=== PATIENT | female | born 1935 | race Caucasian/White ===

== ENCOUNTER → 2016-06-28 | Outpatient (CLI) | payer MEDICARE, OTHER ==
[~2016-06-28] MED LIST: BUME1TAB17 PO; CALC600T71 PO; CARB1TAB53 PO; DIGO125T PO; FEXO-11 PO; FLUT16SP2 EA NOSTRIL; GUAI600T PO; LACT1CAP73 PO; LEVO50TA69 PO; MAGN400C PO; METO-492 PO; MULT-795 PO; OMEP20CA4 PO; PHEN100C84 PO; POTA20TA10 PO; RASA1TAB PO; TRAM50TA4 PO; WARF3TAB27 PO; [UNRECOGNIZED DRUG - CODE] PO
[2016-06-28 07:19] LABS: INR 2.61 (0.76-1.04); PROTHROMBIN TIME 28.5 SEC (9.31-12.49)
== END ==
LOC: LABNH.BH 00:10
PROVIDERS: ATTEND Internal Medicine
DX: I48.0 Paroxysmal atrial fibrillation (principal)
CPT/HCPCS: 36415; 85610; P9604

== ENCOUNTER → 2016-07-26 | Outpatient (CLI) | payer MEDICARE, OTHER ==
[2016-07-26 08:01] LABS: INR 3.15 (0.76-1.04); PROTHROMBIN TIME 34.3 SEC (9.31-12.49)
== END ==
LOC: LABNH.BH 00:32
PROVIDERS: ATTEND Internal Medicine
DX: I48.0 Paroxysmal atrial fibrillation (principal)
CPT/HCPCS: 36415; 85610; P9604

== ENCOUNTER → 2016-08-06 | Outpatient (CLI) | payer MEDICARE, OTHER ==
[2016-08-06 06:33] LABS: HCT - HEMATOCRIT 37.2 % (36-46); HGB - HEMOGLOBIN 12.1 GM/DL (12-16); MEAN CORPUSCULAR HGB 32.6 UUG (26-34); MEAN CORPUSCULAR HGB CONC(MCHC 32.5 GM/DL (31-37); MEAN CORPUSCULAR VOLUME 100.3 UM3 (80-100); MEAN PLATELET VOLUME 9.6 UM3 (9.4-12.4); RED BLOOD COUNT 3.71 M/MM3 (4.00-5.20); WBC - WHITE BLOOD COUNT 4.8 T/MM3 (4.5-11.0)
[2016-08-06 06:45] LABS: ALBUMIN 3.4 G/DL (3.5-5.0); ALBUMIN/GLOBULIN RATIO 1.4 RATIO (1.1-2.2); ALKALINE PHOSPHATASE 47 U/L (38-126); ALT (SGPT) 31 U/L (9-52); ANION GAP 8 MEQ/L (5-15); AST (SGOT) 15 U/L (14-36); BUN/CREATININE RATIO 15 RATIO (6-26); CALCIUM 8.6 MG/DL (8.4-10.2); CHLORIDE 97 MEQ/L (98-107); CO2 - CARBON DIOXIDE 30 MEQ/L (22-30); CREATININE 1.3 MG/DL (0.7-1.2); GLOMERULAR FILTRATION RATE 39; GLUCOSE 82 MG/DL (65-110); POTASSIUM 4.6 MEQ/L (3.6-5); SODIUM 135 MEQ/L (134-144); TOTAL PROTEIN 5.8 G/DL (6.3-8.2)
[2016-08-06 07:55] LABS: LYMPHOCYTES # (MANUAL) 1.8 T/MM3 (1-4.8); MONOCYTES # (MANUAL) 0.5 T/MM3 (0-0.8); NEUTROPHILS #(MANUAL)-ABSOLUTE 2.5 T/MM3 (1.8-7.7); TOTAL CELLS COUNTED 100 %
[2016-08-07 00:57] LABS: VLDL CHOLESTEROL 29.6 MG/DL (0-28)
[2016-08-07 10:49] LABS: LDL CHOLESTEROL,CALCULATED 60.4 (66-159); RISK FACTOR 2.8 RATIO (0-4.0)
== END ==
LOC: LABNH.BH 00:55
PROVIDERS: ATTEND Internal Medicine
DX: E03.9 Hypothyroidism, unspecified (principal); D64.9 Anemia, unspecified; I10 Essential (primary) hypertension; I25.10 Atherosclerotic heart disease of native coronary artery without angina pectoris; N18.3 Chronic kidney disease, stage 3 (moderate); N25.9 Disorder resulting from impaired renal tubular function, unspecified
CPT/HCPCS: 36415; 80053; 80061; 84443; 85007; 85027; 85652; P9604

== ENCOUNTER → 2016-08-23 | Outpatient (CLI) | payer MEDICARE, OTHER ==
[~2016-08-23] MED LIST changes: +CELE200C PO; +CITA20TA17 PO; +PHEN100C4 PO; +RASA1TAB2 PO
[2016-08-23 06:41] LABS: INR 3.61 (0.77-1.03); PROTHROMBIN TIME 39.2 SEC (9.48-12.52)
== END ==
LOC: LABNH.BH 00:37
PROVIDERS: ATTEND Internal Medicine
DX: I48.0 Paroxysmal atrial fibrillation (principal)
CPT/HCPCS: 36415; 85610; P9604

== ENCOUNTER 2016-08-24 06:25 | Emergency (ER) | payer MEDICARE, OTHER, MEDICAID ==
[~2016-08-24] VITALS: Ht 154.9 cm; Wt 63.1 kg
[~2016-08-24 06:25] MED LIST changes: -CELE200C PO; -CITA20TA17 PO; -PHEN100C4 PO; -RASA1TAB2 PO
[2016-08-24 06:30] VITALS: Ht 154.9 cm; Wt 63.1 kg
--- OUTSIDE RECORDS SUMMARY | 2016-08-24 06:31 | XMS REPORT | Continuity of Care Document ---
Author Author [facility] Organization [facility] Address Unknown Phone Unavailable Support Name Relationship Address Phone SIDDHARTHA KLEIN MD Caregiver [address] [place], [place] [phone] JENNIFER DRAKE DO Caregiver [employer] [address] [place] [phone] HAYES ESPINOZA Next Of Kin [address] [place] [address] Insurance Providers Payer Name Policy Number Subscriber Name Relationship Medicare [id number] Amauri Espinoza 18 Self [employer]ha/[employer]pk [id number] Hayes Espinoza 01 Spouse Advance Directives Directive Response Recorded Date/Time Ordered Resuscitation Status Full Code, unverified 06/22/14 3:08pm Resuscitation Documents on File No 06/22/14 3:51pm Chief Complaint and Reason for Visit Chief Complaint CRITICAL ILLNESS,SEPSIS,PNEUMONIA Reason for Visit Atrial fibrillation Hyponatremia Anemia Hypothyroid CHF (congestive heart failure) Anticoagulant long-term use CAD (coronary artery disease) Mitral regurgitation Problems Medical Problems Problem Onset Date Status Atrial fibrillation Unknown Active Pneumonia Unknown Active SIRS (systemic inflammatory response syndrome) Unknown Active Hyponatremia Unknown Active Abnormal INR Unknown Active Respiratory distress Unknown Resolved Fluid overload Unknown Resolved Thrush, oral Unknown Active Stage III chronic kidney disease Unknown Active Anemia Unknown Active Hypotension Unknown Resolved Acute kidney injury Unknown Resolved Hypothyroid Unknown Active CHF (congestive heart failure) Unknown Active Anticoagulant long-term use Unknown Active CAD (coronary artery disease) Unknown Active Mitral regurgitation Unknown Active Medications Medication Dose Route Sig Days/Qty Instructions Order Date Discontinued Date Status Methocarbamol 750 Mg PO FOUR TIMES DAILY 10 Days 10/12/10 01/13/11 Discontinued Carbidopa/Levodopa 1 Udtab PO THREE TIMES A DAY 10/12/10 Active Potassium Chloride 20 Meq PO TWICE A DAY 10/12/10 Active Warfarin Sodium 3 Mg PO DAILY 10/12/10 Active Ascorbic Acid 1,000 Mg PO DAILY 10/12/10 Active Levothyroxine Sodium 50 Mcg PO DAILY 10/12/10 Active Spironolactone 25 Mg PO DAILY 10/12/10 Active Phenytoin Sodium Extended 100 Mg PO TWICE A DAY 10/12/10 Active Multivitamins W-Minerals/Lut 1 Tab PO DAILY 10/12/10 Active Calcium Carbonate 600 Mg PO TWICE A DAY 10/12/10 Active Rasagiline Mesylate 1 Mg PO DAILY 10/12/10 Active Amiodarone Hcl 200 Mg PO DAILY 10/12/10 06/22/14 Discontinued Acetaminophen 1,000 Mg PO NEEDED 10/12/10 Active Furosemide 1 Tab PO TWICE A DAY 06/07/14 06/22/14 Discontinued Omeprazole 20 Mg PO BEFORE BREAKFAST Take 1 capsule, by mouth, one time a day before breakfast. 06/07/14 Active Fexofenadine HCl 1 Tab PO TWICE A DAY PRN ALLERY SYMPTOMS hours of this medication, causes decreased absorption 06/07/14 Active Glucosamine/Chondroitin Sulf A 1 Cap PO TWICE A DAY 06/07/14 Active Guaifenesin 1 Tab PO NEEDED 06/07/14 Active Fluticasone Propionate 2 [place] EA NOSTRIL DAILY PRN PRN ORDERS Active Addison-3 Fatty Acids 1,200 Mg PO DAILY 06/07/14 Active Magnesium Oxide 400 Mg PO TWICE A DAY 06/07/14 Active Lactobacillus Combination No.4 1 Cap PO DAILY 06/07/14 Active Warfarin Sodium 6 Mg PO DAILY PRN Saturday06/07/14 06/22/14 Discontinued Amiodarone HCl 200 Mg PO TWICE A DAY PRN SATURDAY, Saturday06/07/14 Discontinued Tramadol HCl 50 Mg PO Q6H/0300,0900,1500,2100 PRN PAIN Take 1 tablet, by mouth, every 6 hours. 06/07/14 Active Bumetanide 1 Mg PO TWICE A DAY 30 Days 06/22/14 Active Verapamil HCl 80 Mg PO THREE TIMES A DAY 30 Days 06/22/14 Active Metoprolol Tartrate 50 Mg PO TWICE DAILY WITH MEALS 30 Days 06/22/14 Active Levalbuterol HCl 1.25 Mg AEROSOL Every 6 Hours PRN WHEEZING 30 Active Social History Social History Problem Response Recorded Date/Time Hx Substance Use No 01/13/2011 11:15am Hx Alcohol Use No 01/13/2011 11:15am Has the pt used tobacco in the last 12 months No 06/22/2014 3:53pm Tobacco Usage none 06/23/2014 12:42pm Query Response Start Date Stop Date Smoking Status Never smoker Hospital Discharge Instructions Instructions: Care Instructions: Reason for Hospitalization: Biliary Colic I was in the hospital because (patient own words): "I HAVE PAIN IN MY STOMACH" Discharge Diet: Nothing by mouth Patient Instructions: Patient to go to [place] by Private vehicle, scheduled for ERCP by Dr. Jennifer Alberto at 1pm today. Condition at time of discharge: Good No Bathing or swimming. Wound/Incision Care: Reapply dressing as needed. Give NICO instructions Notify Physician If: 1. Call your surgeon if you are having problems relating to your surgery at [phone]. 2. Problems such as: Temp above 101.5 degrees You develop redness, excessive swelling of the incision, increasing pain or excessive foul smelling drainage. 3. If the office is closed, call [facility] at [phone] and have your Surgeon paged. Condition at time of discharge: Good Good room.* Condition at time of discharge: Good Plan of Care Discharge Date 07/01/14 11:00am Disposition 02 TO [facility] Prescriptions See Medications Section Functional Status Query Response Date Recorded Physical Hygiene Assist June 22, 2014 1:31pm Physical Hygiene Assist June 22, 2014 1:31pm Allergies, Adverse Reactions, Alerts Allergen Type Severity Reaction Status Last Updated Codeine Adverse Reaction Unknown SWELLING Active 01/13/11 Immunizations Name Given Type Hx Influenza Vaccination Y 01/2014 Historical Hx Pneumococcal Vaccination Y 01/19 Historical Hx Influenza Vaccination Y 01/2014 Historical Vital Signs Acute Vital Signs Vital Response Date/Time Temperature (Fahrenheit) 97.2 deg F (96.8 - 99.1) Temperature (Calculated Celsius) 36.26014 degrees C (36.0 - 37.3) Pulse Rate (adult) 132 bpm (60 - 100) Respiratory Rate 24 breaths/min (10 - 20) Height (Feet) 5 feet Height (Inches) 1.00 inches Height 5 ft 1 in Weight 184 lb Body Mass Index 34.0 kg/m^2 Results Test Source Date Result Interp. Ref. Range Comments Alanine Aminotransferase (ALT/SGPT) June 19, 2014 4:38am 13 U/L N 9-52 Albumin June 19, 2014 4:38am 2.7 G/DL L 3.5-5.0 Albumin/Globulin Ratio June 19, 2014 4:38am 0.9 RATIO L 1.1-2.2 Alkaline Phosphatase June 19, 2014 4:38am 59 U/L N 38-126 Anion Gap July 01, 2014 4:44am 7 MEQ/L N 5-15 Anisocytosis July 01, 2014 4:44am 1+ - Aspartate Amino Transf (AST/SGOT) June 19, 2014 4:38am 26 U/L N 14-36 B-Type Natriuretic Peptide October 15, 2009 1:40am 78 PG/ML N 15-100 BUN/Creatinine Ratio July 01, 2014 4:44am 17 RATIO N 6-26 Band Neutrophils # July 01, 2014 4:44am 0.3 T/MM3 - Band Neutrophils % July 01, 2014 4:44am 3.0 % N 0-6 Basophils # (Auto) June 23, 2014 4:36am 0.1 T/MM3 N 0-0.2 Basophils (%) (Auto) June 23, 2014 4:36am 1.4 % N 0-2 Blood Urea Nitrogen July 01, 2014 4:44am 20.0 MG/DL H 7-17 Calcium Level July 01, 2014 4:44am 8.3 MG/DL L 8.4-10.2 Calculated Osmolality July 01, 2014 4:44am 239 MOSM/KG L 261-280 Carbon Dioxide Level July 01, 2014 4:44am 23 MEQ/L N 22-30 Chemistry Specimen Hemolysis July 01, 2014 4:44am < 15 0-25 0-25: No Hemolysis.26-70: Slight Hemolysis - can falsely elevate K and Urine Protein. 71-285: Moderate Hemolysis - can falsely elevate K, Troponin I, CA 19-9, PTH, CSF GLucose, and Urine Protein, and can falsely decrease Phenytoin. 286-999: Gross Hemolysis - can falsely elevate K, Troponin I, CA 19-9, PTH, CSF Glucose, and Urine Protine, and can falsely decrease Phenytoin. Recommend specimen recollection. Chloride Level July 01, 2014 4:44am 90 MEQ/L L 98-107 Conjugated Bilirubin October 15, 2009 1:40am 0.00 MG/DL N 0.00-0.30 Cortisol AM Sample June 11, 2014 4:59am 40.5 UG/DL 1 - Before 10: 00am: 4.46-22.7 ug/dL;After 5:00pm: 1.7-14.1 ug/dL Creatine Kinase and CKMB Interpret June 10, 2014 7:27am 4.2 ng/mL PH - CKMB Mass performed at [facility] Reference Lab, [address] [place], [place] [address]Medical Director Massiel Castillo DO --- 06/10/14 1357 --- CKMB-A previously reported as: 4.2 CH ng/mL CKMB Mass performed at [facility] Reference Lab, [address] [place] [address] Environmental Aide Massiel Castillo DO Creatinine July 01, 2014 4:44am 1.2 MG/DL N 0.7-1.2 Digoxin Level June 13, 2014 4:27am 2.3 NG/ML H 0.8-2.0 Eosinophils # (Auto) June 23, 2014 4:36am 0.3 T/MM3 N 0-0.5 Eosinophils # (Manual) June 21, 2014 5:01am 0.1 T/MM3 N 0-0.5 Eosinophils % (Manual) June 21, 2014 5:01am 2.0 % N 0-4 Eosinophils (%) (Auto) June 23, 2014 4:36am 4.9 % H 0-4 Free Thyroxine June 10, 2014 7:27am 2.85 NG/DL H 0.78-2.19 COMMENT CALL RESULTS TO DR DRAKE Free Triiodothyronine June 10, 2014 7:28am 1.82 PG/ML L 2.77-5.27 Globulin June 19, 2014 4:38am 3.0 G/DL N 2.4-3.6 Glomerular Filtration Rate Calc July 01, 2014 4:44am 43 - Glucose Level July 01, 2014 4:44am 171 MG/DL H 65-110 Hematocrit July 01, 2014 4:44am 31.4 % L 36-46 Hemoglobin July 01, 2014 4:44am 10.7 GM/DL L 12-16 Icterus Index July 01, 2014 4:44am < 2 0-7 Immature Granulocyte # (Auto) June 23, 2014 4:36am 0.01 T/MM3 N 0.00- 0.03 Immature Granulocyte % (Auto) June 23, 2014 4:36am 0.2 % N 0.0-0.5 Influenza Type A Antigen June 07, 2014 6:07pm Negative - Negative for Flu A protein antigen. Assay sensitivity is90%. Influenza Type B Antigen June 07, 2014 6:07pm Negative - Negative for Flu B protein antigen. Assay sensitivity is90%. Lab Scanned Report July 17, 2011 8:59pm LAB TEST FORM REQUEST [id number] - Lymphocytes # (Auto) June 23, 2014 4:36am 1.4 T/MM3 N 1-4.8 Lymphocytes # (Manual) July 01, 2014 4:44am 0.7 T/MM3 L 1-4.8 Lymphocytes % (Manual) July 01, 2014 4:44am 8.0 % L 23-45 Lymphocytes (%) (Auto) June 23, 2014 4:36am 24.5 % N 23-45 Magnesium Level June 14, 2014 5:25am 1.7 MG/DL N 1.6-2.3 Mean Corpuscular Hemoglobin July 01, 2014 4:44am 31.9 UUG N 26-34 Mean Corpuscular Hemoglobin Concent July 01, 2014 4:44am 34.1 GM/DL N 31-37 Mean Corpuscular Volume July 01, 2014 4:44am 93.7 UM3 N 80-100 Mean Platelet Volume July 01, 2014 4:44am 8.8 UM3 L 9.4-12.4 Monocytes # (Auto) June 23, 2014 4:36am 0.5 T/MM3 N 0-0.8 Monocytes # (Manual) July 01, 2014 4:44am 0.2 T/MM3 N 0-0.8 Monocytes % (Manual) July 01, 2014 4:44am 2.0 % N 0-9.0 Monocytes (%) (Auto) June 23, 2014 4:36am 8.7 % N 0-9.0 Mycoplasma pneumoniae IgG Antibody June 07, 2014 3:54pm 0.69 - Mycoplasma IGG Interpretation:.<0.91 No detectable antibody .0.91-1.09 Equivocal-Suggest testing on a new specimen. .>1.09 Positive-Shows immunologic exposure to M. pneumoniae. Mycoplasma pneumoniae IgM Antibody June 07, 2014 3:54pm 0.05 - Mycoplasma IGM Interpretation:.<0.91 No detectable antibody .0.91-1.09 Equivocal-Suggest testing on a new specimen. .>1.09 Positive-Shows active or recent infection with M. pneumoniae. Mycoplasma Antibodies performed at [facility], [address] [place] [address] Environmental Aide Massiel Castillo DO [id number] Natriuretic Peptide June 10, 2014 12:55pm 12522 PG/ML H 0 -175 Rule in cut points: <50 years old=450; 50-75 years old=900; >75 years old=1800; When utilizing ProBNP rule-in cut points, adjustment for impaired renal function is typically not required. Neutrophils # (Auto) June 23, 2014 4:36am 3.3 T/MM3 N 1.8-7.7 Neutrophils # (Manual) July 01, 2014 4:44am 7.5 T/MM3 N 1.8-7.7 Neutrophils % (Manual) July 01, 2014 4:44am 87.0 % H 33-66 Neutrophils (%) (Auto) June 23, 2014 4:36am 60.3 % N 33-66 Phenytoin (Dilantin) Level January 13, 2011 12:45pm 3.3 UG/ML L 10-20 COMMENT blood in lab Platelet Count July 01, 2014 4:44am 417 T/MM3 H 130-400 Potassium Level July 01, 2014 4:44am 5.4 MEQ/L H 3.6-5 Procalcitonin June 09, 2014 1:25am 0.31 NG/ML - PCT </=0.5 ng/mL - sepsis not likely;PCT >0.5 and </=2 ng/mL - sepsis possible; PCT >2 ng/mL - sepsis likely; PCT >/=10 ng/mL - systemic inflammatory response - sepsis or septic shock highly indicated. Prothromb Time International Ratio July 01, 2014 4:44am 2.86 H 0.81- 1.09 THERAPUTIC RANGE=2.00-3.00 FOR ANTI-THROMBOSIS THERAPUTIC RANGE=2.50- 3.50 FOR IMPLANTED VALVE RDW Standard Deviation July 01, 2014 4:44am 42.7 FL N 36.9-50.2 Red Blood Count July 01, 2014 4:44am 3.35 M/MM3 L 4.00-5.20 Red Cell Morphology Comment July 01, 2014 4:44am Abnormal - Sodium Level July 01, 2014 4:44am 120 MEQ/L L 134-144 TB Test (QFT) June 11, 2014 4:59am Indeterminate - Quantiferon TB Test performed at [facility], [address] [place] [address] Environmental Aide Massiel Castillo, Thyroid Stimulating Hormone (TSH) June 10, 2014 7:27am 2.12 MIU/L N 0.47-4.68 COMMENT CALL RESULTS TO DR DRAKE Total Bilirubin June 19, 2014 4:38am 0.30 MG/DL N 0.20-1.30 Total Creatine Kinase June 10, 2014 7:27am 158 U/L H 30-135 COMMENT CALL RESULTS TO DR DRAKE Total Protein June 19, 2014 4:38am 5.7 G/DL L 6.3-8.2 Troponin I June 25, 2014 4:40am 0.014 ng/ml N 0-0.12 Turbidity July 01, 2014 4:44am < 20 0-20 Unconjugated Bilirubin October 15, 2009 1:40am 0.19 MG/DL N 0.00-1.10 Urine Bacteria June 23, 2014 11:45am 2+ H - COMMENT continue bladder retraining, D/C lai. UA clean catch post lai removal Has specimen been collected/obtained? Y Urine Bilirubin June 23, 2014 11:45am Negative - COMMENT continue bladder retraining, D/C lai. UA clean catch post lai removal Has specimen been collected/obtained? Y Urine Blood June 23, 2014 11:45am Trace-intact H - COMMENT continue bladder retraining, D/C lai. UA clean catch post lai removal Has specimen been collected/obtained? Y Urine Collection Type June 23, 2014 11:45am Cleancatch-midstream - COMMENT continue bladder retraining, D/C lai. UA clean catch post lai removal Has specimen been collected/obtained? Y Urine Color June 23, 2014 11:45am Yellow - COMMENT continue bladder retraining, D/C lai. UA clean catch post lai removal Has specimen been collected/obtained? Y Urine Culture Indicated June 23, 2014 11:45am Cult reflexed &setup - COMMENT continue bladder retraining, D/C lai. UA clean catch post lai removal Has specimen been collected/obtained? Y Urine Glucose (UA) June 23, 2014 11:45am Negative - COMMENT continue bladder retraining, D/C lai. UA clean catch post lai removal Has specimen been collected/obtained? Y Urine Ketones June 23, 2014 11:45am Negative - COMMENT continue bladder retraining, D/C lai. UA clean catch post lai removal Has specimen been collected/obtained? Y Urine Leukocyte Esterase June 23, 2014 11:45am 1+ H - COMMENT continue bladder retraining, D/C lai. UA clean catch post lai removal Has specimen been collected/obtained? Y Urine Microscopic Not Indicated October 15, 2009 1:54am Not indicated - Has specimen been collected/obtained? Y Urine Nitrite June 23, 2014 11:45am Negative - COMMENT continue bladder retraining, D/C lai. UA clean catch post lai removal Has specimen been collected/obtained? Y Urine Protein June 23, 2014 11:45am Negative - COMMENT continue bladder retraining, D/C lai. UA clean catch post lai removal Has specimen been collected/obtained? Y Urine RBC June 23, 2014 11:45am 1-3 /HPF - COMMENT continue bladder retraining, D/C lai. UA clean catch post lai removal Has specimen been collected/obtained? Y Urine Random Sodium June 29, 2014 10:45am 6 MEQ/L L 30-90 Has specimen been collected/obtained? Y Urine Specific [place] June 29, 2014 10:45am 1.020 - ADD-ON TESTING FROM THIS MORNING/[facility] FROM [facility] Urine Squamous Epithelial Cells June 23, 2014 11:45am 5-10 - COMMENT continue bladder retraining, D/C lai. UA clean catch post lai removal Has specimen been collected/obtained? Y Urine Turbidity June 23, 2014 11:45am Sl cloudy - COMMENT continue bladder retraining, D/C lai. UA clean catch post lia removal Has specimen been collected/obtained? Y Urine Urobilinogen June 23, 2014 11:45am 0.2 EU/DL - COMMENT continue bladder retraining, D/C lai. UA clean catch post lai removal Has specimen been collected/obtained? Y Urine WBC June 23, 2014 11:45am 10-20 /HPF H - COMMENT continue bladder retraining, D/C lai. UA clean catch post lai removal Has specimen been collected/obtained? Y Urine pH June 23, 2014 11:45am 8.0 - COMMENT continue bladder retraining, D/C lai. UA clean catch post lai removal Has specimen been collected/obtained? Y Venous Blood Lactate June 07, 2014 3:54pm 1.3 MMOL/L N 0.6-2.2 White Blood Count July 01, 2014 4:44am 8.6 T/MM3 N 4.5-11.0 Blood Culture Peripheral Blood June 07, 2014 3:59pm NO GROWTH AFTER 5 DAYS Gram Stain Sputum-Expectorated Sputum June 07, 2014 6:55pm Urine Culture Urine, Clean Catch-Midstream June 23, 2014 12:11pm Mixed Gail Name: AMAURI ESPINOZA Unit #: [id number] : 1935 Sex: F DISCHARGE SUMMARY Admit Date: 06/07/14 Report #: [id number] General Date Date DATE: 06/22/14 TIME: 09:03 Attending Physician Jennifer Drake DO Admitting Physician Jennifer Drake DO Consulting Physician Gautam Hicks MD Admitting Diagnosis atrial fib, hyponatremia Discharge Diagnosis Chronic Afib 06-22-14: Pt seen and examined by Dian Menjivar PA-C. Afib has stabilized/managed per Dr Hicks. Hyponatremia resolved. 06-18-14: Pt seen and examined by Dian Menjivar PA-C. Pt reverted back to Afib during night. Repeat cardioversion pending. 06-17-14: Pt seen and examined by Dian Menjivar PA-C. Afib resolved, rate mid 80's. transferred to medical unit. Continue monitor hyponatremia. Hgb trending slightly down, to 9.0 today. Continue close monitor per POC/Dr. Drake 06-16-14: Pt seen and examined by Dian Menjivar PA-C. Rib soreness post cardioversion. Will add low dose norco for pain relief. has tolerated hydrocodone cough syrup without reaction. ( codeine listed as allergy) Hyponatremia persisting. See plan of care per Dr. Drake; possible transfer to medical unit if afib continues stable. 06-15-14: Pt seen and examined by Dian Menjivar PA-C. Cardioversion pending per Dr Hicks. Procedures repeated cardioversion per Dr Hicks Laboratory Laboratory Laboratory Tests Test 06/22/14 05:31 Prothromb Time International 2.07 Ratio Current Medications Medications (Trade) Dose Ordered Sig/Kathleen Route PRN Reason Start Time Stop Time Status Last Admin Dose Admin Levothyroxine Sodium (Synthroid) 50 mcg ACB PO 06/08/14 06:30 06/22/14 05:39 Furosemide (Lasix) 20 mg BID. IV 06/07/14 17:00 06/10/14 15:56 DC 06/10/14 11:27 Potassium Chloride (Kdur) 20 meq BIDWM PO 06/07/14 17:30 06/11/14 08:12 DC 06/11/14 08:00 Magnesium Oxide (Magox) 400 mg BIDWM PO 06/07/14 17:30 06/22/14 08:35 Phenytoin Sodium (Dilantin) 100 mg BID PO 06/07/14 21:00 06/08/14 07:53 DC 06/07/14 21:00 Omeprazole (Prilosec) 20 mg ACB PO 06/08/14 06:30 06/22/14 05:39 Carbidopa/Levodopa (Sinemet 25/100) 1 tab TID/E PO 06/07/14 20:00 06/22/14 05:39 Rasagiline (Azilect) 1 mg DAILY PO 06/08/14 09:00 06/22/14 08:35 Metoprolol Tartrate (Lopressor) 5 mg Q6H PRN IV 06/07/14 16:00 06/09/14 13:19 DC 06/09/14 09:12 Miscellaneous Medication PRN PRN MC 06/07/14 16:00 Levofloxacin 750 mg/Dextrose 150 ml @ 100 mls/hr DAILY IV 06/07/14 15:56 06/11/14 10:29 DC 06/11/14 08:36 Azithromycin/ Sodium Chloride (Zithromax/NS) 250 ml @ 166.667 mls/hr DAILY IV 06/07/14 15:57 06/09/14 10:29 DC 06/09/14 10:59 Albuterol/ Ipratropium (Duoneb) 3 ml RTQID AEROSOL 06/07/14 19:00 06/22/14 06:54 Levalbuterol HCl (Xopenex) 1.25 mg Q6H PRN AEROSOL 06/07/14 16:00 06/11/14 07:03 Amiodarone HCl (Pacerone) 200 mg [id number] PO 06/08/14 09:00 06/10/14 13:03 DC 06/10/14 09:00 Amiodarone HCl (Pacerone) 400 mg MoFr PO 06/07/14 09:00 06/10/14 13:02 DC Guaifenesin/ Dextromethorphan 10 ml 10 ml Q4H PRN PO 06/07/14 17:30 06/07/14 18:13 DC Sodium Chloride 1,000 ml @ 250 mls/hr Q4H IV 06/07/14 17:30 06/07/14 18:29 DC 06/07/14 20:30 Sodium Chloride (NS) 1,000 ml @ 100 mls/hr Q10H IV 06/07/14 18:30 06/08/14 14:01 DC 06/08/14 03:48 Benzonatate (Tessalon Perles) 200 mg TID PRN PO COUGH 06/07/14 18:15 06/16/14 09:53 Guaifenesin (Robitussin) 200 mg Q4H PRN PO 06/07/14 18:15 06/16/14 05:36 Metoprolol Tartrate (Lopressor) 5 mg O ONCE IV 06/07/14 18:45 06/07/14 18:59 DC 06/07/14 18:30 Metoprolol Tartrate (Lopressor) 10 mg O ONCE IV 06/07/14 19:45 06/08/14 06:10 DC 06/07/14 20:04 Phenytoin Sodium 100 mg 100 mg BIDWM PO 06/08/14 07:53 06/22/14 08:36 Sodium Chloride/ Sodium Chloride (Sodium Chloride/ NS) 1,090 ml @ 30 mls/hr Q24H IV 06/08/14 09:15 06/11/14 00:16 DC 06/10/14 16:03 Acetaminophen (Tylenol) 1-2 TABS Q4H. Q4H PRN PO DISCOMFORT 06/08/14 20:15 06/08/14 20:15 DC Acetaminophen (Tylenol) 1-2 TABS Q4H. Q4H PRN PO DISCOMFORT 06/08/14 20:15 06/09/14 06:33 DC 06/09/14 00:37 Calcium Carbonate (Calcium) 2,000 mg BID PO 06/09/14 09:00 06/09/14 09:00 DC Calcium Carbonate (Calcium) 1,000 mg BID PO 06/09/14 09:00 06/22/14 08:37 Acetaminophen (Tylenol) 1-2 TABS Q4H. Q5H PRN PO DISCOMFORT 06/09/14 06:33 06/22/14 03:22 Metoprolol Tartrate (Lopressor) 5 mg O ONCE IV 06/09/14 12:00 06/09/14 12:51 DC 06/09/14 12:04 Metoprolol Tartrate (Lopressor) 10 mg Q6H PRN IV 06/09/14 16:00 06/10/14 09:32 DC 06/10/14 02:10 Metoprolol Tartrate (Lopressor) 10 mg O ONCE IV 06/09/14 13:30 06/09/14 13:36 DC 06/09/14 13:29 Furosemide (Lasix) 20 mg O ONCE IV 06/09/14 14:45 06/09/14 14:46 DC 06/09/14 15:19 Potassium Chloride (Kdur) 20 meq O ONCE PO 06/09/14 14:45 06/09/14 14:46 DC 06/09/14 15:19 Metoprolol Tartrate (Lopressor) 10 mg O ONCE IV 06/10/14 04:45 06/10/14 06:24 DC 06/10/14 04:45 Metoprolol Tartrate 25 mg 25 mg BIDWM PO 06/10/14 08:00 06/10/14 09:32 DC Diltiazem HCl/ Sodium Chloride (Cardizem/NS) 125 ml @ 10 mls/hr [id number] IV 06/10/14 07:45 06/11/14 03:32 DC 06/10/14 18:00 Diltiazem HCl (Cardizem) 10 mg NOW STAT IV 06/10/14 07:39 06/10/14 07:40 DC 06/10/14 07:50 Diltiazem HCl 10 mg 10 mg O ONCE IV 06/10/14 11:30 06/10/14 11:31 DC 06/10/14 11:28 Amiodarone HCl/ Sodium Chloride (Amiodarone/NS) 103 ml @ 600 mls/hr NOW STAT IV 06/10/14 13:00 06/10/14 13:10 DC 06/10/14 14:32 Amiodarone HCl (Pacerone) 200 mg DAILY PO 06/11/14 09:00 06/21/14 12:00 DC 06/21/14 08:22 Furosemide (Lasix) 40 mg Q6HR IV 06/10/14 15:00 06/10/14 20:19 DC 06/10/14 16:01 Bumetanide 2 mg 2 mg O ONCE IV 06/10/14 20:15 06/11/14 06:25 DC 06/10/14 20:44 Bumetanide 12.5 mg/Sodium Chloride 50 ml @ 2 mls/hr Q24H IV 06/10/14 21:00 06/11/14 19:23 DC 06/11/14 19:15 Diltiazem HCl/ Sodium Chloride (Cardizem/NS) 125 ml @ 20 mls/hr Q6H15M IV 06/11/14 03:28 06/13/14 15:30 DC 06/11/14 20:03 Digoxin (Lanoxin) 500 mcg O ONCE IV 06/11/14 07:30 06/11/14 07:36 DC 06/11/14 07:46 Digoxin (Lanoxin) 250 mcg DAILY IV 06/11/14 11:30 06/21/14 12:00 DC 06/12/14 10:15 Potassium Chloride (Kdur) 40 meq BIDWM PO 06/11/14 08:12 06/16/14 09:59 DC 06/15/14 19:51 Potassium Chloride (Kdur) 40 meq O ONCE PO 06/11/14 08:15 06/11/14 08:16 DC 06/11/14 08:34 Diltiazem HCl 10 mg 10 mg O ONCE IV 06/11/14 13:30 06/11/14 13:38 DC 06/11/14 13:30 Sodium Chloride/ Sodium Chloride (Sodium Chloride/ NS) 1,090 ml @ 30 mls/hr Q24H IV 06/11/14 13:30 06/12/14 01:31 DC 06/11/14 13:43 Metoprolol Tartrate 50 mg 50 mg BIDWM PO 06/11/14 21:00 06/13/14 15:30 DC 06/13/14 09:39 Bumetanide/Sodium Chloride (Bumex) 50 ml @ 2 mls/hr Q24H IV 06/11/14 19:20 06/12/14 09:01 DC Bumetanide (Bumex) 2 mg Q6HR IV 06/12/14 15:00 06/13/14 15:30 DC 06/13/14 15:12 Sodium Chloride (Iv Flush (Picc-Line)) 10 ml PRN PRN IV FLUSHING 06/12/14 00:15 06/22/14 08:35 Potassium Chloride (Kdur) 40 meq O ONCE PO 06/12/14 12:00 06/12/14 12:10 DC 06/12/14 14:03 Fluconazole (Diflucan) 150 mg O ONCE PO 06/12/14 11:45 06/12/14 12:10 DC 06/12/14 14:02 Nystatin (Nystatin Suspension) 5 ml BID PO 06/12/14 11:45 06/22/14 08:36 Warfarin Sodium (Coumadin Protocol) NOTE 06/12/14 13:15 Warfarin Sodium (Coumadin) 2.5 mg O ONCE PO 06/12/14 15:00 06/12/14 15:01 DC 06/12/14 15:23 Warfarin Sodium (Coumadin) 6 mg NOON PO 06/13/14 12:00 06/13/14 12:15 DC 06/13/14 12:51 Bumetanide (Bumex) 2 mg 8H IV 06/14/14 04:00 06/14/14 04:00 DC Metoprolol Tartrate (Lopressor) 75 mg BIDWM PO 06/13/14 17:30 06/16/14 08:24 DC 06/15/14 20:10 Bumetanide (Bumex) 2 mg 8H IV 06/13/14 23:00 06/14/14 07:06 DC 06/14/14 06:36 Chlorphenir/ Hydrocodone Polistirex (Tussionex) 5 ml Q12HR PRN PO COUGH 06/13/14 23:45 06/17/14 01:39 Bumetanide (Bumex) 2 mg Q8H IV 06/14/14 15:00 06/14/14 16:37 DC 06/14/14 14:53 Warfarin Sodium (Coumadin) 2 mg NOON PO 06/14/14 12:00 06/14/14 12:30 DC 06/14/14 12:15 Diltiazem HCl (Cardizem Cd) 180 mg DAILY PO 06/14/14 16:30 06/16/14 00:39 DC 06/15/14 08:53 Bumetanide (Bumex) 3 mg Q8HR PO 06/14/14 17:00 06/16/14 08:24 DC 06/15/14 16:00 Diltiazem HCl (Cardizem) 10 mg Q6HR PRN IV TACHYCARDIA 06/14/14 17:30 06/16/14 08:24 DC Diltiazem HCl 10 mg 10 mg O ONCE IV 06/14/14 17:45 06/14/14 17:57 DC 06/14/14 17:30 Amiodarone HCl/ Sodium Chloride (Amiodarone/NS) 53 ml @ 308.738 mls/hr NOW STAT IV 06/15/14 16:58 06/15/14 17:08 DC 06/15/14 17:10 Midazolam HCl 5 mg 5 mg O ONCE IV 06/15/14 20:15 06/16/14 06:22 DC 06/15/14 16:45 Sodium Chloride (NS) 500 ml @ 0 mls/hr Q0M IV 06/16/14 00:45 06/21/14 13:43 DC 06/18/14 05:41 Calcium Chloride (Calcium Chloride) 1,000 mg O ONCE IV 06/16/14 00:45 06/16/14 06:22 DC 06/16/14 00:50 Bumetanide (Bumex) 1 mg Q8HR PO 06/16/14 09:00 06/21/14 14:31 DC 06/21/14 08:21 Metoprolol Tartrate (Lopressor) 50 mg BIDWM PO 06/16/14 17:30 06/22/14 08:36 Acetaminophen/ Hydrocodone Bitart (Iron Belt 5) DOSE=1-2 TABLETS BEST ... Q4H PRN PO PAIN 06/16/14 09:30 06/22/14 07:37 Potassium Chloride (Kdur) 20 meq BIDWM PO 06/16/14 17:30 06/22/14 08:36 Sodium Chloride (NS) 250 ml O ONCE IV 06/16/14 18:00 06/16/14 18:34 DC 06/16/14 18:12 Warfarin Sodium (Coumadin) 2.5 mg NOON PO 06/17/14 12:00 06/17/14 12:01 DC 06/17/14 12:07 Amiodarone HCl (Amiodarone) 150 mg O ONCE IV 06/18/14 05:00 06/18/14 06:08 DC 06/18/14 05:16 Warfarin Sodium (Coumadin) 2.5 mg NOON ONCE PO 06/18/14 12:00 06/18/14 12:01 DC 06/18/14 12:45 Sodium Chloride (Iv Flush) 10 ml STK-MED ONCE IVF 06/17/14 22:00 06/18/14 15:45 DC Sodium Chloride (NS) 100 ml STK-MED ONCE IV 06/17/14 22:00 06/18/14 15:45 DC Fentanyl (Fentanyl) 100 mcg STK-MED ONCE IV 06/07/14 18:00 06/18/14 18:39 DC Midazolam HCl (Versed) 2 mg STK-MED ONCE IV 06/07/14 18:00 06/18/14 18:39 DC Warfarin Sodium (Coumadin) 1 mg NOON PO 06/20/14 12:00 06/20/14 12:01 DC 06/20/14 12:31 Warfarin Sodium (Coumadin) 3 mg NOON PO 06/21/14 12:00 06/21/14 12:01 DC 06/21/14 12:26 Alteplase, Recombinant (Cathflo Activase) 4 mg O ONCE IV 06/21/14 10:15 06/21/14 10:18 DC 06/21/14 10:15 Verapamil HCl (Calan) 80 mg TID PO 06/21/14 12:00 06/22/14 08:36 Diltiazem HCl (Cardizem Cd) 120 mg DAILY PO 06/21/14 12:00 06/21/14 14:31 DC 06/21/14 12:26 Bumetanide (Bumex) 1 mg BID PO 06/21/14 15:00 06/22/14 08:36 Warfarin Sodium (Coumadin) 3 mg NOON PO 06/22/14 12:00 Neomycin/ Polymyxin/ Bacitracin (Neosporin) 1 applic O ONCE TOP 06/22/14 09:00 06/22/14 09:01 DC Laboratory Tests Test 06/22/14 05:31 Prothromb Time International 2.07 Ratio History of Present Illness This is an 78 year old patient with a history for A-fib. She has had A-fib since 2007 and has been on warfarin since 2007. She [address] Dr. Lucero, an EP, attempted to cardiovert 2x in 2007 and she converted into SR for short time and was started on Amiodarone. Shortly thereafter she reverted back into A-fib and has been in chronic A-fib ever since. At home she has been on Amiodarone amiodarone 200 mg QD 5 of 7 days, 100 mg QD 2 of 7 days weekly On 06/07/2014 she was admitted for pneumonia, hyponatremia, super therapeutic INR of 7, uncontrolled A -fib, and concerns she may have sepsis. On the IP unit she was gradually improving. 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 She continued to be in A-fib with RVR and later Cardizem 10mg IV x2 was given. and Cardizem gtt was started. She had increasing SOB, orthopnea, edema, and She was transferred to the ICU. RN reports when she came to the unit she was lethargic and in respiratory distress and placed on a NRB mask. Currently at noon her HR fluctuates bt 90's to 130's on Cardizem gtt at 10mg/hr. she is awake and responding appropriately. She denies chest pain of palpitations.She is having some labored breathing sitting at almost a 90 degree angle. O2 sat OK on NC. Dr. Hicks was consulted for her A-fib w RVR. Hospital Course 06-22-14: Hyponatremia resolved/stable. Afib to be managed medically by Dr Hicks. Pt stable to transfer to IRU/NH unit. 06-18-14: Pt seen and examined by Dian Menjivar PA-C. Pt reverted back to Afib during night. Repeat cardioversion pending. 06-17-14: Pt seen and examined by Dian Menjivar PA-C. Afib resolved, rate mid 80's. transferred to medical unit. Continue monitor hyponatremia. Hgb trending slightly down, to 9.0 today. Continue close monitor per POC/Dr. Drake 06-16-14: Pt seen and examined by Dian Menjivar PA-C. Rib soreness post cardioversion. Will add low dose norco for pain relief. has tolerated hydrocodone cough syrup without reaction. ( codeine listed as allergy) Hyponatremia persisting. See plan of care per Dr. Drake; possible transfer to medical unit if afib continues stable. 06-15-14: Pt seen and examined by Dian Menjivar PA-C. Cardioversion pending per Dr Hicks. 06-14-14 Dr. Drake: Pt seen and examined. Notes, labs, radiographs reviewed. HR > 130 A.Fib with RVR. Spoke with Fabiola. I will give Cardizem IV for HR > 130. He hopes to cardiovert tomorrow now that she is out of failure.ST to eval swallowing/ aspiration risk atrial fib rate 100-120's. cardiology managing digoxin level, atrial fib. coumadin per pharmacy protocol, continue INR's. hyponatremia stabilizing, may have ice/H2O with 2500 cc fluid restrictions. Awaiting respiratory panel, Quant. gold/TB test, continue acapella and RT. monitor Hgb, sodium levels. 06/12 Sodium improving-Hypertonic saline stopped. Bumex drip stopped and changed to Bumex 2 mg IV q6 Diflucan and nystatin S/S started for thrush Heart rate improving Extra 40 mEq KCl order for noon due to hypokalemia Will check CBC and Magnesium with next lab draw (noon) Continue supplemental O2 Coumadin restarted per Pharm protocol as INR therapeutic 06/13 Sodium stable - Hypertonic saline stopped on 06/12. Bumex drip stopped on 06/12 - Bumex 2 mg IV q6 - good urine output Continue Diflucan and nystatin S/S for thrush Heart rate improving Digoxin level elevated - held by Cardiology Continue supplemental O2 - encourage IS Coumadin restarted per Pharm protocol, INR subtherapeutic today Recheck CBC, BMP, Mg and portable CXR in am Anticipate Dr Drake's return in am Problems: (1) Atrial fibrillation Status: Chronic Assessment & Plan: Repeat cardioversion unsuccessful. Afib Medication management per cardiology. (2) Hyponatremia Status: Resolved Assessment & Plan: Na at 13 .. Discontinue water/ice restrictions. (3) Abnormal INR Status: Acute Assessment & Plan: INR therapeutic on 3 mg warfarin daily. Recheck INR at followup appt in 1 week. (4) Stage III chronic kidney disease Status: Chronic (5) Anemia Status: Resolved Assessment & Plan: monitor CBC; Hgb @ 9.0 DVT Prophylaxis: SCD'S GI Prophylaxis: Protonix Code Status Full Code, unverified Home Meds Active Scripts Levalbuterol HCl (Xopenex)1.25 Mg/3 Ml Inha1.25 Mg AEROSOL Q6H PRN (WHEEZING) 30 Days Prov:JOY ALVES 06/22/14 Metoprolol Tartrate (Lopressor)50 Mg Puwvfc27 Mg PO BIDWM 30 Days Ref 0 Prov:JOY ALVES 06/22/14 Verapamil HCl (Calan)80 Mg Ncimjc90 Mg PO TID 30 Days Prov:JOY ALVES 06/22/14 Bumetanide 1 Mg Tablet1 Mg PO BID 30 Days Prov:JOY ALVES 06/22/14 Reported Medications Tramadol HCl 50 Mg Lmedot78 Mg PO Q6HR PRN (PAIN) Take 1 tablet, by mouth, every 6 hours. 06/07/14 Lactobacillus Combination No.4 (Probiotic)1 Each Capsule1 Cap PO DAILY 06/07/14 Magnesium Oxide (Magnesium)400 Mg Vmhtqwi591 Mg PO BID 06/07/14 Addison-3 Fatty Acids (Fish Oil)500 Mg Capsule.dr1,200 Mg PO DAILY 06/07/14 Fluticasone Propionate (Flonase)16 Gm [place].susp2 [place] EA NOSTRIL DAILY PRN ( PRN ORDERS) 06/07/14 Guaifenesin (Mucinex)600 Mg Tbbp.12hr1 Tab PO PRN 06/07/14 Glucosamine/Chondroitin Sulf A (Glucosamine Chondroitin Cap)1 Each Capsule1 Cap PO BID 06/07/14 Fexofenadine HCl (Erica Allergy)60 Mg Tablet1 Tab PO BID PRN (ALLERY SYMPTOMS) Do not drink [place], [place], or Grapefruit juice within 4 hours of this medication, causes decreased absorption 06/07/14 Omeprazole (Prilosec)20 Mg Capsule.dr20 Mg PO ACB Take 1 capsule, by mouth, one time a day before breakfast. 06/07/14 Acetaminophen (Tylenol)500 Mg Tablet1,000 Mg PO PRN 10/12/10 Rasagiline Mesylate (Azilect)1 Mg Tablet1 Mg PO DAILY 10/12/10 Calcium Carbonate (Caltrate-600)600 Mg Zucomz871 Mg PO BID 10/12/10 Multivitamins W-Minerals/Lut (Centrum Silver Tablet)1 Tab Tablet1 Tab PO DAILY 10/12/10 Phenytoin Sodium Extended (Dilantin)100 Mg Gyzerxz730 Mg PO BID 10/12/10 Spironolactone 25 Mg Sxgigb88 Mg PO DAILY 10/12/10 Levothyroxine Sodium (Synthroid)50 Mcg Ronssl68 Mcg PO DAILY 10/12/10 Ascorbic Acid (Vitamin C)1,000 Mg Tablet1,000 Mg PO DAILY 10/12/10 Warfarin Sodium 3 Mg Tablet3 Mg PO DAILY 10/12/10 Potassium Chloride (K-Dur)20 Meq Tab.prt.sr20 Meq PO BID 10/12/10 Carbidopa/Levodopa (Sinemet 25/100 Tab)1 Udtab Tablet1 Udtab PO TID 10/12/10 Discontinued Reported Medications Amiodarone HCl 200 Mg Smwgsy375 Mg PO BID PRN (SATURDAY, SATURDAY ) 06/07/14 Warfarin Sodium 6 Mg Tablet6 Mg PO DAILY PRN (SATURDAY ) Take 1 tablet, by mouth, 1 time a day (at NOON). 06/07/14 Furosemide 20 Mg Tablet1 Tab PO BID 06/07/14 Amiodarone Hcl 200 Mg [id number] Mg PO DAILY 10/12/10 Discharge Disposition stable JOY ALVES Jun 22, 2014 09:09 Procedures No known history of procedures. Encounters Encounter Location Date/Time Admitted Inpatient [facility] 06/22/14 1:55pm Discharged Inpatient [facility] 06/07/14 12:11pm Recent Diagnosis Atrial fibrillation Hyponatremia Anemia Hypothyroid CHF (congestive heart failure) Anticoagulant long-term use CAD (coronary artery disease) Mitral regurgitation
--- OUTSIDE RECORDS SUMMARY | 2016-08-24 06:31 | XMS REPORT | Continuity of Care Document ---
Author Author [facility] Organization [facility] Address Unknown Phone Unavailable Support Name Relationship Address Phone JAYCEE MCNEILL MD Caregiver [address] [place] [address] [place] [phone] JENNIFER DRAKE DO Caregiver [facility] [phone] [facility] [address] [place] [phone] HAYES ESPINOZA Next Of Kin [address] [place] [address] Insurance Providers Payer Name Policy Number Subscriber Name Relationship Medicare [id number] Amauri Espinoza 16 Self Geha/Hpk [id number] Hayes Espinoza 01 Spouse Advance Directives Directive Response Recorded Date/Time Advanced Directives Type DNR Documentation DPOA for Healthcare 07/20/14 2: 12pm Problems Medical Problems Problem Onset Date Status Atrial fibrillation Unknown Active Pneumonia Unknown Active SIRS (systemic inflammatory response syndrome) Unknown Active Hyponatremia Unknown Resolved Abnormal INR Unknown Active Respiratory distress Unknown Resolved Fluid overload Unknown Resolved Thrush, oral Unknown Active Stage III chronic kidney disease Unknown Active Anemia Unknown Active Hypotension Unknown Resolved Acute kidney injury Unknown Resolved Hypothyroid Unknown Active CHF (congestive heart failure) Unknown Resolved Anticoagulant long-term use Unknown Active CAD (coronary artery disease) Unknown Active Mitral regurgitation Unknown Active Pleural effusion Unknown Active Hyperkalemia Unknown Active Hypokalemia Unknown Resolved Abnormal INR Unknown Active Hypotension Unknown Active Medications Medication Dose Route Sig Days/Qty Instructions Order Date Discontinued Date Status Methocarbamol 750 Mg PO FOUR TIMES DAILY 10 Days 10/12/10 01/13/11 Discontinued Carbidopa/Levodopa 1 Udtab PO THREE TIMES A DAY 10/12/10 Active Potassium Chloride 20 Meq PO TWICE A DAY 10/12/10 07/06/14 Discontinued Warfarin Sodium 3 Mg PO DAILY 10/12/10 Active Levothyroxine Sodium 50 Mcg PO DAILY 10/12/10 Active Spironolactone 25 Mg PO DAILY 10/12/10 07/06/14 Discontinued Phenytoin Sodium Extended 100 Mg PO TWICE A DAY 10/12/10 Active Multivitamins W-Minerals/Lut 1 Tab PO DAILY 10/12/10 Active Calcium Carbonate 600 Mg PO TWICE A DAY 10/12/10 Active Rasagiline Mesylate 1 Mg PO TWICE A DAY 10/12/10 Active Amiodarone Hcl 200 Mg PO DAILY 10/12/10 06/22/14 Discontinued Furosemide 1 Tab PO TWICE A DAY 06/07/14 06/22/14 Discontinued Omeprazole 20 Mg PO BEFORE BREAKFAST Take 1 capsule, by mouth, one time a day before breakfast. 06/07/14 Active Fexofenadine HCl 1 Tab PO DAILY PRN ALLERY SYMPTOMS hours of this medication, causes decreased absorption 06/07/14 Active Guaifenesin 1 Tab PO NEEDED 06/07/14 Active Fluticasone Propionate 2 [place] EA NOSTRIL DAILY PRN PRN ORDERS Active Magnesium Oxide 400 Mg PO TWICE [...] PO TWICE A DAY 30 Days 06/22/14 07/06/14 Discontinued Verapamil HCl 80 Mg PO THREE TIMES A DAY 30 Days 06/22/14 07/06/14 Discontinued Metoprolol Tartrate 50 Mg PO TWICE DAILY WITH MEALS 06/22/14 07/06/14 Discontinued Potassium Chloride 20 Meq PO TWICE DAILY WITH MEALS 30 Days 07/06/14 Active Metoprolol Tartrate 100 Mg PO TWICE DAILY WITH MEALS 30 Days 07/06/14 Active Digoxin 125 Mcg PO DAILY 30 Days 07/06/14 Active Bumetanide 1 Tab PO TWICE A DAY 07/20/14 Active Diltiazem HCl 1 Tab PO DAILY 07/20/14 Active Social History Social History Problem Response Recorded Date/Time Hx Substance Use No 07/20/2014 2:17pm Hx Alcohol Use No 07/20/2014 2:17pm Has the pt used tobacco in the last 12 months No 07/01/2014 11:20am Tobacco Usage none 07/02/2014 3:45pm Query Response Start Date Stop Date Smoking Status Never smoker Hospital Discharge Instructions Instructions: Care Instructions: Reason for Hospitalization: hyponatremia I was in the hospital because (patient own words): Heart rate keeps going up Discharge Diet: 2000 ml fluids per day/ low water, low ice as fluid intake Discharge Activity: as tolerated Follow Up Appointments: [address] Drake on 07-13-14 at 2:30 pm [phone] 07-12-14 CXR and CMP one day prior to appt at [facility] for hyponatremia, pneumonia.dr millard 1-2 weeks recheck meds and a fib Condition at time of discharge: Good Patient Instructions: CBC, CMP in one week with appointment with Dr. Montemayor (script) Get carbon monoxide detector and have fire department over to house before going back to your house. Check blood sugars before meals and before bedtime. Bring in a log of these at your appointments with Dr. Montemayor and Dr. Dodd. (script for meter/test strips) Don't use insulin pump until told otherwise by Dr. Dodd Notify Physician If: Return to ED immediatley if symptoms that led to hospitalization reoccur. Return to ED immediatley if black/bloody vomit should occur. Condition at time of discharge: Good - You develop dark urine, light stools, or yellowing of the skin or eyes. - You have pain and/or swelling in your feet, calves, or legs. - You have difficulty breathing, abnormal cough, or chest pain. During office hours, call [phone]. After hours, please call [facility] at [phone] and have the portable irrigation operator page Dr. Levin or the covering surgeon. *In the event of an emergency, seek medical care at the nearest emergency room.* Condition at time of discharge: Good Plan of Care Discharge Date 07/06/14 2:10pm Instructions/Education Provided [facility] Congestive Heart Failure Atrial Fibrillation DI for Hyponatremia DI for Warfarin Therapy Prescriptions See Medications Section Functional Status Query Response Date Recorded Physical Hygiene Assist July 20, 2014 2:17pm Disabilities Visual July 20, 2014 2:17pm Devices Used Glasses Walker Wheelchair July 20, 2014 2:17pm Dressing Assist July 20, 2014 2:17pm Ambulation Assist July 20, 2014 2:17pm Diet Self July 20, 2014 2:17pm Mental Status Alert Occasionally Confused Oriented July 20, 2014 2:17pm Disabilities Visual July 20, 2014 2:17pm Devices Used Glasses Walker Wheelchair July 20, 2014 2:17pm Physical Hygiene Assist July 20, 2014 2:17pm Dressing Assist July 20, 2014 2:17pm Ambulation Assist July 20, 2014 2:17pm Diet Self July 20, 2014 2:17pm Allergies, Adverse Reactions, Alerts Allergen Type Severity Reaction Status Last Updated Codeine Adverse Reaction Unknown SWELLING Active 07/20/14 Immunizations Name Given Type Hx Influenza Vaccination Y 01/2014 Historical Hx Pneumococcal Vaccination Y 01/19 Historical Hx Influenza Vaccination Y 01/2014 Historical Vital Signs Acute Vital Signs Vital Response Date/Time Temperature (Fahrenheit) 97.2 deg F (96.8 - 99.1) Temperature (Calculated Celsius) 36.00750 degrees C (36.0 - 37.3) Pulse Rate (adult) 66 bpm (60 - 100) Respiratory Rate 18 breaths/min (10 - 20) O2 Sat by Pulse Oximetry 97 % (90 - 100) Blood Pressure 115/63 mm Hg Height 5 ft 1 in Weight 151 lb Body Mass Index 28.0 kg/m^2 Results Test Source Date Result Interp. Ref. Range Comments Activated Partial Thromboplast Time July 20, 2014 2:48pm 50.7 SEC H 24- 36 Alanine Aminotransferase (ALT/SGPT) July 20, 2014 2:47pm 12 U/L N 9-52 Albumin July 20, 2014 2:47pm 3.6 G/DL N 3.5-5.0 Albumin/Globulin Ratio July 20, 2014 2:47pm 1.3 RATIO N 1.1-2.2 Alkaline Phosphatase July 20, 2014 2:47pm 80 U/L N 38-126 Anion Gap July 20, 2014 2:47pm 11 MEQ/L N 5-15 Anisocytosis July 01, 2014 4:44am 1+ - Aspartate Amino Transf (AST/SGOT) July 20, 2014 2:47pm 20 U/L N 14-36 B-Type Natriuretic Peptide October 15, 2009 1:40am 78 PG/ML N 15-100 BUN/Creatinine Ratio July 20, 2014 2:47pm 17 RATIO N 6-26 Band Neutrophils # July 01, 2014 4:44am 0.3 T/MM3 - Band Neutrophils % July 01, 2014 4:44am 3.0 % N 0-6 Basophils # (Auto) July 20, 2014 2:47pm 0.0 T/MM3 N 0-0.2 Basophils (%) (Auto) July 20, 2014 2:47pm 0.8 % N 0-2 Blood Urea Nitrogen July 20, 2014 2:47pm 24.0 MG/DL H 7-17 Calcium Level July 20, 2014 2:47pm 8.7 MG/DL N 8.4-10.2 Calculated Osmolality July 20, 2014 2:47pm 274 MOSM/KG N 261-280 Carbon Dioxide Level July 20, 2014 2:47pm 30 MEQ/L N 22-30 Chemistry Specimen Hemolysis July 20, 2014 2:47pm 16 N 0-25 0-25: No Hemolysis.26-70: Slight Hemolysis - [...] Phenytoin. Recommend specimen recollection. Chloride Level July 20, 2014 2:47pm 98 MEQ/L N 98-107 Conjugated Bilirubin October 15, 2009 1:40am 0.00 MG/DL N 0.00-0.30 Cortisol AM Sample June 11, 2014 4:59am 40.5 UG/DL 1 - Before 10: 00am: 4.46-22.7 ug/dL;After 5:00pm: 1.7-14.1 ug/dL Creatine Kinase and CKMB Interpret June 10, 2014 7:27am 4.2 ng/mL PH - CKMB Mass performed at [facility], [address] [place], [place] [address]Medical Director Massiel Castillo DO --- 06/10/14 1357 --- CKMB-A previously reported as: 4.2 CH ng/mL CKMB Mass performed at [facility], [address] [place] [address] Circulation Man Massiel Castillo DO Creatinine July 20, 2014 2:47pm 1.4 MG/DL H 0.7-1.2 Digoxin Level July 20, 2014 2:47pm 2.1 NG/ML H 0.8-2.0 Eosinophils # (Auto) July 20, 2014 2:47pm 0.3 T/MM3 N 0-0.5 Eosinophils # (Manual) June 21, 2014 5:01am 0.1 T/MM3 N 0-0.5 Eosinophils % (Manual) June 21, 2014 5:01am 2.0 % N 0-4 Eosinophils (%) (Auto) July 20, 2014 2:47pm 5.2 % H 0-4 Free Thyroxine June 10, 2014 7:27am 2.85 NG/DL H 0.78-2.19 COMMENT CALL RESULTS TO DR DRAKE Free Triiodothyronine June 10, 2014 7:28am 1.82 PG/ML L 2.77-5.27 Globulin July 20, 2014 2:47pm 2.8 G/DL N 2.4-3.6 Glomerular Filtration Rate Calc July 20, 2014 2:47pm 36 - Glucose Level July 20, 2014 2:47pm 140 MG/DL H 65-110 Hematocrit July 20, 2014 2:47pm 40.7 % N 36-46 Hemoglobin July 20, 2014 2:47pm 13.0 GM/DL N 12-16 Icterus Index July 20, 2014 2:47pm < 2 0-7 Immature Granulocyte # (Auto) July 20, 2014 2:47pm 0.01 T/MM3 N 0.00- 0.03 Immature Granulocyte % (Auto) July 20, 2014 2:47pm 0.2 % N 0.0-0.5 Influenza Type A Antigen June 07, 2014 6:07pm Negative - Negative for Flu A protein antigen. Assay sensitivity is90%. Influenza Type B Antigen June 07, 2014 6:07pm Negative - Negative for Flu B protein antigen. Assay sensitivity is90%. Lab Scanned Report July 12, 2014 6:14am LAB TEST FORM REQUEST - Lymphocytes # (Auto) July 20, 2014 2:47pm 1.5 T/MM3 N 1-4.8 Lymphocytes # (Manual) July 01, 2014 4:44am 0.7 T/MM3 L 1-4.8 Lymphocytes % (Manual) July 01, 2014 4:44am 8.0 % L 23-45 Lymphocytes (%) (Auto) July 20, 2014 2:47pm 31.7 % N 23-45 Magnesium Level July 01, 2014 4:44am 2.1 MG/DL N 1.6-2.3 COMMENT add to blood in lab Mean Corpuscular Hemoglobin July 20, 2014 2:47pm 31.8 UUG N 26-34 Mean Corpuscular Hemoglobin Concent July 20, 2014 2:47pm 31.9 GM/DL N 31-37 Mean Corpuscular Volume July 20, 2014 2:47pm 99.5 UM3 N 80-100 Mean Platelet Volume July 20, 2014 2:47pm 8.9 UM3 L 9.4-12.4 Monocytes # (Auto) July 20, 2014 2:47pm 0.5 T/MM3 N 0-0.8 Monocytes # (Manual) July 01, 2014 4:44am 0.2 T/MM3 N 0-0.8 Monocytes % (Manual) July 01, 2014 4:44am 2.0 % N 0-9.0 Monocytes (%) (Auto) July 20, 2014 2:47pm 10.0 % H 0-9.0 Mycoplasma pneumoniae IgG Antibody June 07, [...] with M. pneumoniae. Mycoplasma Antibodies performed at [facility], [address] [place] [address] Circulation Man Massiel Castillo DO [id number] Natriuretic Peptide July 20, 2014 2:47pm 2520 PG/ML H 0- 175 Rule in cut points: <50 years old=450; 50-75 years old=900; >75 years old=1800; When utilizing ProBNP rule-in cut points, adjustment for impaired renal function is typically not required. Neutrophils # (Auto) July 20, 2014 2:47pm 2.5 T/MM3 N 1.8-7.7 Neutrophils # (Manual) July 01, 2014 4:44am 7.5 T/MM3 N 1.8-7.7 Neutrophils % (Manual) July 01, 2014 4:44am 87.0 % H 33-66 Neutrophils (%) (Auto) July 20, 2014 2:47pm 52.1 % N 33-66 Phenytoin (Dilantin) Level July 20, 2014 2:48pm 4.1 UG/ML L 10-20 Platelet Count July 20, 2014 2:47pm 173 T/MM3 N 130-400 Potassium Level July 20, 2014 2:47pm 4.0 MEQ/L N 3.6-5 Procalcitonin June 09, 2014 1:25am 0.31 NG/ML - PCT </=0.5 ng/mL - sepsis not likely;PCT >0.5 and </=2 ng/mL - sepsis possible; PCT >2 ng/mL - sepsis likely; PCT >/=10 ng/mL - systemic inflammatory response - sepsis or septic shock highly indicated. Prothromb Time International Ratio July 20, 2014 2:48pm 5.42 PH 0.81- 1.09 THERAPUTIC RANGE=2.00-3.00 FOR ANTI-THROMBOSIS THERAPUTIC RANGE=2.50- 3.50 FOR IMPLANTED VALVE RDW Standard Deviation July 20, 2014 2:47pm 53.0 FL H 36.9-50.2 Red Blood Count July 20, 2014 2:47pm 4.09 M/MM3 N 4.00-5.20 Red Cell Morphology Comment July 01, 2014 4:44am Abnormal - Sodium Level July 20, 2014 2:47pm 139 MEQ/L N 134-144 TB Test (QFT) June 11, 2014 4:59am Indeterminate - Quantiferon TB Test performed at [facility], [address] [facility] [place] [facility] [address] Circulation Man Massiel Castillo DO Thyroid Stimulating Hormone (TSH) July 20, 2014 2:47pm 1.24 MIU/L N 0.47-4.68 Total Bilirubin July 20, 2014 2:47pm 0.40 MG/DL N 0.20-1.30 Total Creatine Kinase June 10, 2014 7:27am 158 U/L H 30-135 COMMENT CALL RESULTS TO DR DRAKE Total Protein July 20, 2014 2:47pm 6.4 G/DL N 6.3-8.2 Troponin I July 20, 2014 2:47pm 0.028 ng/ml N 0-0.12 Troponin values with a difference of 55% increase fromorginal troponin value represent a true biological DELTA value. (%increase Calc=Orginal Troponin value, divided by subsequent Troponin value, multiplied by 100) Turbidity July 20, 2014 2:47pm < 20 0-20 Unconjugated Bilirubin October 15, 2009 1:40am 0.19 MG/DL N 0.00-1.10 Urinalysis Comment July 20, 2014 3:55pm Microscopic not ind. - Has specimen been collected/obtained? Y Urine Bacteria June 23, 2014 11:45am 2+ H - COMMENT continue bladder retraining, D/C lai. UA clean catch post lai removal Has specimen been collected/obtained? Y Urine Bilirubin July 20, 2014 3:55pm Negative - Has specimen been collected/obtained? Y Urine Blood July 20, 2014 3:55pm Negative - Has specimen been collected/obtained? Y Urine Collection Type July 20, 2014 3:55pm Voided-not cc-midstr - Has specimen been collected/obtained? Y Urine Color July 20, 2014 3:55pm Yellow - Has specimen been collected/obtained? Y Urine Culture Indicated June 23, 2014 11:45am Cult reflexed &setup - COMMENT continue bladder retraining, D/C lai. UA clean catch post lai removal Has specimen been collected/obtained? Y Urine Glucose (UA) July 20, 2014 3:55pm Negative - Has specimen been collected/obtained? Y Urine Ketones July 20, 2014 3:55pm Negative - Has specimen been collected/obtained? Y Urine Leukocyte Esterase July 20, 2014 3:55pm Negative - Has specimen been collected/obtained? Y Urine Microscopic Not Indicated October 15, 2009 1:54am Not indicated - Has specimen been collected/obtained? Y Urine Nitrite July 20, 2014 3:55pm Negative - Has specimen been collected/obtained? Y Urine Protein July 20, 2014 3:55pm Negative - Has specimen been collected/obtained? Y Urine RBC June 23, 2014 11:45am 1-3 /HPF - COMMENT continue bladder retraining, D/C lai. UA clean catch post lai removal Has specimen been collected/obtained? Y Urine Random Sodium June 29, 2014 10:45am 6 MEQ/L L 30-90 Has specimen been collected/obtained? Y Urine Specific [place] July 20, 2014 3:55pm 1.010 L - Has specimen been collected/obtained? Y Urine Squamous Epithelial Cells June 23, 2014 11:45am 5-10 - COMMENT continue bladder retraining, D/C lai. UA clean catch post lai removal Has specimen been collected/obtained? Y Urine Turbidity July 20, 2014 3:55pm Clear - Has specimen been collected/obtained? Y Urine Urobilinogen July 20, 2014 3:55pm 0.2 EU/DL - Has specimen been collected/obtained? Y Urine WBC June 23, 2014 11:45am 10-20 /HPF H - COMMENT continue bladder retraining, D/C lai. UA clean catch post lai removal Has specimen been collected/obtained? Y Urine pH July 20, 2014 3:55pm 7.0 - Has specimen been collected/ obtained? Y Venous Blood Lactate June 07, 2014 3:54pm 1.3 MMOL/L N 0.6-2.2 White Blood Count July 20, 2014 2:47pm 4.8 T/MM3 N 4.5-11.0 Blood Culture Peripheral Blood June 07, 2014 3:59pm NO GROWTH AFTER 5 DAYS Gram Stain Sputum-Expectorated Sputum June 07, 2014 6:55pm Urine Culture Urine, Clean Catch-Midstream June 23, 2014 12:11pm Mixed Gail Name: AMAURI ESPINOZA Unit #: [id number] : 1935 Sex: F Loc / Svc: ED DOS: 07/20/14 Signed Report #: [id number] DIAGNOSTIC IMAGING REPORT TYPE OF EXAM: CHEST 1 VIEW Dictated By: FABIEN CHILDERS MD Indication: ITS.REASON: recent pneumonia, malaise CHEST 1 VIEW: Comparison: Chest x-ray dated July 09, [address] dated June 17, 2014 Findings: The lungs are stable in appearance. Mildly increased linear interstitial markings persist. No new airspace consolidation. No effusion or pneumothorax. Cardiac silhouette remains mildly enlarged. Mediastinal contours are stable with enlargement of the central pulmonary arteries suggesting pulmonary arterial hypertension. Tortuous thoracic aorta. Impression: No acute pneumonia or congestive failure. . Procedures Procedure Status Date Provider(s) CARDIOVERSION ELECTRIC EXT completed 06/07/14 NITA MILLARD MD CARDIOVERSION ELECTRIC EXT completed 06/07/14 NITA MILLARD MD INSERT PICC CATH completed 06/07/14 JENNIFER DRAKE DO PT EVALUATION completed 06/22/14 LATOYA,SIDDHARTHA Greenfield MD GAIT TRAINING THERAPY completed 06/22/14 LATOYA,SIDDHARTHA Greenfield MD PHYSICAL MEDICINE PROCEDURE completed 06/22/14 LATOYA,SIDDHARTHA Greenfield MD OT EVALUATION completed 06/22/14 LATOYA,SIDDHARTHA Greenfield MD CHEST X-RAY 2VW FRONTAL&LATL completed 07/09/14 Encounters Encounter Location Date/Time Departed Emergency Room [facility] 07/20/14 1:50pm Registered Clinic [facility] 07/09/14 1:36pm Discharged Inpatient [facility] 07/01/14 11:01am Discharged Inpatient [facility] 06/22/14 1:55pm Discharged Inpatient [facility] 06/07/14 12:11pm Recent Diagnosis
--- OUTSIDE RECORDS SUMMARY | 2016-08-24 06:31 | XMS REPORT | Continuity of Care Document ---
Author Author [facility] Organization [facility] Address Unknown Phone Unavailable Support Name Relationship Address Phone JENNIFER DRAKE DO Caregiver [facility] [phone] [facility] [address] [place] [phone] HAYES ESPINOZA Next Of Kin [address] [facility] [address] [place] [address] Insurance Providers Payer Name Policy Number Subscriber Name Relationship Medicare [id number] Amauri Espinoza 16 Self Geha/Hpk [id number] Hayes Espinoza 01 Spouse Advance Directives Directive Response Recorded Date/Time Ordered Resuscitation Status Full Code, unverified 06/07/14 3:40pm Resuscitation Documents on File No 06/07/14 1:43pm Chief Complaint and Reason for Visit Chief Complaint AFIB,SEPSIS SECONDARY TO RESPIRATORY INFECTION Reason for Visit Atrial fibrillation Pneumonia SIRS (systemic inflammatory response syndrome) Hyponatremia Abnormal INR Respiratory distress Fluid overload Thrush, oral Stage III chronic kidney disease Anemia Hypotension Acute kidney injury Problems Medical Problems Problem Onset Date Status Atrial fibrillation Unknown Active Pneumonia Unknown Active SIRS (systemic inflammatory response syndrome) Unknown Active Hyponatremia Unknown Resolved Abnormal INR Unknown Active Respiratory distress Unknown Resolved Fluid overload Unknown Resolved Thrush, oral Unknown Active Stage III chronic kidney disease Unknown Active Anemia Unknown Resolved Hypotension Unknown Resolved Acute kidney injury Unknown Resolved Medications Medication Dose Route Sig Days/Qty Instructions [...] PO NEEDED 06/07/14 Active Fluticasone Propionate 2 [place] EA NOSTRIL DAILY PRN PRN ORDERS Active Girard-3 Fatty Acids 1,200 Mg PO DAILY 06/07/14 [...] 11:15am Hx Alcohol Use No 01/13/2011 11:15am Tobacco Usage none 06/10/2014 9:14pm Query Response Start Date Stop Date Smoking Status Never smoker Hospital Discharge Instructions Instructions: Care Instructions: Reason for Hospitalization: atrial fib, hyponatremia I was in the hospital because (patient own words): my cough got worse Discharge Diet: regular Discharge Activity: as tolerated Follow Up Appointments: [address] Drake; as directed by Dr Hicks Condition at time of discharge: Good Tylenol in a 24 hour period). - You may take Ibuprofen IN ADDITION TO Tylenol or pain pills to help with pain control. - Do not operate machinery or sign important papers for 24 hours or while taking pain medication. Wound/Incision Care: - Your incisions have been covered with Steri-Strips (tape). Leave the Steri-Strips in place until they fall off on their own. - You may shower - no tub baths or swimming for 2 weeks. Notify Physician If: - Your pain is not adequately controlled. - You have persistent nausea or vomiting for more than 24 hours. - You have a fever over 101.5 degrees. - You develop redness, swelling, increasing pain, excessive bleeding, or excessive/foul smelling drainage at your incision site. - You have difficulty breathing. During office hours, call [phone]. After hours, please call [facility] at [phone] and have the tufting machine operator page Dr. Levin or the covering surgeon. *In the event of an emergency, seek medical care at the nearest emergency room.* Condition at time of discharge: Good Plan of Care Discharge Date 06/22/14 1:54pm Disposition 30 STILL A PATIENT Instructions/Education Provided DI for Atrial Fibrillation DI for Hyponatremia DI for Warfarin Therapy Prescriptions See Medications Section Functional Status Query Response Date Recorded Physical Hygiene Assist June 22, 2014 1:31pm Disabilities Visual June 22, 2014 1:31pm Devices Used Dentures Glasses Walker June 22, 2014 1:31pm Dressing Assist June 22, 2014 1:31pm Ambulation Assist June 22, 2014 1:31pm Diet Self June 22, 2014 1:31pm Mental Status Alert Oriented June 22, 2014 1:31pm Disabilities Visual June 22, 2014 1:31pm Devices Used Dentures Glasses Walker June 22, 2014 1:31pm Physical Hygiene Assist June 22, 2014 1:31pm Dressing Assist June 22, 2014 1:31pm Ambulation Assist June 22, 2014 1:31pm Diet Self June 22, 2014 1:31pm Allergies, Adverse Reactions, Alerts Allergen Type Severity Reaction Status Last Updated Codeine Adverse Reaction Unknown SWELLING Active 01/13/11 Immunizations Name Given Type Hx Influenza Vaccination Y fall 2013 Historical Hx Pneumococcal Vaccination Y spring 2007 Historical Hx Influenza Vaccination Y fall 2013 Historical Vital Signs Acute Vital Signs Vital Response Date/Time Temperature (Fahrenheit) 96.5 deg F (96.8 - 99.1) Temperature (Calculated Celsius) 35.75882 degrees C (36.0 - 37.3) Pulse Rate (adult) 125 bpm (60 - 100) Respiratory Rate 21 breaths/min (10 - 20) O2 Sat by Pulse Oximetry 93 % (90 - 100) Oxygen Delivery Method Room Air Blood Pressure 125/97 mm Hg Blood Pressure Source Automatic Cuff Height (Feet) 5 feet Height (Inches) 4.00 inches Height 5 ft 4 in Weight 166 lb Body Mass Index 28.0 kg/m^2 Results Test Source Date Result Interp. Ref. Range Comments TB Test (QFT) June 11, 2014 4:59am Indeterminate - Quantiferon TB Test performed at [facility], [address] [place] [address] Claims Clerk Massiel Castillo DO Alanine Aminotransferase (ALT/SGPT) June 19, 2014 4:38am 13 U/L N 9-52 Albumin June 19, 2014 4:38am 2.7 G/DL L 3.5-5.0 Albumin/Globulin Ratio June 19, 2014 4:38am 0.9 RATIO L 1.1-2.2 Alkaline Phosphatase June 19, 2014 4:38am 59 U/L N 38-126 Anion Gap June 21, 2014 5:01am 8 MEQ/L N 5-15 Aspartate Amino Transf (AST/SGOT) June 19, 2014 4:38am 26 U/L N 14-36 B-Type Natriuretic Peptide October 15, 2009 1:40am 78 PG/ML N 15-100 BUN/Creatinine Ratio June 21, 2014 5:01am 15 RATIO N 6-26 Band Neutrophils # June 21, 2014 5:01am 0.1 T/MM3 - Band Neutrophils % June 21, 2014 5:01am 1.0 % DN 0-6 Basophils # (Auto) June 19, 2014 4:38am 0.1 T/MM3 N 0-0.2 Basophils (%) (Auto) June 19, 2014 4:38am 1.0 % N 0-2 Blood Urea Nitrogen June 21, 2014 5:01am 20.0 MG/DL H 7-17 Calcium Level June 21, 2014 5:01am 8.4 MG/DL N 8.4-10.2 Calculated Osmolality June 21, 2014 5:01am 263 MOSM/KG N 261-280 Carbon Dioxide Level June 21, 2014 5:01am 34 MEQ/L H 22-30 Chemistry Specimen Hemolysis June 21, 2014 5:01am < 15 0-25 0-25: No Hemolysis.26-70: Slight [...] decrease Phenytoin. Recommend specimen recollection. Chloride Level June 21, 2014 5:01am 93 MEQ/L L 98-107 Conjugated Bilirubin October 15, 2009 1:40am 0.00 MG/DL N 0.00-0.30 Cortisol AM Sample June 11, 2014 4:59am 40.5 UG/DL 1 - Before 10: 00am: 4.46-22.7 ug/dL;After 5:00pm: 1.7-14.1 ug/dL Creatine Kinase and CKMB Interpret June 10, 2014 7:27am 4.2 ng/mL PH - CKMB Mass performed at [facility], [address] [place], [place] [address]Medical Director Massiel Castillo DO --- 06/10/14 [id number] --- CKMB-A previously reported as: 4.2 CH ng/mL CKMB Mass performed at [facility], [facility] [place] [address] Claims Clerk Massiel Castillo DO Creatinine June 21, 2014 5:01am 1.3 MG/DL DH 0.7-1.2 Digoxin Level June 13, 2014 4:27am 2.3 NG/ML H 0.8-2.0 Eosinophils # (Auto) June 19, 2014 4:38am 0.3 T/MM3 N 0-0.5 Eosinophils # (Manual) June 21, 2014 5:01am 0.1 T/MM3 N 0-0.5 Eosinophils % (Manual) June 21, 2014 5:01am 2.0 % N 0-4 Eosinophils (%) (Auto) June 19, 2014 4:38am 4.5 % H 0-4 Free Thyroxine June 10, 2014 7:27am 2.85 NG/DL H 0.78-2.19 COMMENT CALL RESULTS TO DR DRAKE Free Triiodothyronine June 10, 2014 7:28am 1.82 PG/ML L 2.77-5.27 Globulin June 19, 2014 4:38am 3.0 G/DL N 2.4-3.6 Glomerular Filtration Rate Calc June 21, 2014 5:01am 39 - Glucose Level June 21, 2014 5:01am 104 MG/DL N 65-110 Hematocrit June 21, 2014 5:01am 29.3 % L 36-46 Hemoglobin June 21, 2014 5:01am 9.5 GM/DL L 12-16 Icterus Index June 21, 2014 5:01am < 2 0-7 Immature Granulocyte # (Auto) June 19, 2014 4:38am 0.02 T/MM3 N 0.00- 0.03 Immature Granulocyte % (Auto) June 19, 2014 4:38am 0.3 % N 0.0-0.5 Influenza Type A Antigen June 07, 2014 6:07pm Negative - Negative for Flu A protein antigen. Assay sensitivity is90%. Influenza Type B Antigen June 07, 2014 6:07pm Negative - Negative for Flu B protein antigen. Assay sensitivity is90%. Lab Scanned Report July 17, 2011 8:59pm LAB TEST FORM REQUEST [id number] - Lymphocytes # (Auto) June 19, 2014 4:38am 1.0 T/MM3 N 1-4.8 Lymphocytes # (Manual) June 21, 2014 5:01am 1.6 T/MM3 N 1-4.8 Lymphocytes % (Manual) June 21, 2014 5:01am 30.0 % N 23-45 Lymphocytes (%) (Auto) June 19, 2014 4:38am 15.5 % L 23-45 Magnesium Level June 14, 2014 5:25am 1.7 MG/DL N 1.6-2.3 Mean Corpuscular Hemoglobin June 21, 2014 5:01am 31.8 UUG N 26-34 Mean Corpuscular Hemoglobin Concent June 21, 2014 5:01am 32.4 GM/DL N 31-37 Mean Corpuscular Volume June 21, 2014 5:01am 98.0 UM3 N 80-100 Mean Platelet Volume June 21, 2014 5:01am 8.4 UM3 L 9.4-12.4 Monocytes # (Auto) June 19, 2014 4:38am 0.7 T/MM3 N 0-0.8 Monocytes # (Manual) June 21, 2014 5:01am 0.2 T/MM3 N 0-0.8 Monocytes % (Manual) June 21, 2014 5:01am 4.0 % N 0-9.0 Monocytes (%) (Auto) June 19, 2014 4:38am 10.9 % H 0-9.0 Mycoplasma pneumoniae IgG Antibody [...] with M. pneumoniae. Mycoplasma Antibodies performed at [facility], [facility] [place] [address] Claims Clerk Massiel Castillo DO WN-Ocp-R-Type Natriuretic Peptide June 10, 2014 12:55pm 10113 PG/ML H 0 -175 Rule in cut points: <50 years old=450; 50-75 years old=900; >75 years old=1800; When utilizing ProBNP rule-in cut points, adjustment for impaired renal function is typically not required. Neutrophils # (Auto) June 19, 2014 4:38am 4.2 T/MM3 N 1.8-7.7 Neutrophils # (Manual) June 21, 2014 5:01am 3.3 T/MM3 N 1.8-7.7 Neutrophils % (Manual) June 21, 2014 5:01am 63.0 % N 33-66 Neutrophils (%) (Auto) June 19, 2014 4:38am 67.8 % H 33-66 Phenytoin (Dilantin) Level January 13, 2011 12:45pm 3.3 UG/ML L 10-20 COMMENT blood in lab Platelet Count June 21, 2014 5:01am 283 T/MM3 N 130-400 Potassium Level June 21, 2014 5:01am 3.9 MEQ/L N 3.6-5 Procalcitonin June 09, 2014 1:25am 0.31 NG/ML - PCT </=0.5 ng/mL - sepsis not likely;PCT >0.5 and </=2 ng/mL - sepsis possible; PCT >2 ng/mL - sepsis likely; PCT >/=10 ng/mL - systemic inflammatory response - sepsis or septic shock highly indicated. Prothromb Time International Ratio June 22, 2014 5:31am 2.07 H 0.81- 1.09 THERAPUTIC RANGE=2.00-3.00 FOR ANTI-THROMBOSIS THERAPUTIC RANGE=2.50- 3.50 FOR IMPLANTED VALVE RDW Standard Deviation June 21, 2014 5:01am 41.4 FL N 36.9-50.2 Red Blood Count June 21, 2014 5:01am 2.99 M/MM3 L 4.00-5.20 Red Cell Morphology Comment June 21, 2014 5:01am Normal - Sodium Level June 21, 2014 5:01am 135 MEQ/L N 134-144 Thyroid Stimulating Hormone (TSH) June 10, 2014 7:27am 2.12 MIU/L N 0.47-4.68 COMMENT CALL RESULTS TO DR DRAKE Total Bilirubin June 19, 2014 4:38am 0.30 MG/DL N 0.20-1.30 Total Creatine Kinase June 10, 2014 7:27am 158 U/L H 30-135 COMMENT CALL RESULTS TO DR DRAKE Total Protein June 19, 2014 4:38am 5.7 G/DL L 6.3-8.2 Troponin I June 10, 2014 7:27am 0.034 ng/ml N 0-0.12 COMMENT CALL RESULTS TO DR DRAKE Turbidity June 21, 2014 5:01am < 20 0-20 Unconjugated Bilirubin October 15, 2009 1:40am 0.19 MG/DL N 0.00-1.10 Urine Bacteria June 07, 2014 6:55pm 2+ H - Has specimen been collected /obtained? Y Urine Bilirubin June 07, 2014 6:55pm Negative - Has specimen been collected/obtained? Y Urine Blood June 07, 2014 6:55pm 2+ H - Has specimen been collected/ obtained? Y Urine Collection Type June 07, 2014 6:55pm Not Performed - Urine Color June 07, 2014 6:55pm Yellow - Has specimen been collected/obtained? Y Urine Culture Indicated January 13, 2011 2:10pm CULTURE WAS ORDERED SEPARATELY - Urine Glucose (UA) June 07, 2014 6:55pm Negative - Has specimen been collected/obtained? Y Urine Ketones June 07, 2014 6:55pm Trace H - Has specimen been collected/obtained? Y Urine Leukocyte Esterase June 07, 2014 6:55pm 1+ H - Has specimen been collected/obtained? Y Urine Microscopic Not Indicated October 15, 2009 1:54am Not indicated - Has specimen been collected/obtained? Y Urine Nitrite June 07, 2014 6:55pm Negative - Has specimen been collected/obtained? Y Urine Protein June 07, 2014 6:55pm 1+ H - Has specimen been collected/ obtained? Y Urine RBC June 07, 2014 6:55pm 5-10 /HPF H - Has specimen been collected/obtained? Y Urine Random Sodium June 09, 2014 2:20pm < 5 MEQ/L L 30-90 Has specimen been collected/obtained? Y Urine Specific [place] June 09, 2014 2:20pm 1.020 - Has specimen been collected/obtained? YWhat is the Source? [place] Urine Squamous Epithelial Cells June 07, 2014 6:55pm 5-10 - Has specimen been collected/obtained? Y Urine Turbidity June 07, 2014 6:55pm Sl cloudy - Has specimen been collected/obtained? Y Urine Urobilinogen June 07, 2014 6:55pm 0.2 EU/DL - Has specimen been collected/obtained? Y Urine WBC June 07, 2014 6:55pm 1-3 /HPF - Has specimen been collected/obtained? Y Urine pH June 07, 2014 6:55pm 6.5 - Has specimen been collected/ obtained? Y Venous Blood Lactate June 07, 2014 3:54pm 1.3 MMOL/L N 0.6-2.2 White Blood Count June 21, 2014 5:01am 5.3 T/MM3 N 4.5-11.0 Blood Culture Peripheral Blood June 07, 2014 3:59pm NO GROWTH AFTER 5 DAYS Gram Stain Sputum-Expectorated Sputum June 07, 2014 6:55pm Urine Culture Urine, Clean Catch Voided January 13, 2011 2:10pm Escherichia Coli Name: AMAURI ESPINOZA Unit #: [id number] : 1935 Sex: F Loc / Svc: MED DOS: Signed Report #: [id number] DIAGNOSTIC IMAGING REPORT TYPE OF EXAM: CT CHEST W/CONTRAST Dictated By: AMISHA SCHROEDER MD Indication: ITS.REASON: Shortness of breath, hypoxemia CT CHEST W/CONTRAST: Comparison: None Technique: Axial CT images were performed through the chest with intravenous contrast. Contrast: Omnipaque 300 100 mL Findings: The heart size is mildly enlarged. There are scattered patchy groundglass and consolidative opacities within the bilateral lungs with near crazy paging pattern. There is intralobular septal thickening demonstrated. Leading consideration would be acute interstitial pneumonia or ARDS. Small bilateral pleural effusions are demonstrated. There is compressive atelectasis of the lung bases. There is no significant mediastinal or hilar lymphadenopathy demonstrated. Mild spondylosis of the thoracic spine. The visualized abdominal viscera is within normal limits. There are bilateral renal cysts demonstrated. Impression: 1. Scattered patchy groundglass and consolidative opacities with intralobular septal thickening demonstrated bilaterally. Leading consideration is acute interstitial pneumonia/ARDS and/or pulmonary edema. 2. Small bilateral pleural effusions with subjacent atelectasis. 3. Heart size is mildly enlarged. 4. No thoracic lymphadenopathy is demonstrated. . Procedures No known history of procedures. Encounters Encounter Location Date/Time Discharged Inpatient [facility] 06/07/14 12:11pm Recent Diagnosis Atrial fibrillation Pneumonia SIRS (systemic inflammatory response syndrome) Hyponatremia Abnormal INR Respiratory distress Fluid overload Thrush, oral Stage III chronic kidney disease Anemia Hypotension Acute kidney injury
--- OUTSIDE RECORDS SUMMARY | 2016-08-24 06:32 | XMS REPORT | Continuity of Care Document ---
Author Author [facility] Organization [facility] Address Unknown Phone Unavailable Support Name Relationship Address Phone JENNIFER DRAKE DO Caregiver [facility] [address] [place] [phone] HAYES ESPINOZA Next Of Kin [address] [place] [address] Insurance Providers Payer Name Policy Number Subscriber Name Relationship Medicare [id number] Amauri Espinoza 16 Self Geha/Hpk [id number] Hayes Espinoza 01 Spouse Advance Directives Directive Response Recorded Date/Time Ordered Resuscitation Status Full Code 07/02/14 6:19pm Resuscitation Documents on File No 07/01/14 11:15am Chief Complaint and Reason for Visit Chief Complaint AFIB WITH RVR Reason for Visit Atrial fibrillation Hyponatremia Hypothyroid CHF (congestive heart failure) Pleural effusion Hyperkalemia Hypokalemia Problems Medical Problems Problem Onset Date Status [...] Active Hyperkalemia Unknown Active Hypokalemia Unknown Resolved Medications Medication Dose Route Sig [...] PO NEEDED 06/07/14 Active Fluticasone Propionate 2 [place] EA NOSTRIL DAILY PRN PRN ORDERS Active [place]-3 Fatty Acids 1,200 Mg PO DAILY 06/07/14 [...] TWICE DAILY WITH MEALS 30 Days 06/22/14 07/06/14 Discontinued Levalbuterol HCl 1.25 Mg AEROSOL Every 6 Hours PRN WHEEZING Active Potassium Chloride 20 Meq PO TWICE DAILY WITH MEALS 30 Days 07/06/14 Active Metoprolol Tartrate 100 Mg PO TWICE DAILY WITH MEALS 30 Days 07/06/14 Active Levalbuterol HCl 1.25 Mg AEROSOL Every 6 Hours PRN WHEEZING 30 Active Diltiazem HCl 360 Mg PO DAILY 30 Days 07/06/14 Active Digoxin 125 Mcg PO DAILY 30 Days 07/06/14 Active Bumetanide 2 Mg PO GIVE 0900 & 1700 30 Days 07/06/14 Active Social History Social History Problem Response [...] Dr Drake on 07-13-14 at 2:30 pm 07-12-14 CXR and CMP one day prior to appt at [facility] for hyponatremia, pneumonia.dr stout 1-2 weeks recheck meds and a fib Condition at time of discharge: Good 2.855 Bilirubin Level: 6.3 Congenital Heart Disease Screening Result: Pass Condition at time of discharge: Good Good Pass Plan of Care Discharge Date 07/06/14 2:10pm Disposition 03 TO [facility] NOT [facility] (SNF) Instructions/Education Provided [facility] Congestive Heart Failure Atrial Fibrillation DI for Hyponatremia Prescriptions See Medications Section Functional Status Query Response Date Recorded Physical Hygiene Assist July 06, 2014 1:19pm Disabilities Visual July 06, 2014 1:19pm Devices Used Glasses July 06, 2014 1:19pm Dressing Assist July 06, 2014 1:19pm Ambulation Assist July 06, 2014 1:19pm Diet Self July 06, 2014 1:19pm Mental Status Alert Oriented July 06, 2014 1:19pm Disabilities Visual July 06, 2014 1:19pm Devices Used Glasses July 06, 2014 1:19pm Physical Hygiene Assist July 06, 2014 1:19pm Dressing Assist July 06, 2014 1:19pm Ambulation Assist July 06, 2014 1:19pm Diet Self July 06, 2014 1:19pm Allergies, Adverse Reactions, Alerts Allergen Type Severity Reaction Status Last Updated Codeine Adverse Reaction Unknown SWELLING Active 01/13/11 Immunizations Name Given Type Hx Influenza Vaccination Y 01/2014 Historical Hx Pneumococcal Vaccination Y 01/19 Historical Hx Influenza Vaccination Y 01/2014 Historical Vital Signs Acute Vital Signs Vital Response Date/Time Temperature (Fahrenheit) 98.7 deg F (96.8 - 99.1) Temperature (Calculated Celsius) 37.74052 degrees C (36.0 - 37.3) Pulse Rate (adult) 75 bpm (60 - 100) Respiratory Rate 18 breaths/min (10 - 20) O2 Sat by Pulse Oximetry 97 % (90 - 100) Oxygen Delivery Method Room Air Blood Pressure 110/68 mm Hg Blood Pressure Source Automatic Cuff Height 5 ft 1 in Weight 154 lb Body Mass Index 29.0 kg/m^2 Results Test Source Date Result Interp. Ref. Range Comments Alanine Aminotransferase (ALT/SGPT) July 06, 2014 4:37am 19 U/L N 9-52 Albumin July 06, 2014 4:37am 3.1 G/DL L 3.5-5.0 Albumin/Globulin Ratio July 06, 2014 4:37am 1.1 RATIO N 1.1-2.2 Alkaline Phosphatase July 06, 2014 4:37am 76 U/L N 38-126 Anion Gap July 06, 2014 4:37am 8 MEQ/L N 5-15 Anisocytosis July 01, 2014 4:44am 1+ - Aspartate Amino Transf (AST/SGOT) July 06, 2014 4:37am 16 U/L N 14-36 B-Type Natriuretic Peptide October 15, 2009 1:40am 78 PG/ML N 15-100 BUN/Creatinine Ratio July 06, 2014 4:37am 19 RATIO N 6-26 Band Neutrophils # July 01, 2014 4:44am 0.3 T/MM3 - Band Neutrophils % July 01, 2014 4:44am 3.0 % N 0-6 Basophils # (Auto) July 06, 2014 4:37am 0.1 T/MM3 N 0-0.2 Basophils (%) (Auto) July 06, 2014 4:37am 1.5 % N 0-2 Blood Urea Nitrogen July 06, 2014 4:37am 25.0 MG/DL H 7-17 Calcium Level July 06, 2014 4:37am 8.5 MG/DL N 8.4-10.2 Calculated Osmolality July 06, 2014 4:37am 262 MOSM/KG N 261-280 Carbon Dioxide Level July 06, 2014 4:37am 33 MEQ/L H 22-30 Chemistry Specimen Hemolysis July 06, 2014 4:37am < 15 0-25 0-25: No Hemolysis.26-70: Slight [...] Phenytoin. Recommend specimen recollection. Chloride Level July 06, 2014 4:37am 93 MEQ/L L 98-107 Conjugated Bilirubin October 15, 2009 1:40am 0.00 MG/DL N 0.00-0.30 Cortisol AM Sample June 11, 2014 4:59am 40.5 UG/DL 1 - Before 10: 00am: 4.46-22.7 ug/dL;After 5:00pm: 1.7-14.1 ug/dL Creatine Kinase and CKMB Interpret June 10, 2014 7:27am 4.2 ng/mL PH - CKMB Mass performed at [facility], [address] [place], [place] [address]Medical Director Massiel Castillo DO --- 06/10/14 1357 --- CKMB-A previously reported as: 4.2 CH ng/mL CKMB Mass performed at [facility], [address] [place] [address] Certified Adapted Physical Educator Massiel Castillo DO Creatinine July 06, 2014 4:37am 1.3 MG/DL DH 0.7-1.2 Digoxin Level June 13, 2014 4:27am 2.3 NG/ML H 0.8-2.0 Eosinophils # (Auto) July 06, 2014 4:37am 0.2 T/MM3 N 0-0.5 Eosinophils # (Manual) June 21, 2014 5:01am 0.1 T/MM3 N 0-0.5 Eosinophils % (Manual) June 21, 2014 5:01am 2.0 % N 0-4 Eosinophils (%) (Auto) July 06, 2014 4:37am 3.0 % N 0-4 Free Thyroxine June 10, 2014 7:27am 2.85 NG/DL H 0.78-2.19 COMMENT CALL RESULTS TO DR DRAKE Free Triiodothyronine June 10, 2014 7:28am 1.82 PG/ML L 2.77-5.27 Globulin July 06, 2014 4:37am 2.7 G/DL N 2.4-3.6 Glomerular Filtration Rate Calc July 06, 2014 4:37am 39 - Glucose Level July 06, 2014 4:37am 99 MG/DL N 65-110 Hematocrit July 06, 2014 4:37am 38.9 % N 36-46 Hemoglobin July 06, 2014 4:37am 12.8 GM/DL N 12-16 Icterus Index July 06, 2014 4:37am < 2 0-7 Immature Granulocyte # (Auto) July 06, 2014 4:37am 0.02 T/MM3 N 0.00- 0.03 Immature Granulocyte % (Auto) July 06, 2014 4:37am 0.3 % N 0.0-0.5 Influenza Type A Antigen June 07, 2014 6:07pm Negative - Negative for Flu A protein antigen. Assay sensitivity is90%. Influenza Type B Antigen June 07, 2014 6:07pm Negative - Negative for Flu B protein antigen. Assay sensitivity is90%. Lab Scanned Report July 17, 2011 8:59pm LAB TEST FORM REQUEST [id number] - Lymphocytes # (Auto) July 06, 2014 4:37am 2.2 T/MM3 N 1-4.8 Lymphocytes # (Manual) July 01, 2014 4:44am 0.7 T/MM3 L 1-4.8 Lymphocytes % (Manual) July 01, 2014 4:44am 8.0 % L 23-45 Lymphocytes (%) (Auto) July 06, 2014 4:37am 32.3 % N 23-45 Magnesium Level July 01, 2014 4:44am 2.1 MG/DL N 1.6-2.3 COMMENT add to blood in lab Mean Corpuscular Hemoglobin July 06, 2014 4:37am 31.8 UUG N 26-34 Mean Corpuscular Hemoglobin Concent July 06, 2014 4:37am 32.9 GM/DL N 31-37 Mean Corpuscular Volume July 06, 2014 4:37am 96.5 UM3 N 80-100 Mean Platelet Volume July 06, 2014 4:37am 9.1 UM3 L 9.4-12.4 Monocytes # (Auto) July 06, 2014 4:37am 0.9 T/MM3 H 0-0.8 Monocytes # (Manual) July 01, 2014 4:44am 0.2 T/MM3 N 0-0.8 Monocytes % (Manual) July 01, 2014 4:44am 2.0 % N 0-9.0 Monocytes (%) (Auto) July 06, 2014 4:37am 13.3 % H 0-9.0 Mycoplasma pneumoniae IgG Antibody [...] with M. pneumoniae. Mycoplasma Antibodies performed at [facility], [facility] [place] [address] Certified Adapted Physical Educator Massiel Castillo DO UF-Yua-W-Type Natriuretic Peptide July 06, 2014 4:37am 2790 PG/ML H 0- 175 Rule in cut points: <50 years old=450; 50-75 years old=900; >75 years old=1800; When utilizing ProBNP rule-in cut points, adjustment for impaired renal function is typically not required. Neutrophils # (Auto) July 06, 2014 4:37am 3.3 T/MM3 N 1.8-7.7 Neutrophils # (Manual) July 01, 2014 4:44am 7.5 T/MM3 N 1.8-7.7 Neutrophils % (Manual) July 01, 2014 4:44am 87.0 % H 33-66 Neutrophils (%) (Auto) July 06, 2014 4:37am 49.6 % N 33-66 Phenytoin (Dilantin) Level January 13, 2011 12:45pm 3.3 UG/ML L 10-20 COMMENT blood in lab Platelet Count July 06, 2014 4:37am 240 T/MM3 N 130-400 Potassium Level July 06, 2014 4:37am 4.7 MEQ/L N 3.6-5 Procalcitonin June 09, 2014 1:25am 0.31 NG/ML - PCT </=0.5 ng/mL - sepsis not likely;PCT >0.5 and </=2 ng/mL - sepsis possible; PCT >2 ng/mL - sepsis likely; PCT >/=10 ng/mL - systemic inflammatory response - sepsis or septic shock highly indicated. Prothromb Time International Ratio July 06, 2014 4:37am 1.51 H 0.81- 1.09 THERAPUTIC RANGE=2.00-3.00 FOR ANTI-THROMBOSIS THERAPUTIC RANGE=2.50- 3.50 FOR IMPLANTED VALVE RDW Standard Deviation July 06, 2014 4:37am 48.2 FL N 36.9-50.2 Red Blood Count July 06, 2014 4:37am 4.03 M/MM3 N 4.00-5.20 Red Cell Morphology Comment July 01, 2014 4:44am Abnormal - Sodium Level July 06, 2014 4:37am 134 MEQ/L N 134-144 TB Test (QFT) June 11, 2014 4:59am Indeterminate - Quantiferon TB Test performed at [facility], [address] [facility], [place] [address] Certified Adapted Physical Educator Massiel Castillo DO Thyroid Stimulating Hormone (TSH) June 10, 2014 7:27am 2.12 MIU/L N 0.47-4.68 COMMENT CALL RESULTS TO DR DRAKE Total Bilirubin July 06, 2014 4:37am 0.50 MG/DL N 0.20-1.30 Total Creatine Kinase June 10, 2014 7:27am 158 U/L H 30-135 COMMENT CALL RESULTS TO DR DRAKE Total Protein July 06, 2014 4:37am 5.8 G/DL L 6.3-8.2 Troponin I June 25, 2014 4:40am 0.014 ng/ml N 0-0.12 Turbidity July 06, 2014 4:37am < 20 0-20 Unconjugated Bilirubin October 15, [...] Has specimen been collected/obtained? Y Urine Specific [place] June 29, 2014 10:45am 1.020 - ADD-ON TESTING FROM THIS MORNING/SJMVO FROM [facility] Urine Squamous Epithelial Cells June 23, 2014 [...] MMOL/L N 0.6-2.2 White Blood Count July 06, 2014 4:37am 6.7 T/MM3 N 4.5-11.0 Blood Culture Peripheral Blood June 07, 2014 3:59pm NO GROWTH AFTER 5 DAYS Gram Stain Sputum-Expectorated Sputum June 07, 2014 6:55pm Urine Culture Urine, Clean Catch-Midstream June 23, 2014 12:11pm Mixed Gail Name: AMAURI ESPINOZA Unit #: [id number] : 1935 Sex: F Loc / Svc: MED DOS: Signed Report #: [id number] DIAGNOSTIC IMAGING REPORT TYPE OF EXAM: CHEST 1 VIEW Dictated By: FABIEN CHILDERS MD Indication: ITS.REASON: Re-eval pulm edema, effusions CHEST 1 VIEW: Comparison: July 01, 2014 Findings: Pulmonary edema has improved with decreasing pleural fluid bilaterally. Slightly improved aeration of the left lower lobe. No pneumothorax. Heart size and mediastinal contours are stable. Mild residual pulmonary vascular congestion. Impression: Improving pleural effusions and edema. . Procedures Procedure Status Date Provider(s) CARDIOVERSION ELECTRIC EXT completed 06/07/14 NITA STOUT MD CARDIOVERSION ELECTRIC EXT completed 06/07/14 NITA STOUT MD INSERT PICC CATH completed 06/07/14 JENNIFER DRAKE DO Encounters Encounter Location Date/Time Discharged Inpatient [facility] 07/01/14 11:01am Discharged Inpatient [facility] 06/22/14 1:55pm Discharged Inpatient [facility] 06/07/14 12:11pm Recent Diagnosis Atrial fibrillation Hyponatremia Hypothyroid CHF (congestive heart failure) Pleural effusion Hyperkalemia Hypokalemia
--- NOTE | 2016-08-24 06:40 | NUR ---
PROVIDER DR. TAMEZ IN ROOM WITH PT.
--- OUTSIDE RECORDS SUMMARY | 2016-08-24 06:46 | XMS REPORT | Continuity of Care Document ---
Author Author [facility] Organization [facility] Address Unknown Phone Unavailable Support Name Relationship Address Phone SIDDHARTHA KLEIN MD Caregiver [address] [place], [place] [phone] JENNIFER DRAKE DO Caregiver [facility] [address] [place] [phone] HAYES ESPINOZA Next Of Kin [address] [facility] [address] [place] [address] Insurance Providers Payer Name Policy Number Subscriber Name Relationship Medicare [id number] Amauri Espinoza 16 Self Geha/Hpk [id number] Hayes Espinoza 01 Spouse Advance Directives Directive [...] PO NEEDED 06/07/14 Active Fluticasone Propionate 2 [place] EA NOSTRIL DAILY PRN PRN ORDERS Active [place]-3 Fatty Acids 1,200 Mg PO DAILY 06/07/14 [...] mouth Patient Instructions: Patient to go to [place] by Private vehicle, scheduled for ERCP by Dr. Jennifer Alberto at 1pm today. Condition at time of discharge: Good No Bathing or swimming. Wound/Incision Care: Reapply dressing as needed. Give NICO instructions Notify Physician If: 1. Call your surgeon if you are having problems relating to your surgery at [phone]. 2. Problems such as: Temp above 101.5 degrees You develop redness, excessive swelling of the incision, increasing pain or excessive foul smelling drainage. 3. If the office is closed, call [facility] at [phone] and have your Surgeon paged. Condition at time of discharge: Good Good room.* Condition at time of discharge: Good Plan of Care Discharge Date 07/01/14 11:00am Disposition 02 TO [facility] Prescriptions See Medications Section Functional [...] F (96.8 - 99.1) Temperature (Calculated Celsius) 36.59774 degrees C (36.0 - 37.3) Pulse Rate [...] ng/mL PH - CKMB Mass performed at [facility], [address] [place], [place] [address]Medical Director Massiel Castillo DO --- 06/10/14 1357 --- CKMB-A previously reported as: 4.2 CH ng/mL CKMB Mass performed at [facility], [address] [place] [address] Bar Finish Operator Massiel Castillo DO Creatinine July 01, 2014 [...] 17, 2011 8:59pm LAB TEST FORM REQUEST [id number] - Lymphocytes # (Auto) June 23, 2014 [...] with M. pneumoniae. Mycoplasma Antibodies performed at [facility] [place], [address] [place] [address] Bar Finish Operator Massiel Castillo DO LG-Tzu-M-Type Natriuretic Peptide June 10, 2014 12:55pm 87246 PG/ML H 0 -175 Rule in cut [...] Indeterminate - Quantiferon TB Test performed at [facility], [address] [place] [address] Bar Finish Operator Massiel Castillo, Thyroid Stimulating Hormone (TSH) June [...] Has specimen been collected/obtained? Y Urine Specific [place] June 29, 2014 10:45am 1.020 - ADD-ON TESTING FROM THIS MORNING/SJMVO FROM [facility] Urine Squamous Epithelial Cells June 23, [...] Mixed Gail Name: AMAURI ESPINOZA Unit #: [id number] : 1935 Sex: F DISCHARGE SUMMARY Admit Date: 06/07/14 Report #: [id number] General Date Date DATE: 06/22/14 TIME: 09:03 [...] Chloride (Cardizem/NS) 125 ml @ 10 mls/hr [id number] IV 06/10/14 07:45 06/11/14 03:32 DC 06/10/14 [...] 06/16/14 17:30 06/22/14 08:36 Acetaminophen/ Hydrocodone Bitart (Leonard 5) DOSE=1-2 TABLETS BEST ... Q4H PRN [...] 140 and Metoprolol 10mg IV was given early morning babysitter on 2 separate occasions. She continued to [...] Prov:JOY ALVES 06/22/14 Metoprolol Tartrate (Lopressor)50 Mg Eqgffj90 Mg PO BIDWM 30 Days Ref 0 Prov:JOY ALVES 06/22/14 Verapamil HCl (Calan)80 Mg Gffofu77 Mg PO TID 30 Days Prov:JOY ALVES 06/22/14 Bumetanide 1 Mg Tablet1 Mg PO BID 30 Days Prov:JOY ALVES 06/22/14 Reported Medications Tramadol HCl 50 Mg Oyrtac89 Mg PO Q6HR PRN (PAIN) Take 1 tablet, by mouth, every 6 hours. 06/07/14 Lactobacillus Combination No.4 (Probiotic)1 Each Capsule1 Cap PO DAILY 06/07/14 Magnesium Oxide (Magnesium)400 Mg Mmrkixp180 Mg PO BID 06/07/14 [place]-3 Fatty Acids (Fish Oil)500 Mg Capsule.dr1,200 Mg PO DAILY 06/07/14 Fluticasone Propionate (Flonase)16 Gm [place].susp2 [place] EA NOSTRIL DAILY PRN ( PRN ORDERS) 06/07/14 Guaifenesin (Mucinex)600 Mg Tbbp.12hr1 Tab PO PRN 06/07/14 Glucosamine/Chondroitin Sulf A (Glucosamine Chondroitin Cap)1 Each Capsule1 Cap PO BID 06/07/14 Fexofenadine HCl (Erica Allergy)60 Mg Tablet1 Tab PO BID PRN (ALLERY SYMPTOMS) Do not drink Apple, [place], or Grapefruit juice within 4 hours of this medication, causes decreased absorption 06/07/14 Omeprazole (Prilosec)20 Mg Capsule.dr20 Mg PO ACB Take 1 capsule, by mouth, one time a day before breakfast. 06/07/14 Acetaminophen (Tylenol)500 Mg Tablet1,000 Mg PO PRN 10/12/10 Rasagiline Mesylate (Azilect)1 Mg Tablet1 Mg PO DAILY 10/12/10 Calcium Carbonate (Caltrate-600)600 Mg Gadehq086 Mg PO BID 10/12/10 Multivitamins W-Minerals/Lut (Centrum Silver Tablet)1 Tab Tablet1 Tab PO DAILY 10/12/10 Phenytoin Sodium Extended (Dilantin)100 Mg Xvmselm891 Mg PO BID 10/12/10 Spironolactone 25 Mg Ucsaur43 Mg PO DAILY 10/12/10 Levothyroxine Sodium (Synthroid)50 Mcg Wcbpcd65 Mcg PO DAILY 10/12/10 Ascorbic Acid (Vitamin C)1,000 Mg Tablet1,000 Mg PO DAILY 10/12/10 Warfarin Sodium 3 Mg Tablet3 Mg PO DAILY 10/12/10 Potassium Chloride (K-Dur)20 Meq Tab.prt.sr20 Meq PO BID 10/12/10 Carbidopa/Levodopa (Sinemet 25/100 Tab)1 Udtab Tablet1 Udtab PO TID 10/12/10 Discontinued Reported Medications Amiodarone HCl 200 Mg Wiuhek134 Mg PO BID PRN (SATURDAY, SATURDAY ) 06/07/14 Warfarin Sodium 6 Mg Tablet6 Mg PO DAILY PRN (SATURDAY ) Take 1 tablet, by mouth, 1 time a day (at NOON). 06/07/14 Furosemide 20 Mg Tablet1 Tab PO BID 06/07/14 Amiodarone Hcl 200 Mg Euyryp735 Mg PO DAILY 10/12/10 Discharge Disposition stable JOY ALVES Jun 22, 2014 09:09 Procedures No known history of procedures. Encounters Encounter Location Date/Time Admitted Inpatient [facility] 06/22/14 1:55pm Discharged Inpatient [facility] 06/07/14 12:11pm Recent Diagnosis Atrial fibrillation Hyponatremia Anemia Hypothyroid CHF (congestive heart failure) Anticoagulant long-term use CAD (coronary artery disease) Mitral regurgitation
--- OUTSIDE RECORDS SUMMARY | 2016-08-24 06:46 | XMS REPORT | Continuity of Care Document ---
Author Author [facility] Organization [facility] Address Unknown Phone Unavailable Support Name Relationship Address Phone JAYCEE MCNEILL MD Caregiver [address] [place] [address] [place] [phone] JENNIFER DRAKE DO Caregiver [facility] [address] [place] [phone] HAYES ESPINOZA Next Of Kin [address] [place] [address] Insurance Providers Payer Name Policy Number Subscriber Name Relationship Medicare [id number] Amauri Espinoza 16 Self Geha/Hpk [id number] Hayes Espinoza 01 Spouse Advance Directives Directive [...] PO NEEDED 06/07/14 Active Fluticasone Propionate 2 [place] EA NOSTRIL DAILY PRN PRN ORDERS Active [...] CMP one day prior to appt at [facility] for hyponatremia, pneumonia.dr millard 1-2 weeks recheck [...] or chest pain. During office hours, call [phone]. After hours, please call [facility] at [phone] and have the gear shaver set up operator page Dr. Levin or the covering surgeon. *In the event of an emergency, seek medical care at the nearest emergency room.* Condition at time of discharge: Good Plan of Care Discharge Date 07/06/14 2:10pm Instructions/Education Provided [facility] Congestive Heart Failure Atrial Fibrillation DI for [...] F (96.8 - 99.1) Temperature (Calculated Celsius) 36.62303 degrees C (36.0 - 37.3) Pulse Rate [...] ng/mL PH - CKMB Mass performed at [facility] Reference Lab, [address] [place], [place] [address]Medical Director Massiel Castillo DO --- 06/10/14 1357 --- CKMB-A previously reported as: 4.2 CH ng/mL CKMB Mass performed at [facility] Reference Lab, [address] [place] [address] Magnetic Tape Composer Operator Massiel Castillo DO Creatinine July 20, 2014 [...] with M. pneumoniae. Mycoplasma Antibodies performed at [facility], [address] [place] [address] Magnetic Tape Composer Operator Massiel Castillo DO TJ-Pyj-P-Type Natriuretic Peptide July 20, 2014 2:47pm 2520 [...] Indeterminate - Quantiferon TB Test performed at [facility], [address] [place] [facility] [place] [address] Magnetic Tape Composer Operator Massiel Castillo DO Thyroid Stimulating Hormone (TSH) [...] Has specimen been collected/obtained? Y Urine Specific [place] July 20, 2014 3:55pm 1.010 L - [...] Mixed Gail Name: AMAURI ESPINOZA Unit #: [id number] : 1935 Sex: F Loc / Svc: ED DOS: 07/20/14 Signed Report #: [id number] DIAGNOSTIC IMAGING REPORT TYPE OF EXAM: CHEST [...] Encounters Encounter Location Date/Time Departed Emergency Room [facility] 07/20/14 1:50pm Registered Clinic [facility] 07/09/14 1:36pm Discharged Inpatient [facility] 07/01/14 11:01am Discharged Inpatient [facility] 06/22/14 1:55pm Discharged Inpatient [facility] 06/07/14 12:11pm Recent Diagnosis
--- OUTSIDE RECORDS SUMMARY | 2016-08-24 06:46 | XMS REPORT | Continuity of Care Document ---
Author Author [facility] Organization [facility] Address Unknown Phone Unavailable Support Name Relationship Address Phone JENNIFER DRAKE DO Caregiver [facility] [address] [facility] [place] [phone] HAYES ESPINOZA Next Of Kin [address] [facility] [address] [place] [address] Insurance Providers Payer Name Policy Number Subscriber Name Relationship Medicare [id number] Amauri Espinoza 16 Self Geha/Hpk [id number] Hayes Espinoza 01 Spouse Advance Directives Directive [...] PO NEEDED 06/07/14 Active Fluticasone Propionate 2 [place] EA NOSTRIL DAILY PRN PRN ORDERS Active [place]-3 Fatty Acids 1,200 Mg PO DAILY 06/07/14 [...] have difficulty breathing. During office hours, call [phone]. After hours, please call [facility] at [phone] and have the boat camp operator page Dr. Levin or the covering [...] F (96.8 - 99.1) Temperature (Calculated Celsius) 35.29537 degrees C (36.0 - 37.3) Pulse Rate [...] - Quantiferon TB Test performed at [facility], [address] [place] [address] Hauling Contractor Massiel Castillo DO Alanine Aminotransferase (ALT/SGPT) June [...] ng/mL PH - CKMB Mass performed at [facility] Reference [facility], [address] [place], [place] [address]Medical Director Massiel Castillo DO --- 06/10/14 6141 --- CKMB-A previously reported as: 4.2 CH ng/mL CKMB Mass performed at [facility] Reference Lab, [facility] [place] [address] Hauling Contractor Massiel Castillo DO Creatinine June 21, 2014 [...] 17, 2011 8:59pm LAB TEST FORM REQUEST [id number] - Lymphocytes # (Auto) June 19, 2014 [...] with M. pneumoniae. Mycoplasma Antibodies performed at [facility], [facility] [place] [address] Hauling Contractor Massiel Castillo DO EQ-Pxh-D-Type Natriuretic Peptide June 10, 2014 12:55pm 37176 PG/ML H 0 -175 Rule in cut [...] Has specimen been collected/obtained? Y Urine Specific [place] June 09, 2014 2:20pm 1.020 - Has [...] Escherichia Coli Name: AMAURI ESPINOZA Unit #: [id number] : 1935 Sex: F Loc / Svc: MED DOS: Signed Report #: [id number] DIAGNOSTIC IMAGING REPORT TYPE OF EXAM: CT [...] procedures. Encounters Encounter Location Date/Time [facility] 06/07/14 12:11pm Recent Diagnosis Atrial fibrillation Pneumonia SIRS (systemic inflammatory response syndrome) Hyponatremia Abnormal INR Respiratory distress Fluid overload Thrush, oral Stage III chronic kidney disease Anemia Hypotension Acute kidney injury
--- OUTSIDE RECORDS SUMMARY | 2016-08-24 06:47 | XMS REPORT | Continuity of Care Document ---
Author Author [facility] LIVE Organization [facility] LIVE Address Unknown Phone Unavailable Support Name Relationship Address Phone JENNIFER DRAKE DO Caregiver [facility] MEDICINE [address] [place] [phone] HAYES ESPINOZA Next Of Kin [address] [facility] [address] [place] [address] Insurance Providers Payer Name Policy Number Subscriber Name Relationship Medicare [id number] Amauri Espinoza 16 Self Geha/Hpk [id number] Hayes Espinoza 01 Spouse Advance Directives Directive [...] PO NEEDED 06/07/14 Active Fluticasone Propionate 2 [place] EA NOSTRIL DAILY PRN PRN ORDERS Active Sanders-3 Fatty Acids 1,200 Mg PO DAILY 06/07/14 [...] Dr Drake on 07-13-14 at 2:30 pm [phone] 07-12-14 CXR and CMP one day prior to appt at [facility] for hyponatremia, pneumonia.dr stout 1-2 weeks recheck meds and a fib Condition at time of discharge: Good 2.855 Bilirubin Level: 6.3 Congenital Heart Disease Screening Result: Pass Condition at time of discharge: Good Good Pass Plan of Care Discharge Date 07/06/14 2:10pm Disposition 03 TO [facility] NOT [facility] (SNF) Instructions/Education Provided [facility] Congestive Heart Failure Atrial Fibrillation DI for [...] F (96.8 - 99.1) Temperature (Calculated Celsius) 37.43460 degrees C (36.0 - 37.3) Pulse Rate [...] ng/mL PH - CKMB Mass performed at [facility], [address] [place], [place] [address]Medical Director Massiel Castillo DO --- 06/10/14 1357 --- CKMB-A previously reported as: 4.2 CH ng/mL CKMB Mass performed at [facility], [address] [place] [address] Counter Caser Massiel Castillo DO Creatinine July 06, 2014 [...] 17, 2011 8:59pm LAB TEST FORM REQUEST [id number] - Lymphocytes # (Auto) July 06, 2014 [...] with M. pneumoniae. Mycoplasma Antibodies performed at [facility], [place] [address] Counter Caser Massiel Castillo DO [id number] Natriuretic Peptide July 06, 2014 4:37am 2790 [...] Indeterminate - Quantiferon TB Test performed at [facility], [address] [facility] [place] [address] Counter Caser Massiel Castillo DO Thyroid Stimulating Hormone (TSH) [...] Has specimen been collected/obtained? Y Urine Specific [place] June 29, 2014 10:45am 1.020 - ADD-ON [...] Mixed Gail Name: AMAURI ESPINOZA Unit #: [id number] : 1935 Sex: F Loc / Svc: MED DOS: Signed Report #: [id number] DIAGNOSTIC IMAGING REPORT TYPE OF EXAM: CHEST [...] DO Encounters Encounter Location Date/Time Discharged Inpatient [facility] 07/01/14 11:01am Discharged Inpatient [facility] 06/22/14 1:55pm Discharged Inpatient [facility] 06/07/14 12:11pm Recent Diagnosis Atrial fibrillation Hyponatremia Hypothyroid CHF (congestive heart failure) Pleural effusion Hyperkalemia Hypokalemia
--- NOTE | 2016-08-24 06:48 | ERPDOC ---
Departure Disposition Decision Date: August 24, 2016 Disposition Decision Time: 07:53 Disposition: 01 DISCHARGED HOME, SELF-CARE Impression Impression Impression: Primary Impression: Closed head injury Encounter type: initial encounter Qualified Codes: S09.90XA - Unspecified injury of head, initial encounter Severity: Moderate Condition: Improved Seen By: Physician only Referrals: JENNIFER DRAKE DO (Family) 1 Day Patient Instructions: Head Injury (ED), Fall Prevention (ED) Problems/Meds/Labs Reviewed?: Yes Medications reviewed and manag: Yes Follow up care ordered?: Yes Mental Status: Alert, Oriented HPI - Fall/Injury General Chief Complaint: Fall Stated Complaint: FELL, HIT HEAD Time Seen by Provider: 06:34 Source: patient, family Exam Limitations: no limitations HPI - Fall/Injury Initial Comments 80-year-old female presents to the emergency department with a chief complaint of suffering a mechanical fall earlier in the day. Patient got up to go to the bathroom at approximately 0445 today and while in the bathroom she turned quickly slipping on the floor causing her to lose her balance and fall. Patient does note striking her head. Patient notes a mild dull generalized headache. Denies any neck pain or loss of consciousness. Patient also notes a mild dull generalized discomfort without radiation in her coccyx region. She has been ambulatory without difficulty since the incident. No other complaints or associated symptoms. No other injuries. Patient does note that she is anticoagulated on Coumadin. Occurred At: other ([facility] ) Onset: Constant Allergies: Coded Allergies: codeine (Verified Adverse Reaction, Unknown, SWELLING, 08/24/16) Past History Past Medical History Metabolic: hypertension, hypothyroidism ENMT: allergies Cardiac: A-fib, CAD, CHF Respiratory: pneumonia GI: GERD, constipation Female: renal insufficiency Neurological: other Surgical History Reproductive/: hysterectomy Joint: knee Family History Family PMH: FOUND: hypertension Vaccines Hx Influenza Vaccination: Yes (01/2014) Hx Pneumococcal Vaccination: Yes (01/19) Social History Smoking Status: Never smoker Substance Use Type: does not use Alcohol Intake: none Sexuality: male partner Review of Systems Constitutional Constitutional: DENIES: chills, fever Eyes General: DENIES: erythema, exudate Lids/Accessories: DENIES: erythema, swelling Vision: DENIES: acuity, blurring ENMT Ears: DENIES: drainage, erythema Hearing: DENIES: hearing loss Balance: DENIES: ataxia, falling to one side Sinuses: DENIES: congestion, pain Nose: DENIES: nosebleeds, pain Mouth/Throat: DENIES: painful swallowing, sore throat Teeth: DENIES: pain Jaw: DENIES: pain Cardiovascular Cardiac: DENIES: chest pain, dyspnea on exertion Rhythm/Rate: DENIES: irregular beat, palpitations Vascular: DENIES: pedal edema, unilateral swelling Pulmonary Respiratory: DENIES: cough, dyspnea, pleuritic chest pain, sputum GI Upper Abdomen: DENIES: nausea, pain, vomiting Lower Abdomen: DENIES: diarrhea, pain General: DENIES: dysuria, frequency, urgency Musculoskeletal General: tenderness, DENIES: joint pain Integumentary Skin: DENIES: itching, rash Neurological General: DENIES: change in strength, headache, numbness, weakness Psychiatric Psychiatric: DENIES: emotional instability, suicidal ideation/attempt Endocrine Endocrine: DENIES: polydipsia, polyphagia Hematologic/Lymphatic Hematologic/Lymphatic: DENIES: frequent nosebleeds, lymphadenopathy Allergic/Immunological Allergic/Immunoligical: DENIES: allergic reactions, hives Physical Exam General General Nourishment: well nourished, well developed, appears stated age, no acute distress, adult General Body Habitus: well groomed Vitals and Pain First Documented Vital Signs Date Time Temp Pulse Resp B/P Pulse Ox O2 Delivery O2 Flow Rate FiO2 08/24/16 06:30 98.3 86 14 137/88 95 Room Air Weight: Kilograms: 63.100 Height (feet): 5 Height (inches): 1.00 Triage Pain Scale: RN VS reviewed by Provider: Yes Normal Exams: Eyes: Pupils are PERRLA w/ EOMI, No scleral icterus, irritation, or foreign bodies noted ENMT: No facial trauma, nasal exudates, pharyngeal erythema, or exudates are noted Dental: No fractured, loose, or missing teeth noted Neck: without adenopathy, JVD, bruits or thyromegaly Chest/Resp: Clear all elise, with good airflow, and symmetry bilaterally CV: Regular rate and rhythm, without murmur or gallop, Pulses 2+ all extremities, capillary refill, <2 seconds all ext., no pedal edema noted Abdomen: Bowel sounds positive, soft, non-tender, non-distended, no hepatosplenomegaly, masses or bruits noted Lymphatic: No lymphadenopathy, or lymphedema noted Musculoskeletal: No tenderness, or deformity noted, good range of motion, all extremities Integumentary: No rashes, hives, or bruising noted, hair and nails, without abnormality Neurologic: Patient is alert, and oriented, cranial nerves, motor/sensory/ cerebellar, exams w/o gross deficits, to observation Psychiatric: Patient exhibits, appropriate attention, emotion and affect Eyes (brief) Comments Patient is noted to have bruising at the right eyebrow. No involvement of the eye. No raccoon eyes, Manzano sign, hemotympanum or CSF leak. The midface is stable. No malocclusion of the jaw. No septal or auricular hematoma. Neck (brief) Neck: FOUND: trachea midline, NOT FOUND: tenderness Musculoskeletal (brief) Comments Back - no midline tenderness or deformity of the cervical/thoracic/lumbar spine. Pelvis - nontender to compression. Stable. Differential Diagnoses Considering: Other (closed head injury, contusion, fracture, sprain) Progress Results/Orders Orders Procedure Category Date Status Time Ct Head W/O Contrast CT 08/24/16 Taken 06:42 Ct Maxillofacial W/O CT 08/24/16 Taken Contrast 06:42 Ct Cervical Spine W/O CT 08/24/16 Taken Contrast 06:42 Ct Abd/Pelvis W/O CT 08/24/16 Taken Contrast 06:42 INR LAB 08/24/16 Complete Acetaminophen PHA 08/24/16 Complete (Tylenol Extra 08:00 Lab Results Laboratory Tests Test 08/24/16 07:16 Prothromb Time International Ratio 2.78 Medications Current ED Medications Acetaminophen (Tylenol Extra Strength) 1,000 mg O ONCE PO ; Start 08/24/16 at 08:00; Stop 08/24/16 at 08:01; Status DC Progress Progress Labs / imaging were discussed in detail with the patient and questions are answered. Patient is given analgesic pain medication with improvement of symptoms. Patient has a known history of compression fracture at T11 per patient and family. No pain with palpation of the spine during her emergency department stay. Patient is discharged home in improved condition. Patient is to follow up as instructed. Patient is to return to the emergency Department if her condition worsens or changes in any manner. Patient is in agreement with the current plan of management. Strict return precautions are provided. Patient and family are in agreement with the current plan of management. Patient is discharged home in improved condition. SAMEER TAMEZ DO August 24, 2016 06:48
--- NOTE | 2016-08-24 06:50 | NUR ---
CT PT TO CT.
[2016-08-24] MEDS ORDERED: RASA1TAB2 PO (06:56)
[2016-08-24] MEDS ORDERED: CELE200C PO (07:01)
[2016-08-24] MEDS ORDERED: CITA20TA17 PO (07:03)
[2016-08-24] MEDS ORDERED: PHEN100C4 PO (07:05)
--- NOTE | 2016-08-24 07:08 | NUR ---
CT PT RETURNED FROM CT.
[2016-08-24 07:26] LABS: INR 2.78 (0.77-1.03); PROTHROMBIN TIME 30.3 SEC (9.48-12.52)
[2016-08-24] MEDS ORDERED: ACETAMINOPHEN 500 MG TABLET PO ONE (08:00)
--- NOTE | 2016-08-24 08:17 | DI ---
Indication: ITS.REASON: fall, injury PROCEDURE: CT HEAD W/O CONTRAST: Encounter: Initial Comparison: None Technique: Axial CT images through the head were performed without contrast. Iterative Reconstruction dose reducing technique was utilized. FINDINGS: The ventricles are of normal size, shape, and configuration for the patient's age. There is no evidence of acute intracranial hemorrhage, midline displacement, or mass effect. There are scattered areas of low attenuation in the white matter which most likely represent changes of chronic microvascular ischemia. The CT attenuation of the brain parenchyma is otherwise normal within the cerebellum, brain stem, and cerebral hemispheres. The tympanic cavities and mastoid air cells are free of appreciable disease. There are no definite fractures of the skull base, calvarium, or visualized portion of the midface. IMPRESSION: No CT evidence of acute traumatic intracranial injury. There is a preliminary report by virtual radi[facility]. .
--- NOTE | 2016-08-24 08:18 | DI ---
Indication: ITS.REASON: fall injury PROCEDURE: CT MAXILLOFACIAL W/O CONTRAST: Encounter: Initial Comparison: None Technique: Axial noncontrast CT images through the mid face were performed with coronal and sagittal two-dimensional reformats. Automated Exposure Control and Iterative Reconstruction dose reducing techniques were utilized. Findings: Patient is edentulous. No acute maxillofacial fracture identified. Paranasal sinuses are clear. Soft tissues show no focal hematoma or fluid collection. Globes are intact. Impression: No acute maxillofacial fracture. There is a preliminary report by [facility]. .
--- NOTE | 2016-08-24 08:19 | DI ---
Indication: ITS.REASON: fall injury PROCEDURE: CT CERVICAL SPINE W/O CONTRAST: Encounter: Initial Comparison: None Technique: Axial CT images through the cervical spine were performed without contrast. Coronal and sagittal reformatted images were also obtained. Automated Exposure Control and Iterative Reconstruction dose reducing techniques were utilized. FINDINGS: The alignment of the cervical spine is normal. Multilevel degenerative changes are present. There is no evidence of acute fracture or subluxation of the cervical spine. The atlantoaxial articulation, dens, and upper cervical spine demonstrate no subluxation. The paraspinal soft tissues and spinal canal appear unremarkable. IMPRESSION: No acute traumatic abnormality of the cervical spine. There is a preliminary report by [facility]. .
--- NOTE | 2016-08-24 08:21 | DI ---
Indication: ITS.REASON: fall, injury PROCEDURE: CT ABD/PELVIS W/O CONTRAST: Encounter: Initial Comparison: Chest CT dated June 17, 2014 Technique: Axial CT images were performed through the abdomen and pelvis without intravenous contrast. Coronal and sagittal two-dimensional reformats. Automated Exposure Control and Iterative Reconstruction dose reducing techniques were utilized. Findings: Basilar scarring with a stable presumably benign 7 mm left lower lobe pulmonary nodule dating back to at least 2014. Unenhanced liver, gallbladder, spleen, pancreas and adrenal glands are within normal limits. Left kidney is slightly smaller than average. Right kidney shows prominent parapelvic cysts. Bladder is normal. Uterus is absent. No evidence of bowel obstruction. No free air or intraperitoneal hemorrhage. Bone windows show no acute findings. Chronic mild T11 compression fracture, also present on the comparison. Impression: No acute traumatic abnormality seen in the abdomen or pelvis. There is a preliminary report by [facility]. .
[2016-08-24 08:40] VITALS: BP 136/85; PULSE 106; RESP 16; TEMP 97.2; O2SAT 94
--- NOTE | 2016-08-24 08:54 | NUR ---
DISCHARGE Per WC, transfers with steady gait to in ED garage. Retruns to independent living at [place]
== END 2016-08-24 08:40 | disposition home or self-care (01) ==
LOC: ED 06:25
DX: S00.11XA Contusion of right eyelid and periocular area, initial encounter (principal); S39.92XA Unspecified injury of lower back, initial encounter; Z79.01 Long term (current) use of anticoagulants; W01.0XXA Fall on same level from slipping, tripping and stumbling without subsequent striking against object, initial encounter; Y93.89 Activity, other specified; Y92.002 Bathroom of unspecified non-institutional (private) residence as the place of occurrence of the external cause; Y99.8 Other external cause status
CPT/HCPCS: 36415; 70450; 70486; 72125; 74176; 85610; 99283; A9270

== ENCOUNTER 2017-04-12 17:16 | Inpatient (IN) ==
--- NOTE | 2017-04-12 18:02 | Emergency Department Report ---
Fall HPI - General Chief Complaint: Fall Stated Complaint: fall, leg pain Time Seen by Provider: 04/12/17 17:40 Source: patient Mode of arrival: EMS Limitations: no limitations - History of Present Illness HPI Narrative: Pt presents per EMS after falling in her garage. Fall was witnessed by . pt c/o left hip pain. Denies being dizzy or lightheaded prior to fall. Fall was from a standing position MD complaint: fall Onset (ago): minute(s) Fall from: standing Fall witnessed: yes, by family Place fall occurred: home Loss of consciousness: none Prolonged down time: no Symptoms prior to fall: none Context: tripped/slipped Location of injury: pelvis Severity: mild - Related Data Home Medications Medication Instructions Recorded Confirmed Levothyroxine Tab [Synthroid] 50 mcg PO DAILY #0 10/12/10 04/12/17 Rasagiline Mesylate [Azilect] 1 mg PO DAILY #0 10/12/10 04/12/17 Fexofenadine HCl [Erica Allergy] 60 mg PO BID PRN #0 tab 06/07/14 04/12/17 Magnesium Oxide [Magnesium] 400 mg PO BID #0 cap 06/07/14 04/12/17 DiltiaZEM CD [Cardizem Cd] 1 tab PO DAILY #0 tab 07/20/14 04/12/17 Citalopram Hydrobromide [Celexa] 20 mg PO DAILY #0 tab 08/24/16 04/12/17 Acetaminophen [Tylenol] 650 mg PO QID 04/12/17 04/12/17 Albuterol Neb (0.083%) [Proventil 2.5 mg AEROSOL Q6H PRN 04/12/17 04/12/17 Neb (0.083%)] Benzonatate [Tessalon Perle] 200 mg PO Q8H PRN 04/12/17 04/12/17 Bumetanide 2 mg PO DAILY 04/12/17 04/12/17 Calcium Carbonate 600 mg PO BID 04/12/17 04/12/17 Carbidopa/Levodopa [Carbidopa-Levo 1 each PO TID 04/12/17 04/12/17 ER 25-100 Tab] Carboxymethyl/Gly/Poly80/Pf 1 each EACH EYE BID 04/12/17 04/12/17 [Refresh Optive Advanced Drops] Digoxin [Digitek] 125 mcg PO DAILY 04/12/17 04/12/17 Fluticasone Nasal [place] [Flonase] 1 spray DAVID DAILY 04/12/17 04/12/17 Guaifenesin Oral Liq [Robitussin 10 ml PO Q4H PRN 04/12/17 04/12/17 Liq] Lactobacillus Acidophilus 1 each PO DAILY 04/12/17 04/12/17 [Probiotic] Mag Hydrox/Aluminum Hyd/Simeth 10 - 15 ml PO Q4H PRN 04/12/17 04/12/17 [Alum-Mag Hydroxide-Simeth Liq] Melatonin/Pyridoxine HCl (B6) 5 mg PO DAILY 04/12/17 04/12/17 [Melatonin 5 mg Tablet] Metoprolol Succinate 50 mg PO HS 04/12/17 04/12/17 Mirabegron [Myrbetriq] 50 mg PO HS 04/12/17 04/12/17 Multivitamin [One Daily] 1 each PO DAILY 04/12/17 04/12/17 Omeprazole [Prilosec] 20 mg PO ACB 04/12/17 04/12/17 Phenytoin Cap [Dilantin] 100 mg PO BID 04/12/17 04/12/17 Potassium Chloride [K-Dur] 20 meq PO DAILY 04/12/17 04/12/17 Tramadol [Ultram] 50 mg PO Q6H PRN 04/12/17 04/12/17 Warfarin Sodium [Coumadin] 3 mg PO SUTH 04/12/17 04/12/17 Warfarin [Coumadin] 2 mg PO MOTUWEFRSA 04/12/17 04/12/17 guaiFENesin [Mucinex] 600 mg PO BID 04/12/17 04/12/17 Allergies Allergy/AdvReac Type Severity Reaction Status Date / Time codeine AdvReac Unknown SWELLING Verified 04/12/17 17:37 Review of Systems All systems: reviewed and negative except as stated Constitutional: Reports: as per HPI Musculoskeletal: Reports: as per HPI Neurological: Reports: as per HPI PFSH Patient Stated Medical History Parkinson's Disease Yes Other HEENT Yes: MACULAR DEGENERATION Cardiac Arrhythmia Yes: A-FIB Congestive Heart Failure Yes Coronary Artery Disease Yes Hypertension Yes Pneumonia Yes Sleep Apnea Yes Gastroesophageal Reflux Yes Disease Other GI Yes: DIVERTICULITIS Hx Renal Disease Yes: STAGE 3 Other Yes: RENAL TUBULAR DYSFUNCTION Clotting Problems Yes Osteoarthritis Yes Other Musculoskeletal Yes: SPINAL STENOSIS, RA Depression Yes: MAJOR DEPRESSIVE Physical Exam - Limitations Limitations: no limitations - General General appearance: alert, in no apparent distress - Normal Exams: Head:: Normocephalic without trauma Chest/Respirations:: Clear all elise, with good airflow, and symmetry bilaterally Cardiovascular:: Regular rate and rhythm, without murmur or gallop, Pulses 2+ all extremities, capillary refill, <2 seconds all extremities Abdomen:: Bowel sounds positive, soft, non-tender, non-distended Integumentary:: No rashes Neurological:: Patient is alert, and oriented, cranial nerves, motor/sensory/ cerebellar, exams w/o gross deficits, to observation Psychiatric:: Patient exhibits, appropriate attention, emotion and affect - Expanded Lower Extremity Exam left Hip/Pelvis exam: Present: normal inspection, full ROM, tenderness (with palpation, no rotation) Course Vital Signs Pulse Rate 65 04/12/17 17:21 Respiratory Rate 18 04/12/17 17:21 Blood Pressure 121/68 04/12/17 17:21 Pulse Oximetry 92 04/12/17 17:21 Pulse Rate 65 04/12/17 17:21 Respiratory Rate 18 04/12/17 17:21 Blood Pressure 121/68 04/12/17 17:21 Pulse Oximetry 92 04/12/17 17:21 Fall - [facility] Narrative Medical decision making narrative: X ray reveals a left impacted femoral neck fracture. Glenn from ortho notified and would like pt to be admitted to hospitalist with a consult to Dr Whitney. Dr Hall with hospitalist notified who will accept pt. Findings and plan discussed with pt and family. Additional orders initiated for pre op - Differential Diagnosis Likely: syncope (hip fracture, UTI, Pneumonia) - Radiology Data Attestation: I reviewed the patient's radiology results. read per Dr Richardson. Impacted femoral neck fracture Disposition Clinical Impression: Femoral neck fracture Qualifiers: Encounter type: initial encounter Fracture type: closed Laterality: left Qualified Code(s): S72.002A - Fracture of unspecified part of neck of left femur , initial encounter for closed fracture Disposition: 02 To [facility] Acute Care Condition: Improved Prescriptions: No Action Rasagiline Mesylate [Azilect] 1 mg PO DAILY #0 DiltiaZEM CD [Cardizem Cd] 1 tab PO DAILY #0 tab Lactobacillus Acidophilus [Probiotic] 1 each PO DAILY Benzonatate [Tessalon Perle] 200 mg PO Q8H PRN PRN Reason: Cough Carboxymethyl/Gly/Poly80/Pf [Refresh Optive Advanced Drops] 1 each EACH EYE BID Omeprazole [Prilosec] 20 mg PO ACB Multivitamin [One Daily] 1 each PO DAILY guaiFENesin [Mucinex] 600 mg PO BID Metoprolol Succinate 50 mg PO HS Melatonin/Pyridoxine HCl (B6) [Melatonin 5 mg Tablet] 5 mg PO DAILY Mag Hydrox/Aluminum Hyd/Simeth [Alum-Mag Hydroxide-Simeth Liq] 10 - 15 ml PO Q4H PRN PRN Reason: Epigastric Distress Potassium Chloride [K-Dur] 20 meq PO DAILY Fluticasone Nasal [place] [Flonase] 1 spray DAVID DAILY Phenytoin Cap [Dilantin] 100 mg PO BID Digoxin [Digitek] 125 mcg PO DAILY Warfarin Sodium [Coumadin] 3 mg PO SUTH Warfarin [Coumadin] 2 mg PO MOTUWEFRSA Carbidopa/Levodopa [Carbidopa-Levo ER 25-100 Tab] 1 each PO TID Calcium Carbonate 600 mg PO BID Bumetanide 2 mg PO DAILY Albuterol Neb (0.083%) [Proventil Neb (0.083%)] 2.5 mg AEROSOL Q6H PRN PRN Reason: Shortness Of Air Levothyroxine Tab [Synthroid] 50 mcg PO DAILY #0 Fexofenadine HCl [Erica Allergy] 60 mg PO BID PRN #0 tab PRN Reason: ALLERY SYMPTOMS Magnesium Oxide [Magnesium] 400 mg PO BID #0 cap Citalopram Hydrobromide [Celexa] 20 mg PO DAILY #0 tab Tramadol [Ultram] 50 mg PO Q6H PRN PRN Reason: Pain Mirabegron [Myrbetriq] 50 mg PO HS Guaifenesin Oral Liq [Robitussin Liq] 10 ml PO Q4H PRN PRN Reason: Cough Acetaminophen [Tylenol] 650 mg PO QID Referrals: Bao Gonzalez DO [Physician] - Time of Disposition: 19:55 - Seen By: midlevel
[2017-04-12] MEDS: SALINE FLUSH 10ml SYRINGE IVF PRN (19:40)
[2017-04-12] MEDS ORDERED: MORPHINE SULFATE 4mg INJECTION IVP PRN (20:52)
[2017-04-12] MEDS ORDERED: DOCUSATE SODIUM 100 MG CAPSULE PO PRN (20:52)
[2017-04-12] MEDS ORDERED: ONDANSETRON 4 MG/2 ML INJECTION IVP PRN (20:52)
[2017-04-12] MEDS ORDERED: HYDROCODONE/APAP 5mg/325mg TABLET PO PRN (20:52)
[2017-04-12] MEDS ORDERED: PHENYTOIN 100 MG CAPSULE PO SCH (21:00)
[2017-04-12 21:09] VITALS: BMI 25.8
[2017-04-12] MEDS: ACETAMINOPHEN 325 MG TABLET PO PRN (23:21)
[2017-04-12] MEDS: NS 1,000 ML IV SCH (23:21)
[2017-04-13] MEDS ORDERED: FALL RISK - PHARMACY CONSULT XX ONE (00:19)
--- NOTE | 2017-04-13 04:59 | History & Physical Report ---
History of Present Illness Date: 04/13/17 Chief complaint: left hip pain HPI: This patient is a 81 y/o female that lives at a senior living care setting. She was ambulating today and lost her balance and fell landing on her left hip. The patient had immediate pain and was brought to the ED where an xray demonstrated an impacted left hip fx. The patient has a history of atrial fib on chronic anticoagulation. The patient also has Parkinson's disease. In the ED a metabolic workup was unremarkable. EKG c/w a fib, non ischemic. INR is 2.1. The pCXR demonstrated cardiomegaly. Overall the patient reports a general functional decline. no chest pain with activity. no PND, no orthopnea, no increased edema. The patent's record would suggest previous cardiac ds which she denies. At this time she is admitted for medical management in preparation for surgery Review of Systems Review of systems: as noted in HPI> otherwise neg except for outlined above 12 point ROS Past Medical History Patient Stated Medical History Parkinson's Disease Yes Other HEENT Yes: MACULAR DEGENERATION Cardiac Arrhythmia Yes: A-FIB Congestive Heart Failure Yes Coronary Artery Disease Yes Hypertension Yes Pneumonia Yes: 3 yrs ago Gastroesophageal Reflux Yes Disease Other GI Yes: DIVERTICULITIS Hx Incontinence Yes Hx Renal Disease Yes: STAGE 3 Other Yes: RENAL TUBULAR DYSFUNCTION Clotting Problems Yes Osteoarthritis Yes Other Musculoskeletal Yes: SPINAL STENOSIS, RA Depression Yes: MAJOR DEPRESSIVE Surgical History: ISHAN Family History Updates: unkown at this time - Social History Smoking status: Never smoker Substance use type: does not use Alcohol intake frequency: does not drink Housing: intermediate Household members: none service: No Current occupational status: retired Current residence: Shelter Medications Home Medications Medication Instructions Recorded Confirmed Type Levothyroxine Tab [Synthroid] 50 mcg PO DAILY #0 10/12/10 04/12/17 History Rasagiline Mesylate [Azilect] 1 mg PO DAILY #0 10/12/10 04/12/17 History Fexofenadine HCl [Erica Allergy] 60 mg PO BID PRN #0 tab 06/07/14 04/12/17 History Magnesium Oxide [Magnesium] 400 mg PO BID #0 cap 06/07/14 04/12/17 History DiltiaZEM CD [Cardizem Cd] 1 tab PO DAILY #0 tab 07/20/14 04/12/17 History Citalopram Hydrobromide [Celexa] 20 mg PO DAILY #0 tab 08/24/16 04/12/17 History Acetaminophen [Tylenol] 650 mg PO QID 04/12/17 04/12/17 History Albuterol Neb (0.083%) [Proventil 2.5 mg AEROSOL Q6H PRN 04/12/17 04/12/17 History Neb (0.083%)] Benzonatate [Tessalon Perle] 200 mg PO Q8H PRN 04/12/17 04/12/17 History Bumetanide 2 mg PO DAILY 04/12/17 04/12/17 History Calcium Carbonate 600 mg PO BID 04/12/17 04/12/17 History Carbidopa/Levodopa [Carbidopa-Levo 1 each PO TID 04/12/17 04/12/17 History ER 25-100 Tab] Carboxymethyl/Gly/Poly80/Pf 1 each EACH EYE BID 04/12/17 04/12/17 History [Refresh Optive Advanced Drops] Digoxin [Digitek] 125 mcg PO DAILY 04/12/17 04/12/17 History Fluticasone Nasal [place] [Flonase] 1 spray DAVID DAILY 04/12/17 04/12/17 History Guaifenesin Oral Liq [Robitussin 10 ml PO Q4H PRN 04/12/17 04/12/17 History Liq] Lactobacillus Acidophilus 1 each PO DAILY 04/12/17 04/12/17 History [Probiotic] Mag Hydrox/Aluminum Hyd/Simeth 10 - 15 ml PO Q4H PRN 04/12/17 04/12/17 History [Alum-Mag Hydroxide-Simeth Liq] Melatonin/Pyridoxine HCl (B6) 5 mg PO DAILY 04/12/17 04/12/17 History [Melatonin 5 mg Tablet] Metoprolol Succinate 50 mg PO HS 04/12/17 04/12/17 History Mirabegron [Myrbetriq] 50 mg PO HS 04/12/17 04/12/17 History Multivitamin [One Daily] 1 each PO DAILY 04/12/17 04/12/17 History Omeprazole [Prilosec] 20 mg PO ACB 04/12/17 04/12/17 History Phenytoin Cap [Dilantin] 100 mg PO BID 04/12/17 04/12/17 History Potassium Chloride [K-Dur] 20 meq PO DAILY 04/12/17 04/12/17 History Tramadol [Ultram] 50 mg PO Q6H PRN 04/12/17 04/12/17 History Warfarin Sodium [Coumadin] 3 mg PO SUTH 04/12/17 04/12/17 History Warfarin [Coumadin] 2 mg PO MOTUWEFRSA 04/12/17 04/12/17 History guaiFENesin [Mucinex] 600 mg PO BID 04/12/17 04/12/17 History Allergies Allergy/AdvReac Type Severity Reaction Status Date / Time codeine AdvReac Unknown SWELLING Verified 04/12/17 17:37 Exam Vital Signs: Temperature 96.8 F 04/12/17 23:33 Pulse Rate 74 04/12/17 23:33 Respiratory Rate 16 04/12/17 23:33 Blood Pressure 121/69 04/12/17 23:33 Pulse Oximetry 100 04/12/17 23:33 Telemetry Rhythm: A-fib Height/Weight/BMI: Height 1.55 m Weight 62.1 kg Body Mass Index 25.8 - Constitutional Present: mild distress, thin, cooperative - Routine HEENT Exam Head: Present: normocephalic, atraumatic Eye: Present: EOMI, conjunctivae pink ENT: Present: mucous membranes moist - Routine Neck Exam Present: supple, full ROM - Routine Respiratory Exam Present: CTA bilaterally. Absent: respiratory distress, rhonchi, wheezes - Routine Cardiovascular Exam Present: irregular rhythm, irregularly irregular - Routine Abdominal Exam Present: soft, normoactive bowel sounds, non distended, non tender - Routine Extremities Exam Present: no edema Comments: shortened left hip, pain wiht any motion - Routine Skin Exam Present: intact, dry - Routine Neurological Exam Present: alert, oriented X3, vision grossly intact, hearing grossly intact, normal speech. Absent: motor deficit - Routine Psychiatric Exam Present: normal affect, normal thought process Results - Labs CBC & Chem 7: 04/13/17 04:11 04/13/17 04:11 - ABG Interpretation Additional comments: pcxr , left hip xray, ekg, as described above. Assessment and Plan (1) Femoral neck fracture Current visit: Yes Status: Acute (2) Atrial fibrillation Current visit: Yes Status: Acute (3) Hypertension Current visit: Yes Status: Acute (4) Parkinson disease Current visit: Yes Status: Acute (5) Hypothyroid Current visit: Yes Status: Acute Assessment and Plan: 1. left fem neck fx, impacted, acute POA: per ortho Dr. Whitney. he has been consulted. pre op assessment is relatively benign. metabolically intact. mets would not be 4. but no chest pain with activity, no overt signs of failure. Obviously need to let INR drift down. mod risk for surgery but would not r/c cardiac eval prior to surgery. continue b brendan pre op as would be advised by SKIP protocol 2. atrial fib chronic POA; on b brendan and cardiazem. would need to confirm this with pharmacy to be sure, some risk of bradycardia with this mixture , especialy at this age. As noted above, will hold coumadin acutely, not actively reverse. follow INR 3. ckd 3 chronic POA: gentle hydration, follow labs 4. hypertension chronic POA: titrate meds as indicated. on b brendan and ca brendan. 5. hx of Parkinson ds chronic POA: to be aware of and clearly contributed to fall. Dgt has been trying to get the patient to use her walker and she is resistant 6. DVT ppx; SCD 7. hypothryoid chronic POA: continue synthroid DVT Prophylaxis: SCD's, Coumadin - Time spent with patient Time with patient PN: 30 minutes - Physician Narrative Physician: Ruddy Gonzáles MD Narrative: Date: 04/13/17 Time: 1000 I have independently interviewed and examined patient. Chart reviewed. Case discussed with nurse. Reviewed above note and concur. CC: fall, hip pain HPI: 81 yo female with Parkinson's, CHF says she lost her balance and fell on her left hip. She had pain and did not get up. X-ray in ER shows impacted subcapital left hip fx. Patient has an INR of 2.11. She is resting comfortably and denies pain. She says she landed on her left shoulder also but has no problem with ROM or any shoulder pain. No LOC. Her daughter is present. PMHx: Parkinson's, afib, HTN, CKD stage 3, macular degeneration, diverticulosis , MDD, spinal stenosis, hypothyroid PSHX: ISHAN Allergies/Meds: see MAR SHx: never smoked FHx: mother had RA; father had COPD ROS: In addition to above, patient has reflux that is less frequent on omeprazole. Remainder of 12 point ROS negative. Exam Gen: WDWNWM awake and alert, converses well HEENT: NC/AT PERRLA EOMI MMM No thrush NECK: Supple, midline, no tracheal deviation Lungs: CTAB, no wheezes, rhonchi, no respiratory distress on RA CV: irregularly irregular AB: soft nt/nd +BS No rebound or guarding EXT: No C/C/E MS: normal muscle tone of upper/lower ext Neuro: CN II-XII intact no focal motor deficits Psych: awake alert. Skin: warm and moist. No mottling Lab: Reviewed Assessment Left femoral neck fx Afib, chronic CKD, stage 3 HTN Parkinsons hypothyroid, chronic GERD Plan Admit as inpatient for left hip fx. Vitamin K given to reverse INR. Aiming for INR < 1.5 then surgery. Tramadol for pain - patient prefers this. Continue Sinemet for Parkinson's. Continue dig (check level), Toprolol XL, Bumex for CHF. Consult Dr. Hicks. Rate controlled on dig, BB, cardizem. Continue omeprazole for GERD and synthroid for hypothyroid. SCDs for DVT ppx and resume coumadin post-op with lovenox bridging. Patient is a DNR, and her daughter is DPOA-HC. Hospital Course Summary Disclaimer: The visit summary below is not to be considered part of the above Progress Note. Hospital Course: 04/13 Admit as inpatient for left hip fx. Vitamin K given to reverse INR. Aiming for INR < 1.5 then surgery. Tramadol for pain - patient prefers this. Continue Sinemet for Parkinson's. Continue dig (check level), Toprolol XL, Bumex for CHF. Consult Dr. Hicks. Rate controlled on dig, BB, cardizem. Continue omeprazole for GERD and synthroid for hypothyroid. SCDs for DVT ppx and resume coumadin post-op with lovenox bridging. Patient is a DNR, and her daughter is DPOA-HC.
--- NOTE | 2017-04-13 07:50 | Orthopedic Consult Note ---
Orthopedic Consultation HPI - Consultation Info Consult Date: 04/13/17 Attending Physician: Ruddy Gonzáles IV, MD Consult Reason: fracture - History of Present Illness This patient is a 81 y/o female that lives at a regional [facility] driver care setting at [place]. Her has an apartment on the same campus and he occas takes her home which is where she fell. Her fall was witnessed and was from a standing height. She landed on her left hip and had immediate pain. She was brought to the ED where an x-rays demonstrated a subcapital fracture of the left hip. She was admitted by the hospitalist service and Dr Whitney consulted for surgical intervention. Review of Systems - Constitutional Constitutional: Absent: headache(s) - EENT Ears, nose, mouth, throat: Absent: head injury - Cardiovascular Cardiovascular: Absent: chest pain - Respiratory Respiratory: Absent: cough - Gastrointestinal Gastrointestinal: Absent: abdominal pain - Musculoskeletal Musculoskeletal: Present: as per HPI, other (Denies other injury.) - Integumentary/Breasts Integumentary: Absent: wounds - Neurological Neurological: Absent: numbness, sensory deficit, tingling - Psychiatric Psychiatric: Present: depression [facility] Patient Stated Medical History Parkinson's Disease Yes Other HEENT Yes: MACULAR DEGENERATION Cardiac Arrhythmia Yes: A-FIB Congestive Heart Failure Yes Coronary Artery Disease Yes Hypertension Yes Pneumonia Yes: 3 yrs ago Gastroesophageal Reflux Yes Disease Other GI Yes: DIVERTICULITIS Hx Incontinence Yes Hx Renal Disease Yes: STAGE 3 Other Yes: RENAL TUBULAR DYSFUNCTION Clotting Problems Yes Osteoarthritis Yes Other Musculoskeletal Yes: SPINAL STENOSIS, RA Depression Yes: MAJOR DEPRESSIVE Surgical History: ISHAN - Social History Smoking status: Never smoker Current residence: Care Home Medications Home Medications Medication Instructions Recorded Confirmed Type Levothyroxine Tab [Synthroid] 50 mcg PO DAILY #0 10/12/10 04/12/17 History Rasagiline Mesylate [Azilect] 1 mg PO DAILY #0 10/12/10 04/12/17 History Fexofenadine HCl [Erica Allergy] 60 mg PO BID PRN #0 tab 06/07/14 04/12/17 History Magnesium Oxide [Magnesium] 400 mg PO BID #0 cap 06/07/14 04/12/17 History DiltiaZEM CD [Cardizem Cd] 1 tab PO DAILY #0 tab 07/20/14 04/12/17 History Citalopram Hydrobromide [Celexa] 20 mg PO DAILY #0 tab 08/24/16 04/12/17 History Acetaminophen [Tylenol] 650 mg PO QID 04/12/17 04/12/17 History Albuterol Neb (0.083%) [Proventil 2.5 mg AEROSOL Q6H PRN 04/12/17 04/12/17 History Neb (0.083%)] Benzonatate [Tessalon Perle] 200 mg PO Q8H PRN 04/12/17 04/12/17 History Bumetanide 2 mg PO DAILY 04/12/17 04/12/17 History Calcium Carbonate 600 mg PO BID 04/12/17 04/12/17 History Carbidopa/Levodopa [Carbidopa-Levo 1 each PO TID 04/12/17 04/12/17 History ER 25-100 Tab] Carboxymethyl/Gly/Poly80/Pf 1 each EACH EYE BID 04/12/17 04/12/17 History [Refresh Optive Advanced Drops] Digoxin [Digitek] 125 mcg PO DAILY 04/12/17 04/12/17 History Fluticasone Nasal [place] [Flonase] 1 spray DAVID DAILY 04/12/17 04/12/17 History Guaifenesin Oral Liq [Robitussin 10 ml PO Q4H PRN 04/12/17 04/12/17 History Liq] Lactobacillus Acidophilus 1 each PO DAILY 04/12/17 04/12/17 History [Probiotic] Mag Hydrox/Aluminum Hyd/Simeth 10 - 15 ml PO Q4H PRN 04/12/17 04/12/17 History [Alum-Mag Hydroxide-Simeth Liq] Melatonin/Pyridoxine HCl (B6) 5 mg PO DAILY 04/12/17 04/12/17 History [Melatonin 5 mg Tablet] Metoprolol Succinate 50 mg PO HS 04/12/17 04/12/17 History Mirabegron [Myrbetriq] 50 mg PO HS 04/12/17 04/12/17 History Multivitamin [One Daily] 1 each PO DAILY 04/12/17 04/12/17 History Omeprazole [Prilosec] 20 mg PO ACB 04/12/17 04/12/17 History Phenytoin Cap [Dilantin] 100 mg PO BID 04/12/17 04/12/17 History Potassium Chloride [K-Dur] 20 meq PO DAILY 04/12/17 04/12/17 History Tramadol [Ultram] 50 mg PO Q6H PRN 04/12/17 04/12/17 History Warfarin Sodium [Coumadin] 3 mg PO SUTH 04/12/17 04/12/17 History Warfarin [Coumadin] 2 mg PO MOTUWEFRSA 04/12/17 04/12/17 History guaiFENesin [Mucinex] 600 mg PO BID 04/12/17 04/12/17 History Allergies Allergy/AdvReac Type Severity Reaction Status Date / Time codeine AdvReac Unknown SWELLING Verified 04/12/17 17:37 Orthopedic Exam Vital signs: Temperature 97.7 F 04/13/17 07:00 Pulse Rate 98 04/13/17 07:00 Respiratory Rate 12 04/13/17 07:00 Blood Pressure 120/83 04/13/17 07:00 Pulse Oximetry 95 04/13/17 07:00 - Constitutional General Appearance: Present: alert, cooperative, no acute distress - Respiratory Exam Present: non-labored - Extremities Exam Present: no edema, pulses intact. Absent: calf tenderness - Hip Exam left Hip Exam: Present: tender over trochanter, alignment normal (Minimal change in leg length and no obvious rotational deformity.), painful PROM - Integumentary Exam Present: pink, warm, dry, bruising (bruise over the left trochanter and tender at this site.) - Neurological Exam Present: no deficits - Psychiatric Exam Present: alert - Labs Result Diagrams: 04/13/17 04:11 04/13/17 04:11 Abnormal lab results 04/13/17 04/13/17 Range/Units 04:11 04:11 RBC 3.27 L (4.00-5.20) M/MM3 Hgb 10.3 L D (12-16) GM/DL Hct 32.8 L D (36-46) % MCV 100.3 H (80-100) UM3 Plt Count 127 L (130-400) T/MM3 Neut % (Auto) 66.1 H (33-66) % Lymph % (Auto) 21.6 L (23-45) % [place] % (Auto) 9.3 H (0-9.0) % BUN 20.0 H (7-17) MG/DL Calcium 8.2 L (8.4-10.2) MG/DL H & H 04/13/17 Range/Units 04:11 Hgb 10.3 L D (12-16) GM/DL Hct 32.8 L D (36-46) % Impression and Recommendation (1) Femoral neck fracture Current visit: Yes Qualifiers: Qualified Code(s): S72.002A - Fracture of unspecified part of neck of left femur, initial encounter for closed fracture Status: Acute Will plan to treat this with a janey arthroplasty when INR allows. INR will need to be < 1.[address] Hall has recommended not actively reversing Coumadin but I discussed this with the hospitalist this am and they will give some vitamin K. I will order an INR later this afternoon and again in the AM. Tentatively plan surgery Saturday. I met with the daughter on Saturday and discussed the surgical procedure, risk vs benefits and possible complications including . The daughter says she has seen a gradual decline in her mother and sees this as "the beginning of the end". The daughter works in a nursing facility and seems realistic about this injury and has no further questions at this time. She and her father will meet with Dr Whitney tomorrow morning before surgery. Hospital Course Summary Disclaimer: The visit summary below is not to be considered part of the above Progress Note.
[2017-04-13] MEDS: DIGOXIN 125 MCG TABLET PO SCH (08:40)
[2017-04-13] MEDS: DiltiaZEM CD 360 MG CAPSULE PO SCH (08:40)
[2017-04-13] MEDS: PHENYTOIN 100 MG CAPSULE PO SCH ×2 (08:40→17:46)
[2017-04-13] MEDS: NS 1,000 ML IV SCH (09:11)
[2017-04-13] MEDS ORDERED: PHYTONADIONE 5 MG/2.5 ML ORAL LIQUID PO ONE (09:13)
[2017-04-13] MEDS ORDERED: TRANEXAMIC ACID 1,000 MG in NS 100 ML TOP ONE (10:28)
--- NOTE | 2017-04-13 10:39 | Anesthesia Preoperative Report ---
Anesthesia Preoperative Record - Date and Time Date: 04/13/17 Preoperative Diagnosis: hip fx left Proposed Procedure: left hip hemiarthroplasty NPO Since Date: 04/13/17 NPO Since Time: 23:00 Allergies/Adverse Reactions: Allergies Allergy/AdvReac Type Severity Reaction Status Date / Time codeine AdvReac Unknown SWELLING Verified 04/12/17 17:37 - Vital Signs Vital Signs: Temperature 97.7 F 04/13/17 07:00 Pulse Rate 98 04/13/17 08:40 Respiratory Rate 12 04/13/17 07:00 Blood Pressure 120/83 04/13/17 07:00 Pulse Oximetry 95 04/13/17 07:00 Height and Weight: Height 1.55 m Weight 60.9 kg Body Mass Index 25.8 - Medications Inpatient Medications: Current Medications Acetaminophen (Tylenol) 650 mg PO Q4H PRN PRN Reason: Pain Last Admin: 04/12/17 23:21 Dose: 650 mg Hydrocodone Bitart/Acetaminophen ([place] 5/325) 1 tab PO Q6H PRN PRN Reason: Pain Carbidopa/Levodopa (Sinemet) 1 tab PO TID/E [facility] Digoxin (Lanoxin) 125 mcg PO DAILY [facility] Last Admin: 04/13/17 08:40 Dose: 125 mcg Diltiazem HCl (Cardizem Cd) 360 mg PO DAILY [facility] Last Admin: 04/13/17 08:40 Dose: 360 mg Docusate Sodium (Colace) 100 mg PO BID PRN Tranexamic Acid 1,000 mg/ (Sodium Chloride) 110 mls @ 0 mls/hr TOP INTRAOP ONE PRN Reason: Per Protocol Stop: 04/13/17 10:29 Isopropyl Alcohol (Nozin Nasal Swab) 1 each DAVID PREOP ONE Stop: 04/13/17 10:29 Levothyroxine Sodium (Synthroid) 50 mcg PO ACB [facility] Metoprolol Succinate (Toprol Xl) 50 mg PO HS [facility] Last Admin: 04/12/17 23:20 Dose: 50 mg Morphine Sulfate (Morphine Sulfate Inj) 1 - 2 mg IVP Q2H PRN PRN Reason: Pain Ondansetron HCl (Zofran) 4 mg IVP Q6H PRN PRN Reason: Nausea &/or vomiting Phenytoin Sodium (Dilantin) 100 mg PO BIDWM [facility] Last Admin: 04/13/17 08:40 Dose: 100 mg Sodium Chloride (Iv Flush) 10 - 80 ml IVF PRN PRN PRN Reason: Flushing Last Admin: 04/12/17 19:40 Dose: 10 ml Tramadol HCl (Ultram) 50 mg PO Q6H PRN PRN Reason: Pain Home Medications: Home Medications Medication Instructions Recorded Confirmed Type Levothyroxine Tab [Synthroid] 50 mcg PO DAILY #0 10/12/10 04/12/17 History Rasagiline Mesylate [Azilect] 1 mg PO DAILY #0 10/12/10 04/12/17 History Fexofenadine HCl [Erica Allergy] 60 mg PO BID PRN #0 tab 06/07/14 04/12/17 History Magnesium Oxide [Magnesium] 400 mg PO BID #0 cap 06/07/14 04/12/17 History DiltiaZEM CD [Cardizem Cd] 1 tab PO DAILY #0 tab 07/20/14 04/12/17 History Citalopram Hydrobromide [Celexa] 20 mg PO DAILY #0 tab 08/24/16 04/12/17 History Acetaminophen [Tylenol] 650 mg PO QID 04/12/17 04/12/17 History Albuterol Neb (0.083%) [Proventil 2.5 mg AEROSOL Q6H PRN 04/12/17 04/12/17 History Neb (0.083%)] Benzonatate [Tessalon Perle] 200 mg PO Q8H PRN 04/12/17 04/12/17 History Bumetanide 2 mg PO DAILY 04/12/17 04/12/17 History Calcium Carbonate 600 mg PO BID 04/12/17 04/12/17 History Carbidopa/Levodopa [Carbidopa-Levo 1 each PO TID 04/12/17 04/12/17 History ER 25-100 Tab] Carboxymethyl/Gly/Poly80/Pf 1 each EACH EYE BID 04/12/17 04/12/17 History [Refresh Optive Advanced Drops] Digoxin [Digitek] 125 mcg PO DAILY 04/12/17 04/12/17 History Fluticasone Nasal [place] [Flonase] 1 spray DAVID DAILY 04/12/17 04/12/17 History Guaifenesin Oral Liq [Robitussin 10 ml PO Q4H PRN 04/12/17 04/12/17 History Liq] Lactobacillus Acidophilus 1 each PO DAILY 04/12/17 04/12/17 History [Probiotic] Mag Hydrox/Aluminum Hyd/Simeth 10 - 15 ml PO Q4H PRN 04/12/17 04/12/17 History [Alum-Mag Hydroxide-Simeth Liq] Melatonin/Pyridoxine HCl (B6) 5 mg PO DAILY 04/12/17 04/12/17 History [Melatonin 5 mg Tablet] Metoprolol Succinate 50 mg PO HS 04/12/17 04/12/17 History Mirabegron [Myrbetriq] 50 mg PO HS 04/12/17 04/12/17 History Multivitamin [One Daily] 1 each PO DAILY 04/12/17 04/12/17 History Omeprazole [Prilosec] 20 mg PO ACB 04/12/17 04/12/17 History Phenytoin Cap [Dilantin] 100 mg PO BID 04/12/17 04/12/17 History Potassium Chloride [K-Dur] 20 meq PO DAILY 04/12/17 04/12/17 History Tramadol [Ultram] 50 mg PO Q6H PRN 04/12/17 04/12/17 History Warfarin Sodium [Coumadin] 3 mg PO SUTH 04/12/17 04/12/17 History Warfarin [Coumadin] 2 mg PO MOTUWEFRSA 04/12/17 04/12/17 History guaiFENesin [Mucinex] 600 mg PO BID 04/12/17 04/12/17 History - Medical History Respiratory: Reports: Pneumonia (3 yrs ago), Sleep Apnea Cardiovascular: Reports: Arrhythmia (A-FIB), Congestive Heart Failure ( hospitalized 2014, Seen Dr. Prince last week no problems ), Coronary Artery Disease, Hypertension Gastrointestional: Reports: Gastroesophageal Reflux Disease, Other ( DIVERTICULITIS) Neuro/Musculoskeletal: Reports: HX.MS.OSAR, Depression (MAJOR DEPRESSIVE), Other (SPINAL STENOSIS, RA, parkinsons) Renal/Endocrine: Reports: Thyroid Disease - Surgical History Respiratory Surgery/Treatments: Reports: Oxygen Administration Musculoskeletal Surgery/Tx: Reports: Knee Arthroscopy (right ) Reproductive Surgery/Treatment: Reports: Hysterectomy Anesthesia Reactions: None Hx Family Anesthesia Reaction: No - Social History Smoking Status: Never smoker Substance Use Type: does not use Alcohol Intake Frequency: does not drink - Pertinent Findings Laboratory: CBC and BMP 04/13/17 04:11 04/13/17 04:11 BMP 04/13/17 04:11 Sodium 134 Potassium 4.3 Chloride 98 Carbon Dioxide 30 BUN 20.0 H Creatinine 1.2 Glucose 99 Calcium 8.2 L EKG: A-fib - Physical Exam Respiratory Exam: Present: lungs clear, bilateral breath sounds equal Cardiovascular Exam: Present: irregularly irregular, no murmur - Airway Assessment Mallampati Score: I TMD: 3 Fingerbreadths Neck Extension: good Teeth: upper dentures, lower dentures Overall Assessment: no airway concerns - ASA ASA Score: 3 - Plan Anesthesia: General Inhalation Gases - Discussion Discussion: Discussed risks/options/alternatives of anesthesia and questions answered. Patient consents. Nursing pain assessment noted. Attestation Statement: Prior to the delivery of any anesthetic medication, I examined the patient, developed the plan, obtained the patient's consent and discussed the risk and benefits of the procedure with the patient/guardian. - Additional Information Seen by Anesthesia: Yes
[2017-04-13] MEDS: LEVOTHYROXINE 50 MCG TABLET PO SCH (10:56)
[2017-04-13] MEDS: CITALOPRAM 20 MG TABLET PO SCH (10:56)
[2017-04-13] MEDS: BUMETANIDE 1 MG TABLET PO SCH (10:56)
[2017-04-13] MEDS: RASAGILINE 0.5 MG TABLET PO SCH (11:51)
[2017-04-13] MEDS: ACETAMINOPHEN 325 MG TABLET PO PRN (12:33)
[2017-04-13] MEDS ORDERED: PHYTONADIONE 10mg/ml (Adult) INJECTION SQ ONE (17:33)
--- NOTE | 2017-04-13 19:19 | Cardiology Consult Note ---
<Guerline Morocho - Last Filed: 04/13/17 23:32> History of Present Illness Consult date: 04/13/17 Consult reason: atrial fibrillation, known to you Chief complaint: s/p hip fx History of present illness: This is a pleasant 81yo well known to Dr. Hicks for AFib with previous RVR and associated decompensated diastolic heart failure. She was recently seen in office on 04/09/17 with an echo. She has paroxysmal afib, rate controlled with digoxin 125mcg and cardizem 360mg, on warfarin our office manages. Her CHF has been well controlled on oral bumex, with replacement potassium and magnesium. She currently resides in a [facility]. Her most recent echo 04/09/17 showed an EF of 55-60, dilated right atrium & ventricle, moderate to severe MR, aortic sclerosis without stenosis. Review of Systems - Constitutional Constitutional: Present: weakness. Absent: fever(s) - EENMT Eyes: Absent: loss of vision Balance: Present: ataxia - Cardiovascular Cardiovascular: Absent: chest pain, palpitations, syncope, dyspnea on exertion, edema - Respiratory Respiratory: Absent: cough, dyspnea - Gastrointestinal Gastrointestinal: Absent: diarrhea - Musculoskeletal Musculoskeletal: Present: abnormal gait - Integumentary/Breasts Integumentary: Absent: wounds - Neurological Neurological: Present: abnormal gait - Endocrine Endocrine: Absent: palpitations PFSH Patient Stated Medical History Parkinson's Disease Yes Other HEENT Yes: MACULAR DEGENERATION Cardiac Arrhythmia Yes: A-FIB Congestive Heart Failure Yes: hospitalized 2014, Seen Dr. Prince last week no problems Coronary Artery Disease Yes Hypertension Yes Pneumonia Yes: 3 yrs ago Sleep Apnea Yes Gastroesophageal Reflux Yes Disease Other GI Yes: DIVERTICULITIS Hx Incontinence Yes Hx Renal Disease Yes: STAGE 3 Other Yes: RENAL TUBULAR DYSFUNCTION Clotting Problems Yes Osteoarthritis Yes Other Musculoskeletal Yes: SPINAL STENOSIS, RA, parkinsons Depression Yes: MAJOR DEPRESSIVE Surgical History: ISHAN - Social History Smoking status: Never smoker Housing: [facility] Current residence: [place] Medications Home Medications Medication Instructions Recorded Confirmed Type Levothyroxine Tab [Synthroid] 50 mcg PO DAILY #0 10/12/10 04/12/17 History Rasagiline Mesylate [Azilect] 1 mg PO DAILY #0 10/12/10 04/12/17 History Fexofenadine HCl [Erica Allergy] 60 mg PO BID PRN #0 tab 03/02/15 01/05/18 History Magnesium Oxide [Magnesium] 400 mg PO BID #0 cap 06/07/14 04/12/17 History DiltiaZEM CD [Cardizem Cd] 1 tab PO DAILY #0 tab 07/20/14 04/12/17 History Citalopram Hydrobromide [Celexa] 20 mg PO DAILY #0 tab 08/24/16 04/12/17 History Acetaminophen [Tylenol] 650 mg PO QID 04/12/17 04/12/17 History Albuterol Neb (0.083%) [Proventil 2.5 mg AEROSOL Q6H PRN 04/12/17 04/12/17 History Neb (0.083%)] Bumetanide 2 mg PO DAILY 04/12/17 04/12/17 History Calcium Carbonate 600 mg PO BID 04/12/17 04/12/17 History Carbidopa/Levodopa [Carbidopa-Levo 1 each PO TID 04/12/17 04/12/17 History ER 25-100 Tab] Carboxymethyl/Gly/Poly80/Pf 1 each EACH EYE BID 04/12/17 04/12/17 History [Refresh Optive Advanced Drops] Digoxin [Digitek] 125 mcg PO DAILY 04/12/17 04/12/17 History Fluticasone Nasal [place] [Flonase] 1 spray DAVID DAILY 04/12/17 04/12/17 History Lactobacillus Acidophilus 1 each PO DAILY 04/12/17 04/12/17 History [Probiotic] Melatonin/Pyridoxine HCl (B6) 5 mg PO DAILY 04/12/17 04/12/17 History [Melatonin 5 mg Tablet] Metoprolol Succinate 50 mg PO HS 04/12/17 04/12/17 History Mirabegron [Myrbetriq] 50 mg PO HS 04/12/17 04/12/17 History Multivitamin [One Daily] 1 each PO DAILY 04/12/17 04/12/17 History Omeprazole [Prilosec] 20 mg PO ACB 04/12/17 04/12/17 History Phenytoin Cap [Dilantin] 100 mg PO BID 04/12/17 04/12/17 History Potassium Chloride [K-Dur] 20 meq PO DAILY 04/12/17 04/12/17 History Tramadol [Ultram] 50 mg PO Q6H PRN 04/12/17 04/12/17 History Warfarin Sodium [Coumadin] 3 mg PO SUTH 04/12/17 04/12/17 History Warfarin [Coumadin] 2 mg PO [id number] 04/12/17 04/12/17 History Allergies Allergy/AdvReac Type Severity Reaction Status Date / Time codeine AdvReac Unknown SWELLING Verified 04/15/17 15:17 Exam Vital signs: Temperature 97.7 F 04/13/17 16:48 Pulse Rate 64 04/13/17 16:48 Respiratory Rate 16 04/13/17 16:48 Blood Pressure 110/65 04/13/17 16:48 Pulse Oximetry 97 04/13/17 16:48 - Constitutional no acute distress - Routine HEENT Exam Head: Present: normocephalic, atraumatic Eye: Present: PERRL, conjunctivae pink ENT: Present: mucous membranes moist - Routine Neck Exam Absent: JVD, carotid bruit - Routine Respiratory Exam Present: decreased breath sounds - Routine Cardiovascular Exam Present: murmur (2/6), irregular rhythm - Routine Abdominal Exam Present: soft, normoactive bowel sounds, non distended - Routine Extremities Exam Present: no edema - Detailed Extremities Exam: Vascular Peripheral pulses: 2+ dorsalis pedis (L), 2+ dorsalis pedis (R) - Routine Skin Exam Present: intact - Routine Neurological Exam Present: alert, oriented X3 - Routine Psychiatric Exam Present: normal affect, normal thought process Results 04/13/17 04:11 04/13/17 04:11 CBC 04/13/17 Range/Units 04:11 WBC 5.4 D (4.5-11.0) T/MM3 RBC 3.27 L (4.00-5.20) M/MM3 Hgb 10.3 L D (12-16) GM/DL Hct 32.8 L D (36-46) % Plt Count 127 L (130-400) T/MM3 Neut # (Auto) 3.5 (1.8-7.7) T/MM3 Lymph # (Auto) 1.2 (1-4.8) T/MM3 [place] # (Auto) 0.5 (0-0.8) T/MM3 Eos # (Auto) 0.1 (0-0.5) T/MM3 Baso # (Auto) 0.0 (0-0.2) T/MM3 Comprehensive Metabolic Panel 04/13/17 Range/Units 04:11 Sodium 134 (134-144) MEQ/L Potassium 4.3 (3.6-5) MEQ/L Chloride 98 (98-107) MEQ/L Carbon Dioxide 30 (22-30) MEQ/L BUN 20.0 H (7-17) MG/DL Creatinine 1.2 (0.7-1.2) MG/DL Glucose 99 (65-110) MG/DL Calcium 8.2 L (8.4-10.2) MG/DL Intake and Output 04/13/17 04/13/17 04/13/17 06:59 14:59 22:59 Intake Total 368 / 368 1480 / 1480 Output Total 750 / 750 1100 / 1100 Balance -382 / -382 380 / 380 Intake: IV 1000 / 1000 Ns 1,000 ml @ 100 mls/hr IV . 1000 / 1000 Q10H TANGELA Rx#:[id number] Oral 368 / 368 480 / 480 Output: Urine 750 / 750 600 / 600 Urine Amount (Catheter) 500 / 500 Other: Urine Appearance Clear Clear Urine Color Yellow Yellow Urine Odor Normal Normal Weight 60.9 kg Patient Weight 04/14/17 06:59 Weight 60.9 kg - Imaging and Cardiology EKG results: image reviewed - EKG Interpretation EKG shows: atrial fibrillation EKG interpretations - EKG EKG shows: atrial fibrillation (LAD, NSSTT) - Dysrhythmias Supraventricular dysrhythmia: atrial fibrillation Assessment and Plan - Assessment and Plan (1) Atrial fibrillation Status: Chronic (2) Hypertension Status: Chronic (3) Parkinson disease Status: Chronic (4) Hypothyroid Status: Chronic (5) Femoral neck fracture Status: Acute (6) Mitral regurgitation Status: Acute - Assessment and Plan Hold warfarin for surgery, vitamin K given today per attending. Home dosing of Dig 125mcg and cardizem 360mg daily for rate control electrolytes stable, check a tsh ECG today AFib rate 76 No cardiac restrictions to proceeding with hip fracture repair. recommend continue rate control and fluid volume balance, pt has a hx of CHF exacerbation, fluid volume overload. Moderate to severe MR. Hospital Course Summary Disclaimer: The visit summary below is not to be considered part of the above Progress Note. Hospital Course: 04/13 Admit as inpatient for left hip fx. Vitamin K given to reverse INR. Aiming for INR < 1.5 then surgery. Tramadol for pain - patient prefers this. Continue Sinemet for Parkinson's. Continue dig (check level), Toprolol XL, Bumex for CHF. Consult Dr. Hicks. Rate controlled on dig, BB, cardizem. Continue omeprazole for GERD and synthroid for hypothyroid. SCDs for DVT ppx and resume coumadin post-op with lovenox bridging. Patient is a DNR, and her daughter is DPOA-HC. <Gautam Hicks - Last Filed: 04/17/17 09:09> [facility] Patient Stated Medical History Parkinson's Disease Yes Other HEENT Yes: MACULAR DEGENERATION Cardiac Arrhythmia Yes: A-FIB Congestive Heart Failure Yes: hospitalized 2014, Seen Dr. Prince last week no problems Coronary Artery Disease Yes Hypertension Yes Pneumonia Yes: 3 yrs ago Sleep Apnea No Gastroesophageal Reflux Yes Disease Other GI Yes: DIVERTICULITIS Hx Incontinence Yes Hx Renal Disease Yes: STAGE 3 Other Yes: RENAL TUBULAR DYSFUNCTION Clotting Problems Yes Osteoarthritis Yes Other Musculoskeletal Yes: SPINAL STENOSIS, RA, parkinsons Depression Yes: MAJOR DEPRESSIVE Exam Vital signs: Temperature 97.7 F 04/15/17 12:00 Pulse Rate 80 04/15/17 12:00 Respiratory Rate 18 04/15/17 12:00 Blood Pressure 91/56 04/15/17 12:00 Pulse Oximetry 1 L 04/15/17 12:00 Results 04/15/17 03:52 04/15/17 03:52 Assessment and Plan - Attestation Attestation Narrative: 04/17/17 09:09 Recommendation After examining the patient I agree with the above assessment. I am involved in the formulation of the patient's plan of care. - Assessment and Plan (1) Femoral neck fracture Status: Acute (2) Atrial fibrillation Status: Chronic (3) Hypertension Status: Chronic (4) Parkinson disease Status: Chronic (5) Hypothyroid Status: Chronic (6) Mitral regurgitation Status: Acute Hospital Course Summary Disclaimer: The visit summary below is not to be considered part of the above Progress Note.
[2017-04-13] MEDS: MIRABEGRON 25mg TABLET PO SCH (20:15)
[2017-04-14] MEDS: LEVOTHYROXINE 50 MCG TABLET PO SCH (05:48)
[2017-04-14] MEDS: OMEPRAZOLE 20 MG CAPSULE PO SCH (05:49)
[2017-04-14] MEDS: NOZIN NASAL SWAB NAS ONE ×2 (07:21→07:26)
[2017-04-14] MEDS: SALINE FLUSH 10ml SYRINGE IVF PRN (07:40)
[2017-04-14] MEDS ORDERED: VANCOMYCIN 1,000 MG INJECTION ONE (07:41)
[2017-04-14] MEDS ORDERED: FentaNYL 100 MCG/2 ML INJECTION ONE ×4 (07:52→13:59)
[2017-04-14] MEDS ORDERED: KETAMINE 500 MG/10 ML INJECTION ONE ×2 (07:53→11:53)
[2017-04-14] MEDS ORDERED: ROCURONIUM 50 MG/5 ML INJECTION IVP ONE ×2 (07:54→11:53)
[2017-04-14] MEDS ORDERED: PROPOFOL 20 ML ONE ×2 (07:54→11:53)
[2017-04-14] MEDS ORDERED: LIDOCAINE 2% JELLY Tube 30ml ONE (07:55)
[2017-04-14] MEDS ORDERED: EPHEDRINE 50mg/ml INJECTION ONE ×2 (08:12→12:42)
[2017-04-14] MEDS ORDERED: DEXAMETHASONE 4 MG/ML INJECTION ONE ×2 (08:15→12:17)
[2017-04-14] MEDS ORDERED: METOCLOPRAMIDE 10mg/2ml INJECTION ONE ×2 (08:15→13:29)
[2017-04-14] MEDS ORDERED: ONDANSETRON 4 MG/2 ML INJECTION ONE ×4 (08:15→14:15)
[2017-04-14] MEDS ORDERED: BUPIVACAINE 0.25% (2.5mg/ml) PF 30ml INJECTION ONE (08:26)
[2017-04-14] MEDS ORDERED: FentaNYL 100 MCG/2 ML INJECTION IVP PRN (08:31)
[2017-04-14] MEDS ORDERED: BUPIVACAINE 0.25% (2.5mg/ml) PF 30ml INJECTION ID ONE (08:32)
[2017-04-14] MEDS ORDERED: CEFAZOLIN 1 G INJECTION IVP ONE (08:32)
[2017-04-14] MEDS ORDERED: FUROSEMIDE 40 MG/4 ML INJECTION ONE (08:40)
[2017-04-14] MEDS ORDERED: VANCOMYCIN 1,000 MG INJECTION IAR ONE (08:47)
--- NOTE | 2017-04-14 09:24 | XRay Report ---
Indication: pre op PROCEDURE: XR chest 1V: Encounter: Initial Comparison: May 27, 2015 Findings: The lungs are stable in appearance without new focal airspace consolidation. There is no pleural effusion or pneumothorax. New moderate enlargement of the cardiac silhouette. pulmonary vascularity and mediastinal contours are unchanged. IMPRESSION: Enlarged cardiac silhouette could be due to pericardial effusion or cardiomegaly. No pneumonia. .
--- NOTE | 2017-04-14 09:44 | Anesthesia Postoperative Note ---
- Date and Time Date: 04/14/17 Time: 09:45 - Status Patient Participated in Evaluation: Patient Participated in Person Vital Signs: Temperature 98.4 F 04/14/17 07:12 Pulse Rate 104 H 04/14/17 07:12 Respiratory Rate 16 04/14/17 07:12 Blood Pressure 126/83 04/14/17 07:12 Pulse Oximetry 90 04/14/17 07:12 Respiratory Function: Airway Patent EKG: A-fib Mental Status: Alert and Oriented Pain Intensity: 0 Hydration: IV Infusing Complications During Recover: None Apparent - Follow-Up Instructions Instructions: Per Surgeon
--- NOTE | 2017-04-14 09:51 | XRay Report ---
Indication: fall pain PROCEDURE: XR hip LT min 2V: Encounter: Initial Comparison: None Findings: Mildly impacted subcapital fracture of the left femoral neck. No additional acute fracture or dislocation seen. Crosstable lateral view is limited due to overlapping soft tissues. Impression: Closed posttraumatic subcapital left femoral neck fracture. .
[2017-04-14] MEDS ORDERED: NS 1,000 ML IV SCH ×2 (10:02→10:45)
--- NOTE | 2017-04-14 10:06 | XRay Report ---
Indication: Pre op Pelvis view. PROCEDURE: XR pelvis 1-2V: Encounter: Initial Comparison: Pelvis and left hip radiographs from the day before Findings: Impacted subcapital left femoral neck fracture is grossly stable in appearance. No new fracture or dislocation. Bony demineralization. Farris catheter noted. Impression: Left femoral neck fracture. .
[2017-04-14] MEDS: NOZIN NASAL SWAB NAS SCH ×2 (10:22→17:20)
--- NOTE | 2017-04-14 10:24 | XRay Report ---
Indication: postop x-ray PROCEDURE: XR pelvis 1-2V: Encounter: Initial Comparison: Pelvis and left hip radiographically April 13, 2017 Findings: Postoperative changes of left femoral head replacement are seen. There is expected postoperative subcutaneous gas. No evidence of hardware failure or acute fracture. No retained radiopaque surgical instruments or sponges seen. Impression: New left femoral head prosthesis without evidence of immediate complication. .
[2017-04-14] MEDS: DiltiaZEM CD 360 MG CAPSULE PO SCH (10:30)
[2017-04-14] MEDS: BUMETANIDE 1 MG TABLET PO SCH (10:30)
[2017-04-14] MEDS: RASAGILINE 0.5 MG TABLET PO SCH (10:30)
[2017-04-14] MEDS: DIGOXIN 125 MCG TABLET PO SCH (10:30)
[2017-04-14] MEDS: CITALOPRAM 20 MG TABLET PO SCH (10:31)
[2017-04-14] MEDS: PHENYTOIN 100 MG CAPSULE PO SCH ×2 (10:31→17:20)
[2017-04-14] MEDS ORDERED: LR 1,000 ML IV SCH (10:45)
--- NOTE | 2017-04-14 10:50 | Operative Note ---
DATE: 04/14/2017 PREOPERATIVE DIAGNOSIS: Left displaced femoral neck fracture. POSTOPERATIVE DIAGNOSIS: Left displaced femoral neck fracture. PROCEDURE: Left hip hemiarthroplasty. SURGEON: Brian Whitney MD OFFICE EQUIPMENT TECHNICIAN: FORREST Lugo COMPLICATIONS: None. ANESTHESIA: General. EBL & FLUIDS: Please see Anesthetic Record. DESCRIPTION OF PROCEDURE Mrs. Espinoza and her left hip were identified and marked in her hospital room bed. She was brought back to the operating suite and placed under general anesthesia. She was then transferred to the operating room bed and placed in lateral decubitus position with the left side up. An axillary roll was placed. The left lower extremity was prepped and draped in my normal sterile fashion. A time-out was performed. A posterior approach was utilized. Sharp dissection was carried through the skin down to the muscle fascia which was then split in line with the skin incision. A Charnley retractor was placed. The short external rotators were identified and detached. A capsulotomy was performed. The fractured hematoma was evacuated. I attempted to remove the femoral head using a Steinmann pin but her bone quality was severely poor and there was no hold to the Steinmann pin so the head was taken out in piecemeal fashion. A femoral neck osteotomy was then performed and the neck fragment removed as well. We resized the acetabulum at a 43 and then the proximal femur was prepared with a cookie cutter followed by reaming and then broaching to a size cemented 6 stem. The canal was prepared for cementing and then the component was cemented into place. A small cement restrictor was placed first. The cement was allowed to cure and then we trialed with a standard head. This gave good stability and leg length. We attempted a trial with a +5 head but this was obviously too long so we went back to a standard head. Final standard head was placed, which was a size 43. After thorough irrigation, final reduction was performed. Joint cocktail was injected throughout the soft tissues during the case. One gram TXA was also used during the curing period for 5 minutes. The capsulotomy was repaired with Ethibond. One gram vancomycin powder was placed into the wound before the muscle fascia was repaired with #1 Vicryl. The subcutaneous tissue was closed with 2-0 Vicryl. I then left my child and youth program assistant to close the skin with a running 4-0 Monocryl followed by Dermabond and a sterile dressing. The patient was then placed back into supine position and allowed to waken from general anesthesia, extubated and taken to the recovery room under the care of Anesthesia. She tolerated the procedure well and there were no complications. FABY
--- NOTE | 2017-04-14 11:01 | Progress Note ---
- Date 04/14/17 Subjective: Jessica is seen today in follow up. She just returned from surgery, so is still a bit sedate. She is conversive, and reports no pain or other concerns. Chart is reviewed for collateral information. Objective Vital signs: Temperature 97.1 F 04/14/17 10:29 Pulse Rate 97 04/14/17 10:34 Respiratory Rate 16 04/14/17 10:34 Blood Pressure 111/67 04/14/17 10:34 Pulse Oximetry 94 04/14/17 10:34 Height/Weight/BMI: Height 1.55 m Weight 62 kg Body Mass Index 25.8 Comments: Known chronic atrial fib - Constitutional Present: no acute distress, well nourished, well developed, cooperative, other ( Sedated due to post operative state. ) - Routine HEENT Exam Head: Present: normocephalic, atraumatic Eye: Present: EOMI, PERRL ENT: Present: mucous membranes moist - Routine Respiratory Exam Present: decreased breath sounds, CTA bilaterally. Absent: rhonchi, wheezes, crackles - Routine Cardiovascular Exam Present: S1, S2, irregular rhythm - Routine Abdominal Exam Present: soft, non distended, non tender - Routine Extremities Exam Present: edema, pulses intact, normal capillary refill. Absent: full ROM, extremity cold to touch - Routine Musculoskeletal Exam Musculoskeletal: Present: no clubbing or cyanosis, limited range of motion - Routine Skin Exam Present: intact, dry, warm - Routine Neurological Exam Present: moving all extremities - Routine Psychiatric Exam Present: cooperative Results - Labs CBC & Chem 7: 04/14/17 03:48 04/14/17 03:48 Assessment and Plan (1) Femoral neck fracture Current visit: Yes Status: Acute (2) Atrial fibrillation Current visit: Yes Status: Chronic (3) Hypertension Current visit: Yes Status: Chronic (4) Parkinson disease Current visit: Yes Status: Chronic (5) Hypothyroid Current visit: Yes Status: Chronic Assessment and Plan: A/P: 04/14/17 1. Left fem neck fx, impacted, acute POA: S/P L ALEX, POD #0- Dr. Whitney. Pain control, PT/OT when appropriate. DVT px. Monitor labs. 2. Atrial fib chronic POA; HFpEF with VHD (mitral) Dr. Hicks did see pt and clear for surgery. Continue Cardizem and Dig for rate control. Metoprolol as well. Will add tele for close monitoring. Warfarin on hold- will continue LMWH for px. 3. CKD 3 chronic POA: Continue low rate IVF. Will need to DC as soon as taking PO will due to valvular heart dz, age, risk of fluid overload. Continue daily Bumex as tolerated. 4. Hypertension chronic POA: Cardizem/Metoprolol/Bumex. 5. Parkinson dz. chronic POA: Higher fall risk. Continue supportive medications. May need to consider DC warfarin given fall concerns. Will likely need IRU or SNU when stable for DC. 6. DVT ppx; SCD 7. Hypothyroid chronic POA: continue Synthroid DVT Prophylaxis: Lovenox GI Prophylaxis: other (Omeprazole) Resuscitation Status: Do Not Resuscitate - Physician Narrative Physician: Ruddy Gonzáles MD Narrative: Date: 04/14/17 Time: 1053 I have independently interviewed and examined pt. Chart reviewed. Case discussed with DRYWALL CONTRACTOR. Care plan developed with my supervision; agree with above. Patient back from surgery. Drowsy. Denies pain, soa. Lungs: clearing. CV: regular. ABD: s/nt/nd. MSE: awake alert appropriate Plan: Pain management post-op. Decrease dig to qod. Lovenox for DVT ppx. Resume warfarin. Patient did get 2 doses of vitamin k. Hospital Course Summary Disclaimer: The visit summary below is not to be considered part of the above Progress Note. Hospital Course: 04/13 Admit as inpatient for left hip fx. Vitamin K given to reverse INR. Aiming for INR < 1.5 then surgery. Tramadol for pain - patient prefers this. Continue Sinemet for Parkinson's. Continue dig (check level), Toprolol XL, Bumex for CHF. Consult Dr. Hicks. Rate controlled on dig, BB, cardizem. Continue omeprazole for GERD and synthroid for hypothyroid. SCDs for DVT ppx and resume coumadin post-op with lovenox bridging. Patient is a DNR, and her daughter is DPOA-HC. 04/14/17 1. Left fem neck fx, impacted, acute POA: S/P L ALEX, POD #0- Dr. Whitney. Pain control, PT/OT when appropriate. DVT px. Monitor labs. 2. Atrial fib chronic POA; HFpEF with VHD (mitral) Dr. Hicks did see pt and clear for surgery. Continue Cardizem and Dig for rate control. Metoprolol as well. Will add tele for close monitoring. Warfarin on hold- will continue LMWH for px. 3. CKD 3 chronic POA: Continue low rate IVF. Will need to DC as soon as taking PO will due to valvular heart dz, age, risk of fluid overload. Continue daily Bumex as tolerated. 4. Hypertension chronic POA: Cardizem/Metoprolol/Bumex. 5. Parkinson dz. chronic POA: Higher fall risk. Continue supportive medications. May need to consider DC warfarin given fall concerns. Will likely need IRU or SNU when stable for DC. 6. DVT ppx; SCD 7. Hypothyroid chronic POA: continue Synthroid Pain management post-op. Decrease dig to qod. Lovenox for DVT ppx. Resume warfarin. Patient did get 2 doses of vitamin k.
[2017-04-14] MEDS ORDERED: ALBUTEROL 2.5mg/3ml (0.083%) NEB AEROSOL PRN (11:11)
[2017-04-14] MEDS ORDERED: MIDAZOLAM 2mg/2ml INJECTION ONE (11:55)
[2017-04-14] MEDS ORDERED: WARFARIN - PHARMACY CONSULT MC ONE (12:23)
[2017-04-14] MEDS ORDERED: WARFARIN 3 MG TABLET PO SCH (12:30)
[2017-04-14] MEDS ORDERED: DIGOXIN 125 MCG TABLET PO SCH (12:30)
[2017-04-14] MEDS: NS 1,000 ML IV SCH ×2 (13:09→23:56)
--- NOTE | 2017-04-14 13:22 | Pharmacy Consult ---
Pharmacy Consult-Warfarin - Laboratory Information 04/13/17 04/13/17 04/13/17 08:41 16:09 21:40 INR 2.11 H 2.05 H 1.72 H 04/14/17 03:48 INR 1.36 H Admitted for hip fx. On warfarin therapy for hx of A. Fib. Home dose reported as Warfarin 2mg on Mon, Tue, Wed, Fri, Sat., Warfarin 3mg on Sat, . Vitamin K 5mg oral + Vitamin K 10mg SQ given yesterday for INR, in prep for surgery today. Following Drug - Drug interactions noted, all which can increase INR: - Citalopram 20mg po daily - Diltiazem CD 360mg daily - Omeprazole 20mg po daily Pt restarted on home warfarin dose. INR ordered daily Anticipate it taking several days to return to therapeutic levels secondary to Vit. K therapy. Is covered with Enoxaparin 40mg SQ daily until therapeutic. Thank you
[2017-04-14] MEDS ORDERED: KETOROLAC 30 MG/ML INJECTION ONE (13:29)
[2017-04-14] MEDS: ACETAMINOPHEN 325 MG TABLET PO PRN (15:11)
[2017-04-14] MEDS: CEFAZOLIN 2 G in NS 100 ML IV SCH ×2 (15:55→23:58)
[2017-04-14] MEDS: MELATONIN 5 MG TABLET PO SCH ×2 (19:40→22:45)
[2017-04-14] MEDS: MIRABEGRON 25mg TABLET PO SCH ×2 (19:42→22:45)
[2017-04-14] MEDS: REFRESH CELLUVISC 1% Eye Drops 0.4ml EACH EYE SCH ×2 (19:43→22:44)
[2017-04-14] MEDS: ENOXAPARIN 40 MG/0.4 ML INJECTION SQ SCH ×2 (19:45→22:45)
[2017-04-14] MEDS: TRAMADOL 50 MG TABLET PO PRN (20:47)
[2017-04-15] MEDS: NOZIN NASAL SWAB NAS SCH ×2 (03:55→10:07)
[2017-04-15] MEDS: TRAMADOL 50 MG TABLET PO PRN (04:22)
[2017-04-15] MEDS: LEVOTHYROXINE 50 MCG TABLET PO SCH (06:01)
[2017-04-15] MEDS: OMEPRAZOLE 20 MG CAPSULE PO SCH (06:01)
--- NOTE | 2017-04-15 07:58 | Orthopedic Progress Note ---
Date: Date: 04/15/17 Time: 754 Subjective/Severity of Illness: Doing well. She is getting up for the first time as I came into the room. Hgb 8.7 this AM. She seems to be tolerating it well except that her BPs have dropped since midnight. (89/43 - 96/51) CKD is stable but will need to be watched closely in presence of low BPs. Afebrile. On 1 liter NC. She is alert and talking. Appears in NAD. Orthopedic Objective PO Vital signs: Temperature 96.4 F L 04/15/17 07:51 Pulse Rate 86 04/15/17 07:51 Respiratory Rate 20 04/15/17 07:51 Blood Pressure 96/51 04/15/17 07:51 Pulse Oximetry 93 04/15/17 07:51 Height and Weight: Height 5 ft 1 in Weight 142 lb 13.753 oz Body Mass Index 25.8 - Constitutional General Appearance: Present: alert, cooperative, no acute distress - Respiratory Exam Present: non-labored - Cardiovascular Exam Present: pedal pulses intact - Extremities Exam Extremities: Present: pulses intact - Surgical Site Incision: Mepilex dressing intact, no drainage - Integumentary Exam Present: pink, warm, dry - Neurological Exam Present: no deficits - Psychiatric Exam Present: alert - Labs Result Diagrams: 04/15/17 03:52 04/15/17 03:52 Abnormal lab results 04/15/17 04/15/17 Range/Units 03:52 03:52 RBC 2.74 L (4.00-5.20) M/MM3 Hgb 8.7 L D (12-16) GM/DL Hct 27.0 L D (36-46) % Plt Count 129 L (130-400) T/MM3 Neut % (Auto) 75.3 H (33-66) % Lymph % (Auto) 15.6 L (23-45) % Sodium 132 L (134-144) MEQ/L Chloride 97 L (98-107) MEQ/L BUN 23.0 H (7-17) MG/DL Glucose 114 H (65-110) MG/DL Calculated Osmolality 260 L (261-280) MOSM/KG Calcium 7.7 L D (8.4-10.2) MG/DL H & H 04/13/17 04/14/17 04/15/17 Range/Units 04:11 03:48 03:52 Hgb 10.3 L D 11.2 L 8.7 L D (12-16) GM/DL Hct 32.8 L D 34.5 L 27.0 L D (36-46) % Coagulation 04/13/17 04/13/17 04/13/17 Range/Units 08:41 16:09 21:40 INR 2.11 H 2.05 H 1.72 H (0.99-1.21) 04/14/17 04/15/17 Range/Units 03:48 03:52 INR 1.36 H 1.17 (0.99-1.21) Orthopedic Assessment and Plan (1) Femoral neck fracture Status: Acute Qualifiers: Encounter type: initial encounter Fracture type: closed Laterality: left Qualified Code(s): S72.002A - Fracture of unspecified part of neck of left femur, initial encounter for closed fracture Assessment and Plan: Mobilize with PT / OT. WBAT Lovenox bridge until INR is back to normal range. SCDs for added DVT protection. Watch labs, BPs and renal function. - Anticoagulation Therapy Anticoagulation: Resume home anticoagulant (Lovenox bridge until INR is therapeutic.) Hospital Course Summary Disclaimer: The visit summary below is not to be considered part of the above Progress Note. Hospital Course: 04/13 Admit as inpatient for left hip fx. Vitamin K given to reverse INR. Aiming for INR < 1.5 then surgery. Tramadol for pain - patient prefers this. Continue Sinemet for Parkinson's. Continue dig (check level), Toprolol XL, Bumex for CHF. Consult Dr. Hicks. Rate controlled on dig, BB, cardizem. Continue omeprazole for GERD and synthroid for hypothyroid. SCDs for DVT ppx and resume coumadin post-op with lovenox bridging. Patient is a DNR, and her daughter is DPOA-HC. 04/14/17 1. Left fem neck fx, impacted, acute POA: S/P L ALEX, POD #0- Dr. Whitney. Pain control, PT/OT when appropriate. DVT px. Monitor labs. 2. Atrial fib chronic POA; HFpEF with VHD (mitral) Dr. Hicks did see pt and clear for surgery. Continue Cardizem and Dig for rate control. Metoprolol as well. Will add tele for close monitoring. Warfarin on hold- will continue LMWH for px. 3. CKD 3 chronic POA: Continue low rate IVF. Will need to DC as soon as taking PO will due to valvular heart dz, age, risk of fluid overload. Continue daily Bumex as tolerated. 4. Hypertension chronic POA: Cardizem/Metoprolol/Bumex. 5. Parkinson dz. chronic POA: Higher fall risk. Continue supportive medications. May need to consider DC warfarin given fall concerns. Will likely need IRU or SNU when stable for DC. 6. DVT ppx; SCD 7. Hypothyroid chronic POA: continue Synthroid Pain management post-op. Decrease dig to qod. Lovenox for DVT ppx. Resume warfarin. Patient did get 2 doses of vitamin k.
[2017-04-15] MEDS ORDERED: LACTOBACILLUS (15B cfu) CAPSULE PO SCH (08:00)
[2017-04-15] MEDS ORDERED: WARFARIN - PHARMACY CONSULT MC ONE (08:09)
--- NOTE | 2017-04-15 08:21 | Pharmacy Consult ---
Pharmacy Consult-Warfarin - Laboratory Information 04/13/17 04/13/17 04/13/17 08:41 16:09 21:40 INR 2.11 H 2.05 H 1.72 H 04/14/17 04/15/17 03:48 03:52 INR 1.36 H 1.17 - Consult Information Warfarin 2mg ordered for today. This is patient's home dose. Vitamin K received on 04/13, residual effect remains. Will continue to monitor. Thank you.
[2017-04-15] MEDS: ACETAMINOPHEN 325 MG TABLET PO PRN (08:54)
[2017-04-15] MEDS: REFRESH CELLUVISC 1% Eye Drops 0.4ml EACH EYE SCH (08:54)
[2017-04-15] MEDS: DiltiaZEM CD 360 MG CAPSULE PO SCH (08:55)
[2017-04-15] MEDS: BUMETANIDE 1 MG TABLET PO SCH (08:55)
[2017-04-15] MEDS: PHENYTOIN 100 MG CAPSULE PO SCH (08:56)
[2017-04-15] MEDS: CITALOPRAM 20 MG TABLET PO SCH (08:56)
[2017-04-15] MEDS: RASAGILINE 0.5 MG TABLET PO SCH (08:56)
[2017-04-15] MEDS: NS 1,000 ML IV SCH (10:07)
--- NOTE | 2017-04-15 11:07 | Discharge Summary ---
Discharge Information Date of admission: 04/12/17 20:06 Anticipated date of discharge: 04/15/17 Attending Physician: Drew Styles MD Primary care physician: MAURISIO Blackwell MD Consults: Dr Hicks- Sql Server Developer Dr Whitney-orthopedist - Discharge Diagnosis (1) Femoral neck fracture Status: Acute (2) Atrial fibrillation Status: Chronic (3) Hypertension Status: Chronic (4) Parkinson disease Status: Chronic (5) Hypothyroid Status: Chronic 1. Left fem neck fx, impacted, acute POA: S/P L ALEX, POD #0- Dr. Whitney. Pain control, PT/OT when appropriate. DVT px. Monitor labs. 2. Atrial fib chronic POA; HFpEF with VHD (mitral) Dr. Hicks did see pt and clear for surgery. Continue Cardizem and Dig for rate control. Metoprolol as well. Will add tele for close monitoring. Warfarin on hold- will continue LMWH for px. 3. CKD 3 chronic POA: Continue low rate IVF. Will need to DC as soon as taking PO will due to valvular heart dz, age, risk of fluid overload. Continue daily Bumex as tolerated. 4. Hypertension chronic POA: Cardizem/Metoprolol/Bumex. 5. Parkinson dz. chronic POA: Higher fall risk. Continue supportive medications. May need to consider DC warfarin given fall concerns. Will likely need IRU or SNU when stable for DC. 6. DVT ppx; SCD 7. Hypothyroid chronic POA: continue Synthroid - Procedures Procedures: 04/14/17-PROCEDURE: Left hip hemiarthroplasty. Dr Whitney - Laboratory Labs: 04/15/17 03:52 04/15/17 03:52 - Microbiology None - Radiology Radiology: 04/12/17-chest [id number]: Enlarged cardiac silhouette could be due to pericardial effusion or cardiomegaly. No pneumonia. 04/12/17-left hip x-ray- Impression: Closed posttraumatic subcapital left femoral neck fracture. 04/13/17-pelvic x-ray- Impression: Left femoral neck fracture. 04/14/17-pelvis [id number]: New left femoral head prosthesis without evidence of immediate complication. - Pathology None History of Present Illness HPI: This patient is a 81 y/o female that lives at a care home care setting. She was ambulating today and lost her balance and fell landing on her left hip. The patient had immediate pain and was brought to the ED where an xray demonstrated an impacted left hip fx. The patient has a history of atrial fib on chronic anticoagulation. The patient also has Parkinson's disease. In the ED a metabolic workup was unremarkable. EKG c/w a fib, non ischemic. INR is 2.1. The pCXR demonstrated cardiomegaly. Overall the patient reports a general functional decline. no chest pain with activity. no PND, no orthopnea, no increased edema. The patent's record would suggest previous cardiac ds which she denies. At this time she is admitted for medical management in preparation for surgery Objective Vital signs: Temperature 96.4 F L 04/15/17 07:51 Pulse Rate 86 04/15/17 07:51 Respiratory Rate 20 04/15/17 07:51 Blood Pressure 96/51 04/15/17 07:51 Pulse Oximetry 93 04/15/17 07:51 Height/Weight/BMI: Height 1.55 m Weight 64.8 kg Body Mass Index 25.8 - Constitutional Present: no acute distress, well nourished, well developed - Routine HEENT Exam Eye: Present: EOMI ENT: Present: mucous membranes moist, dentition normal - Routine Respiratory Exam Present: CTA bilaterally. Absent: wheezes - Routine Cardiovascular Exam Present: RRR, S1, S2. Absent: murmur - Routine Abdominal Exam Present: soft, normoactive bowel sounds, non distended. Absent: tenderness - Routine Extremities Exam Present: no edema Comments: Left hip pain - Routine Skin Exam Present: intact, dry, warm - Routine Neurological Exam Present: alert, oriented X3, CN II-XII intact - Routine Lymphatic Exam Lymphatic: Absent: adenopathy - Routine Psychiatric Exam Present: normal affect Hospital Course This is a general summary of the patient's hospital course. For more details refer to the complete medical record. Hospital course: 04/13- Admission Admit as inpatient for left hip fx. Vitamin K given to reverse INR. Aiming for INR < 1.5 then surgery. Tramadol for pain - patient prefers this. Continue Sinemet for Parkinson's. Continue dig (check level), Toprolol XL, Bumex for CHF. Consult Dr. Hicks. Rate controlled on dig, BB, cardizem. Continue omeprazole for GERD and synthroid for hypothyroid. SCDs for DVT ppx and resume coumadin post-op with lovenox bridging. Patient is a DNR, and her daughter is DPOA-HC. 04/14/17 1. Left fem neck fx, impacted, acute POA: S/P L ALEX, POD #0- Dr. Whitney. Pain control, PT/OT when appropriate. DVT px. Monitor labs. 2. Atrial fib chronic POA; HFpEF with VHD (mitral) Dr. Hicks did see pt and clear for surgery. Continue Cardizem and Dig for rate control. Metoprolol as well. Will add tele for close monitoring. Warfarin on hold- will continue LMWH for px. 3. CKD 3 chronic POA: Continue low rate IVF. Will need to DC as soon as taking PO will due to valvular heart dz, age, risk of fluid overload. Continue daily Bumex as tolerated. 4. Hypertension chronic POA: Cardizem/Metoprolol/Bumex. 5. Parkinson dz. chronic POA: Higher fall risk. Continue supportive medications. May need to consider DC warfarin given fall concerns. Will likely need IRU or SNU when stable for DC. 6. DVT ppx; SCD 7. Hypothyroid chronic POA: continue Synthroid 04/14/17- Pain management post-op. Decrease dig to qod. Lovenox for DVT ppx. Resume warfarin. Patient did get 2 doses of vitamin k. 04/15/17- Discharge Jessica is seen and examined this morning. She is resting up in the chair with family at her side. She does continue to require oxygen at 1 liter to maintain adequate saturations. She reports that her pain is well controlled. She has not had a bowel movement since surgery and this is discussed with her and her daughter. Hemoglobin is low today at 8.7, and sodium is down to 132. She remains subtherapeutic on her INR, however, she is given Lovenox and this is followed by the pharmacy Today planning for admission to the rehabilitation unit for ongoing therapy and improved postoperative strengthening. Case discussed with case management, IRU and attending Dr. Styles Time spent with patient: discharge greater than 30 minutes DVT Prophylaxis: Lovenox, Coumadin Discharge Plan - Discharge Disposition Discharge Date: 04/15/17 Disposition: 60 To [facility] INPT [facility] *Condition: Improved Reason For Visit (Visit label in EMR): hip fx - Discharge Medications *Discharge Medications: New Enoxaparin Sodium [Lovenox] 40 mg SQ Q24H syringe Acetaminophen [Tylenol] 650 mg PO Q4H PRN tab PRN Reason: Pain Continue Rasagiline Mesylate [Azilect] 1 mg PO DAILY #0 DiltiaZEM CD [Cardizem Cd] 1 tab PO DAILY #0 tab Lactobacillus Acidophilus [Probiotic] 1 each PO DAILY Carboxymethyl/Gly/Poly80/Pf [Refresh Optive Advanced Drops] 1 each EACH EYE BID Omeprazole [Prilosec] 20 mg PO ACB Multivitamin [One Daily] 1 each PO DAILY Metoprolol Succinate 50 mg PO HS Melatonin/Pyridoxine HCl (B6) [Melatonin 5 mg Tablet] 5 mg PO DAILY Potassium Chloride [K-Dur] 20 meq PO DAILY Fluticasone Nasal [place] [Flonase] 1 spray DAVID DAILY Phenytoin Cap [Dilantin] 100 mg PO BID Digoxin [Digitek] 125 mcg PO DAILY Warfarin Sodium [Coumadin] 3 mg PO SUTH Warfarin [Coumadin] 2 mg PO [id number] Carbidopa/Levodopa [Carbidopa-Levo ER 25-100 Tab] 1 each PO TID Calcium Carbonate 600 mg PO BID Bumetanide 2 mg PO DAILY Albuterol Neb (0.083%) [Proventil Neb (0.083%)] 2.5 mg AEROSOL Q6H PRN PRN Reason: Shortness Of Air Levothyroxine Tab [Synthroid] 50 mcg PO DAILY #0 Fexofenadine HCl [Erica Allergy] 60 mg PO BID PRN #0 tab PRN Reason: ALLERY SYMPTOMS Magnesium Oxide [Magnesium] 400 mg PO BID #0 cap Citalopram Hydrobromide [Celexa] 20 mg PO DAILY #0 tab Tramadol [Ultram] 50 mg PO Q6H PRN PRN Reason: Pain Mirabegron [Myrbetriq] 50 mg PO HS Acetaminophen [Tylenol] 650 mg PO QID Discontinued Benzonatate [Tessalon Perle] 200 mg PO Q8H PRN PRN Reason: Cough guaiFENesin [Mucinex] 600 mg PO BID Mag Hydrox/Aluminum Hyd/Simeth [Alum-Mag Hydroxide-Simeth Liq] 10 - 15 ml PO Q4H PRN PRN Reason: Epigastric Distress Guaifenesin Oral Liq [Robitussin Liq] 10 ml PO Q4H PRN PRN Reason: Cough - Discharge Packet/Instructions *Diet: Regular *Activity: WBAT *Pain Management/Treatment: Tylenol or Ultram for pain *Wound Care: None *Expected Signs/Symptoms: Improvement in hip pain *Notify Physician if: N/A -IRU *During Business Hours Contact: IRU *After Business Hours Contact: IRU *Pending Lab/Results: No Pending Lab - IRU/GEN Discharge/Transfer - Referrals/Follow Up *Referrals/Follow Up: France Blackwell MD [Family Provider] - (Will need follow up in 1 week following DC from IRU) - Patient Handouts Patient Handouts: [facility] Fracture Instructions, [facility] Postop Instructions Physician Narrative - Narrative Physician: Drew Styles MD Attestation Narrative: Date: 04/15/17 Time: 1150 I have independently interviewed and examined patient prior to discharge. Chart reviewed. Case discussed with my VOCAL MUSIC TEACHER. Care plan developed with my supervision; agree with above. Doing okay this am-feeling tired. Pain controlled. Breathing okay-not SOA or congested. Not reporting pain with breathing. No ab pain or nausea. Lungs: decreased, no distress CV: irregularly irregular MSE: awake alert appropriate Plan: Medically stable for discharge to IRU. Continue PT/OT to maximize functional status. Monitor blood counts secondary to anemia. Wean O2 as able. See orders for discharge details.
[2017-04-15] MEDS ORDERED: WARFARIN 2 MG TABLET PO SCH (12:21)
[2017-04-15 13:06] VITALS: BP 91/56; PULSE 80; RESP 18; TEMP 97.7; O2SAT 1
[2017-04-15] MEDS ORDERED: POLYETHYL GLYCOL 3350 17gm PACKET PO SCH (14:00)
== END 2017-04-15 14:05 | DRG 470 ==
LOC: ED 17:16 → SRG 20:06 → SUATTDRO 20:06 → SRG 20:30
PROVIDERS: ADMIT Emergency Medicine; ATTEND Hospitalist

== ENCOUNTER 2017-04-15 14:27 | Inpatient (IN) ==
[2017-04-15] MEDS ORDERED: MORPHINE SULFATE 4mg INJECTION IVP PRN (14:37)
[2017-04-15] MEDS ORDERED: DOCUSATE SODIUM 100 MG CAPSULE PO PRN (14:37)
[2017-04-15] MEDS ORDERED: ONDANSETRON 4 MG/2 ML INJECTION IVP PRN (14:37)
[2017-04-15] MEDS ORDERED: ALBUTEROL 2.5mg/3ml (0.083%) NEB AEROSOL PRN (14:37)
--- NOTE | 2017-04-15 14:50 | IRU History & Physical Report ---
HPI IRU Date: Date: 04/15/17 Time: 1447 Chief complaint: My hip hurts and I'm weak HPI: Ms. Espinoza is a pleasant 81-year-old female referred by Dr. Drew Styles, hospitalist. Her primary care provider is Dr. France Blackwell. She lives in a long -term care facility in [place], [place] for the last couple of years. History is obtained from the patient, the patient's and chart information. She was standing in her 's garage on 04/12/2017. She was getting out of her car on the passenger side. Her had open the door for her. She was standing there beside the car. The had turned away and was about 10 feet away from her. He then observed that she appeared to be unsteady and had lost her balance. Her witnessed a fall from standing position with resultant left hip pain. She states, and the confirms, that there was no head injury. She had no loss of consciousness. She just felt as though she had lost her balance. She does have history of Parkinson's disease and has fallen on several prior occasions. She was evaluated in the emergency department and found to have a left femoral neck fracture. She does have atrial fibrillation and upon admission her INR was 2.1. She is on warfarin. She was taken to surgery on April 14, [address] Whitney where a left hip hemiarthroplasty was performed. She tolerated the procedure well. However she has developed evidence of acute blood loss anemia. Her initial hemoglobin was 12.0 g percent and at the present time her hemoglobin is 8.7. In addition, her platelet count has dropped from 153,000 down to 129,000. Her INR is somewhat subtherapeutic at 1.17. Her sodium is low at 132 whereas on admission it was 134. She commonly uses oxygen at home all night every night by nasal cannula. However at the present time she requires 1 L/m by nasal cannula during the daytime to keep her saturations above 90%. In addition, she has a history of hypertension. Unfortunately her blood pressures are running a bit low in the 90s over 50s while on acute care. She therefore has evidence of acute on chronic respiratory failure of a hypoxemic nature. She reports pain in the hip when she is up and about. At rest she is reasonably comfortable she states. We discussed the issue of resuscitation with the patient and with her present. Initially the conversation revolved around the fact that they have "papers on file" indicating that she should be a DO NOT RESUSCITATE. However, the more we talked about it she was not certain whether she wanted to be a DO NOT RESUSCITATE or not. I suggested that she could talk about it with her family and we could revisit that as she wishes. Her prior level of functioning is as follows: Eating and grooming are at modified independent level. She required minimum assistance for bathing, modified independent level for upper and lower body dressing as well as toileting, bed/chair/wheelchair transfers, toilet transfers and walking. She walked with a rolling walker and occasionally with a single-point cane. She could perform stair climbing at modified independent level. Current level of functioning is as follows: She is modified independent for eating, but requires minimum assistance for grooming, maximum assistance for bathing, minimum assistance for upper body dressing and total assistance for lower body dressing. She requires moderate assistance for toileting, maximum assistance for bed/chair/wheelchair transfers, moderate assistance for toilet transfers and total assistance for walking. She is able to walk with a rolling walker only 2 feet. The following medical conditions are noted and require active monitoring and/or management: 1. Hip fracture and repair: She is at risk for uncontrolled pain as well as wound infection. She is also a high fall risk in view of her underlying Parkinson's disease and recent hip fracture and repair. 2. Acute blood loss anemia: Her initial hemoglobin was 12.0. It is now 8.7. This is likely secondary to the hip fracture. She is at risk for further blood loss and will be monitored carefully. 3. Hyponatremia: Her sodium is low at 132. This may be related to SIADH versus true sodium deficit. This will be monitored. 4. Hypotension (with history of hypertension): Patient does have history of benign essential hypertension. Currently her blood pressures are running in the 90s over 50s. She is at risk for falls, lightheadedness and other complications of hypotension. 5. Acute on chronic hypoxemic respiratory failure: She currently is requiring additional oxygen supplementation during the daytime. She normally uses oxygen at night only. She is at risk for further hypoxemic respiratory failure. 6. Chronic kidney disease, Stage III: Her creatinine has improved somewhat during the acute hospitalization. However GFR is estimated to be in the 40s, consistent with stage III chronic kidney disease. In view of the hypotension she is at risk of further renal damage and this will be monitored carefully. 7. Thrombocytopenia: Her platelet count is low at 129,000, having fallen from 153,000 upon admission. She is at risk for further bleeding, wound infection etc. 8. Atrial fibrillation, on chronic warfarin therapy with currently subtherapeutic INR: She is at risk for neurologic events from clots as well as at risk for bleeding from the anticoagulation. The following therapies will be needed: 1. Physical therapy: for transfers and ambulation and stairs. 2. Occupational therapy: for ADL's and transfers. 3. Medical management: for the above conditions. 4. 24 hour Rehabilitation Nursing to monitor and address the following: Close monitoring of evidence of bleeding, wound infection and pain management. [facility] Patient Stated Medical History Parkinson's Disease Yes Other HEENT Yes: MACULAR DEGENERATION Cardiac Arrhythmia Yes: A-FIB Congestive Heart Failure Yes: hospitalized 2014, Seen Dr. Prince last week no problems Coronary Artery Disease Yes Hypertension Yes Pneumonia Yes: 3 yrs ago Sleep Apnea No Gastroesophageal Reflux Yes Disease Other GI Yes: DIVERTICULITIS Hx Incontinence Yes Hx Renal Disease Yes: STAGE 3 Other Yes: RENAL TUBULAR DYSFUNCTION Clotting Problems Yes Osteoarthritis Yes Other Musculoskeletal Yes: SPINAL STENOSIS, RA, parkinsons Depression Yes: MAJOR DEPRESSIVE Surgical History: 1. ISHAN with bilateral salpingo-oophorectomy. 2. Torn meniscus repaired in right knee. 3. Bilateral cataract procedure Family History: She reports that her father used alcohol excessively. He of alcohol related and tobacco-related illnesses according to the patient. She reports that her mother of meningococcal meningitis age 76. Her mother also had rheumatoid arthritis. - Social History Smoking status: Never smoker Substance use type: does not use Alcohol intake: never Alcohol intake frequency: does not drink Housing: long-term Household members: caregiver Does patient use chewing tobacco?: No Current residence: Long Term Social history: The patient is . She has been in long-term care for a couple of years. She has been relatively active and up and about at the long-term. lives in the same complex but not in the same room nor in long-term care. 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 Otherwise reportedly has not worked outside the home. Review of Systems - Constitutional Constitutional: Present: fatigue, weakness. Absent: anorexia, chills, fever(s) , headache(s), lethargy, malaise, night sweats, weight gain, weight loss - EENMT Eyes: Absent: blurry vision, change in vision, diplopia Mouth/Throat: Absent: changes in swallowing, painful swallowing, change in taste , bleeding gums, change in voice - Cardiovascular Cardiovascular: Present: edema (reports history of edema although at present no evidence of this.). Absent: chest pain, palpitations, syncope, dyspnea on exertion, orthopnea, cyanosis, heart murmur Rhythm: Present: regular rhythm Vascular: Absent: intermittent claudication, pedal edema, unilateral swelling - Respiratory Respiratory: Absent: cough, dyspnea, hemoptysis, dyspnea on exertion, wheezing, pain on inspiration, chest congestion, excessive phlegm production - Gastrointestinal Gastrointestinal: Present: constipation. Absent: abdominal pain, change in bowel habits, diarrhea, dyspepsia, dysphagia, early satiety, hematochezia, melena, nausea, vomiting - Genitourinary Genitourinary: Present: urinary incontinence (reports a long history of urinary incontinence. She wears pads at home. Currently has a catheter in place with bladder training in progress.) - Musculoskeletal Musculoskeletal: Absent: abnormal gait, arthralgias, back pain, joint swelling, limited range of motion, muscle weakness - Integumentary/Breasts Integumentary: Absent: alopecia, erythema, lesions, pruritus, rash, jaundice - Neurological Neurological: Present: weakness (has evidence of generalized weakness.). Absent : abnormal gait, abnormal movements, abnormal speech, confusion, convulsions, dizziness, focal weakness, frequent falls, headache(s), loss of vision, memory loss, numbness, paresthesias, tremor(s) - Psychiatric Psychiatric: Absent: abnormal sleep pattern, anxiety, depression - Endocrine Endocrine: Absent: cold intolerance, flushing, heat intolerance, palpitations - Hematologic/Lymphatic Hematologic/Lymphatic: Absent: easy bleeding, easy bruising, lymphadenopathy - Allergic/Immunologic Allergic/Immunologic: Absent: urticaria Medications Home Medications Medication Instructions Recorded Confirmed Type Levothyroxine Tab [Synthroid] 50 mcg PO DAILY #0 10/12/10 04/12/17 History Rasagiline Mesylate [Azilect] 1 mg PO DAILY #0 10/12/10 04/12/17 History Fexofenadine HCl [Erica Allergy] 60 mg PO BID PRN #0 tab 06/07/14 04/12/17 History Magnesium Oxide [Magnesium] 400 mg PO BID #0 cap 06/07/14 04/12/17 History DiltiaZEM CD [Cardizem Cd] 1 tab PO DAILY #0 tab 07/20/14 04/12/17 History Citalopram Hydrobromide [Celexa] 20 mg PO DAILY #0 tab 08/24/16 04/12/17 History Acetaminophen [Tylenol] 650 mg PO QID 04/12/17 04/12/17 History Albuterol Neb (0.083%) [Proventil 2.5 mg AEROSOL Q6H PRN 04/12/17 04/12/17 History Neb (0.083%)] Bumetanide 2 mg PO DAILY 04/12/17 04/12/17 History Calcium Carbonate 600 mg PO BID 04/12/17 04/12/17 History Carbidopa/Levodopa [Carbidopa-Levo 1 each PO TID 04/12/17 04/12/17 History ER 25-100 Tab] Carboxymethyl/Gly/Poly80/Pf 1 each EACH EYE BID 04/12/17 04/12/17 History [Refresh Optive Advanced Drops] Digoxin [Digitek] 125 mcg PO DAILY 04/12/17 04/12/17 History Fluticasone Nasal Ivor [Flonase] 1 spray DAVID DAILY 04/12/17 04/12/17 History Lactobacillus Acidophilus 1 each PO DAILY 04/12/17 04/12/17 History [Probiotic] Melatonin/Pyridoxine HCl (B6) 5 mg PO DAILY 04/12/17 04/12/17 History [Melatonin 5 mg Tablet] Metoprolol Succinate 50 mg PO HS 04/12/17 04/12/17 History Mirabegron [Myrbetriq] 50 mg PO HS 04/12/17 04/12/17 History Multivitamin [One Daily] 1 each PO DAILY 04/12/17 04/12/17 History Omeprazole [Prilosec] 20 mg PO ACB 04/12/17 04/12/17 History Phenytoin Cap [Dilantin] 100 mg PO BID 04/12/17 04/12/17 History Potassium Chloride [K-Dur] 20 meq PO DAILY 04/12/17 04/12/17 History Tramadol [Ultram] 50 mg PO Q6H PRN 04/12/17 04/12/17 History Warfarin Sodium [Coumadin] 3 mg PO SUTH 04/12/17 04/12/17 History Warfarin [Coumadin] 2 mg PO [id number] 04/12/17 04/12/17 History Allergies Allergy/AdvReac Type Severity Reaction Status Date / Time codeine AdvReac Unknown SWELLING Verified 04/12/17 17:37 Results IRU - Labs Labs: Have reviewed results of inpatient laboratory, radiographic findings and providers notes. Exam Height/Weight/BMI: Weight 64.5 kg - Constitutional Present: no acute distress, well nourished, well developed, average body habitus , thin, cooperative Comments: While she is awake and alert she does respond somewhat slowly. She appears to be fairly sharp. Does not display evidence of memory loss at present to me. - Routine HEENT Exam Head: Present: normocephalic, atraumatic. Absent: cushingoid faces, abrasion, laceration, hematoma Eye: Present: EOMI, PERRL. Absent: conjunctival icterus, scleral injection, periorbital swelling, nystagmus ENT: Present: mucous membranes moist, oropharynx clear. Absent: dentition normal (patient is edentulous. She does have dentures.) - Routine Neck Exam Present: supple, full ROM, trachea midline. Absent: lymphadenopathy, thyromegaly, tenderness, swelling - Routine Chest/Breast/Axilla Exam Chest wall: Absent: tenderness, mass Axillae: Absent: lymphadenopathy, mass - Routine Respiratory Exam Present: CTA bilaterally. Absent: accessory muscle use, decreased breath sounds , prolonged expiratory phase, rales, respiratory distress, rhonchi, stridor, wheezes, crackles, distant breath sounds - Routine Cardiovascular Exam Present: S1, S2, no murmur, irregularly irregular. Absent: gallop, S3, S4, click, irregular rhythm - Routine Abdominal Exam Present: soft, normoactive bowel sounds, non distended, non tender. Absent: rebound, guarding, firm, rigid, organomegaly, mass, hernia, wound - Routine Extremities Exam Present: no edema, non tender, pulses intact (has good pulses in both lower extremities.), normal capillary refill. Absent: cyanosis, clubbing - Routine Back/Spine/Pelvis Exam Back/Spine: Present: full ROM. Absent: scoliosis, kyphosis - Routine Skin Exam Present: intact, dry, warm. Absent: cyanosis, erythema, pallor, mottling, petechiae, urticaria, lesions, jaundice - Routine Neurological Exam Present: alert, oriented X3, CN II-XII intact, moving all extremities, normal speech - Routine Psychiatric Exam Present: normal affect, normal thought process, cooperative, good insight, good judgment. Absent: depressed, anxious Sepsis Assessment - Evaluation Severe Sepsis: none seen IRU A/P (1) Status post-operative repair of closed fracture of left hip Current visit: Yes Status: Acute Patient has history of operative repair of the left hip fracture yesterday. She is comfortable at rest but has significant pain with ambulation. In addition she has multiple functional deficits requiring a multidisciplinary approach to her recovery. (2) Hypotension Qualifiers: Hypotension type: unspecified hypotension type Qualified Code(s): I95.9 - Hypotension, unspecified Current visit: Yes Status: Acute She has history of benign essential hypertension. At the present time however she is hypotensive with blood pressures in the 90s. She is asymptomatic in this regard. This will be monitored carefully. This may be related to her acute blood loss anemia versus other etiology. There is no evidence of sepsis. (3) Acute blood loss anemia Current visit: Yes Status: Acute Hemoglobin has dropped 8.7 g percent, likely secondary to her acute left hip fracture. We will monitor for evidence of additional blood loss as well as monitor her hemoglobin carefully. (4) Acute on chronic respiratory failure with hypoxemia Current visit: Yes Status: Acute She normally uses oxygen at nighttime at 2 L/m. At the present time she is requiring oxygen during the daytime as well to keep saturations 90% or greater. (5) Atrial fibrillation Qualifiers: Atrial fibrillation type: chronic Qualified Code(s): I48.2 - Chronic atrial fibrillation Current visit: No Status: Chronic Patient is on warfarin chronically. Her INR is subtherapeutic at present. Pharmacy will be involved in monitoring and dosing the warfarin. (6) Parkinson disease Current visit: No Status: Chronic She reports about a 10 year history of Parkinson's disease. She is at risk for falls. She has fallen in the past as well. DVT Prophylaxis: SCD's, Coumadin Resuscitation Status: Full Code (please see above discussion with regard to her resuscitation status. At the present time she does not wish to make a decision regarding DO NOT RESUSCITATE status.) - Course Hospital Course: Ayan Delgadillo MD: - Interventions to Obtain Goals PT Treatment Plan: Balance/Proprioception, Functional Activities, Gait Training , Patient/Family Education OT Treatment Plan: ADL (Basic Care), Balance Training, Pt./Family Education Goals Progress/Modifications: Because of her recent hip fracture which has been repaired as well as multiple medical problems, she requires a multidisciplinary approach with OT, PT, 24 rehabilitation nursing to monitor blood pressures, pain management and monitor her wounds as well as medical supervision. She is a high fall risk secondary to her Parkinson's disease.
[2017-04-15] MEDS: WARFARIN 2 MG TABLET PO SCH (15:26)
--- NOTE | 2017-04-15 15:35 | IRU 24Hr Post Admit Eval ---
24 Hr Post Admission Physical - Relevant Changes Relevant Changes: No Reviewed: I have reviewed the patient's information and concur with the finding and results of the pre-admission screen. Certification: I certify the patient for rehabilitation. - Patient Condition (1) Status post-operative repair of closed fracture of left hip Status: Acute Code(s): Z98.890 - Other specified postprocedural states; Z87.81 - Personal history of (healed) traumatic fracture Classification: Present on IRF Admission, IRF Tx That Should Address Diagnosis, Diagnosis Requiring Medical Follow Up (2) Hypotension Status: Acute Qualifiers: Hypotension type: unspecified hypotension type Qualified Code(s): I95.9 - Hypotension, unspecified Code(s): I95.9 - Hypotension, unspecified Classification: Present on IRF Admission, IRF Tx That Should Address Diagnosis, Diagnosis Requiring Medical Follow Up (3) Acute blood loss anemia Status: Acute Code(s): D62 - Acute posthemorrhagic anemia Classification: Present on IRF Admission, IRF Tx That Should Address Diagnosis, Diagnosis Requiring Medical Follow Up (4) Acute on chronic respiratory failure with hypoxemia Status: Acute Code(s): J96.21 - Acute and chronic respiratory failure with hypoxia Classification: Present on IRF Admission, IRF Tx That Should Address Diagnosis, Diagnosis Requiring Medical Follow Up (5) Atrial fibrillation Status: Chronic Qualifiers: Atrial fibrillation type: chronic Qualified Code(s): I48.2 - Chronic atrial fibrillation Code(s): I48.91 - Unspecified atrial fibrillation Classification: Present on IRF Admission, IRF Tx That Should Address Diagnosis, Diagnosis Requiring Medical Follow Up (6) Parkinson disease Status: Chronic Code(s): G20 - Parkinson's disease Classification: Present on IRF Admission, Diagnosis Requiring Medical Follow Up - Prior Functional Status Lives With: Technical Fellow Residence Type: Intermediate Assitive Devices: Front Wheeled Walker, Straight Cane Prior Functional Status: Depend. at home or school - Current Functional Status Current Level of Function: Current level of functioning is as follows: She is modified independent for eating, but requires minimum assistance for grooming, maximum assistance for bathing, minimum assistance for upper body dressing and total assistance for lower body dressing. She requires moderate assistance for toileting, maximum assistance for bed/chair/wheelchair transfers, moderate assistance for toilet transfers and total assistance for walking. She is able to walk with a rolling walker only 2 feet. Failed Alternative Therapy: Arrived from Acute Care Patient Requirements: The patient requires oversight by rehabilitation physician to manage their rehabilitation treatment plan and multidisciplinary approach to care that can only be provided in an IRF and requires a multidisciplinary approach to care, provided by professional PTs, OTs, STs, dieticians, RTs, rehabilitation nurses and is not available in lesser levels of care. Limitations Req: Mobility Impairment, ADL Impairment, Respiratory Impairment Physical Therapy Minutes: 90 Occupational Therapy Minutes: 90 Therapy: The patient is to receive therapy at least 5 days a week. ROM Deficit: Left Lower Extremity - Complications/Comorbidities Impact on Functional Outcomes: The patient's acute blood loss anemia as well as hypotension may negatively impact her functional outcome. Barriers to Discharge: Weakness, Balance, Endurance - Plan to Avoid Complications Plan to Avoid Complications: The patient cannot receive this care in a lesser intensive setting such as Long Term or Outpatient Therapy due to the patient requiring the following : This patient requires a multidisciplinary approach in view of her multiple medical problems. She requires 24 hour rehabilitation nursing monitoring of her blood pressure, evidence of continued blood loss, fall risk assessment and mitigation, wound management. She requires a coordinated approach between physical therapy and occupational therapy with medical supervision in view of her hypotension and new onset of acute on chronic hypoxemic respiratory failure .
[2017-04-15] MEDS ORDERED: WARFARIN - PHARMACY CONSULT MC ONE (15:37)
[2017-04-15] MEDS: TRAMADOL 50 MG TABLET PO PRN ×2 (16:04→21:18)
[2017-04-15] MEDS: PHENYTOIN 100 MG CAPSULE PO SCH (17:52)
[2017-04-15] MEDS: NOZIN NASAL SWAB NAS SCH (17:52)
[2017-04-15] MEDS: ENOXAPARIN 40 MG/0.4 ML INJECTION SQ SCH (21:09)
[2017-04-15] MEDS: MIRABEGRON 25mg TABLET PO SCH (21:10)
[2017-04-15] MEDS: MELATONIN 5 MG TABLET PO SCH (21:10)
[2017-04-15] MEDS: ACETAMINOPHEN 325 MG TABLET PO PRN (21:19)
[2017-04-15] MEDS: REFRESH CELLUVISC 1% Eye Drops 0.4ml EACH EYE SCH (21:20)
[2017-04-16] MEDS: NOZIN NASAL SWAB NAS SCH ×3 (05:33→18:02)
[2017-04-16] MEDS: ACETAMINOPHEN 325 MG TABLET PO PRN (05:47)
[2017-04-16] MEDS: LEVOTHYROXINE 50 MCG TABLET PO SCH (05:48)
[2017-04-16] MEDS: OMEPRAZOLE 20 MG CAPSULE PO SCH (05:48)
[2017-04-16] MEDS: TRAMADOL 50 MG TABLET PO PRN ×2 (05:48→17:58)
[2017-04-16] MEDS ORDERED: DiltiaZEM CD 360 MG CAPSULE PO SCH (09:00)
--- NOTE | 2017-04-16 09:45 | XRay Report ---
Indication: hypoxia, cardiomegaly PROCEDURE: XR chest 1V: Encounter: Initial Comparison: April 12, 2017 Findings: Some new hazy airspace opacity in both mid lungs with pulmonary vascular prominence. Possible trace effusions. No pneumothorax. No lobar consolidation. Heart size and mediastinal contours are stable. Impression: Findings of mild pulmonary edema. .
[2017-04-16] MEDS: LACTOBACILLUS (15B cfu) CAPSULE PO SCH (09:46)
[2017-04-16] MEDS: CITALOPRAM 20 MG TABLET PO SCH (09:46)
[2017-04-16] MEDS: PHENYTOIN 100 MG CAPSULE PO SCH ×2 (09:46→17:59)
[2017-04-16] MEDS: DIGOXIN 125 MCG TABLET PO SCH (09:46)
[2017-04-16] MEDS: POLYETHYL GLYCOL 3350 17gm PACKET PO SCH (09:47)
[2017-04-16] MEDS: RASAGILINE 0.5 MG TABLET PO SCH (09:47)
[2017-04-16] MEDS: REFRESH CELLUVISC 1% Eye Drops 0.4ml EACH EYE SCH ×2 (09:48→21:38)
--- NOTE | 2017-04-16 10:27 | Pharmacy Consult ---
Pharmacy Consult-Warfarin - Laboratory Information 04/16/17 04:30 INR 1.19 - Consult Information 81 y.o. Female with history of a.fib. and chronic anticoagulation with Warfarin. goal INR range= 2.0 to 3.0. INR was therapeutic upon admission. Patient admitted with hip fracture and INR was normalized with Vitamin K for surgery. date INR dose 04/13 2.11 ---- vitamin K 5 mg po and 10 mg sq doses given to normalize INR for surgery 04/14 1.36 3 mg 04/15 1.17 2 mg 04/16 1.19 plan: 2 mg INR is subtherapeutic as a result of Vitamin K given 04/13/17. Patient's home dose of 3 mg Saturday and , and 2 mg Sat, , Sat, Sat, Sat. is currently ordered. Today's dose= 2 mg po. Pharmacy will monitor and adjust as needed. Thank you for the Warfarin consult, Suzan Moore [facility]
--- NOTE | 2017-04-16 11:06 | Consult Note ---
Consult Information - Data of Consult Consult date: 04/16/17 Requesting Physician: Ayan Delgadillo MD Primary Care Provider: OTHER France Blackwell MD Family Provider: France Blackwell MD - Consult Narrative Reason for consult: medical management History of present illness: Jessica is an 81-year-old female who was initially admitted on 04/13/17 due to left hip fracture. She was given vitamin K to reverse her INR. She underwent surgery (total left hip arthroplasty) on 04/14/[address] Whitney. She was dismissed from the surgical floor yesterday and admitted to IRU for further therapy to improve strength. She continues to require oxygen 1 L to maintain adequate saturations. Her pain has been well controlled. Her hemoglobin was 8.7 yesterday and down to 8.0 today. Sodium yesterday was 132 and down to 130 today. Her blood pressures have been averaging 80s-90s/40s-50s since surgery. She complained that it was hard to wake up this morning, otherwise is not having any complaints. Nursing staff reported she was was a bit dizzy this morning. Past Medical History Medical History Parkinson's disease CHF Atrial fibrillation Macular degeneration Coronary artery disease Hypertension GERD Constipation Diverticulosis Stage III chronic kidney disease Osteoarthritis/rheumatoid arthritis Spinal stenosis Depression Surgical History: 1. ISHAN with bilateral salpingo-oophorectomy. 2. Torn meniscus repaired in right knee. 3. Bilateral cataract procedure Family History: Father- of alcohol and tobacco related illnesses. Mother of meningococcal meningitis at age 76. Rheumatoid arthritis. 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 Review of Systems All systems PM: 10-point ROS was reviewed, no additional remarkable complaints except (some dizziness earlier this morning, hip pain with movement) Medications Home Medications Medication Instructions Recorded Confirmed Type Levothyroxine Tab [Synthroid] 50 mcg PO DAILY #0 10/12/10 04/12/17 History Rasagiline Mesylate [Azilect] 1 mg PO DAILY #0 10/12/10 04/12/17 History Fexofenadine HCl [Erica Allergy] 60 mg PO BID PRN #0 tab 06/07/14 04/12/17 History Magnesium Oxide [Magnesium] 400 mg PO BID #0 cap 06/07/14 04/12/17 History DiltiaZEM CD [Cardizem Cd] 1 tab PO DAILY #0 tab 07/20/14 04/12/17 History Citalopram Hydrobromide [Celexa] 20 mg PO DAILY #0 tab 08/24/16 04/12/17 History Acetaminophen [Tylenol] 650 mg PO QID 04/12/17 04/12/17 History Albuterol Neb (0.083%) [Proventil 2.5 mg AEROSOL Q6H PRN 04/12/17 04/12/17 History Neb (0.083%)] Bumetanide 2 mg PO DAILY 04/12/17 04/12/17 History Calcium Carbonate 600 mg PO BID 04/12/17 04/12/17 History Carbidopa/Levodopa [Carbidopa-Levo 1 each PO TID 04/12/17 04/12/17 History ER 25-100 Tab] Carboxymethyl/Gly/Poly80/Pf 1 each EACH EYE BID 04/12/17 04/12/17 History [Refresh Optive Advanced Drops] Digoxin [Digitek] 125 mcg PO DAILY 04/12/17 04/12/17 History Fluticasone Nasal [place] [Flonase] 1 spray DAVID DAILY 04/12/17 04/12/17 History Lactobacillus Acidophilus 1 each PO DAILY 04/12/17 04/12/17 History [Probiotic] Melatonin/Pyridoxine HCl (B6) 5 mg PO DAILY 04/12/17 04/12/17 History [Melatonin 5 mg Tablet] Metoprolol Succinate 50 mg PO HS 04/12/17 04/12/17 History Mirabegron [Myrbetriq] 50 mg PO HS 04/12/17 04/12/17 History Multivitamin [One Daily] 1 each PO DAILY 04/12/17 04/12/17 History Omeprazole [Prilosec] 20 mg PO ACB 04/12/17 04/12/17 History Phenytoin Cap [Dilantin] 100 mg PO BID 04/12/17 04/12/17 History Potassium Chloride [K-Dur] 20 meq PO DAILY 04/12/17 04/12/17 History Tramadol [Ultram] 50 mg PO Q6H PRN 04/12/17 04/12/17 History Warfarin Sodium [Coumadin] 3 mg PO SUTH 04/12/17 04/12/17 History Warfarin [Coumadin] 2 mg PO MOTUWEFRSA 04/12/17 04/12/17 History Allergies Allergy/AdvReac Type Severity Reaction Status Date / Time codeine AdvReac Unknown SWELLING Verified 04/15/17 15:17 Exam Vital Signs: Temperature 99.0 F 04/16/17 07:29 Pulse Rate 90 04/16/17 09:46 Respiratory Rate 14 04/16/17 07:29 Blood Pressure 90/60 04/16/17 07:45 Pulse Oximetry 98 04/16/17 01:30 Height/Weight/BMI: Height 1.55 m Weight 64.5 kg Body Mass Index 27.2 - Constitutional Present: no acute distress, well nourished, well developed - Routine HEENT Exam Head: Present: normocephalic, atraumatic Eye: Absent: conjunctival icterus, periorbital swelling ENT: Present: mucous membranes moist, oropharynx clear - Routine Neck Exam Present: supple. Absent: lymphadenopathy - Routine Respiratory Exam Present: crackles (b/l bases). Absent: wheezes - Routine Cardiovascular Exam Present: irregularly irregular. Absent: murmur - Routine Abdominal Exam Present: soft, normoactive bowel sounds, non distended. Absent: tenderness - Routine Extremities Exam Present: edema (1+ non pitting), normal capillary refill - Routine Skin Exam Present: dry, warm - Routine Neurological Exam Present: alert, normal speech - Routine Psychiatric Exam Present: normal affect, cooperative Results - Labs CBC & Chem 7: 04/16/17 04:30 04/16/17 04:30 Assessment and Plan (1) Femoral neck fracture Current visit: No Status: Acute (2) Atrial fibrillation Current visit: No Status: Chronic (3) Hypertension Current visit: No Status: Chronic (4) Parkinson disease Current visit: No Status: Chronic (5) Hypothyroid Current visit: No Status: Chronic (6) Mitral regurgitation Current visit: No Status: Acute (7) Status post-operative repair of closed fracture of left hip Current visit: Yes Status: Acute (8) Acute blood loss anemia Current visit: Yes Status: Acute Assessment and Plan: Assessment Left impacted femoral neck fx, 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 Whitney Postop anemia Hyponatremia-POA Afib, chronic HFpEF with VHD (mitral) CKD, stage 3 HTN hypothyroid, chronic GERD Parkinson's disease Coronary artery disease Constipation Diverticulosis Osteoarthritis/rheumatoid arthritis Spinal stenosis Depression Macular degeneration Plan Agree with IRU admission with pain control and therapies to be managed by Dr. Delgadillo. Chest x-ray performed this morning shows pulmonary edema. Will continue her Bumex and hold on giving fluids at this time. Diltiazem was held this morning given her hypotension. Pharmacy to manage warfarin. Patient had 2 doses of vitamin K prior to surgery, so it may take some time for INR to become therapeutic. Dr. Hicks has been consulted to follow her cardiac issues. Her digoxin dosage was decreased from daily to every other day during her acute stay. Monitor hemoglobin and sodium closely. We will continue to follow patient medically throughout her stay. Thank you for the consult. Resuscitation Status: Full Code - Physician Narrative Physician: Drew Styles MD Narrative: Date: 04/16/17 Time: 2049 Have independently interviewed and examined pt. Chart reviewed. Case discussed with my PA. Above care plan developed with my supervision; agree with above. Admitted to IRU for restorative therapy following hip fracture and surgical correction. Resting peacefully this evening. BP have been low - am Diltiazem held due to low BP. Blood counts trending down. Lungs: decrease bilaterally, no distress CV:: irregularly irregular AB: soft nt/nd Plan: Agree with admission to IRU to maximize functional status. Diltiazem held this am due to low BP - need to continue to monitor; potentially decrease diltiazem dose. Monitor blood counts-transfusion would help improve BP/ Oxygenation and functional ability. Would give blood if hemoglobin decreases to less than 8.0 due to post op state. Type and screen with morning lab. Will also check ferritin and iron. Encourage therapy. Medically stable for IRU floor activities. Hospital Course Summary Disclaimer: The visit summary below is not to be considered part of the above Progress Note.
--- NOTE | 2017-04-16 11:48 | Cardiology Consult Note ---
<Myrna Vieyra - Last Filed: 04/16/17 14:39> History of Present Illness Consult date: 04/16/17 Requesting physician: Ayan Delgadillo Consult reason: congestive heart failure Chief complaint: hypotension, pulmonary edema History of present illness: Jessica is an 81-year-old female who is well known to Dr. Hicks with a history of A Fib with previous RVR and associated decompensated diastolic heart failure. Her CHF has been well controlled on oral bumex, with replacement potassium and magnesium. She has paroxysmal a fib, rate controlled with digoxin 125mcg and Cardizem 360mg, chronic anticoagulation on Warfarin - our office manages, NR mitral valve insufficiency and pulmonary HTN. She was recently seen in office on 04/09/17 with an echo which showed an EF of 55-60, dilated right atrium & ventricle, moderate to severe MR, aortic sclerosis without stenosis. She was initially admitted on 04/13/17 due to left hip fracture. She was given vitamin K to reverse her INR. She underwent surgery (total left hip arthroplasty ) on 04/14/[address] Whitney. She was dismissed from the surgical floor yesterday and admitted to IRU for further therapy to improve strength. [facility] resides [facility]. She is seen in her room on IRU. She is laying flat in her bed, her is at the bedside. She is on room air and in no distress. Her hemoglobin is 8.0 today. Sodium is 130 today. Her blood pressures have been borderline low. She denies chest pain, pressure or palpitations. Review of Systems - Constitutional Constitutional: Present: weakness (generalized). Absent: chills, fever(s) - EENMT Eyes: Absent: change in vision Balance: Absent: vertigo Mouth/Throat: Absent: sore throat - Cardiovascular Cardiovascular: Absent: chest pain, palpitations, syncope, dyspnea on exertion, orthopnea - Respiratory Respiratory: Absent: cough, dyspnea, dyspnea on exertion - Gastrointestinal Gastrointestinal: Absent: diarrhea, nausea, vomiting - Genitourinary Genitourinary: Absent: dysuria - Integumentary/Breasts Integumentary: Absent: rash - Neurological Neurological: Present: dizziness - Endocrine Endocrine: Absent: palpitations PFSH Patient Stated Medical History Parkinson's Disease Yes Cataracts Yes: removed Dental Problems Yes: upper/lower dentures Other HEENT Yes: MACULAR DEGENERATION Cardiac Arrhythmia Yes: A-FIB Congestive Heart Failure Yes: hospitalized 2014, Seen Dr. Prince last week no problems Coronary Artery Disease Yes Hypertension Yes Bronchitis Yes Pneumonia Yes: 3 yrs ago Sleep Apnea No Constipation Yes Gastroesophageal Reflux Yes Disease Other GI Yes: DIVERTICULITIS Hx Incontinence Yes Hx Renal Disease Yes: STAGE 3 Other Yes: RENAL TUBULAR DYSFUNCTION Clotting Problems Yes: a fib Osteoarthritis Yes Other Musculoskeletal Yes: SPINAL STENOSIS, RA, parkinsons Depression Yes: MAJOR DEPRESSIVE Surgical History: 1. ISHAN with bilateral salpingo-oophorectomy. 2. Torn meniscus repaired in right knee. 3. Bilateral cataract procedure Family History: Father- of alcohol and tobacco related illnesses. Mother- of meningococcal meningitis at age 76. Rheumatoid arthritis. - Social History Smoking status: Never smoker Substance use type: does not use Alcohol intake frequency: does not drink Housing: jail Household members: none Current occupational status: retired Current residence: [facility] Medications Home Medications Medication Instructions Recorded Confirmed Type Levothyroxine Tab [Synthroid] 50 mcg PO DAILY #0 10/12/10 04/12/17 History Rasagiline Mesylate [Azilect] 1 mg PO DAILY #0 10/12/10 04/12/17 History Fexofenadine HCl [Erica Allergy] 60 mg PO BID PRN #0 tab 06/07/14 04/12/17 History Magnesium Oxide [Magnesium] 400 mg PO BID #0 cap 06/07/14 04/12/17 History DiltiaZEM CD [Cardizem Cd] 1 tab PO DAILY #0 tab 07/20/14 04/12/17 History Citalopram Hydrobromide [Celexa] 20 mg PO DAILY #0 tab 08/24/16 04/12/17 History Acetaminophen [Tylenol] 650 mg PO QID 04/12/17 04/12/17 History Albuterol Neb (0.083%) [Proventil 2.5 mg AEROSOL Q6H PRN 04/12/17 04/12/17 History Neb (0.083%)] Bumetanide 2 mg PO DAILY 04/12/17 04/12/17 History Calcium Carbonate 600 mg PO BID 04/12/17 04/12/17 History Carbidopa/Levodopa [Carbidopa-Levo 1 each PO TID 04/12/17 04/12/17 History ER 25-100 Tab] Carboxymethyl/Gly/Poly80/Pf 1 each EACH EYE BID 04/12/17 04/12/17 History [Refresh Optive Advanced Drops] Digoxin [Digitek] 125 mcg PO DAILY 04/12/17 04/12/17 History Fluticasone Nasal [place] [Flonase] 1 spray DAVID DAILY 04/12/17 04/12/17 History Lactobacillus Acidophilus 1 each PO DAILY 04/12/17 04/12/17 History [Probiotic] Melatonin/Pyridoxine HCl (B6) 5 mg PO DAILY 04/12/17 04/12/17 History [Melatonin 5 mg Tablet] Metoprolol Succinate 50 mg PO HS 04/12/17 04/12/17 History Mirabegron [Myrbetriq] 50 mg PO HS 04/12/17 04/12/17 History Multivitamin [One Daily] 1 each PO DAILY 04/12/17 04/12/17 History Omeprazole [Prilosec] 20 mg PO ACB 04/12/17 04/12/17 History Phenytoin Cap [Dilantin] 100 mg PO BID 04/12/17 04/12/17 History Potassium Chloride [K-Dur] 20 meq PO DAILY 04/12/17 04/12/17 History Tramadol [Ultram] 50 mg PO Q6H PRN 04/12/17 04/12/17 History Warfarin Sodium [Coumadin] 3 mg PO SUTH 04/12/17 04/12/17 History Warfarin [Coumadin] 2 mg PO MOTUWEFRSA 04/12/17 04/12/17 History Allergies Allergy/AdvReac Type Severity Reaction Status Date / Time codeine AdvReac Unknown SWELLING Verified 04/15/17 15:17 Exam Vital signs: Temperature 99.0 F 04/16/17 07:29 Pulse Rate 90 04/16/17 09:46 Respiratory Rate 14 04/16/17 07:29 Blood Pressure 90/60 04/16/17 07:45 Pulse Oximetry 98 04/16/17 01:30 - Constitutional no acute distress, well nourished, cooperative - Routine HEENT Exam Head: Present: normocephalic ENT: Present: mucous membranes moist - Routine Neck Exam Absent: JVD, carotid bruit - Routine Chest/Breast/Axilla Exam Chest wall: Absent: tenderness - Routine Respiratory Exam Present: decreased breath sounds (anteriorly), CTA bilaterally - Routine Cardiovascular Exam Present: murmur (II/), irregularly irregular. Absent: JVD - Routine Abdominal Exam Present: soft, normoactive bowel sounds - Routine Extremities Exam Present: edema (trace) - Routine Back/Spine/Pelvis Exam Back/Spine: Present: erythema - Routine Skin Exam Present: intact, dry, warm - Routine Neurological Exam Present: alert, oriented X3 - Routine Psychiatric Exam Present: normal affect, normal thought process Results 04/16/17 04:30 04/16/17 04:30 CBC 04/16/17 Range/Units 04:30 WBC 6.9 (4.5-11.0) T/MM3 RBC 2.50 L (4.00-5.20) M/MM3 Hgb 8.0 L (12-16) GM/DL Hct 24.8 L (36-46) % Plt Count 141 (130-400) T/MM3 Neut # (Auto) 4.7 (1.8-7.7) T/MM3 Lymph # (Auto) 1.2 (1-4.8) T/MM3 [place] # (Auto) 0.8 (0-0.8) T/MM3 Eos # (Auto) 0.2 (0-0.5) T/MM3 Baso # (Auto) 0.0 (0-0.2) T/MM3 Comprehensive Metabolic Panel 04/16/17 Range/Units 04:30 Sodium 130 L (134-144) MEQ/L Potassium 4.0 (3.6-5) MEQ/L Chloride 96 L (98-107) MEQ/L Carbon Dioxide 28 (22-30) MEQ/L BUN 24.0 H (7-17) MG/DL Creatinine 1.1 (0.7-1.2) MG/DL Glucose 108 (65-110) MG/DL Calcium 7.8 L (8.4-10.2) MG/DL Intake and Output 04/15/17 04/16/17 04/16/17 22:59 06:59 14:59 Intake Total 1060 / 1060 120 / 120 Output Total 650 / 650 Balance 410 / 410 120 / 120 Intake: Oral 1060 / 1060 120 / 120 Output: Urine Amount (Catheter) 650 / 650 Other: Urine Appearance Cloudy Urine Color Dark Yellow Urine Odor Strong Stool Color Brown Stool Consistency Formed Size of Bowel Movement Large # Bowel Movements 1 Abnormal Lab Results 04/15/17 04/16/17 04/16/17 23:37 04:30 04:30 WBC 6.9 RBC 2.50 L Hgb 8.0 L Hct 24.8 L MCV 99.2 MCH 32.0 MCHC 32.3 RDW Std Deviation 43.4 Plt Count 141 MPV 9.8 Immature Gran % (Auto) 0.1 Neut % (Auto) 67.8 H Lymph % (Auto) 17.9 L [place] % (Auto) 11.0 H Eos % (Auto) 2.9 Baso % (Auto) 0.3 Neut # (Auto) 4.7 Lymph # (Auto) 1.2 [place] # (Auto) 0.8 Eos # (Auto) 0.2 Baso # (Auto) 0.0 Abs Immat Gran (auto) 0.01 INR 1.19 Turbidity Sodium Potassium Chloride Carbon Dioxide Anion Gap BUN Creatinine GFR Calculation BUN/Creatinine Ratio Glucose Glucometer 95 Calculated Osmolality Calcium Icterus Index Specimen Hemolysis 04/16/17 04:30 WBC RBC Hgb Hct MCV MCH MCHC RDW Std Deviation Plt Count MPV Immature Gran % (Auto) Neut % (Auto) Lymph % (Auto) [place] % (Auto) Eos % (Auto) Baso % (Auto) Neut # (Auto) Lymph # (Auto) [place] # (Auto) Eos # (Auto) Baso # (Auto) Abs Immat Gran (auto) INR Turbidity < 20 Sodium 130 L Potassium 4.0 Chloride 96 L Carbon Dioxide 28 Anion Gap 6 BUN 24.0 H Creatinine 1.1 GFR Calculation 47 BUN/Creatinine Ratio 22 Glucose 108 Glucometer Calculated Osmolality 256 L Calcium 7.8 L Icterus Index < 2 Specimen Hemolysis < 15 - Imaging and Cardiology Imaging & Cardiology Narrative: Date of Exam: 04/16/17 Ordering Provider: Drew Styles MD Type of Exam(s): XR chest 1V Reason for Exam(s): hypoxia, cardiomegally Indication: hypoxia, cardiomegaly PROCEDURE: XR chest 1V: Encounter: Initial Comparison: April 12, 2017 Findings: Some new hazy airspace opacity in both mid lungs with pulmonary vascular prominence. Possible trace effusions. No pneumothorax. No lobar consolidation. Heart size and mediastinal contours are stable. Impression: Findings of mild pulmonary edema. 04/16/17 11:43 Assessment and Plan - Assessment and Plan (1) Hypotension Current visit: Yes Status: Acute - Stop Cardizem - Hold Metoprolol at HS if SBP< 100 (2) Acute blood loss anemia Current visit: Yes Status: Acute Hgb 8.0 today (3) Atrial fibrillation Current visit: No Status: Chronic Continue Digoxin Q2D (had today) - Continue metoprolol if BP tolerates for rate control, as stopped Cardizem (4) Hypertension Current visit: No Status: Chronic (5) Mitral regurgitation Current visit: No Status: Acute (6) Status post-operative repair of closed fracture of left hip Current visit: Yes Status: Acute (7) Hyponatremia Current visit: Yes Status: Acute Restrict fluids to 1800ml/day - Assessment and Plan Hypotension: Stop Cardizem - Hold Metoprolol at HS if SBP< 100 Hyponatremia: Restrict fluids to 1800ml/day Anemia: Hgb 8.0 today A Fib:Continue Digoxin Q2D (had today) - Continue metoprolol if BP tolerates for rate control, as stopped Cardizem Hospital Course Summary Disclaimer: The visit summary below is not to be considered part of the above Progress Note. <Gautam Hicks - Last Filed: 04/17/17 09:37> [facility] Patient Stated Medical History Parkinson's Disease Yes Cataracts Yes: removed Dental Problems Yes: upper/lower dentures Other HEENT Yes: MACULAR DEGENERATION Cardiac Arrhythmia Yes: A-FIB Congestive Heart Failure Yes: hospitalized 2014, Seen Dr. Prince last week no problems Coronary Artery Disease Yes Hypertension Yes Bronchitis Yes Pneumonia Yes: 3 yrs ago Sleep Apnea No Constipation Yes Gastroesophageal Reflux Yes Disease Other GI Yes: DIVERTICULITIS Hx Incontinence Yes Hx Renal Disease Yes: STAGE 3 Other Yes: RENAL TUBULAR DYSFUNCTION Clotting Problems Yes: a fib Osteoarthritis Yes Other Musculoskeletal Yes: SPINAL STENOSIS, RA, parkinsons Depression Yes: MAJOR DEPRESSIVE Exam Vital signs: Temperature 99.1 F 04/17/17 07:00 Pulse Rate 96 04/17/17 07:00 Respiratory Rate 16 04/17/17 07:00 Blood Pressure 115/62 04/17/17 07:00 Pulse Oximetry 98 04/17/17 07:00 Results 04/17/17 04:42 04/17/17 04:42 CBC 04/17/17 Range/Units 04:42 WBC 5.0 (4.5-11.0) T/MM3 RBC 2.48 L (4.00-5.20) M/MM3 Hgb 7.8 L (12-16) GM/DL Hct 24.5 L (36-46) % Plt Count 165 (130-400) T/MM3 Neut # (Auto) 3.1 (1.8-7.7) T/MM3 Lymph # (Auto) 1.3 (1-4.8) T/MM3 [place] # (Auto) 0.5 (0-0.8) T/MM3 Eos # (Auto) 0.1 (0-0.5) T/MM3 Baso # (Auto) 0.0 (0-0.2) T/MM3 Comprehensive Metabolic Panel 04/17/17 Range/Units 04:42 Sodium 132 L (134-144) MEQ/L Potassium 3.6 (3.6-5) MEQ/L Chloride 97 L (98-107) MEQ/L Carbon Dioxide 30 (22-30) MEQ/L BUN 21.0 H (7-17) MG/DL Creatinine 1.0 (0.7-1.2) MG/DL Glucose 96 (65-110) MG/DL Calcium 8.0 L (8.4-10.2) MG/DL Intake and Output 04/16/17 04/17/17 04/17/17 22:59 06:59 14:59 Intake Total 240 / 240 350 / 350 Output Total 1200 / 1200 950 / 950 Balance -960 / -960 -950 / -950 350 / 350 Intake: Oral 240 / 240 350 / 350 Output: Urine Amount (Catheter) 1200 / 1200 950 / 950 Other: Urine Appearance Clear Urine Color Yellow Urine Odor Normal # Voids 1 Assessment and Plan - Attestation Attestation Narrative: 04/17/17 09:37 Recommendation After examining the patient I agree with the above assessment. I am involved in the formulation of the patient's plan of care. - Assessment and Plan (1) Atrial fibrillation Current visit: No Status: Chronic (2) Hypertension Current visit: No Status: Chronic (3) Mitral regurgitation Current visit: No Status: Acute (4) Status post-operative repair of closed fracture of left hip Current visit: Yes Status: Acute (5) Hypotension Current visit: Yes Status: Acute (6) Acute blood loss anemia Current visit: Yes Status: Acute (7) Hyponatremia Current visit: Yes Status: Acute Hospital Course Summary Disclaimer: The visit summary below is not to be considered part of the above Progress Note.
[2017-04-16 11:59] VITALS: BMI 26.9
[2017-04-16] MEDS ORDERED: WARFARIN 2.5 MG TABLET PO SCH (12:00)
[2017-04-16] MEDS: BUMETANIDE 1 MG TABLET PO SCH (12:07)
[2017-04-16] MEDS: WARFARIN 2 MG TABLET PO SCH (12:08)
[2017-04-16] MEDS: ENOXAPARIN 40 MG/0.4 ML INJECTION SQ SCH (20:33)
[2017-04-16] MEDS: MIRABEGRON 25mg TABLET PO SCH (20:33)
[2017-04-16] MEDS: MELATONIN 5 MG TABLET PO SCH (20:34)
[2017-04-17] MEDS: NOZIN NASAL SWAB NAS SCH ×4 (04:17→21:06)
[2017-04-17] MEDS: OMEPRAZOLE 20 MG CAPSULE PO SCH ×2 (05:07→05:54)
[2017-04-17] MEDS: LEVOTHYROXINE 50 MCG TABLET PO SCH ×2 (05:07→05:54)
--- NOTE | 2017-04-17 08:39 | Progress Note ---
- Date 04/17/17 Subjective: Jessica is seen today in follow up while eating breakfast. She reports that she is feeling good today and slept "like a log" overnight. Denies having lightheadedness or shortness of breat. No chest pain or nausea. Appetite improved today. BP this morning 115/62. Objective Vital signs: Temperature 99.1 F 04/17/17 07:00 Pulse Rate 96 04/17/17 07:00 Respiratory Rate 16 04/17/17 07:00 Blood Pressure 115/62 04/17/17 07:00 Pulse Oximetry 98 04/17/17 07:00 Height/Weight/BMI: Height 1.55 m Weight 64.5 kg Body Mass Index 26.9 - Constitutional Present: no acute distress, well nourished, well developed - Routine HEENT Exam Eye: Present: EOMI ENT: Present: mucous membranes moist, dentition normal - Routine Respiratory Exam Present: CTA bilaterally. Absent: wheezes - Routine Cardiovascular Exam Present: S1, S2, irregular rhythm. Absent: murmur - Routine Abdominal Exam Present: soft, normoactive bowel sounds, non distended. Absent: tenderness - Routine Extremities Exam Present: normal capillary refill - Routine Skin Exam Present: intact, dry, warm - Routine Neurological Exam Present: alert, oriented X3, CN II-XII intact, moving all extremities - Routine Lymphatic Exam Lymphatic: Absent: adenopathy - Routine Psychiatric Exam Present: normal affect, cooperative Results - Labs CBC & Chem 7: 04/17/17 04:42 04/17/17 04:42 Assessment and Plan (1) Femoral neck fracture Current visit: No Status: Acute (2) Atrial fibrillation Current visit: No Status: Chronic (3) Hypertension Current visit: No Status: Chronic (4) Parkinson disease Current visit: No Status: Chronic (5) Hypothyroid Current visit: No Status: Chronic (6) Mitral regurgitation Current visit: No Status: Acute (7) Status post-operative repair of closed fracture of left hip Current visit: Yes Status: Acute (8) Acute blood loss anemia Current visit: Yes Status: Acute Assessment and Plan: Assessment Left impacted femoral neck fx, 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 Whitney Postop anemia Hyponatremia-POA Afib, chronic HFpEF with VHD (mitral) CKD, stage 3 HTN hypothyroid, chronic GERD Parkinson's disease Coronary artery disease Constipation Diverticulosis Osteoarthritis/rheumatoid arthritis Spinal stenosis Depression Macular degeneration Plan Cardizem remains on hold as recommended by cardiology. Monitor heart rate and BP. Has has hypotension at times Chest x-ray did revel pulmonary edema and she is on Bumex. Monitor for over diuresis INR remains subtherapeutic at 1.1 today. Managed by pharmacy. Hgb today down to 7.8. If she has any further hypotension or other symptoms will consider blood transfusion Monitor Hypokalemia, remains on fluid restriction. NA today 132 Does complain of chronic cervicale neck pain. Will add Aspercreme topically. Encourage work with PT/OT - Physician Narrative Narrative: Date: 04/17/17 Time: 0830 Hospital Course Summary Disclaimer: The visit summary below is not to be considered part of the above Progress Note. Hospital Course: Plan Cardizem remains on hold as recommended by cardiology. Monitor heart rate and BP. Has has hypotension at times Chest x-ray did revel pulmonary edema and she is on Bumex. Monitor for over diuresis INR remains subtherapeutic at 1.1 today. Managed by pharmacy. Hgb today down to 7.8. If she has any further hypotension or other symptoms will consider blood transfusion Monitor Hypokalemia, remains on fluid restriction. NA today 132 Does complain of chronic cervicale neck pain. Will add Aspercreme topically. Encourage work with PT/OT
[2017-04-17] MEDS: BUMETANIDE 1 MG TABLET PO SCH (08:48)
[2017-04-17] MEDS: POLYETHYL GLYCOL 3350 17gm PACKET PO SCH (08:48)
[2017-04-17] MEDS: CITALOPRAM 20 MG TABLET PO SCH (08:49)
[2017-04-17] MEDS: PHENYTOIN 100 MG CAPSULE PO SCH ×2 (08:49→18:02)
[2017-04-17] MEDS: LACTOBACILLUS (15B cfu) CAPSULE PO SCH (08:49)
[2017-04-17] MEDS: RASAGILINE 0.5 MG TABLET PO SCH (08:52)
[2017-04-17] MEDS: REFRESH CELLUVISC 1% Eye Drops 0.4ml EACH EYE SCH ×2 (09:56→20:48)
[2017-04-17] MEDS: TRAMADOL 50 MG TABLET PO PRN ×2 (09:57→19:58)
[2017-04-17] MEDS ORDERED: FALL RISK - PHARMACY CONSULT MC ONE (10:40)
--- NOTE | 2017-04-17 11:53 | Cardiology Progress Note ---
<Myrna Vieyra - Last Filed: 04/18/17 09:35> Subjective Principal diagnosis: hypotension Interval history: Jessica is seen in follow up for hypotension and pulmonary edema. She is alert and in no distress. She denies chest pain, pressure, dyspnea, dizziness or lightheadedness. Exam Vital signs: Temperature 99.1 F 04/17/17 07:00 Pulse Rate 96 04/17/17 07:00 Respiratory Rate 16 04/17/17 07:00 Blood Pressure 115/62 04/17/17 07:00 Pulse Oximetry 98 04/17/17 07:00 - Constitutional no acute distress, well nourished, cooperative - Routine HEENT Exam Head: Present: normocephalic ENT: Present: mucous membranes moist - Routine Neck Exam Absent: JVD - Routine Chest/Breast/Axilla Exam Chest wall: Absent: tenderness - Routine Respiratory Exam Present: decreased breath sounds, CTA bilaterally - Routine Cardiovascular Exam Present: murmur (II/), irregular rhythm - Routine Abdominal Exam Present: soft, normoactive bowel sounds - Routine Extremities Exam Present: edema (trace) - Routine Skin Exam Present: intact, dry, warm - Routine Neurological Exam Present: alert, oriented X3 - Routine Psychiatric Exam Present: normal affect - Additional findings Additional findings: Acetaminophen (Tylenol) 650 mg PO Q4H PRN PRN Reason: Pain Last Admin: 04/16/17 05:47 Dose: 650 mg Hydrocodone Bitart/Acetaminophen (Hay 5/325) 1 tab PO Q6H PRN PRN Reason: Pain Albuterol Sulfate (Proventil Neb (0.083%)) 2.5 mg AEROSOL Q6H PRN PRN Reason: Shortness of air Artificial Tears (Refresh Celluvisc) 1 drop EACH EYE BID [facility] Last Admin: 04/17/17 09:56 Dose: 1 drop Bumetanide (Bumex Tab) 2 mg PO DAILY [facility] Last Admin: 04/17/17 08:48 Dose: 2 mg Carbidopa/Levodopa (Sinemet) 1 tab PO TID/E [facility] Last Admin: 04/17/17 05:53 Dose: Not Given Citalopram Hydrobromide (Celexa) 20 mg PO DAILY [facility] Last Admin: 04/17/17 08:49 Dose: 20 mg Digoxin (Lanoxin) 125 mcg PO Q2D [facility] Last Admin: 04/16/17 09:46 Dose: 125 mcg Docusate Sodium (Colace) 100 mg PO BID PRN Enoxaparin Sodium (Lovenox) 40 mg SQ Q24H [facility] Last Admin: 04/16/17 20:33 Dose: 40 mg Isopropyl Alcohol (Nozin Nasal Swab) 1 each DAVID Q8H [facility] Lactobacillus Acidophilus (Culturelle) 1 cap PO [facility] Last Admin: 04/17/17 08:49 Dose: 1 cap Levothyroxine Sodium (Synthroid) 50 mcg PO ACB [facility] Last Admin: 04/17/17 05:54 Dose: Not Given Melatonin (Melatonin) 5 mg PO HS [facility] Last Admin: 04/16/17 20:34 Dose: 5 mg Metoprolol Succinate (Toprol Xl) 50 mg PO [facility] Last Admin: 04/16/17 20:34 Dose: 50 mg Mirabegron (Myrbetriq) 50 mg PO [facility] Last Admin: 04/16/17 20:33 Dose: 50 mg Morphine Sulfate (Morphine Sulfate Inj) 1 - 2 mg IVP Q2H PRN PRN Reason: Pain Omeprazole (Prilosec) 20 mg PO ACB [facility] Last Admin: 04/17/17 05:54 Dose: Not Given Ondansetron HCl (Zofran) 4 mg IVP Q6H PRN PRN Reason: Nausea &/or vomiting Phenytoin Sodium (Dilantin) 100 mg PO BIDWM [facility] Last Admin: 04/17/17 08:49 Dose: 100 mg Polyethylene Glycol (Miralax) 17 gm PO DAILY [facility] Last Admin: 04/17/17 08:48 Dose: 17 gm Potassium Chloride (K-Dur) 20 meq PO [facility] Last Admin: 04/17/17 08:49 Dose: 20 meq Rasagiline (Azilect) 1 mg PO DAILY [facility] Last Admin: 04/17/17 08:52 Dose: 1 mg Tramadol HCl (Ultram) 50 mg PO Q6H PRN PRN Reason: Pain Last Admin: 04/17/17 09:57 Dose: 50 mg Trolamine Salicylate (Aspercreme) 1 applic TOP PRN PRN Warfarin Sodium (Coumadin) 2 mg PO MOTUWEFRSA [facility] Last Admin: 04/16/17 12:08 Dose: 2 mg Warfarin Sodium (Coumadin) 3 mg PO SUTH [facility] Warfarin Sodium (Coumadin Protocol) 0 [facility] NOTE TANGELA Warfarin Sodium (Coumadin) 4 mg PO NOON [facility] Stop: 04/17/17 23:59 Results 04/18/17 04:25 04/18/17 04:25 CBC 04/17/17 Range/Units 04:42 WBC 5.0 (4.5-11.0) T/MM3 RBC 2.48 L (4.00-5.20) M/MM3 Hgb 7.8 L (12-16) GM/DL Hct 24.5 L (36-46) % Plt Count 165 (130-400) T/MM3 Neut # (Auto) 3.1 (1.8-7.7) T/MM3 Lymph # (Auto) 1.3 (1-4.8) T/MM3 [place] # (Auto) 0.5 (0-0.8) T/MM3 Eos # (Auto) 0.1 (0-0.5) T/MM3 Baso # (Auto) 0.0 (0-0.2) T/MM3 Comprehensive Metabolic Panel 04/17/17 Range/Units 04:42 Sodium 132 L (134-144) MEQ/L Potassium 3.6 (3.6-5) MEQ/L Chloride 97 L (98-107) MEQ/L Carbon Dioxide 30 (22-30) MEQ/L BUN 21.0 H (7-17) MG/DL Creatinine 1.0 (0.7-1.2) MG/DL Glucose 96 (65-110) MG/DL Calcium 8.0 L (8.4-10.2) MG/DL Intake and Output 04/16/17 04/17/17 04/17/17 22:59 06:59 14:59 Intake Total 240 / 240 350 / 350 Output Total 1200 / 1200 950 / 950 Balance -960 / -960 -950 / -950 350 / 350 Intake: Oral 240 / 240 350 / 350 Output: Urine Amount (Catheter) 1200 / 1200 950 / 950 Other: Urine Appearance Clear Urine Color Yellow Urine Odor Normal # Voids 1 - EKG Interpretation EKG shows: atrial fibrillation (with RVR, HR 120) Assessment and Plan - Assessment and Plan (1) Hypotension Current visit: Yes Status: Acute (2) Acute blood loss anemia Current visit: Yes Status: Acute (3) Atrial fibrillation Current visit: No Status: Chronic (4) Hypertension Current visit: No Status: Chronic (5) Mitral regurgitation Current visit: No Status: Acute (6) Status post-operative repair of closed fracture of left hip Current visit: Yes Status: Acute (7) Hyponatremia Current visit: Yes Status: Acute - Assessment and Plan 04/16/16 Hypotension: Stop Cardizem - Hold Metoprolol at HS if SBP< 100 Hyponatremia: Restrict fluids to 1800ml/day Anemia: Hgb 8.0 today A Fib:Continue Digoxin Q2D (had today) - Continue metoprolol if BP tolerates for rate control, as stopped Cardizem Thank you for allowing us to participate in the care of this patient. 04/17/16 Hypotension improved (low 104/48) Hyponatremia improving, up to 132 from 130, continue fluid restriction. Anemia: Hgb 7.8 today, platelets stable AFib: rate controlled with metoprolol and Q2D digoxin RVR in afternoon per EKG, restart lower dose Cardizem 180mg daily for rate control. - Monitor BP closely overnight, may need to increase dose if BP tolerates. - Telemetry please Hospital Course Summary Disclaimer: The visit summary below is not to be considered part of the above Progress Note. Hospital Course: Plan Cardizem remains on hold as recommended by cardiology. Monitor heart rate and BP. Has has hypotension at times Chest x-ray did revel pulmonary edema and she is on Bumex. Monitor for over diuresis INR remains subtherapeutic at 1.1 today. Managed by pharmacy. Hgb today down to 7.8. If she has any further hypotension or other symptoms will consider blood transfusion Monitor Hypokalemia, remains on fluid restriction. NA today 132 Does complain of chronic cervicale neck pain. Will add Aspercreme topically. Encourage work with PT/OT <Gautam Hicks - Last Filed: 04/19/17 13:09> Exam Vital signs: Temperature 97.8 F 04/19/17 07:40 Pulse Rate 86 04/19/17 07:40 Respiratory Rate 20 04/19/17 07:40 Blood Pressure 106/53 04/19/17 07:40 Pulse Oximetry 92 04/19/17 07:47 Results 04/19/17 05:26 04/19/17 05:26 CBC 04/19/17 Range/Units 05:26 WBC 5.5 (4.5-11.0) T/MM3 RBC 2.80 L (4.00-5.20) M/MM3 Hgb 8.9 L D (12-16) GM/DL Hct 27.9 L D (36-46) % Plt Count 229 (130-400) T/MM3 Neut # (Auto) 2.8 (1.8-7.7) T/MM3 Lymph # (Auto) 1.9 (1-4.8) T/MM3 [place] # (Auto) 0.5 (0-0.8) T/MM3 Eos # (Auto) 0.2 (0-0.5) T/MM3 Baso # (Auto) 0.1 (0-0.2) T/MM3 Comprehensive Metabolic Panel 04/19/17 Range/Units 05:26 Sodium 136 (134-144) MEQ/L Potassium 4.0 (3.6-5) MEQ/L Chloride 94 L (98-107) MEQ/L Carbon Dioxide 32 H (22-30) MEQ/L BUN 23.0 H (7-17) MG/DL Creatinine 1.0 (0.7-1.2) MG/DL Glucose 100 (65-110) MG/DL Calcium 9.1 D (8.4-10.2) MG/DL Intake and Output 04/18/17 04/19/17 04/19/17 22:59 06:59 14:59 Intake Total 340 / 340 1236 / 1236 400 / 400 Balance 340 / 340 1236 / 1236 400 / 400 Intake: IV 528 / 528 Iron Dextran 1,400 mg In NS 528 / 528 500ml 500 ml @ 125 mls/hr IV O ONE Rx#:[id number] Oral 340 / 340 180 / 180 400 / 400 Intake (Blood Product) Amt 528 / 528 Other: Urine Appearance Cloudy Clear Clear Urine Color Pale Yellow Yellow Yellow Urine Odor Normal Normal Normal Stool Color Brown Stool Consistency Soft [place] Size of Bowel Movement Small # Voids 1 1 1 # Incontinent Voids 1 # Bowel Movements 1 Weight 64.7 kg Patient Weight 04/20/17 06:59 Weight 64.7 kg Assessment and Plan - Assessment and Plan (1) Atrial fibrillation Current visit: No Status: Chronic (2) Hypertension Current visit: No Status: Chronic (3) Mitral regurgitation Current visit: No Status: Acute (4) Status post-operative repair of closed fracture of left hip Current visit: Yes Status: Acute (5) Hypotension Current visit: Yes Status: Resolved (6) Acute blood loss anemia Current visit: Yes Status: Acute (7) Hyponatremia Current visit: Yes Status: Acute - Attestation Attestation Narrative: 04/19/17 13:09 Recommendation After examining the patient I agree with the above assessment. I am involved in the formulation of the patient's plan of care. Hospital Course Summary Disclaimer: The visit summary below is not to be considered part of the above Progress Note.
[2017-04-17] MEDS ORDERED: WARFARIN 4 MG TABLET PO SCH (12:00)
[2017-04-17] MEDS: WARFARIN 2 MG TABLET PO SCH (13:38)
--- NOTE | 2017-04-17 13:49 | Pharmacy Consult ---
Pharmacy Consult-Warfarin - Laboratory Information 04/16/17 04/17/17 04:30 04:42 INR 1.19 1.17 - Consult Information 81 y.o. Female with history of a.fib. and chronic anticoagulation with Warfarin. goal INR range= 2.0 to 3.0. INR was therapeutic upon admission. Patient admitted with hip fracture and INR was normalized with Vitamin K for surgery. date INR dose 04/13 2.11 ---- vitamin K 5 mg po and 10 mg sq doses given to normalize INR for surgery 04/14 1.36 3 mg 04/15 1.17 2 mg 04/16 1.19 2 mg 04/17 1.17 Plan 4 mg INR is subtherapeutic as a result of Vitamin K given 04/13/17. Patient's home dose of 3 mg Saturday and , and 2 mg Sat, , Sat, Sat, Sat. is currently ordered. Today's dose is 4 mg po. Pharmacy will monitor and adjust as needed. Thank you for the Warfarin consult,
--- NOTE | 2017-04-17 14:11 | IRU Progress Note ---
- Subjective/Serverity of Illness Date: 04/17/17 Ms. Espinoza was evaluated in her room on inpatient rehabilitation. She does have some easy fatigability. Also reports some discomfort in the left side of her neck. She states that is chronic and is not new. She denies any cough or sputum and denies any chest pain. Brief therapy update: For occupational therapy there is some cognition concern although overall she asks good questions and does have a good understanding. She requires total assistance for lower body dressing and maximum assistance for toilet transfers. For physical therapy she requires maximum assistance for bed/chair/wheelchair transfers. She is able to walk 5 feet with total assistance. Brief update on medical conditions are actively monitoring and managing as follows: 1. Hip fracture and repair: Her pain appears to be adequately controlled at present. No evidence of infection. 2. Acute blood loss anemia: Hemoglobin has dropped to 7.8. While she does not have evidence of active bleeding likely this is from her previous hip fracture. We will monitor carefully and provide blood transfusion if needed. 3. Hyponatremia: She is on a fluid restriction and her sodium has improved from 130 up to 132. 4. Hypotension (with history of hypertension): Her blood pressure has improved and is now consistently over 100. Denies lightheadedness at present. 5. Acute on chronic hypoxemic respiratory failure: This has resolved. She is now on room air and keeping her saturations above 90% consistently. 6. Chronic kidney disease, Stage III: Creatinine is stable. Estimated GFR remains at 53 consistent with stage III chronic kidney disease. 7. Thrombocytopenia: Her platelet count is now normal. Likely the previous low platelets were related to consumption. 8. Atrial fibrillation, on chronic warfarin therapy with currently subtherapeutic INR: INR reviewed and managed by pharmacy and remains subtherapeutic at 1.5. Exam Vital Signs: Temperature 99.1 F 04/17/17 07:00 Pulse Rate 96 04/17/17 07:00 Respiratory Rate 16 04/17/17 07:00 Blood Pressure 115/62 04/17/17 07:00 Pulse Oximetry 98 04/17/17 07:00 Height/Weight/BMI: Height 1.55 m Weight 64.5 kg Body Mass Index 26.9 - Constitutional Present: no acute distress, well nourished, well developed, cooperative - Routine HEENT Exam Head: Present: normocephalic Eye: Present: EOMI ENT: Present: mucous membranes moist, dentition normal - Routine Neck Exam Present: supple - Routine Respiratory Exam Present: dyspnea (has minimal dyspnea with activity but easy fatigability.), CTA bilaterally. Absent: wheezes - Routine Cardiovascular Exam Present: S1, S2, irregularly irregular. Absent: murmur - Routine Abdominal Exam Present: soft, normoactive bowel sounds, non distended. Absent: tenderness - Routine Extremities Exam Present: no edema, normal capillary refill - Routine Skin Exam Present: dry, warm - Routine Neurological Exam Present: alert, oriented X3 (she does display some memory loss although seems to be adequately oriented at present.), CN II-XII intact - Routine Psychiatric Exam Present: normal affect Results IRU - Labs Labs: Have reviewed labs, vital signs, other providers notes. IRU A/P (1) Status post-operative repair of closed fracture of left hip Current visit: Yes Status: Acute Pain appears to be adequately controlled. She is just getting started with therapy and seems to be cooperative. (2) Hypotension Qualifiers: Hypotension type: unspecified hypotension type Qualified Code(s): I95.9 - Hypotension, unspecified Current visit: Yes Status: Acute Blood pressures are improved at over 100 systolic. (3) Acute blood loss anemia Current visit: Yes Status: Acute Hemoglobin has dropped to 7.8 g percent. If hypotension recurs we will likely need to transfuse. (4) Acute on chronic respiratory failure with hypoxemia Current visit: Yes Status: Resolved Seems to be able to keep her saturations above 90% on room air at the present time. (5) Atrial fibrillation Qualifiers: Atrial fibrillation type: chronic Qualified Code(s): I48.2 - Chronic atrial fibrillation Current visit: No Status: Chronic Remains on warfarin with subtherapeutic INR managed by pharmacy. (6) Parkinson disease Current visit: No Status: Chronic DVT Prophylaxis: SCD's, Coumadin Resuscitation Status: Full Code - Course Hospital Course: Ayan Delgadillo MD: 04/17/17 14:15 She is cooperative with therapy. Bladder retraining is in progress and we will likely remove the catheters night. She does have easy fatigability. There is no chest pain. - Interventions to Obtain Goals PT Treatment Plan: Balance/Proprioception, Functional Activities, Gait Training , Patient/Family Education, Therapeutic Exercise OT Treatment Plan: ADL (Basic Care), Balance Training, Pt./Family Education, Ther. Exercise for ADL Goals Progress/Modifications: Time spent with patient and on floor reviewing data and documentin min Barriers to dismissal: Strength, endurance, cognition Medical decision-making: Mrs. Espinoza is a complex patient. She does have history of atrial fibrillation. She has had acute respiratory failure although this is improved and she is now on room air. She does have atrial fibrillation and is on warfarin. She does have easy fatigability. Appreciate assistance of cardiology. Her sodium is improved at 132 with fluid restriction. There is concern regarding her hemoglobin dropped to 7.8 which is consistent with acute blood loss anemia. If this drops further or she has further episodes of hypotension we'll need to consider transfusion. At the present time we are working on bladder retraining and removal of the catheter tonight. She is cooperative with therapy although there is concern about cognition.
--- NOTE | 2017-04-17 14:22 | IRU Plan of Care ---
[facility] Overall Plan of Care - Date Date: 04/17/17 - Patient Impairments (1) Femoral neck fracture Qualifiers: Encounter type: initial encounter Fracture type: closed Laterality: left Qualified Code(s): S72.002A - Fracture of unspecified part of neck of left femur, initial encounter for closed fracture Code(s): S72.009A - Fracture of unspecified part of neck of unspecified femur, initial encounter for closed fracture Status: Acute Classification: IRF Tx That Should Address Diagnosis, Diagnosis Requiring Medical Follow Up (2) Atrial fibrillation Qualifiers: Atrial fibrillation type: chronic Qualified Code(s): I48.2 - Chronic atrial fibrillation Code(s): I48.91 - Unspecified atrial fibrillation Status: Chronic Classification: Present on IRF Admission, IRF Tx That Should Address Diagnosis, Diagnosis Requiring Medical Follow Up (3) Hypertension Qualifiers: Hypertension type: essential hypertension Qualified Code(s): I10 - Essential (primary) hypertension Code(s): I10 - Essential (primary) hypertension Status: Chronic Classification: IRF Tx That Should Address Diagnosis, Diagnosis Requiring Medical Follow Up (4) Parkinson disease Code(s): G20 - Parkinson's disease Status: Chronic Classification: Present on IRF Admission, Diagnosis Requiring Medical Follow Up (5) Mitral regurgitation Code(s): I34.0 - Nonrheumatic mitral (valve) insufficiency Status: Acute (6) Status post-operative repair of closed fracture of left hip Code(s): Z98.890 - Other specified postprocedural states; Z87.81 - Personal history of (healed) traumatic fracture Status: Acute Classification: Present on IRF Admission, IRF Tx That Should Address Diagnosis, Diagnosis Requiring Medical Follow Up (7) Acute blood loss anemia Code(s): D62 - Acute posthemorrhagic anemia Status: Acute Classification: Present on IRF Admission, IRF Tx That Should Address Diagnosis, Diagnosis Requiring Medical Follow Up (8) Hypotension Qualifiers: Hypotension type: unspecified hypotension type Qualified Code(s): I95.9 - Hypotension, unspecified Code(s): I95.9 - Hypotension, unspecified Status: Acute Classification: Present on IRF Admission, IRF Tx That Should Address Diagnosis, Diagnosis Requiring Medical Follow Up - Relevant Changes Relevant Changes: No Reviewed: I have reviewed the patient's information and concur with the finding and results of the pre-admission screen. Certification: I certify the patient for rehabilitation. - Medical Prognosis Medical Prognosis: Good Vital Signs: Last Vital Signs Temp 99.1 F 04/17/17 07:00 Pulse 96 04/17/17 07:00 Resp 16 04/17/17 07:00 BP 115/62 04/17/17 07:00 Pulse Ox 98 04/17/17 07:00 - Anticipated Interventions Anticipated Interventions: The patient requires inpatient IRF care for PT, OT, and/or ST for residuals remaining from repair of hip fracture resulting in muscular weakness and strength deficits. An individualized overall plan of care has been developed after careful review of the patient's preadmission screening, post admission physician evaluation and assessments of all therapy disciplines and/or other pertinent clinicians involved in treating the patient. This indicates medical necessity and rehabilitation necessity have been established through a thorough review of all available medical information. ROM Deficit: Right Lower Extremity Strength Deficits: Right Lower Extremity - Current Functional Status Failed Alternative Therapy: Arrived from Acute Care Patient Requires: The patient requires oversight by rehabilitation physician to manage their rehabilitation treatment plan and multidisciplinary approach to care that can only be provided in an IRF and requires a multidisciplinary approach to care, provided by professional PTs, OTs, STs, rehabilitation nurses, and may require STs, dieticians, and RTS. This is not available in lesser levels of care. Physical Therapy Minutes: 90 Occupational Therapy Minutes: 90 Therapy: The patient is to receive therapy at least 5 days a week. - Anticipated LOS/Outcomes Anticipated Functional Outcome: Expected functional improvements include: -- Modified independant to independant ambulation with or without assistive device -- Modified independant to independant ADL's with or without assistive device -- Return to pre-morbid level of mobility -- Maximize level of mobility and ADL's to decrease burden on any caregiver involved with this patient's care Anticipated Length of Stay (days): 10 Anticipated DC Destination: Home, Self Care, Home Health Service Home Safety Plan: The patient will be provided with the development of a Home Safety Plan for return to a home or home-like environment and and to ensure safety post discharge. - Plan to Avoid Complications Barriers to Attaining Goals: Weakness, Endurance, Comprehension, Medical Limitation (atrial fibrillation) Plan to Avoid Complications: The patient cannot receive this care in a lesser intensive setting such as [facility] or Outpatient Therapy due to the patient requiring the following : She requires close monitoring of her pro-time to achieve adequate anticoagulation. In addition she needs close 24 hour rehabilitation nursing monitoring of urine output with recent usage of catheter and bladder retraining. She requires adequate pain management and monitoring of the wound to avoid wound infection. She requires a multidisciplinary approach in view of her cardiac issues and especially in view of recent hypotension and acute blood loss anemia. .
[2017-04-17] MEDS: ENOXAPARIN 40 MG/0.4 ML INJECTION SQ SCH (20:05)
[2017-04-17] MEDS: MIRABEGRON 25mg TABLET PO SCH (20:06)
[2017-04-17] MEDS: MELATONIN 5 MG TABLET PO SCH (20:06)
[2017-04-17] MEDS: ACETAMINOPHEN 325 MG TABLET PO PRN (23:11)
[2017-04-18] MEDS: LEVOTHYROXINE 50 MCG TABLET PO SCH ×2 (04:15→05:32)
[2017-04-18] MEDS: OMEPRAZOLE 20 MG CAPSULE PO SCH ×2 (04:15→05:32)
[2017-04-18] MEDS: NOZIN NASAL SWAB NAS SCH ×4 (04:15→21:42)
[2017-04-18] MEDS: TRAMADOL 50 MG TABLET PO PRN ×2 (06:31→20:32)
--- NOTE | 2017-04-18 08:12 | Pharmacy Consult ---
Pharmacy Consult-Warfarin - Laboratory Information 04/16/17 04/17/17 04/18/17 04:30 04:42 04:25 INR 1.19 1.17 1.27 H - Consult Information We will give warfarin 5mg p.o. today at noon. INR slow to come up with earlier vitamin K dosing. Thanks
[2017-04-18] MEDS: LACTOBACILLUS (15B cfu) CAPSULE PO SCH (08:42)
[2017-04-18] MEDS: PHENYTOIN 100 MG CAPSULE PO SCH ×2 (08:43→18:00)
[2017-04-18] MEDS: BUMETANIDE 1 MG TABLET PO SCH (08:44)
[2017-04-18] MEDS: REFRESH CELLUVISC 1% Eye Drops 0.4ml EACH EYE SCH ×2 (08:44→21:37)
[2017-04-18] MEDS: CITALOPRAM 20 MG TABLET PO SCH (08:45)
[2017-04-18] MEDS: RASAGILINE 0.5 MG TABLET PO SCH (08:47)
[2017-04-18] MEDS: DIGOXIN 125 MCG TABLET PO SCH (08:48)
[2017-04-18] MEDS: POLYETHYL GLYCOL 3350 17gm PACKET PO SCH (08:48)
[2017-04-18] MEDS ORDERED: WARFARIN 5 MG TABLET PO SCH (12:00)
[2017-04-18] MEDS ORDERED: WARFARIN 3 MG TABLET PO SCH (12:30)
--- NOTE | 2017-04-18 13:05 | Pharmacy Consult ---
Pharmacy Consult-Iron - Laboratory Information Iron Labs 04/16/17 04/17/17 04/17/17 04:30 04:42 04:42 Hgb 8.0 L 7.8 L Hct 24.8 L 24.5 L Iron 12 L TIBC 207 L % Saturation 6 L 04/18/17 04:25 Hgb 7.7 L Hct 23.8 L Iron TIBC % Saturation - Consult Information IV IRON CONSULT: Dx: Chronic Anemia: Will give TDI (Total Dose Infusion) over 4 hours. Actual body weight = 64.5kg Hgb Level = 7.7 g/dL Calculated Dosing weight = 47.8 kg Total dose needed: 1400 mg (28 mL) Will give test dose of 25mg IV push over 30 seconds. Watch VS q 15 minutes x 1 hr. (watching for anaphylaxis, respiratory distress, hives.) If no reaction will give full dose in NS 500ml TRA 125ml/hr. Watch VS q 1 hr during infusion. Thank you.
--- NOTE | 2017-04-18 13:55 | Cardiology Progress Note ---
<Myrna Vieyra - Last Filed: 04/19/17 11:44> Subjective Principal diagnosis: hypotension Interval history: Jessica is seen in follow up for hypotension and pulmonary edema. She is alert and in no distress. She is sitting up in the recliner in her room. She denies chest pain, pressure, dyspnea, dizziness or lightheadedness. Exam Vital signs: Temperature 98.0 F 04/18/17 07:00 Pulse Rate 85 04/18/17 08:48 Respiratory Rate 18 04/18/17 07:00 Blood Pressure 109/67 04/18/17 07:00 Pulse Oximetry 96 04/18/17 09:00 - Constitutional no acute distress, well nourished, cooperative - Routine HEENT Exam Head: Present: normocephalic ENT: Present: mucous membranes moist - Routine Neck Exam Absent: JVD, carotid bruit - Routine Chest/Breast/Axilla Exam Chest wall: Absent: tenderness - Routine Respiratory Exam Present: decreased breath sounds, CTA bilaterally - Routine Cardiovascular Exam Present: murmur (II/), irregular rhythm - Routine Abdominal Exam Present: soft, normoactive bowel sounds - Routine Extremities Exam Present: edema - Routine Skin Exam Present: intact, dry, warm - Routine Neurological Exam Present: alert, oriented X3 - Routine Psychiatric Exam Present: normal affect, normal thought process - Additional findings Additional findings: Acetaminophen (Tylenol) 650 mg PO Q4H PRN PRN Reason: Pain Last Admin: 04/17/17 23:11 Dose: 650 mg Hydrocodone Bitart/Acetaminophen ([place] 5/325) 1 tab PO Q6H PRN PRN Reason: Pain Albuterol Sulfate (Proventil Neb (0.083%)) 2.5 mg AEROSOL Q6H PRN PRN Reason: Shortness of air Artificial Tears (Refresh Celluvisc) 1 drop EACH EYE BID [facility] Last Admin: 04/18/17 08:44 Dose: 1 drop Bumetanide (Bumex Tab) 2 mg PO DAILY [facility] Last Admin: 04/18/17 08:44 Dose: 2 mg Carbidopa/Levodopa (Sinemet) 1 tab PO TID/E [facility] Last Admin: 04/18/17 06:31 Dose: 1 tab Citalopram Hydrobromide (Celexa) 20 mg PO DAILY [facility] Last Admin: 04/18/17 08:45 Dose: 20 mg Digoxin (Lanoxin) 125 mcg PO Q2D [facility] Last Admin: 04/18/17 08:48 Dose: 125 mcg Diltiazem HCl (Cardizem Cd) 180 mg PO DAILY [facility] Last Admin: 04/18/17 08:45 Dose: 180 mg Docusate Sodium (Colace) 100 mg PO BID PRN Enoxaparin Sodium (Lovenox) 40 mg SQ Q24H [facility] Last Admin: 04/17/17 20:05 Dose: 40 mg Iron Dextran (Pharmacy Consult - Iron) 1 each [facility] O ONE Stop: 04/18/17 15:01 Iron Dextran (Infed) 25 mg IV O ONE Stop: 04/18/17 15:01 Isopropyl Alcohol (Nozin Nasal Swab) 1 each DAVID Q8H [facility] Last Admin: 04/18/17 05:31 Dose: Not Given Lactobacillus Acidophilus (Culturelle) [address] [facility] Last Admin: 04/18/17 08:42 Dose: 1 cap Levothyroxine Sodium (Synthroid) 50 mcg PO ACB [facility] Last Admin: 04/18/17 05:32 Dose: Not Given Melatonin (Melatonin) 5 mg PO HS [facility] Last Admin: 04/17/17 20:06 Dose: 5 mg Metoprolol Succinate (Toprol Xl) 50 mg PO [facility] Last Admin: 04/17/17 20:06 Dose: 50 mg Mirabegron (Myrbetriq) 50 mg PO HS [facility] Last Admin: 04/17/17 20:06 Dose: 50 mg Morphine Sulfate (Morphine Sulfate Inj) 1 - 2 mg IVP Q2H PRN PRN Reason: Pain Omeprazole (Prilosec) 20 mg PO ACB [facility] Last Admin: 04/18/17 05:32 Dose: Not Given Ondansetron HCl (Zofran) 4 mg IVP Q6H PRN PRN Reason: Nausea &/or vomiting Phenytoin Sodium (Dilantin) 100 mg PO BIDWM [facility] Last Admin: 04/18/17 08:43 Dose: 100 mg Polyethylene Glycol (Miralax) 17 gm PO DAILY [facility] Last Admin: 04/18/17 08:48 Dose: 17 gm Potassium Chloride (K-Dur) [address] [facility] Last Admin: 04/18/17 08:43 Dose: 20 meq Rasagiline (Azilect) 1 mg PO DAILY [facility] Last Admin: 04/18/17 08:47 Dose: 1 mg Tramadol HCl (Ultram) 50 mg PO Q6H PRN PRN Reason: Pain Last Admin: 04/18/17 06:31 Dose: 50 mg Trolamine Salicylate (Aspercreme) 1 applic TOP PRN PRN Warfarin Sodium (Coumadin Protocol) 0 [facility] NOTE TANGELA Results 04/19/17 05:26 04/19/17 05:26 CBC 04/18/17 Range/Units 04:25 WBC 4.8 (4.5-11.0) T/MM3 RBC 2.39 L (4.00-5.20) M/MM3 Hgb 7.7 L (12-16) GM/DL Hct 23.8 L (36-46) % Plt Count 177 (130-400) T/MM3 Neut # (Auto) 2.5 (1.8-7.7) T/MM3 Lymph # (Auto) 1.5 (1-4.8) T/MM3 [place] # (Auto) 0.5 (0-0.8) T/MM3 Eos # (Auto) 0.2 (0-0.5) T/MM3 Baso # (Auto) 0.0 (0-0.2) T/MM3 Comprehensive Metabolic Panel 04/18/17 Range/Units 04:25 Sodium 135 (134-144) MEQ/L Potassium 3.8 (3.6-5) MEQ/L Chloride 96 L (98-107) MEQ/L Carbon Dioxide 32 H (22-30) MEQ/L BUN 23.0 H (7-17) MG/DL Creatinine 1.0 (0.7-1.2) MG/DL Glucose 92 (65-110) MG/DL Calcium 8.1 L (8.4-10.2) MG/DL Intake and Output 04/17/17 04/18/17 04/18/17 22:59 06:59 14:59 Intake Total 100 / 100 600 / 600 Output Total 1100 / 1100 250 / 250 Balance -1100 / -1100 -150 / -150 600 / 600 Intake: Oral 100 / 100 600 / 600 Output: Urine 250 / 250 Urine Amount (Catheter) 1100 / 1100 Other: Urine Appearance Cloudy Urine Color Yellow # Voids 3 1 Weight 142 lb 3.17 oz Laboratory Results - last 24 hr 04/17/17 04/18/17 04/18/17 04:42 04:25 04:25 WBC 4.8 RBC 2.39 L Hgb 7.7 L Hct 23.8 L MCV 99.6 MCH 32.2 MCHC 32.4 RDW Std Deviation 42.6 Plt Count 177 MPV 9.1 L Immature Gran % (Auto) 0.0 Neut % (Auto) 53.0 Lymph % (Auto) 31.9 [place] % (Auto) 9.7 H Eos % (Auto) 4.6 H Baso % (Auto) 0.8 Neut # (Auto) 2.5 Lymph # (Auto) 1.5 [place] # (Auto) 0.5 Eos # (Auto) 0.2 Baso # (Auto) 0.0 Abs Immat Gran (auto) 0.00 INR 1.27 H Turbidity Sodium Potassium Chloride Carbon Dioxide Anion Gap BUN Creatinine GFR Calculation BUN/Creatinine Ratio Glucose Calculated Osmolality Calcium Icterus Index 25-OH Vitamin D Total 36 Specimen Hemolysis 04/18/17 04:25 WBC RBC Hgb Hct MCV MCH MCHC RDW Std Deviation Plt Count MPV Immature Gran % (Auto) Neut % (Auto) Lymph % (Auto) [place] % (Auto) Eos % (Auto) Baso % (Auto) Neut # (Auto) Lymph # (Auto) [place] # (Auto) Eos # (Auto) Baso # (Auto) Abs Immat Gran (auto) INR Turbidity < 20 Sodium 135 Potassium 3.8 Chloride 96 L Carbon Dioxide 32 H Anion Gap 7 BUN 23.0 H Creatinine 1.0 GFR Calculation 53 BUN/Creatinine Ratio 23 Glucose 92 Calculated Osmolality 264 Calcium 8.1 L Icterus Index < 2 25-OH Vitamin D Total Specimen Hemolysis < 15 - Imaging and Cardiology EKG results: image reviewed - EKG Interpretation EKG shows: atrial fibrillation Assessment and Plan - Assessment and Plan (1) Hypotension Current visit: Yes Status: Resolved (2) Acute blood loss anemia Current visit: Yes Status: Acute (3) Atrial fibrillation Current visit: No Status: Chronic (4) Hypertension Current visit: No Status: Chronic (5) Mitral regurgitation Current visit: No Status: Acute (6) Status post-operative repair of closed fracture of left hip Current visit: Yes Status: Acute (7) Hyponatremia Current visit: Yes Status: Acute - Assessment and Plan 04/16/16 Hypotension: Stop Cardizem - Hold Metoprolol at HS if SBP< 100 Hyponatremia: Restrict fluids to 1800ml/day Anemia: Hgb 8.0 today A Fib:Continue Digoxin Q2D (had today) - Continue metoprolol if BP tolerates for rate control, as stopped Cardizem Thank you for allowing us to participate in the care of this patient. 04/17/16 Hypotension improved (low 104/48) Hyponatremia improving, up to 132 from 130, continue fluid restriction. Anemia: Hgb 7.8 today, platelets stable AFib: rate controlled with metoprolol and Q2D digoxin RVR in afternoon per EKG, restart lower dose Cardizem 180mg daily for rate control. - Monitor BP closely overnight, may need to increase dose if BP tolerates. - Telemetry please 04/18/16 Rate well controlled with low dose Cardizem 180mg daily - BP tolerates Cardizem at this time. - Continue to monitor fluid balance as patient can retain fluid easily, continue fluid restriction. - Monitor renal and electrolytes with Bumex - Digoxin level in AM Hospital Course Summary Disclaimer: The visit summary below is not to be considered part of the above Progress Note. Hospital Course: Plan Cardizem remains on hold as recommended by cardiology. Monitor heart rate and BP. Has has hypotension at times Chest x-ray did revel pulmonary edema and she is on Bumex. Monitor for over diuresis INR remains subtherapeutic at 1.1 today. Managed by pharmacy. Hgb today down to 7.8. If she has any further hypotension or other symptoms will consider blood transfusion Monitor Hypokalemia, remains on fluid restriction. NA today 132 Does complain of chronic cervicale neck pain. Will add Aspercreme topically. Encourage work with PT/OT <Gautam Hicks - Last Filed: 04/19/17 13:12> Exam Vital signs: Temperature 97.8 F 04/19/17 13:07 Pulse Rate 90 04/19/17 13:07 Respiratory Rate 18 04/19/17 13:07 Blood Pressure 102/58 04/19/17 13:07 Pulse Oximetry 96 04/19/17 13:07 Results 04/19/17 05:26 04/19/17 05:26 CBC 04/19/17 Range/Units 05:26 WBC 5.5 (4.5-11.0) T/MM3 RBC 2.80 L (4.00-5.20) M/MM3 Hgb 8.9 L D (12-16) GM/DL Hct 27.9 L D (36-46) % Plt Count 229 (130-400) T/MM3 Neut # (Auto) 2.8 (1.8-7.7) T/MM3 Lymph # (Auto) 1.9 (1-4.8) T/MM3 [place] # (Auto) 0.5 (0-0.8) T/MM3 Eos # (Auto) 0.2 (0-0.5) T/MM3 Baso # (Auto) 0.1 (0-0.2) T/MM3 Comprehensive Metabolic Panel 04/19/17 Range/Units 05:26 Sodium 136 (134-144) MEQ/L Potassium 4.0 (3.6-5) MEQ/L Chloride 94 L (98-107) MEQ/L Carbon Dioxide 32 H (22-30) MEQ/L BUN 23.0 H (7-17) MG/DL Creatinine 1.0 (0.7-1.2) MG/DL Glucose 100 (65-110) MG/DL Calcium 9.1 D (8.4-10.2) MG/DL Intake and Output 04/18/17 04/19/17 04/19/17 22:59 06:59 14:59 Intake Total 340 / 340 1236 / 1236 400 / 400 Balance 340 / 340 1236 / 1236 400 / 400 Intake: IV 528 / 528 Iron Dextran 1,400 mg In NS 528 / 528 500ml 500 ml @ 125 mls/hr IV O ONE Rx#:[id number] Oral 340 / 340 180 / 180 400 / 400 Intake (Blood Product) Amt 528 / 528 Other: Urine Appearance Cloudy Clear Clear Urine Color Pale Yellow Yellow Yellow Urine Odor Normal Normal Normal Stool Color Brown Stool Consistency Soft Daphne Size of Bowel Movement Small # Voids 1 1 1 # Incontinent Voids 1 # Bowel Movements 1 Weight 64.7 kg Patient Weight 04/20/17 06:59 Weight 64.7 kg Assessment and Plan - Assessment and Plan (1) Atrial fibrillation Current visit: No Status: Chronic (2) Hypertension Current visit: No Status: Chronic (3) Mitral regurgitation Current visit: No Status: Acute (4) Status post-operative repair of closed fracture of left hip Current visit: Yes Status: Acute (5) Hypotension Current visit: Yes Status: Resolved (6) Acute blood loss anemia Current visit: Yes Status: Acute (7) Hyponatremia Current visit: Yes Status: Acute - Attestation Attestation Narrative: 04/19/17 13:12 Recommendation After examining the patient I agree with the above assessment. I am involved in the formulation of the patient's plan of care. Hospital Course Summary Disclaimer: The visit summary below is not to be considered part of the above Progress Note.
--- NOTE | 2017-04-18 14:43 | Progress Note ---
- Date 04/18/17 Subjective: Jessica is seen and examined today while working with PT. She complains of feeling fatigued however denies specific pain. Denies feeling short of breath or GI concerns. Heart rate last evening increased into the 120-130's however improved following PO Cardizem. Trace edema to bilateral lower extremities. Objective Vital signs: Temperature 98.0 F 04/18/17 07:00 Pulse Rate 86 04/18/17 09:32 Respiratory Rate 18 04/18/17 07:00 Blood Pressure 109/67 04/18/17 07:00 Pulse Oximetry 96 04/18/17 09:00 Height/Weight/BMI: Height 1.55 m Weight 64.5 kg Body Mass Index 26.9 - Constitutional Present: no acute distress, well nourished, well developed - Routine HEENT Exam Eye: Present: EOMI ENT: Present: mucous membranes moist, dentition normal - Routine Respiratory Exam Present: CTA bilaterally. Absent: wheezes - Routine Cardiovascular Exam Present: S1, S2, irregular rhythm. Absent: murmur - Routine Abdominal Exam Present: soft, normoactive bowel sounds, non distended. Absent: tenderness - Routine Extremities Exam Present: edema (trace bilateral lower ext), normal capillary refill - Routine Skin Exam Present: intact, dry, warm - Routine Neurological Exam Present: alert, oriented X3, CN II-XII intact - Routine Lymphatic Exam Lymphatic: Absent: adenopathy - Routine Psychiatric Exam Present: normal affect, cooperative Results - Labs CBC & Chem 7: 04/18/17 04:25 04/18/17 04:25 Assessment and Plan (1) Femoral neck fracture Current visit: No Status: Acute (2) Atrial fibrillation Current visit: No Status: Chronic (3) Hypertension Current visit: No Status: Chronic (4) Parkinson disease Current visit: No Status: Chronic (5) Hypothyroid Current visit: No Status: Chronic (6) Mitral regurgitation Current visit: No Status: Acute (7) Status post-operative repair of closed fracture of left hip Current visit: Yes Status: Acute (8) Acute blood loss anemia Current visit: Yes Status: Acute Assessment and Plan: Assessment Left impacted femoral neck fx, 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 Whitney Postop anemia Iron def anemia Hyponatremia-POA Afib, chronic HFpEF with VHD (mitral) CKD, stage 3 HTN hypothyroid, chronic GERD Parkinson's disease Coronary artery disease Constipation Diverticulosis Osteoarthritis/rheumatoid arthritis Spinal stenosis Depression Macular degeneration Plan A-fib increased to RVR last evening and cardiology team restarted Cardizem 180mg daily Continue to monitor telemetry Iron studies revel significant deficiency. Will transfuse IV Iron today. Hopeful this helps improve Hgb and overall strength INR remains subtherapeutic at 1.2- managed by pharmacy. Lovenox SQ Continue to monitor labs. Will recheck electrolytes tomorrow Hopeful to discontinue fluid restriction soon Continue to work with PT/OT for strengthening - Physician Narrative Narrative: Date: 04/18/17 Time: 1438 Hospital Course Summary Disclaimer: The visit summary below is not to be considered part of the above Progress Note. Hospital Course: 04/17 Cardizem remains on hold as recommended by cardiology. Monitor heart rate and BP. Has has hypotension at times Chest x-ray did revel pulmonary edema and she is on Bumex. Monitor for over diuresis INR remains subtherapeutic at 1.1 today. Managed by pharmacy. Hgb today down to 7.8. If she has any further hypotension or other symptoms will consider blood transfusion Monitor Hypokalemia, remains on fluid restriction. NA today 132 Does complain of chronic cervicale neck pain. Will add Aspercreme topically. Encourage work with PT/OT 04/18 A-fib increased to RVR last evening and cardiology team restarted Cardizem 180mg daily Continue to monitor telemetry Iron studies revel significant deficiency. Will transfuse IV Iron today. Hopeful this helps improve Hgb and overall strength INR remains subtherapeutic at 1.2- managed by pharmacy. Lovenox SQ Continue to monitor labs. Will recheck electrolytes tomorrow Hopeful to discontinue fluid restriction soon Continue to work with PT/OT for strengthening
[2017-04-18] MEDS ORDERED: IRON - PHARMACY CONSULT MC ONE (15:00)
[2017-04-18] MEDS ORDERED: IRON DEXTRAN COMPLEX 100mg/2ml INJECTION IV ONE (15:00)
[2017-04-18] MEDS ORDERED: IRON DEXTRAN 1,400 MG in NS 500ml 500 ML IV ONE (18:30)
[2017-04-18] MEDS: MIRABEGRON 25mg TABLET PO SCH (20:23)
[2017-04-18] MEDS: ENOXAPARIN 40 MG/0.4 ML INJECTION SQ SCH (20:23)
[2017-04-18] MEDS: MELATONIN 5 MG TABLET PO SCH (20:25)
[2017-04-18] MEDS: ACETAMINOPHEN 325 MG TABLET PO PRN (23:27)
[2017-04-19] MEDS: NOZIN NASAL SWAB NAS SCH ×2 (05:21→14:06)
[2017-04-19] MEDS: ACETAMINOPHEN 325 MG TABLET PO PRN ×2 (05:25→14:06)
[2017-04-19] MEDS: LEVOTHYROXINE 50 MCG TABLET PO SCH (05:45)
[2017-04-19] MEDS: OMEPRAZOLE 20 MG CAPSULE PO SCH (05:46)
[2017-04-19] MEDS: PHENYTOIN 100 MG CAPSULE PO SCH ×2 (08:31→18:05)
[2017-04-19] MEDS: BUMETANIDE 1 MG TABLET PO SCH (08:32)
[2017-04-19] MEDS: LACTOBACILLUS (15B cfu) CAPSULE PO SCH (08:32)
[2017-04-19] MEDS: CITALOPRAM 20 MG TABLET PO SCH (08:32)
[2017-04-19] MEDS: POLYETHYL GLYCOL 3350 17gm PACKET PO SCH (08:33)
[2017-04-19] MEDS: RASAGILINE 0.5 MG TABLET PO SCH (08:33)
[2017-04-19] MEDS: TRAMADOL 50 MG TABLET PO PRN ×2 (09:01→20:50)
--- NOTE | 2017-04-19 10:16 | Pharmacy Consult ---
Pharmacy Consult-Warfarin - Laboratory Information 04/16/17 04/17/17 04/18/17 04:30 04:42 04:25 INR 1.19 1.17 1.27 H 04/19/17 05:26 INR 1.28 H - Consult Information 81 y.o. Female with history of a.fib. and chronic anticoagulation with Warfarin. goal INR range= 2.0 to 3.0. INR was therapeutic upon admission. Patient admitted with hip fracture and INR was normalized with Vitamin K for surgery. date INR dose 04/13 2.11 ---- vitamin K 5 mg po and 10 mg sq doses given to normalize INR for surgery 04/14 1.36 3 mg 04/15 1.17 2 mg 04/16 1.19 2 mg 04/17 1.17 4 mg 04/18 1.27 5 mg 04/19 1.28 Plan 6 mg INR may still be subtherapeutic as a result of Vitamin K given 04/13/17. I am ordering Warfarin 6 mg p.o. today. Patient's home dose of 3 mg Saturday and , and 2 mg Sat, , Sat, Sat, Sat. is currently ordered. The Pharmacy will continue to monitor and adjust the warfarin as needed. Thank you for the Warfarin consult, Joe Snell, Pharmacist.
--- NOTE | 2017-04-19 11:09 | IRU Progress Note ---
- Subjective/Serverity of Illness Date: 04/19/17 Ms. Espinoza was evaluated in her room on inpatient rehabilitation. She does display some easy fatigability. However she is very cooperative with therapy. The patient states that she does have occasional dyspnea with activity. Overall she is tolerating therapy well. She reports that the pain in the hip is minimal. She is receiving tramadol in this regard. Brief therapy update: For occupational therapy, bathing is minimum assistance. Upper body dressing is with standby assistance and lower body dressing is with moderate assistance. Physical therapy she is able to perform bed/chair/ wheelchair transfers with standby assistance. She has improved her walking distance from 62 up to 120 feet with the equivalent of contact-guard assistance. Brief update on medical conditions are actively monitoring and managing as follows: 1. Hip fracture and repair: She is progressing with therapy. No evidence of infection. Tramadol is adequate for pain relief. 2. Acute blood loss anemia: Hemoglobin is up today. Received transfusion of IV iron yesterday and tolerated well. 3. Hyponatremia: Sodium has now normalized at 136. 4. Hypotension (with history of hypertension): Blood pressure has been consistently above 100 systolic. 5. Acute on chronic hypoxemic respiratory failure: This has resolved. 6. Chronic kidney disease, Stage III: Unchanged upon repeat assessment. Still stage III. 7. Thrombocytopenia: Her platelet count is now normal. This has resolved. 8. Atrial fibrillation, on chronic warfarin therapy with currently subtherapeutic INR: INR 1.28. She did have rapid ventricular response in the last couple of days and Cardizem was added by cardiology. Asymptomatic apparently. Exam Vital Signs: Temperature 97.8 F 04/19/17 07:40 Pulse Rate 86 04/19/17 07:40 Respiratory Rate 20 04/19/17 07:40 Blood Pressure 106/53 04/19/17 07:40 Pulse Oximetry 92 04/19/17 07:47 Height/Weight/BMI: Height 1.55 m Weight 64.7 kg Body Mass Index 26.9 - Constitutional Present: no acute distress, well nourished, well developed, cooperative Comments: States that her pain is adequately controlled. - Routine HEENT Exam Head: Present: normocephalic, atraumatic Eye: Present: EOMI ENT: Present: mucous membranes moist - Routine Neck Exam Present: supple - Routine Respiratory Exam Present: dyspnea, CTA bilaterally. Absent: wheezes - Routine Cardiovascular Exam Present: S1, S2, murmur, irregularly irregular - Routine Abdominal Exam Present: soft, normoactive bowel sounds, non distended. Absent: tenderness - Routine Extremities Exam Present: no edema. Absent: cyanosis, clubbing - Routine Skin Exam Present: dry, warm - Routine Neurological Exam Present: alert, oriented X3, CN II-XII intact - Routine Psychiatric Exam Present: normal affect Results IRU - Labs Labs: Reviewed follow-up lab and other providers notes. IRU A/P (1) Femoral neck fracture Qualifiers: Encounter type: initial encounter Fracture type: closed Laterality: left Qualified Code(s): S72.002A - Fracture of unspecified part of neck of left femur, initial encounter for closed fracture Current visit: No Status: Acute No evidence of infection. Tolerating therapy well. Pain management adequate at present. (2) Atrial fibrillation Qualifiers: Atrial fibrillation type: chronic Qualified Code(s): I48.2 - Chronic atrial fibrillation Current visit: No Status: Chronic Did have an episode of rapid ventricular response. Cardizem added. 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 Asymptomatic. (3) Hypertension Qualifiers: Hypertension type: essential hypertension Qualified Code(s): I10 - Essential (primary) hypertension Current visit: No Status: Chronic (4) Parkinson disease Current visit: No Status: Chronic (5) Mitral regurgitation Qualifiers: Cardiac valve disease etiology: etiology unspecified Qualified Code(s): I34.0 - Nonrheumatic mitral (valve) insufficiency Current visit: No Status: Acute (6) Status post-operative repair of closed fracture of left hip Current visit: Yes Status: Acute (7) Acute blood loss anemia Current visit: Yes Status: Acute Hemoglobin up to 8.9 g percent. Received intravenous iron and tolerated well. (8) Hypotension Qualifiers: Hypotension type: unspecified hypotension type Qualified Code(s): I95.9 - Hypotension, unspecified Current visit: Yes Status: Resolved Review blood pressures indicates values above 100 systolic. Appears to be stable at present. DVT Prophylaxis: SCD's, Coumadin Resuscitation Status: Full Code - Course Hospital Course: Ayan Delgadillo MD: 04/17/17 14:15 She is cooperative with therapy. Bladder retraining is in progress and we will likely remove the catheters night. She does have easy fatigability. There is no chest pain. 04/19/17 11:11 Has made some progress with therapy. Pain adequately controlled. Does have easy fatigability. Had rapid ventricular response and Cardizem added. - Interventions to Obtain Goals PT Treatment Plan: Balance/Proprioception, Functional Activities, Gait Training , Patient/Family Education, Therapeutic Exercise OT Treatment Plan: ADL (Basic Care), Balance Training, Pt./Family Education, Ther. Exercise for ADL Goals Progress/Modifications: Time spent with patient and on floor reviewing data and documentin min Barriers to dismissal: Fatigue, strength, endurance Medical decision-making: Patient has episodes of rapid ventricular response with her atrial fibrillation. Nevertheless she is tolerating therapy adequately. She does have a degree of easy fatigability. She is cooperative with therapy and making progress in some areas. Denies chest pain. Occasional shortness of breath noted. INR is somewhat subtherapeutic. Cardizem has been added. Multidisciplinary conference this noon with patient and family for further follow-up. I reassessed her medical status and feel as though it is safe to continue therapy at this time.
--- NOTE | 2017-04-19 11:48 | Cardiology Progress Note ---
<Myrna Vieyra - Last Filed: 04/19/17 16:56> Subjective Principal diagnosis: hypotension Interval history: Jessica is seen in follow up for hypotension and pulmonary edema. She is alert and in no distress. She denies chest pain, pressure, dyspnea, dizziness or lightheadedness. Exam Vital signs: Temperature 97.8 F 04/19/17 07:40 Pulse Rate 86 04/19/17 07:40 Respiratory Rate 20 04/19/17 07:40 Blood Pressure 106/53 04/19/17 07:40 Pulse Oximetry 92 04/19/17 07:47 - Constitutional no acute distress, well nourished, cooperative - Routine HEENT Exam Head: Present: normocephalic ENT: Present: mucous membranes moist - Routine Neck Exam Absent: JVD, carotid bruit - Routine Chest/Breast/Axilla Exam Chest wall: Absent: tenderness - Routine Respiratory Exam Present: CTA bilaterally. Absent: rales, wheezes - Routine Cardiovascular Exam Present: murmur (II/), irregular rhythm - Routine Abdominal Exam Present: soft, normoactive bowel sounds - Routine Extremities Exam Present: edema - Routine Skin Exam Present: intact, dry, warm - Routine Neurological Exam Present: alert, oriented X3 - Routine Psychiatric Exam Present: normal affect - Additional findings Additional findings: Acetaminophen (Tylenol) 650 mg PO Q4H PRN PRN Reason: Pain Last Admin: 04/19/17 05:25 Dose: 650 mg Hydrocodone Bitart/Acetaminophen ([place] 5/325) 1 tab PO Q6H PRN PRN Reason: Pain Albuterol Sulfate (Proventil Neb (0.083%)) 2.5 mg AEROSOL Q6H PRN PRN Reason: Shortness of air Artificial Tears (Refresh Celluvisc) 1 drop EACH EYE BID [facility] Last Admin: 04/18/17 21:37 Dose: Not Given Bumetanide (Bumex Tab) 2 mg PO DAILY [facility] Last Admin: 04/19/17 08:32 Dose: 2 mg Carbidopa/Levodopa (Sinemet) 1 tab PO TID/E [facility] Last Admin: 04/19/17 05:45 Dose: 1 tab Citalopram Hydrobromide (Celexa) 20 mg PO DAILY [facility] Last Admin: 04/19/17 08:32 Dose: 20 mg Digoxin (Lanoxin) 125 mcg PO Q2D [facility] Last Admin: 04/18/17 08:48 Dose: 125 mcg Diltiazem HCl (Cardizem Cd) 180 mg PO DAILY [facility] Last Admin: 04/19/17 08:32 Dose: 180 mg Docusate Sodium (Colace) 100 mg PO BID PRN Enoxaparin Sodium (Lovenox) 40 mg SQ Q24H [facility] Last Admin: 04/18/17 20:23 Dose: 40 mg Isopropyl Alcohol (Nozin Nasal Swab) 1 each DAVID Q8H [facility] Last Admin: 04/19/17 05:21 Dose: 1 each Lactobacillus Acidophilus (Culturelle) 1 cap PO [facility] Last Admin: 04/19/17 08:32 Dose: 1 cap Levothyroxine Sodium (Synthroid) 50 mcg PO ACB [facility] Last Admin: 04/19/17 05:45 Dose: 50 mcg Melatonin (Melatonin) 5 mg PO HS [facility] Last Admin: 04/18/17 20:25 Dose: 5 mg Metoprolol Succinate (Toprol Xl) 50 mg PO [facility] Last Admin: 04/18/17 20:27 Dose: 50 mg Mirabegron (Myrbetriq) 50 mg PO HS [facility] Last Admin: 04/18/17 20:23 Dose: 50 mg Morphine Sulfate (Morphine Sulfate Inj) 1 - 2 mg IVP Q2H PRN PRN Reason: Pain Omeprazole (Prilosec) 20 mg PO ACB [facility] Last Admin: 04/19/17 05:46 Dose: 20 mg Ondansetron HCl (Zofran) 4 mg IVP Q6H PRN PRN Reason: Nausea &/or vomiting Phenytoin Sodium (Dilantin) 100 mg PO BIDWM [facility] Last Admin: 04/19/17 08:31 Dose: 100 mg Polyethylene Glycol (Miralax) 17 gm PO DAILY [facility] Last Admin: 04/19/17 08:33 Dose: 17 gm Potassium Chloride (K-Dur) 20 meq PO [facility] Last Admin: 04/19/17 08:32 Dose: 20 meq Rasagiline (Azilect) 1 mg PO DAILY [facility] Last Admin: 04/19/17 08:33 Dose: 1 mg Tramadol HCl (Ultram) 50 mg PO Q6H PRN PRN Reason: Pain Last Admin: 04/19/17 09:01 Dose: 50 mg Trolamine Salicylate (Aspercreme) 1 applic TOP PRN PRN Warfarin Sodium (Coumadin Protocol) 0 [facility] NOTE [facility] Warfarin Sodium (Coumadin) 6 mg PO NOON [facility] Stop: 04/19/17 23:59 Results 04/19/17 05:26 04/19/17 05:26 CBC 04/19/17 Range/Units 05:26 WBC 5.5 (4.5-11.0) T/MM3 RBC 2.80 L (4.00-5.20) M/MM3 Hgb 8.9 L D (12-16) GM/DL Hct 27.9 L D (36-46) % Plt Count 229 (130-400) T/MM3 Neut # (Auto) 2.8 (1.8-7.7) T/MM3 Lymph # (Auto) 1.9 (1-4.8) T/MM3 [place] # (Auto) 0.5 (0-0.8) T/MM3 Eos # (Auto) 0.2 (0-0.5) T/MM3 Baso # (Auto) 0.1 (0-0.2) T/MM3 Comprehensive Metabolic Panel 04/19/17 Range/Units 05:26 Sodium 136 (134-144) MEQ/L Potassium 4.0 (3.6-5) MEQ/L Chloride 94 L (98-107) MEQ/L Carbon Dioxide 32 H (22-30) MEQ/L BUN 23.0 H (7-17) MG/DL Creatinine 1.0 (0.7-1.2) MG/DL Glucose 100 (65-110) MG/DL Calcium 9.1 D (8.4-10.2) MG/DL Intake and Output 04/18/17 04/19/17 04/19/17 22:59 06:59 14:59 Intake Total 340 / 340 1236 / 1236 400 / 400 Balance 340 / 340 1236 / 1236 400 / 400 Intake: IV Iron Dextran 1,400 mg In NS 500ml 500 ml @ 125 mls/hr IV O ONE Rx#:[id number] Oral 340 / 340 180 / 180 400 / 400 Intake (Blood Product) Amt Other: Urine Appearance Cloudy Clear Clear Urine Color Pale Yellow Yellow Yellow Urine Odor Normal Normal Stool Color Brown Stool Consistency Soft [place] Size of Bowel Movement Small # Voids 1 1 2 # Bowel Movements 1 Weight 142 lb 10.225 oz Patient Weight 04/20/17 06:59 Weight 142 lb 10.225 oz Laboratory Results - last 24 hr 04/19/17 04/19/17 04/19/17 05:26 05:26 05:26 WBC 5.5 RBC 2.80 L Hgb 8.9 L D Hct 27.9 L D MCV 99.6 MCH 31.8 MCHC 31.9 RDW Std Deviation 44.2 Plt Count 229 MPV 8.8 L Immature Gran % (Auto) 0.2 Neut % (Auto) 51.3 Lymph % (Auto) 33.9 [place] % (Auto) 9.7 H Eos % (Auto) 3.8 Baso % (Auto) 1.1 Neut # (Auto) 2.8 Lymph # (Auto) 1.9 [place] # (Auto) 0.5 Eos # (Auto) 0.2 Baso # (Auto) 0.1 Abs Immat Gran (auto) 0.01 INR 1.28 H Turbidity < 20 Sodium 136 Potassium 4.0 Chloride 94 L Carbon Dioxide 32 H Anion Gap 10 BUN 23.0 H Creatinine 1.0 GFR Calculation 53 BUN/Creatinine Ratio 23 Glucose 100 Calculated Osmolality 266 Calcium 9.1 D Icterus Index 4 Specimen Hemolysis < 15 Digoxin 0.7 L Assessment and Plan - Assessment and Plan (1) Hypotension Current visit: Yes Status: Resolved (2) Acute blood loss anemia Current visit: Yes Status: Acute (3) Atrial fibrillation Current visit: No Status: Chronic (4) Hypertension Current visit: No Status: Chronic (5) Mitral regurgitation Current visit: No Status: Acute (6) Status post-operative repair of closed fracture of left hip Current visit: Yes Status: Acute (7) Hyponatremia Current visit: Yes Status: Acute - Assessment and Plan 04/16/16 Hypotension: Stop Cardizem - Hold Metoprolol at HS if SBP< 100 Hyponatremia: Restrict fluids to 1800ml/day Anemia: Hgb 8.0 today A Fib:Continue Digoxin Q2D (had today) - Continue metoprolol if BP tolerates for rate control, as stopped Cardizem Thank you for allowing us to participate in the care of this patient. 04/17/16 Hypotension improved (low 104/48) Hyponatremia improving, up to 132 from 130, continue fluid restriction. Anemia: Hgb 7.8 today, platelets stable AFib: rate controlled with metoprolol and Q2D digoxin RVR in afternoon per EKG, restart lower dose Cardizem 180mg daily for rate control. - Monitor BP closely overnight, may need to increase dose if BP tolerates. - Telemetry please 04/18/16 Rate well controlled with low dose Cardizem 180mg daily - BP tolerates Cardizem at this time. - Continue to monitor fluid balance as patient can retain fluid easily, continue fluid restriction. - Monitor renal and electrolytes with Bumex - Digoxin level in AM 04/19/16 Digoxin level 0.7. AFib remains rate controlled with Cardizem 240mg daily, BP stable Hospital Course Summary Disclaimer: The visit summary below is not to be considered part of the above Progress Note. Hospital Course: Plan Cardizem remains on hold as recommended by cardiology. Monitor heart rate and BP. Has has hypotension at times Chest x-ray did revel pulmonary edema and she is on Bumex. Monitor for over diuresis INR remains subtherapeutic at 1.1 today. Managed by pharmacy. Hgb today down to 7.8. If she has any further hypotension or other symptoms will consider blood transfusion Monitor Hypokalemia, remains on fluid restriction. NA today 132 Does complain of chronic cervicale neck pain. Will add Aspercreme topically. Encourage work with PT/OT <Gautam Hicks - Last Filed: 04/22/17 14:08> Exam Vital signs: Temperature 98.2 F 04/22/17 11:37 Pulse Rate 83 04/22/17 11:37 Respiratory Rate 14 04/22/17 11:37 Blood Pressure 93/50 04/22/17 11:37 Pulse Oximetry 93 04/22/17 11:37 Results 04/22/17 05:30 04/22/17 05:30 CBC 04/22/17 Range/Units 05:30 WBC 5.1 (4.5-11.0) T/MM3 RBC 2.49 L (4.00-5.20) M/MM3 Hgb 8.0 L (12-16) GM/DL Hct 25.5 L (36-46) % Plt Count 251 (130-400) T/MM3 Neut # (Auto) 2.2 (1.8-7.7) T/MM3 Lymph # (Auto) 2.1 (1-4.8) T/MM3 [place] # (Auto) 0.6 (0-0.8) T/MM3 Eos # (Auto) 0.2 (0-0.5) T/MM3 Baso # (Auto) 0.1 (0-0.2) T/MM3 Comprehensive Metabolic Panel 04/22/17 Range/Units 05:30 Sodium 135 (134-144) MEQ/L Potassium 4.0 (3.6-5) MEQ/L Chloride 98 (98-107) MEQ/L Carbon Dioxide 32 H (22-30) MEQ/L BUN 23.0 H (7-17) MG/DL Creatinine 1.1 (0.7-1.2) MG/DL Glucose 88 (65-110) MG/DL Calcium 8.8 (8.4-10.2) MG/DL Intake and Output 04/21/17 04/22/17 04/22/17 22:59 06:59 14:59 Intake Total 240 / 240 100 / 100 590 / 590 Output Total 350 / 350 Balance -110 / -110 100 / 100 590 / 590 Intake: Oral 240 / 240 100 / 100 590 / 590 Output: Urine 350 / 350 Other: Urine Appearance Clear Urine Color Yellow Urine Odor Normal Stool Characteristics Tarry Stool Color Brown Stool Consistency Soft Formed Size of Bowel Movement Smear # Voids 1 Weight 62 kg Assessment and Plan - Assessment and Plan (1) Atrial fibrillation Current visit: No Status: Chronic (2) Hypertension Current visit: No Status: Chronic (3) Mitral regurgitation Current visit: No Status: Acute (4) Status post-operative repair of closed fracture of left hip Current visit: Yes Status: Acute (5) Hypotension Current visit: Yes Status: Resolved (6) Acute blood loss anemia Current visit: Yes Status: Acute (7) Hyponatremia Current visit: Yes Status: Acute - Attestation Attestation Narrative: 04/22/17 14:08 Recommendation After examining the patient I agree with the above assessment. I am involved in the formulation of the patient's plan of care. Hospital Course Summary Disclaimer: The visit summary below is not to be considered part of the above Progress Note.
[2017-04-19] MEDS ORDERED: WARFARIN 6 MG TABLET PO SCH (12:00)
--- NOTE | 2017-04-19 12:55 | IRU Team Meeting ---
IRU Team Meeting - Nursing Bladder Assistive Devices Utilized:: Medication, Absorbent Pad Bladder Management Level of Assist: Stand By Assist/Supervision Bladder Frequency of Accidents: 1 accident this shift Bowel Assistive Devices Utilized:: Bedside Commode Bowel Frequency of Accidents: No accidents Vital Signs: Vital Signs - 24 hr 04/18/17 15:34 04/18/17 16:00 04/18/17 16:54 Temperature 98.6 F 98.8 F 98.8 F Pulse Rate 85 88 88 Respiratory Rate 16 16 18 Blood Pressure 121/67 106/66 118/64 Pulse Oximetry 93 99 94 04/18/17 17:10 04/18/17 20:30 04/18/17 21:12 Temperature 98.7 F 98.6 F 98.4 F Pulse Rate 90 82 89 Respiratory Rate 16 18 16 Blood Pressure 126/67 118/64 117/62 Pulse Oximetry 93 95 100 04/18/17 22:10 04/18/17 23:35 04/19/17 00:27 Temperature 98.7 F 98.6 F 98.4 F Pulse Rate 86 82 96 Respiratory Rate 18 18 20 Blood Pressure 107/66 109/63 106/69 Pulse Oximetry 99 99 99 04/19/17 01:25 04/19/17 01:55 04/19/17 04:00 Temperature 98.2 F 98.4 F 98.6 F Pulse Rate 92 93 90 Respiratory Rate 20 18 18 Blood Pressure 110/66 102/64 105/65 Pulse Oximetry 98 98 98 04/19/17 07:40 04/19/17 07:47 Temperature 97.8 F Pulse Rate 86 Respiratory Rate 20 Blood Pressure 106/53 Pulse Oximetry 92 Current Medications: Acetaminophen (Tylenol) 650 mg PO Q4H PRN PRN Reason: Pain Last Admin: 04/19/17 05:25 Dose: 650 mg Hydrocodone Bitart/Acetaminophen ([place] 5/325) 1 tab PO Q6H PRN PRN Reason: Pain Albuterol Sulfate (Proventil Neb (0.083%)) 2.5 mg AEROSOL Q6H PRN PRN Reason: Shortness of air Artificial Tears (Refresh Celluvisc) 1 drop EACH EYE BID [facility] Last Admin: 04/18/17 21:37 Dose: Not Given Bumetanide (Bumex Tab) 2 mg PO DAILY [facility] Last Admin: 04/19/17 08:32 Dose: 2 mg Carbidopa/Levodopa (Sinemet) 1 tab PO TID/E [facility] Last Admin: 04/19/17 05:45 Dose: 1 tab Citalopram Hydrobromide (Celexa) 20 mg PO DAILY [facility] Last Admin: 04/19/17 08:32 Dose: 20 mg Digoxin (Lanoxin) 125 mcg PO Q2D [facility] Last Admin: 04/18/17 08:48 Dose: 125 mcg Diltiazem HCl (Cardizem Cd) 180 mg PO DAILY [facility] Last Admin: 04/19/17 08:32 Dose: 180 mg Docusate Sodium (Colace) 100 mg PO BID PRN Enoxaparin Sodium (Lovenox) 40 mg SQ Q24H [facility] Last Admin: 04/18/17 20:23 Dose: 40 mg Isopropyl Alcohol (Nozin Nasal Swab) 1 each DAVID Q8H [facility] Last Admin: 04/19/17 05:21 Dose: 1 each Lactobacillus Acidophilus (Culturelle) 1 cap PO WB [facility] Last Admin: 04/19/17 08:32 Dose: 1 cap Levothyroxine Sodium (Synthroid) 50 mcg PO ACB [facility] Last Admin: 04/19/17 05:45 Dose: 50 mcg Melatonin (Melatonin) 5 mg PO HS [facility] Last Admin: 04/18/17 20:25 Dose: 5 mg Metoprolol Succinate (Toprol Xl) 50 mg PO HS [facility] Last Admin: 04/18/17 20:27 Dose: 50 mg Mirabegron (Myrbetriq) 50 mg PO HS [facility] Last Admin: 04/18/17 20:23 Dose: 50 mg Morphine Sulfate (Morphine Sulfate Inj) 1 - 2 mg IVP Q2H PRN PRN Reason: Pain Omeprazole (Prilosec) 20 mg PO ACB [facility] Last Admin: 04/19/17 05:46 Dose: 20 mg Ondansetron HCl (Zofran) 4 mg IVP Q6H PRN PRN Reason: Nausea &/or vomiting Phenytoin Sodium (Dilantin) 100 mg PO BIDWM [facility] Last Admin: 04/19/17 08:31 Dose: 100 mg Polyethylene Glycol (Miralax) 17 gm PO DAILY [facility] Last Admin: 04/19/17 08:33 Dose: 17 gm Potassium Chloride (K-Dur) 20 meq PO [facility] Last Admin: 04/19/17 08:32 Dose: 20 meq Rasagiline (Azilect) 1 mg PO DAILY [facility] Last Admin: 04/19/17 08:33 Dose: 1 mg Tramadol HCl (Ultram) 50 mg PO Q6H PRN PRN Reason: Pain Last Admin: 04/19/17 09:01 Dose: 50 mg Trolamine Salicylate (Aspercreme) 1 applic TOP PRN PRN Warfarin Sodium (Coumadin Protocol) 0 [facility] NOTE [facility] Warfarin Sodium (Coumadin) 6 mg PO NOON [facility] Stop: 04/19/17 23:59 Last Admin: 04/19/17 12:43 Dose: 6 mg Current Medical Issues: Atrial fib with occasional RVR, hypotension (resolved), anemia Comments: I certify that I personally led the interdisciplinary team meeting and agree with comments, barriers and goals indicated. Team meeting was held in the patient's room with the patient and the following family members present: daughter Maura Patient is very cooperative. She has had episodes of rapid ventricular response for which Cardizem has been added. Bumex is also being given for her pulmonary edema. She has had anemia and received iron dextran infusion on 04/18/2016 and tolerated well. Pain appears to be adequately controlled. Mostly continent but occasional leakage noted. Her sodium has resolved and is now normal. Low platelets have also come back to normal. - Physical Therapy Bed, Chair, Wheelchair Transfer Assist: Contact Guard Assistance Ambulation Ability: Maximal Assistance, 1 Person Assist Ambulation Distance: 120 Wheelchair Propulsion Ability: Maximal Assistance Wheelchair Propulsion Distance: 83 Stair Climbing Ability: Patient Refuses Car Transfer Ability: Minimal Assistance Comments: Patient is to fatigue easily with physical therapy. She is improving and is now standby assistance level for most transfers. Recommend continued working with patient. - Occupational Therapy Eating Ability: Modified Independent Grooming Ability: Stand By Assist/Supervision Bathing Ability: Minimal Assistance Upper Body Dressing Ability: Stand By Assist/Supervision Lower Body Dressing Ability: Moderate Assistance Tub Transfer Assist: Patient Unsafe/Unable Toileting Assist: Contact Guard Assistance Toilet Transfer Assist: Contact Guard Assistance Comments: She is using assistive devices including a long handled shoe horn, leach runner and sock aid. She is progressing with regard to increasing independence. Does have easy fatigability. - Goals Physical Therapy Goals: 04/19/17 Goals: 1.) Increase amb distance to 150 feet 6/ 7 mod I. 2.) Mod I with bed mobilty and transfers Occupational Therapy Goals: OT goals 04/19/17: 1.) LB dressing w/ supervision. 2.) Toileting w/ mod I. - Barriers to Discharge Barriers to Attaining Goals: Endurance, Pain Control - Care Plan Anticipated Length of Stay (days): 6 Anticipated DC Destination: [facility]/Facility I have led this team conference and agree with the plan. Patient has made good progress. Her medical conditions are a barrier to rapid improvement although she is tolerating therapy reasonably well. Recommend continue working with the patient for another 6-7 days in order to maximize independent functioning.
[2017-04-19] MEDS: REFRESH CELLUVISC 1% Eye Drops 0.4ml EACH EYE SCH ×2 (13:04→20:50)
[2017-04-19] MEDS: MELATONIN 5 MG TABLET PO SCH (20:40)
[2017-04-19] MEDS: MIRABEGRON 25mg TABLET PO SCH (20:40)
[2017-04-19] MEDS: ENOXAPARIN 40 MG/0.4 ML INJECTION SQ SCH (20:44)
[2017-04-20] MEDS: NOZIN NASAL SWAB NAS SCH ×5 (00:47→21:55)
[2017-04-20] MEDS: OMEPRAZOLE 20 MG CAPSULE PO SCH ×2 (05:13→15:23)
[2017-04-20] MEDS: LEVOTHYROXINE 50 MCG TABLET PO SCH ×2 (05:13→15:23)
[2017-04-20] MEDS: TRAMADOL 50 MG TABLET PO PRN ×3 (05:16→20:35)
--- NOTE | 2017-04-20 08:34 | IRU Progress Note ---
- Subjective/Serverity of Illness Date: 04/20/17 Ms. Espinoza was evaluated in her room on inpatient rehabilitation. She is cooperative. She states the pain is not an issue except for the left neck area which is chronic. We will try some Aspercreme in this regard. She denies any shortness of breath or chest pain. She denies problems with her bowels at the present time. She is cooperative with therapy. Exam Vital Signs: Temperature 98.1 F 04/19/17 23:14 Pulse Rate 88 04/20/17 04:00 Respiratory Rate 14 04/20/17 04:00 Blood Pressure 103/59 04/20/17 04:00 Pulse Oximetry 99 04/20/17 04:00 Height/Weight/BMI: Height 1.55 m Weight 62.7 kg Body Mass Index 26.9 Comments: The patient is awake, alert and oriented and in no acute distress. Pupils are equal. The neck is supple. Chest: Clear to auscultation bilaterally. Cor: irregular rhythm with no gallop, click. Does have systolic murmur. Abd: soft with normo-active bowel sounds. There are no masses, no tenderness and no guarding. Extremities: No edema is noted. There are good pulses in both ankles. No cyanosis is present. IRU A/P (1) Femoral neck fracture Qualifiers: Encounter type: initial encounter Fracture type: closed Laterality: left Qualified Code(s): S72.002A - Fracture of unspecified part of neck of left femur, initial encounter for closed fracture Current visit: No Status: Resolved (2) Atrial fibrillation Qualifiers: Atrial fibrillation type: chronic Qualified Code(s): I48.2 - Chronic atrial fibrillation Current visit: No Status: Chronic INR improved at 1.85. No evidence of bleeding. (3) Hypertension Qualifiers: Hypertension type: essential hypertension Qualified Code(s): I10 - Essential (primary) hypertension Current visit: No Status: Chronic Patient has had some hypotension before. Her blood pressures are remaining above 100 at present time. (4) Parkinson disease Current visit: No Status: Chronic (5) Mitral regurgitation Qualifiers: Cardiac valve disease etiology: etiology unspecified Qualified Code(s): I34.0 - Nonrheumatic mitral (valve) insufficiency Current visit: No Status: Acute (6) Status post-operative repair of closed fracture of left hip Current visit: Yes Status: Acute Pain management appears to be appropriate except for the left neck area which is painful. We will add on Aspercreme. (7) Acute blood loss anemia Current visit: Yes Status: Acute (8) Hypotension Qualifiers: Hypotension type: unspecified hypotension type Qualified Code(s): I95.9 - Hypotension, unspecified Current visit: Yes Status: Resolved DVT Prophylaxis: SCD's, Coumadin Resuscitation Status: Full Code - Course Hospital Course: Ayan Delgadillo MD: 04/17/17 14:15 She is cooperative with therapy. Bladder retraining is in progress and we will likely remove the catheters night. She does have easy fatigability. There is no chest pain. 04/19/17 11:11 Has made some progress with therapy. Pain adequately controlled. Does have easy fatigability. Had rapid ventricular response and Cardizem added. 04/20/17 08:33 Continues to improve with therapy. Medically stable. Complains of neck pain. We'll add on Aspercreme. - Interventions to Obtain Goals PT Treatment Plan: Balance/Proprioception, Functional Activities, Gait Training , Patient/Family Education, Therapeutic Exercise OT Treatment Plan: ADL (Basic Care), Balance Training, Pt./Family Education, Ther. Exercise for ADL Goals Progress/Modifications: Time spent with patient and on floor reviewing data and documentin min Barriers to dismissal: endurance, safety, balance Medical decision-making: I reviewed her medical status. I believe it is safe to continue therapy at the present time. Her pain management appears to be adequate except for the left neck area. She has had chronic pain in the left neck. We will add Aspercreme at the present time. Massage by therapy was beneficial she states.
[2017-04-20] MEDS: DIGOXIN 125 MCG TABLET PO SCH (08:43)
[2017-04-20] MEDS: BUMETANIDE 1 MG TABLET PO SCH (08:44)
[2017-04-20] MEDS: LACTOBACILLUS (15B cfu) CAPSULE PO SCH (08:45)
[2017-04-20] MEDS: CITALOPRAM 20 MG TABLET PO SCH (08:45)
[2017-04-20] MEDS: PHENYTOIN 100 MG CAPSULE PO SCH ×2 (08:45→18:03)
[2017-04-20] MEDS: RASAGILINE 0.5 MG TABLET PO SCH (08:46)
[2017-04-20] MEDS: POLYETHYL GLYCOL 3350 17gm PACKET PO SCH (08:47)
[2017-04-20] MEDS: REFRESH CELLUVISC 1% Eye Drops 0.4ml EACH EYE SCH ×2 (11:31→20:35)
[2017-04-20] MEDS ORDERED: WARFARIN 2 MG TABLET PO SCH (12:00)
--- NOTE | 2017-04-20 12:43 | Pharmacy Consult ---
Pharmacy Consult-Warfarin - Laboratory Information 04/16/17 04/17/17 04/18/17 04:30 04:42 04:25 INR 1.19 1.17 1.27 H 04/19/17 04/20/17 05:26 04:20 INR 1.28 H 1.85 H - Consult Information 81 y.o. Female with history of a.fib. and chronic anticoagulation with Warfarin. goal INR range= 2.0 to 3.0. INR was therapeutic upon admission. Patient admitted with hip fracture and INR was normalized with Vitamin K for surgery. date INR dose 04/13 2.11 ---- vitamin K 5 mg po and 10 mg sq doses given to normalize INR for surgery 04/14 1.36 3 mg 04/15 1.17 2 mg 04/16 1.19 2 mg 04/17 1.17 4 mg 04/18 1.27 5 mg 04/19 1.28 6 mg 04/20 1.85 Plan 2 mg INR may still be subtherapeutic but has finally jumped up significantly, so I am ordering Warfarin 2 mg p.o. today. Patient's home dose of 3 mg Saturday and , and 2 mg Sat, , Sat, Sat, Sat. is currently ordered. The Pharmacy will continue to monitor and adjust the warfarin as needed. Thank you for the Warfarin consult, Joe Snell, Pharmacist.
[2017-04-20] MEDS: ACETAMINOPHEN 325 MG TABLET PO PRN (18:01)
[2017-04-20] MEDS: MIRABEGRON 25mg TABLET PO SCH (20:34)
[2017-04-20] MEDS: MELATONIN 5 MG TABLET PO SCH (20:34)
[2017-04-20] MEDS: ENOXAPARIN 40 MG/0.4 ML INJECTION SQ SCH (21:54)
[2017-04-21] MEDS: OMEPRAZOLE 20 MG CAPSULE PO SCH ×2 (05:07→07:17)
[2017-04-21] MEDS: NOZIN NASAL SWAB NAS SCH ×4 (05:07→22:44)
[2017-04-21] MEDS: ACETAMINOPHEN 325 MG TABLET PO PRN ×2 (05:08→21:58)
[2017-04-21] MEDS: LEVOTHYROXINE 50 MCG TABLET PO SCH ×2 (05:12→07:17)
[2017-04-21] MEDS: PHENYTOIN 100 MG CAPSULE PO SCH ×2 (09:18→18:50)
[2017-04-21] MEDS: CITALOPRAM 20 MG TABLET PO SCH (09:18)
[2017-04-21] MEDS: BUMETANIDE 1 MG TABLET PO SCH (09:18)
[2017-04-21] MEDS: LACTOBACILLUS (15B cfu) CAPSULE PO SCH (09:19)
[2017-04-21] MEDS: RASAGILINE 0.5 MG TABLET PO SCH (09:20)
[2017-04-21] MEDS: POLYETHYL GLYCOL 3350 17gm PACKET PO SCH (09:58)
[2017-04-21] MEDS: REFRESH CELLUVISC 1% Eye Drops 0.4ml EACH EYE SCH ×2 (10:01→20:21)
--- NOTE | 2017-04-21 10:37 | Pharmacy Consult ---
Pharmacy Consult-Warfarin - Laboratory Information 04/16/17 04/17/17 04/18/17 04:30 04:42 04:25 INR 1.19 1.17 1.27 H 04/19/17 04/20/17 04/21/17 05:26 04:20 04:37 INR 1.28 H 1.85 H 1.99 H - Consult Information 81 y.o. Female with history of a.fib. and chronic anticoagulation with Warfarin. goal INR range= 2.0 to 3.0. INR was therapeutic upon admission. Patient admitted with hip fracture and INR was normalized with Vitamin K for surgery. date INR dose 04/13 2.11 ---- vitamin K 5 mg po and 10 mg sq doses given to normalize INR for surgery 04/14 1.36 3 mg 04/15 1.17 2 mg 04/16 1.19 2 mg 04/17 1.17 4 mg 04/18 1.27 5 mg 04/19 1.28 6 mg 04/20 1.85 2 mg 04/21 1.99 Plan 3 mg INR may still be subtherapeutic but has finally jumped up significantly, so I am ordering Warfarin 3 mg p.o. today (home dose for Saturday). Patient's home dose of 3 mg Saturday and , and 2 mg Sat, , Sat, Sat, Sat. is currently ordered. The Pharmacy will continue to monitor and adjust the warfarin as needed. Thank you for the Warfarin consult, Joe Snell, Pharmacist.
[2017-04-21] MEDS: TRAMADOL 50 MG TABLET PO PRN ×2 (11:56→20:51)
[2017-04-21] MEDS ORDERED: WARFARIN 3 MG TABLET PO SCH (12:00)
[2017-04-21] MEDS: MELATONIN 5 MG TABLET PO SCH (20:21)
[2017-04-21] MEDS: MIRABEGRON 25mg TABLET PO SCH (20:21)
[2017-04-21] MEDS: ENOXAPARIN 40 MG/0.4 ML INJECTION SQ SCH (20:22)
[2017-04-22] MEDS: OMEPRAZOLE 20 MG CAPSULE PO SCH (06:05)
[2017-04-22] MEDS: LEVOTHYROXINE 50 MCG TABLET PO SCH (06:05)
[2017-04-22] MEDS: NOZIN NASAL SWAB NAS SCH ×3 (06:06→21:16)
[2017-04-22] MEDS: TRAMADOL 50 MG TABLET PO PRN ×2 (06:09→16:43)
--- NOTE | 2017-04-22 08:16 | Pharmacy Consult ---
Pharmacy Consult-Warfarin - Laboratory Information 04/16/17 04/17/17 04/18/17 04:30 04:42 04:25 INR 1.19 1.17 1.27 H 04/19/17 04/20/17 04/21/17 05:26 04:20 04:37 INR 1.28 H 1.85 H 1.99 H 04/22/17 05:30 INR 2.03 H - Consult Information We will continue warfarin 3mg p.o. today at noon. Thanks
[2017-04-22] MEDS: DIGOXIN 125 MCG TABLET PO SCH (09:12)
[2017-04-22] MEDS: REFRESH CELLUVISC 1% Eye Drops 0.4ml EACH EYE SCH ×2 (09:12→22:00)
[2017-04-22] MEDS: LACTOBACILLUS (15B cfu) CAPSULE PO SCH (09:14)
[2017-04-22] MEDS: PHENYTOIN 100 MG CAPSULE PO SCH ×2 (09:14→16:43)
[2017-04-22] MEDS: RASAGILINE 0.5 MG TABLET PO SCH (09:14)
[2017-04-22] MEDS: CITALOPRAM 20 MG TABLET PO SCH (09:14)
[2017-04-22] MEDS: BUMETANIDE 1 MG TABLET PO SCH (09:14)
[2017-04-22] MEDS: POLYETHYL GLYCOL 3350 17gm PACKET PO SCH (09:15)
[2017-04-22] MEDS ORDERED: WARFARIN 3 MG TABLET PO SCH (12:00)
[2017-04-22] MEDS: HYDROCODONE/APAP 5mg/325mg TABLET PO PRN ×2 (12:35→21:20)
--- NOTE | 2017-04-22 14:47 | IRU Progress Note ---
- Subjective/Serverity of Illness Date: 04/22/17 Jessica was evaluated on inpatient rehabilitation. She continues to be very cooperative with therapy. However she tells me she would like to get back to her apartment as soon as possible. I discussed this with the therapist. They feel as though they can make additional progress for safety as she will be in a long-term care facility. Pain management appears to be adequate. Reports that the discomfort in her neck is improved with the use of Aspercreme. She denies any shortness of breath but does have some easy fatigability. Her appetite is reasonably good. Brief therapy update: For eating and grooming she is now independent which is an improvement. Bathing requires minimum assistance. Lower body dressing has improved from moderate to minimum assistance. Physical therapy bed/chair/ wheelchair transfers formerly were standby assistance. There are variable and at times are minimum assistance. Toilet assistance is now standby level. She is able to ambulate 165 feet with a front-wheeled walker with standby assistance. Brief update on medical conditions are actively monitoring and managing as follows: 1. Hip fracture and repair: Pain management appears to be adequate. She is progressing with therapy. 2. Acute blood loss anemia: Hemoglobin 8.0 g percent. This is stable. 3. Hyponatremia: Sodium stable at 135.. 4. Hypotension (with history of hypertension): Her blood pressures are running in the 90s at the present time but this is apparently without symptoms. 5. Acute on chronic hypoxemic respiratory failure: This has resolved. 6. Chronic kidney disease, Stage III: Unchanged upon repeat assessment. Still stage III. 7. Thrombocytopenia: Her platelet count is now normal. This has resolved. 8. Atrial fibrillation, on chronic warfarin therapy with currently subtherapeutic INR: Her INR is therapeutic at 2.03. No evidence of bleeding. Exam Vital Signs: Temperature 98.2 F 04/22/17 11:37 Pulse Rate 83 04/22/17 11:37 Respiratory Rate 14 04/22/17 11:37 Blood Pressure 93/50 04/22/17 11:37 Pulse Oximetry 93 04/22/17 11:37 Height/Weight/BMI: Height 1.55 m Weight 62 kg Body Mass Index 26.9 - Constitutional Present: no acute distress, well nourished, well developed, cooperative Comments: Seems to be awake and alert emboli to go home she states. - Routine HEENT Exam Head: Present: normocephalic Eye: Present: EOMI ENT: Present: mucous membranes moist - Routine Neck Exam Present: supple - Routine Respiratory Exam Present: CTA bilaterally. Absent: wheezes - Routine Cardiovascular Exam Present: S1, S2, murmur, irregularly irregular - Routine Abdominal Exam Present: soft, normoactive bowel sounds, non distended. Absent: tenderness - Routine Extremities Exam Present: no edema - Routine Skin Exam Present: dry, warm - Routine Neurological Exam Present: alert, oriented X3, CN II-XII intact - Routine Psychiatric Exam Present: normal affect Results IRU - Labs Labs: Reviewed labs. IRU A/P (1) Atrial fibrillation Qualifiers: Atrial fibrillation type: chronic Qualified Code(s): I48.2 - Chronic atrial fibrillation Current visit: No Status: Chronic Her INR is therapeutic. There is no evidence of bleeding at present. (2) Hypertension Qualifiers: Hypertension type: essential hypertension Qualified Code(s): I10 - Essential (primary) hypertension Current visit: No Status: Chronic Blood pressure slightly in the low side in the 90s. Denies lightheadedness at present. (3) Parkinson disease Current visit: No Status: Chronic (4) Mitral regurgitation Qualifiers: Cardiac valve disease etiology: etiology unspecified Qualified Code(s): I34.0 - Nonrheumatic mitral (valve) insufficiency Current visit: No Status: Acute (5) Status post-operative repair of closed fracture of left hip Current visit: Yes Status: Acute Pain management appears to be adequate. (6) Acute blood loss anemia Current visit: Yes Status: Acute Hemoglobin stable at 8.0. This is roughly stable. (7) Hypotension Qualifiers: Hypotension type: unspecified hypotension type Qualified Code(s): I95.9 - Hypotension, unspecified Current visit: Yes Status: Resolved Blood pressure once again has dropped in the 90s at times. Does not have evidence of rapid ventricular response right now. DVT Prophylaxis: SCD's, Coumadin Resuscitation Status: Full Code - Course Hospital Course: Ayan Delgadillo MD: 04/17/17 14:15 She is cooperative with therapy. Bladder retraining is in progress and we will likely remove the catheters night. She does have easy fatigability. There is no chest pain. 04/19/17 11:11 Has made some progress with therapy. Pain adequately controlled. Does have easy fatigability. Had rapid ventricular response and Cardizem added. 04/20/17 08:33 Continues to improve with therapy. Medically stable. Complains of neck pain. We'll add on Aspercreme. 04/22/17 14:49 She is progressing with therapy. Additional progress is hope for over the next several days. Blood pressure is a bit low and this will be monitored carefully. Hemoglobin stable at 8 g percent. - Interventions to Obtain Goals PT Treatment Plan: Balance/Proprioception, Functional Activities, Gait Training , Patient/Family Education, Therapeutic Exercise OT Treatment Plan: ADL (Basic Care), Balance Training, Pt./Family Education, Ther. Exercise for ADL Goals Progress/Modifications: Time spent with patient and on floor reviewing data and documentin min Barriers to dismissal: Endurance, strength, balance Medical decision-making: Hemoglobin is roughly stable at a grams percent. It may fluctuate up and down a bit. She has received intravenous iron. Denies lightheadedness at the present time and denies shortness of breath or chest pain. However she does have easy fatigability. She would like to go home sooner than later. We anticipated transferring her home on of this week which is another 3 days from now. I discussed this with the therapist and they would like to continue working with her with a discharge date still the same. They feel as though they can make additional progress which would not be possible in her long-term care environment. She is medically stable at the present time. Blood pressures are running a bit low and this will be monitored at present.
--- NOTE | 2017-04-22 15:24 | Progress Note ---
- Date 04/22/17 Subjective: Jessiac is seen today in follow up while up in the chair. Overall she is looking good. She was been ambulating to all meals and it getting stronger. She does complain of having some right knee pain however it is chronic and no worse than prior. Appetite is good. Denies having pain or shortness of breath. Objective Vital signs: Temperature 98.2 F 04/22/17 11:37 Pulse Rate 83 04/22/17 11:37 Respiratory Rate 14 04/22/17 11:37 Blood Pressure 93/50 04/22/17 11:37 Pulse Oximetry 93 04/22/17 11:37 Height/Weight/BMI: Height 1.55 m Weight 62 kg Body Mass Index 26.9 - Constitutional Present: no acute distress, well nourished, well developed - Routine HEENT Exam Eye: Present: EOMI ENT: Present: mucous membranes moist, dentition normal - Routine Respiratory Exam Present: CTA bilaterally. Absent: wheezes - Routine Cardiovascular Exam Present: RRR, S1, S2. Absent: murmur - Routine Abdominal Exam Present: soft, normoactive bowel sounds, non distended. Absent: tenderness - Routine Extremities Exam Present: edema (bilateral lower ext - trace), pulses intact Comments: Left hip and knee pain - Routine Skin Exam Present: intact, dry, warm - Routine Neurological Exam Present: alert, oriented X3, CN II-XII intact - Routine Lymphatic Exam Lymphatic: Absent: adenopathy - Routine Psychiatric Exam Present: normal affect, cooperative Results - Labs CBC & Chem 7: 04/22/17 05:30 04/22/17 05:30 Assessment and Plan (1) Femoral neck fracture Current visit: No Status: Resolved (2) Atrial fibrillation Current visit: No Status: Chronic (3) Hypertension Current visit: No Status: Chronic (4) Parkinson disease Current visit: No Status: Chronic (5) Hypothyroid Current visit: No Status: Chronic (6) Mitral regurgitation Current visit: No Status: Acute (7) Status post-operative repair of closed fracture of left hip Current visit: Yes Status: Acute (8) Acute blood loss anemia Current visit: Yes Status: Acute Assessment and Plan: Assessment Left impacted femoral neck fx, 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 Whitney Postop anemia Iron def anemia Hyponatremia-POA Afib, chronic HFpEF with VHD (mitral) CKD, stage 3 HTN hypothyroid, chronic GERD Parkinson's disease Coronary artery disease Constipation Diverticulosis Osteoarthritis/rheumatoid arthritis Spinal stenosis Depression Macular degeneration Plan Overall doing well and making gains. Able to ambulate with walker to all meals Given PO iron BID and add Vitamin C with it for improved absorption INR managed by Pharmacy Remains mild hypotension however appears to be asymptomatic Continue to work with PT/OT for strengthening - Physician Narrative Narrative: Date: 04/22/17 Time: 1518 Hospital Course Summary Disclaimer: The visit summary below is not to be considered part of the above Progress Note. Hospital Course: Plan Cardizem remains on hold as recommended by cardiology. Monitor heart rate and BP. Has has hypotension at times Chest x-ray did revel pulmonary edema and she is on Bumex. Monitor for over diuresis INR remains subtherapeutic at 1.1 today. Managed by pharmacy. Hgb today down to 7.8. If she has any further hypotension or other symptoms will consider blood transfusion Monitor Hypokalemia, remains on fluid restriction. NA today 132 Does complain of chronic cervicale neck pain. Will add Aspercreme topically. Encourage work with PT/OT 04/22 Overall doing well and making gains. Able to ambulate with walker to all meals Given PO iron BID and add Vitamin C with it for improved absorption INR managed by Pharmacy Remains mild hypotension however appears to be asymptomatic Continue to work with PT/OT for strengthening
[2017-04-22] MEDS: FERROUS SULFATE 324 MG TABLET PO SCH (16:43)
[2017-04-22] MEDS: ASCORBIC ACID 500 MG TABLET PO SCH (16:43)
--- NOTE | 2017-04-22 18:23 | Cardiology Progress Note ---
<Myrna Vieyra - Last Filed: 04/23/17 13:25> Subjective Principal diagnosis: hypotension Interval history: Jessica is seen in follow up for hypotension and pulmonary edema. She is alert and in no distress. She denies chest pain, pressure, dyspnea, dizziness or lightheadedness. Exam Vital signs: Temperature 97.8 F 04/22/17 16:00 Pulse Rate 94 04/22/17 16:00 Respiratory Rate 16 04/22/17 16:00 Blood Pressure 117/65 04/22/17 16:00 Pulse Oximetry 97 04/22/17 16:00 - Constitutional no acute distress, well nourished, cooperative - Routine HEENT Exam Head: Present: normocephalic ENT: Present: mucous membranes moist - Routine Neck Exam Absent: JVD, carotid bruit - Routine Chest/Breast/Axilla Exam Chest wall: Absent: tenderness - Routine Respiratory Exam Present: decreased breath sounds (anteriorly), CTA bilaterally - Routine Cardiovascular Exam Present: murmur (II/), irregular rhythm - Routine Abdominal Exam Present: soft, normoactive bowel sounds - Routine Extremities Exam Present: edema - Routine Skin Exam Present: intact, dry, warm - Routine Neurological Exam Present: alert, oriented X3 - Routine Psychiatric Exam Present: normal affect, normal thought process - Additional findings Additional findings: Acetaminophen (Tylenol) 650 mg PO Q4H PRN PRN Reason: Pain Last Admin: 04/21/17 21:58 Dose: 650 mg Hydrocodone Bitart/Acetaminophen ([place] 5/325) 1 tab PO Q6H PRN PRN Reason: Pain Last Admin: 04/22/17 12:35 Dose: 1 tab Albuterol Sulfate (Proventil Neb (0.083%)) 2.5 mg AEROSOL Q6H PRN PRN Reason: Shortness of air Artificial Tears (Refresh Celluvisc) 1 drop EACH EYE BID [facility] Last Admin: 04/22/17 09:12 Dose: 1 drop Ascorbic Acid (Vitamin C) 500 mg PO BIDWM [facility] Last Admin: 04/22/17 16:43 Dose: 500 mg Bumetanide (Bumex Tab) 2 mg PO DAILY [facility] Last Admin: 04/22/17 09:14 Dose: 2 mg Carbidopa/Levodopa (Sinemet) 1 tab PO TID/E [facility] Last Admin: 04/22/17 14:09 Dose: 1 tab Citalopram Hydrobromide (Celexa) 20 mg PO DAILY [facility] Last Admin: 04/22/17 09:14 Dose: 20 mg Digoxin (Lanoxin) 125 mcg PO Q2D [facility] Last Admin: 04/22/17 09:12 Dose: 125 mcg Diltiazem HCl (Cardizem Cd) 180 mg PO DAILY [facility] Last Admin: 04/21/17 09:26 Dose: 180 mg Docusate Sodium (Colace) 100 mg PO BID PRN Enoxaparin Sodium (Lovenox) 40 mg SQ Q24H [facility] Last Admin: 04/21/17 20:22 Dose: 40 mg Ferrous Sulfate (Feosol) 324 mg PO BIDWM [facility] Last Admin: 04/22/17 16:43 Dose: 324 mg Isopropyl Alcohol (Nozin Nasal Swab) 1 each DAVID Q8H [facility] Last Admin: 04/22/17 14:09 Dose: 1 each Lactobacillus Acidophilus (Culturelle) 1 cap PO WB [facility] Last Admin: 04/22/17 09:14 Dose: 1 cap Levothyroxine Sodium (Synthroid) 50 mcg PO ACB [facility] Last Admin: 04/22/17 06:05 Dose: 50 mcg Melatonin (Melatonin) 5 mg PO HS [facility] Last Admin: 04/21/17 20:21 Dose: 5 mg Metoprolol Succinate (Toprol Xl) 50 mg PO HS [facility] Last Admin: 04/21/17 20:26 Dose: 50 mg Mirabegron (Myrbetriq) 50 mg PO [facility] Last Admin: 04/21/17 20:21 Dose: 50 mg Morphine Sulfate (Morphine Sulfate Inj) 1 - 2 mg IVP Q2H PRN PRN Reason: Pain Omeprazole (Prilosec) 20 mg PO ACB [facility] Last Admin: 04/22/17 06:05 Dose: 20 mg Ondansetron HCl (Zofran) 4 mg IVP Q6H PRN PRN Reason: Nausea &/or vomiting Phenytoin Sodium (Dilantin) 100 mg PO BIDWM [facility] Last Admin: 04/22/17 16:43 Dose: 100 mg Polyethylene Glycol (Miralax) 17 gm PO DAILY [facility] Last Admin: 04/22/17 09:15 Dose: Not Given Potassium Chloride (K-Dur) 20 meq PO [facility] Last Admin: 04/22/17 09:14 Dose: 20 meq Rasagiline (Azilect) 1 mg PO DAILY [facility] Last Admin: 04/22/17 09:14 Dose: 1 mg Tramadol HCl (Ultram) 50 mg PO Q6H PRN PRN Reason: Pain Last Admin: 04/22/17 16:43 Dose: 50 mg Trolamine Salicylate (Aspercreme) 1 applic TOP PRN PRN Last Admin: 04/21/17 09:59 Dose: 1 applic Warfarin Sodium (Coumadin Protocol) 0 [facility] NOTE [facility]EL[facility] Results 04/22/17 05:30 04/22/17 05:30 CBC 04/22/17 Range/Units 05:30 WBC 5.1 (4.5-11.0) T/MM3 RBC 2.49 L (4.00-5.20) M/MM3 Hgb 8.0 L (12-16) GM/DL Hct 25.5 L (36-46) % Plt Count 251 (130-400) T/MM3 Neut # (Auto) 2.2 (1.8-7.7) T/MM3 Lymph # (Auto) 2.1 (1-4.8) T/MM3 [place] # (Auto) 0.6 (0-0.8) T/MM3 Eos # (Auto) 0.2 (0-0.5) T/MM3 Baso # (Auto) 0.1 (0-0.2) T/MM3 Comprehensive Metabolic Panel 04/22/17 Range/Units 05:30 Sodium 135 (134-144) MEQ/L Potassium 4.0 (3.6-5) MEQ/L Chloride 98 (98-107) MEQ/L Carbon Dioxide 32 H (22-30) MEQ/L BUN 23.0 H (7-17) MG/DL Creatinine 1.1 (0.7-1.2) MG/DL Glucose 88 (65-110) MG/DL Calcium 8.8 (8.4-10.2) MG/DL Intake and Output 04/22/17 04/22/17 04/22/17 06:59 14:59 22:59 Intake Total 100 / 100 590 / 590 Output Total 400 / 400 Balance 100 / 100 590 / 590 -400 / -400 Intake: Oral 100 / 100 590 / 590 Output: Urine 400 / 400 Other: Urine Appearance Clear Urine Color Straw Stool Color Brown Stool Consistency Soft Formed Size of Bowel Movement Moderate # Voids 1 # Incontinent Voids 1 # Bowel Movements 1 Weight 136 lb 10.986 oz Laboratory Results - last 24 hr 04/22/17 04/22/17 04/22/17 05:30 05:30 05:30 WBC 5.1 RBC 2.49 L Hgb 8.0 L Hct 25.5 L MCV 102.4 H MCH 32.1 MCHC 31.4 RDW Std Deviation 45.9 Plt Count 251 MPV 8.8 L Immature Gran % (Auto) 0.2 Neut % (Auto) 43.0 Lymph % (Auto) 40.6 [place] % (Auto) 11.6 H Eos % (Auto) 3.6 Baso % (Auto) 1.0 Neut # (Auto) 2.2 Lymph # (Auto) 2.1 [place] # (Auto) 0.6 Eos # (Auto) 0.2 Baso # (Auto) 0.1 Abs Immat Gran (auto) 0.01 INR 2.03 H Turbidity < 20 Sodium 135 Potassium 4.0 Chloride 98 Carbon Dioxide 32 H Anion Gap 5 BUN 23.0 H Creatinine 1.1 GFR Calculation 47 BUN/Creatinine Ratio 21 Glucose 88 Calculated Osmolality 263 Calcium 8.8 Icterus Index < 2 Specimen Hemolysis < 15 Assessment and Plan - Assessment and Plan (1) Hypotension Current visit: Yes Status: Acute asymptomatic hypotension - hold Cardizem today - decrease Bumex to 1mg daily - monitor renal and electrolytes (2) Acute blood loss anemia Current visit: Yes Status: Acute (3) Atrial fibrillation Current visit: No Status: Chronic (4) Hypertension Current visit: No Status: Chronic (5) Mitral regurgitation Current visit: No Status: Acute (6) Status post-operative repair of closed fracture of left hip Current visit: Yes Status: Acute (7) Hyponatremia Current visit: Yes Status: Acute - Assessment and Plan 04/16/17 Hypotension: Stop Cardizem - Hold Metoprolol at HS if SBP< 100 Hyponatremia: Restrict fluids to 1800ml/day Anemia: Hgb 8.0 today A Fib:Continue Digoxin Q2D (had today) - Continue metoprolol if BP tolerates for rate control, as stopped Cardizem Thank you for allowing us to participate in the care of this patient. 04/17/17 Hypotension improved (low 104/48) Hyponatremia improving, up to 132 from 130, continue fluid restriction. Anemia: Hgb 7.8 today, platelets stable AFib: rate controlled with metoprolol and Q2D digoxin RVR in afternoon per EKG, restart lower dose Cardizem 180mg daily for rate control. - Monitor BP closely overnight, may need to increase dose if BP tolerates. - Telemetry please 04/18/17 Rate well controlled with low dose Cardizem 180mg daily - BP tolerates Cardizem at this time. - Continue to monitor fluid balance as patient can retain fluid easily, continue fluid restriction. - Monitor renal and electrolytes with Bumex - Digoxin level in AM 04/22/17 asymptomatic hypotension - hold Cardizem today - decrease Bumex to 1mg daily - monitor renal and electrolytes Hospital Course Summary Disclaimer: The visit summary below is not to be considered part of the above Progress Note. Hospital Course: Plan Cardizem remains on hold as recommended by cardiology. Monitor heart rate and BP. Has has hypotension at times Chest x-ray did revel pulmonary edema and she is on Bumex. Monitor for over diuresis INR remains subtherapeutic at 1.1 today. Managed by pharmacy. Hgb today down to 7.8. If she has any further hypotension or other symptoms will consider blood transfusion Monitor Hypokalemia, remains on fluid restriction. NA today 132 Does complain of chronic cervicale neck pain. Will add Aspercreme topically. Encourage work with PT/OT 04/22 Overall doing well and making gains. Able to ambulate with walker to all meals Given PO iron BID and add Vitamin C with it for improved absorption INR managed by Pharmacy Remains mild hypotension however appears to be asymptomatic Continue to work with PT/OT for strengthening <Gautam Hicks - Last Filed: 04/24/17 11:43> Exam Vital signs: Temperature 98.2 F 04/24/17 10:00 Pulse Rate 87 04/24/17 10:08 Respiratory Rate 18 04/24/17 10:00 Blood Pressure 87/52 04/24/17 10:00 Pulse Oximetry 96 04/24/17 10:00 Results 04/22/17 05:30 04/22/17 05:30 Intake and Output 04/23/17 04/24/17 04/24/17 22:59 06:59 14:59 Intake Total 120 / 120 100 / 100 Balance 120 / 120 100 / 100 Intake: Oral 120 / 120 100 / 100 Other: Urine Color Yellow Stool Color Brown Stool Consistency Soft Size of Bowel Movement Small # Voids 1 3 1 # Bowel Movements 1 Weight 61 kg Assessment and Plan - Assessment and Plan (1) Atrial fibrillation Current visit: No Status: Chronic (2) Hypertension Current visit: No Status: Chronic (3) Mitral regurgitation Current visit: No Status: Acute (4) Status post-operative repair of closed fracture of left hip Current visit: Yes Status: Acute (5) Hypotension Current visit: Yes Status: Acute (6) Acute blood loss anemia Current visit: Yes Status: Acute (7) Hyponatremia Current visit: Yes Status: Acute - Attestation Attestation Narrative: 04/24/17 11:43 Recommendation After examining the patient I agree with the above assessment. I am involved in the formulation of the patient's plan of care. Hospital Course Summary Disclaimer: The visit summary below is not to be considered part of the above Progress Note.
[2017-04-22] MEDS: ENOXAPARIN 40 MG/0.4 ML INJECTION SQ SCH (21:16)
[2017-04-22] MEDS: MIRABEGRON 25mg TABLET PO SCH (21:17)
[2017-04-22] MEDS: MELATONIN 5 MG TABLET PO SCH (21:17)
[2017-04-23] MEDS: TRAMADOL 50 MG TABLET PO PRN ×4 (03:29→23:47)
[2017-04-23] MEDS: LEVOTHYROXINE 50 MCG TABLET PO SCH (06:18)
[2017-04-23] MEDS: OMEPRAZOLE 20 MG CAPSULE PO SCH (06:18)
[2017-04-23] MEDS: NOZIN NASAL SWAB NAS SCH ×4 (06:19→22:17)
[2017-04-23] MEDS: LACTOBACILLUS (15B cfu) CAPSULE PO SCH (08:56)
[2017-04-23] MEDS: ASCORBIC ACID 500 MG TABLET PO SCH ×2 (08:56→18:07)
[2017-04-23] MEDS: PHENYTOIN 100 MG CAPSULE PO SCH ×2 (08:56→18:07)
[2017-04-23] MEDS: FERROUS SULFATE 324 MG TABLET PO SCH ×2 (08:56→18:06)
[2017-04-23] MEDS: CITALOPRAM 20 MG TABLET PO SCH (08:57)
[2017-04-23] MEDS: BUMETANIDE 1 MG TABLET PO SCH (08:57)
[2017-04-23] MEDS: RASAGILINE 0.5 MG TABLET PO SCH (08:58)
[2017-04-23] MEDS: POLYETHYL GLYCOL 3350 17gm PACKET PO SCH (08:59)
--- NOTE | 2017-04-23 10:09 | Pharmacy Consult ---
Pharmacy Consult-Warfarin - Laboratory Information 04/16/17 04/17/17 04/18/17 04:30 04:42 04:25 INR 1.19 1.17 1.27 H 04/19/17 04/20/17 04/21/17 05:26 04:20 04:37 INR 1.28 H 1.85 H 1.99 H 04/22/17 04/23/17 05:30 04:29 INR 2.03 H 2.00 H - Consult Information 81 y.o. Female with history of a.fib. and chronic anticoagulation with Warfarin. goal INR range= 2.0 to 3.0. INR was therapeutic upon admission. Patient admitted with hip fracture and INR was normalized with Vitamin K for surgery. date INR dose 04/13 2.11 ---- vitamin K 5 mg po and 10 mg sq doses given to normalize INR for surgery 04/14 1.36 3 mg 04/15 1.17 2 mg 04/16 1.19 2 mg 04/17 1.17 4 mg 04/18 1.27 5 mg 04/19 1.28 6 mg 04/20 1.85 2 mg 04/21 1.99 3 mg 04/22 2.03 3 mg 04/23 2.00 Give 3 mg today. INR is therapeutic. Will continue with the 3 mg dose for today. Patient's home dose of Warfarin is 3 mg Saturday and , and 2 mg Sat, , Sat, Sat, Sat. The Pharmacy will continue to monitor and adjust the warfarin as needed. Patient is currently on Enoxaparin 40 mg SQ daily. Will discontinue the bridge dose of Enoxaparin today as the INR has been 2.0 for the past 48 hours. Thank you. Shaylee Atkins, PharmD
--- NOTE | 2017-04-23 11:26 | IRU Progress Note ---
- Subjective/Serverity of Illness Date: 04/23/17 Jessica continues to experience hypotension objectively although she denies any lightheadedness to me. Denies any dizziness. She was seen by cardiology yesterday. Bumex was reduced and Cardizem was held. Blood pressures at times her down into the 79 range. She denies any shortness of breath. Her main concern is getting back to her apartment. She would like to get back as rapidly as possible. I discussed with her that I have discussed this with the therapy team and they feel as though she can make more progress and be safer to go back. She lives in long-term care and, while there will be people available, they will not be worth her immediately all the time. We feel as though we can make additional progress here. She denies any chest pain. She denies any shortness of breath. Brief therapy update: For occupational therapy she requires minimal assistance for supine to sit transfers. Requires contact guard assistance for sit to stand. While she is standing brushing her teeth she requires contact-guard assistance. She is able to ambulate with assistance to the bathroom but states that her knees tend to buckle on her. Physical therapy she is able to ablate 160 feet with a front-wheeled walker with standby assist. However her progress is limited by fatigue. Medically, she seems to be stable with regard to her cardiac status. Unfortunately she continues to struggle with hypotension but this is apparently asymptomatic. As noted above cardiology is seeing and adjustments in medications are underway. Exam Vital Signs: Temperature 98.0 F 04/23/17 08:00 Pulse Rate 77 04/23/17 10:01 Respiratory Rate 14 04/23/17 08:00 Blood Pressure 94/56 04/23/17 10:02 Pulse Oximetry 97 04/23/17 08:00 Height/Weight/BMI: Height 1.55 m Weight 61.4 kg Body Mass Index 26.9 - Constitutional Present: no acute distress, well nourished, well developed, cooperative - Routine HEENT Exam Head: Present: normocephalic Eye: Present: EOMI ENT: Present: mucous membranes moist - Routine Neck Exam Present: supple - Routine Respiratory Exam Present: CTA bilaterally. Absent: rhonchi, wheezes, crackles - Routine Cardiovascular Exam Present: S1, S2, murmur, irregularly irregular. Absent: S3, S4 - Routine Abdominal Exam Present: soft, normoactive bowel sounds, non distended. Absent: tenderness - Routine Extremities Exam Present: no edema - Routine Skin Exam Present: dry, warm - Routine Neurological Exam Present: alert, oriented X3, CN II-XII intact - Routine Psychiatric Exam Present: normal affect, cooperative Results IRU - Labs Labs: Reviewed other providers notes and other chart information. IRU A/P (1) Atrial fibrillation Qualifiers: Atrial fibrillation type: chronic Qualified Code(s): I48.2 - Chronic atrial fibrillation Current visit: No Status: Chronic INR is therapeutic. No evidence of bleeding. She does have easy fatigability. (2) Hypertension Qualifiers: Hypertension type: essential hypertension Qualified Code(s): I10 - Essential (primary) hypertension Current visit: No Status: Chronic (3) Parkinson disease Current visit: No Status: Chronic (4) Mitral regurgitation Qualifiers: Cardiac valve disease etiology: etiology unspecified Qualified Code(s): I34.0 - Nonrheumatic mitral (valve) insufficiency Current visit: No Status: Acute (5) Status post-operative repair of closed fracture of left hip Current visit: Yes Status: Acute Pain is adequately controlled. Continues to require standby to contact-guard assistance for transfers and ambulation. (6) Acute blood loss anemia Current visit: Yes Status: Acute (7) Hypotension Qualifiers: Hypotension type: unspecified hypotension type Qualified Code(s): I95.9 - Hypotension, unspecified Current visit: Yes Status: Acute Blood pressures continue to be borderline low at times. Cardiology has held Cardizem yesterday and reduced Bumex. Her weight is down. DVT Prophylaxis: SCD's, Coumadin Resuscitation Status: Full Code - Course Hospital Course: Ayan Delgadillo MD: 04/17/17 14:15 She is cooperative with therapy. Bladder retraining is in progress and we will likely remove the catheters night. She does have easy fatigability. There is no chest pain. 04/19/17 11:11 Has made some progress with therapy. Pain adequately controlled. Does have easy fatigability. Had rapid ventricular response and Cardizem added. 04/20/17 08:33 Continues to improve with therapy. Medically stable. Complains of neck pain. We'll add on Aspercreme. 04/22/17 14:49 She is progressing with therapy. Additional progress is hope for over the next several days. Blood pressure is a bit low and this will be monitored carefully. Hemoglobin stable at 8 g percent. 04/23/17 11:28 Hypotension noted. Asymptomatic in this regard. Cooperative with therapy. She will require assistance. - Interventions to Obtain Goals PT Treatment Plan: Balance/Proprioception, Functional Activities, Gait Training , Patient/Family Education, Therapeutic Exercise OT Treatment Plan: ADL (Basic Care), Balance Training, Pt./Family Education, Ther. Exercise for ADL Goals Progress/Modifications: Time spent with patient and on floor reviewing data and documentin min Barriers to dismissal: Endurance, strength, hypotension Medical decision-making: Patient's low blood pressure is of concern. However it is asymptomatic. Cardiology has held Cardizem for a day and reduced her Bumex. Her weight is down so perhaps if we can reduce the diuresis that will be of benefit for her. She has easy fatigability. She is very cooperative and wants to go home. I did discuss the case yesterday with the therapists and I discussed this with the patient yesterday and today. We will let to keep her another couple days to ensure safety and to improve her strength in transitions and ambulation. She is reluctantly agreeable.
[2017-04-23] MEDS ORDERED: WARFARIN 3 MG TABLET PO SCH (12:00)
[2017-04-23] MEDS: REFRESH CELLUVISC 1% Eye Drops 0.4ml EACH EYE SCH ×2 (12:14→22:15)
--- NOTE | 2017-04-23 13:29 | Cardiology Progress Note ---
<Myrna Vieyra - Last Filed: 04/23/17 13:26> Subjective Principal diagnosis: hypotension Interval history: Jessica is seen in follow up for hypotension and pulmonary edema. She is in the dining room for breakfast. She denies chest pain, pressure, dyspnea, dizziness or lightheadedness. Exam Vital signs: Temperature 97.7 F 04/23/17 12:12 Pulse Rate 95 04/23/17 12:12 Respiratory Rate 14 04/23/17 08:00 Blood Pressure 109/71 04/23/17 12:12 Pulse Oximetry 94 04/23/17 12:12 - Constitutional no acute distress, well nourished, cooperative - Routine HEENT Exam Head: Present: normocephalic ENT: Present: mucous membranes moist - Routine Neck Exam Absent: JVD, carotid bruit - Routine Chest/Breast/Axilla Exam Chest wall: Absent: tenderness - Routine Respiratory Exam Present: CTA bilaterally. Absent: rales, wheezes - Routine Cardiovascular Exam Present: murmur (II/), irregular rhythm - Routine Abdominal Exam Present: soft, normoactive bowel sounds - Routine Extremities Exam Present: edema - Routine Skin Exam Present: intact, dry, warm - Routine Neurological Exam Present: alert, oriented X3 - Routine Psychiatric Exam Present: normal affect, normal thought process - Additional findings Additional findings: Acetaminophen (Tylenol) 650 mg PO Q4H PRN PRN Reason: Pain Last Admin: 04/21/17 21:58 Dose: 650 mg Hydrocodone Bitart/Acetaminophen ([place] 5/325) 1 tab PO Q6H PRN PRN Reason: Pain Last Admin: 04/22/17 21:20 Dose: 1 tab Albuterol Sulfate (Proventil Neb (0.083%)) 2.5 mg AEROSOL Q6H PRN PRN Reason: Shortness of air Artificial Tears (Refresh Celluvisc) 1 drop EACH EYE BID [facility] Last Admin: 04/23/17 12:14 Dose: 1 drop Ascorbic Acid (Vitamin C) 500 mg PO BIDWM [facility] Last Admin: 04/23/17 08:56 Dose: 500 mg Bumetanide (Bumex Tab) 1 mg PO DAILY [facility] Last Admin: 04/23/17 08:57 Dose: 1 mg Carbidopa/Levodopa (Sinemet) 1 tab PO TID/E [facility] Last Admin: 04/23/17 06:18 Dose: 1 tab Citalopram Hydrobromide (Celexa) 20 mg PO DAILY [facility] Last Admin: 04/23/17 08:57 Dose: 20 mg Digoxin (Lanoxin) 125 mcg PO Q2D [facility] Last Admin: 04/22/17 09:12 Dose: 125 mcg Diltiazem HCl (Cardizem Cd) 180 mg PO DAILY [facility] Last Admin: 04/23/17 12:14 Dose: 180 mg Docusate Sodium (Colace) 100 mg PO BID PRN Ferrous Sulfate (Feosol) 324 mg PO BIDWM [facility] Last Admin: 04/23/17 08:56 Dose: 324 mg Isopropyl Alcohol (Nozin Nasal Swab) 1 each [facility] Q8H [facility] Last Admin: 04/23/17 06:19 Dose: 1 each Lactobacillus Acidophilus (Culturelle) 1 cap PO [facility] Last Admin: 04/23/17 08:56 Dose: 1 cap Levothyroxine Sodium (Synthroid) 50 mcg PO ACB [facility] Last Admin: 04/23/17 06:18 Dose: 50 mcg Melatonin (Melatonin) 5 mg PO [facility] Last Admin: 04/22/17 21:17 Dose: 5 mg Metoprolol Succinate (Toprol Xl) 50 mg PO HS [facility] Last Admin: 04/22/17 21:16 Dose: 50 mg Mirabegron (Myrbetriq) 50 mg PO [facility] Last Admin: 04/22/17 21:17 Dose: 50 mg Morphine Sulfate (Morphine Sulfate Inj) 1 - 2 mg IVP Q2H PRN PRN Reason: Pain Omeprazole (Prilosec) 20 mg PO ACB [facility] Last Admin: 04/23/17 06:18 Dose: 20 mg Ondansetron HCl (Zofran) 4 mg IVP Q6H PRN PRN Reason: Nausea &/or vomiting Phenytoin Sodium (Dilantin) 100 mg PO BIDWM [facility] Last Admin: 04/23/17 08:56 Dose: 100 mg Polyethylene Glycol (Miralax) 17 gm PO DAILY [facility] Last Admin: 04/23/17 08:59 Dose: Not Given Potassium Chloride (K-Dur) 20 meq PO [facility] Last Admin: 04/23/17 08:56 Dose: 20 meq Rasagiline (Azilect) 1 mg PO DAILY [facility] Last Admin: 04/23/17 08:58 Dose: 1 mg Tramadol HCl (Ultram) 50 mg PO Q6H PRN PRN Reason: Pain Last Admin: 04/23/17 09:56 Dose: 50 mg Trolamine Salicylate (Aspercreme) 1 applic TOP PRN PRN Last Admin: 04/21/17 09:59 Dose: 1 applic Warfarin Sodium (Coumadin Protocol) 0 [facility] NOTE [facility] Warfarin Sodium (Coumadin) 3 mg PO NOON [facility] Stop: 04/23/17 14:00 Last Admin: 04/23/17 12:13 Dose: 3 mg Results 04/22/17 05:30 04/22/17 05:30 Intake and Output 04/22/17 04/23/17 04/23/17 22:59 06:59 14:59 Intake Total 350 / 350 640 / 640 Output Total 400 / 400 250 / 250 550 / 550 Balance -50 / -50 -250 / -250 90 / 90 Intake: Oral 350 / 350 640 / 640 Output: Urine 400 / 400 250 / 250 550 / 550 Other: Urine Appearance Clear Clear Clear Urine Color Straw Dark Yellow Yellow Urine Odor Normal Normal Stool Color Brown Stool Consistency Soft Formed Size of Bowel Movement Moderate # Voids 1 1 1 # Incontinent Voids 1 # Bowel Movements 1 Weight 135 lb 5.821 oz Assessment and Plan - Assessment and Plan (1) Hypotension Status: Acute (2) Acute blood loss anemia Status: Acute (3) Atrial fibrillation Status: Chronic (4) Hypertension Status: Chronic (5) Mitral regurgitation Status: Acute (6) Status post-operative repair of closed fracture of left hip Status: Acute (7) Hyponatremia Status: Acute - Assessment and Plan 04/16/17 Hypotension: Stop Cardizem - Hold Metoprolol at HS if SBP< 100 Hyponatremia: Restrict fluids to 1800ml/day Anemia: Hgb 8.0 today A Fib:Continue Digoxin Q2D (had today) - Continue metoprolol if BP tolerates for rate control, as stopped Cardizem Thank you for allowing us to participate in the care of this patient. 04/17/17 Hypotension improved (low 104/48) Hyponatremia improving, up to 132 from 130, continue fluid restriction. Anemia: Hgb 7.8 today, platelets stable AFib: rate controlled with metoprolol and Q2D digoxin RVR in afternoon per EKG, restart lower dose Cardizem 180mg daily for rate control. - Monitor BP closely overnight, may need to increase dose if BP tolerates. - Telemetry please 04/18/17 Rate well controlled with low dose Cardizem 180mg daily - BP tolerates Cardizem at this time. - Continue to monitor fluid balance as patient can retain fluid easily, continue fluid restriction. - Monitor renal and electrolytes with Bumex - Digoxin level in AM 04/22/17 asymptomatic hypotension - hold Cardizem today - decrease Bumex to 1mg daily - monitor renal and electrolytes 04/23/17 hypotensive following Cardizem dose - Stop cardizem, continue digoxin QOD for rate control - Digoxin level therapeutic (1.1) today Hospital Course Summary Disclaimer: The visit summary below is not to be considered part of the above Progress Note. Hospital Course: Plan Cardizem remains on hold as recommended by cardiology. Monitor heart rate and BP. Has has hypotension at times Chest x-ray did revel pulmonary edema and she is on Bumex. Monitor for over diuresis INR remains subtherapeutic at 1.1 today. Managed by pharmacy. Hgb today down to 7.8. If she has any further hypotension or other symptoms will consider blood transfusion Monitor Hypokalemia, remains on fluid restriction. NA today 132 Does complain of chronic cervicale neck pain. Will add Aspercreme topically. Encourage work with PT/OT 04/22 Overall doing well and making gains. Able to ambulate with walker to all meals Given PO iron BID and add Vitamin C with it for improved absorption INR managed by Pharmacy Remains mild hypotension however appears to be asymptomatic Continue to work with PT/OT for strengthening <Gautam Hicks - Last Filed: 04/29/17 15:08> Exam Vital signs: Temperature 98.7 F 04/25/17 12:00 Pulse Rate 99 04/25/17 13:40 Respiratory Rate 16 04/25/17 12:00 Blood Pressure 113/65 04/25/17 13:40 Pulse Oximetry 99 04/25/17 13:40 Results 04/24/17 14:40 04/24/17 14:40 Assessment and Plan - Assessment and Plan (1) Atrial fibrillation Status: Chronic (2) Hypertension Status: Chronic (3) Mitral regurgitation Status: Acute (4) Status post-operative repair of closed fracture of left hip Status: Acute (5) Hypotension Status: Acute (6) Acute blood loss anemia Status: Acute (7) Hyponatremia Status: Acute - Attestation Attestation Narrative: 04/29/17 15:07 Recommendation After examining the patient I agree with the above assessment. I am involved in the formulation of the patient's plan of care. Hospital Course Summary Disclaimer: The visit summary below is not to be considered part of the above Progress Note.
[2017-04-23] MEDS: ACETAMINOPHEN 325 MG TABLET PO PRN (14:02)
[2017-04-23] MEDS: ACETAMINOPHEN 325 MG TABLET PO SCH ×3 (18:06→20:40)
[2017-04-23] MEDS: MIRABEGRON 25mg TABLET PO SCH (20:37)
[2017-04-23] MEDS: MELATONIN 5 MG TABLET PO SCH (20:41)
[2017-04-24] MEDS: HYDROCODONE/APAP 5mg/325mg TABLET PO PRN (04:16)
[2017-04-24] MEDS: NOZIN NASAL SWAB NAS SCH ×3 (06:52→20:47)
[2017-04-24] MEDS: TRAMADOL 50 MG TABLET PO PRN ×2 (06:52→12:28)
[2017-04-24] MEDS: OMEPRAZOLE 20 MG CAPSULE PO SCH (06:52)
[2017-04-24] MEDS: LEVOTHYROXINE 50 MCG TABLET PO SCH (06:52)
--- NOTE | 2017-04-24 08:03 | Pharmacy Consult ---
Pharmacy Consult-Warfarin - Laboratory Information 04/16/17 04/17/17 04/18/17 04:30 04:42 04:25 INR 1.19 1.17 1.27 H 04/19/17 04/20/17 04/21/17 05:26 04:20 04:37 INR 1.28 H 1.85 H 1.99 H 04/22/17 04/23/17 04/24/17 05:30 04:29 05:22 INR 2.03 H 2.00 H 1.98 H - Consult Information 81 y.o. Female with history of a.fib. and chronic anticoagulation with Warfarin. goal INR range= 2.0 to 3.0. INR was therapeutic upon admission. Patient admitted with hip fracture and INR was normalized with Vitamin K for surgery. date INR dose 04/13 2.11 ---- vitamin K 5 mg po and 10 mg sq doses given to normalize INR for surgery 04/14 1.36 3 mg 04/15 1.17 2 mg 04/16 1.19 2 mg 04/17 1.17 4 mg 04/18 1.27 5 mg 04/19 1.28 6 mg 04/20 1.85 2 mg 04/21 1.99 3 mg 04/22 2.03 3 mg 04/23 2.00 3 mg 04/24 1.98 Plan 4 mg INR slightly subtherapeutic after being therapeutic so I am ordering Warfarin 4 mg p.o. today. The Pharmacy will continue to monitor and adjust the warfarin as needed. Thank you for the Warfarin consult, Joe Snell, Pharmacist.
[2017-04-24] MEDS: CITALOPRAM 20 MG TABLET PO SCH (10:02)
[2017-04-24] MEDS: ACETAMINOPHEN 325 MG TABLET PO SCH ×4 (10:02→22:45)
[2017-04-24] MEDS: PHENYTOIN 100 MG CAPSULE PO SCH ×2 (10:03→18:12)
[2017-04-24] MEDS: LACTOBACILLUS (15B cfu) CAPSULE PO SCH (10:04)
[2017-04-24] MEDS: FERROUS SULFATE 324 MG TABLET PO SCH ×2 (10:04→18:12)
[2017-04-24] MEDS: ASCORBIC ACID 500 MG TABLET PO SCH ×2 (10:04→18:12)
[2017-04-24] MEDS: POLYETHYL GLYCOL 3350 17gm PACKET PO SCH (10:05)
[2017-04-24] MEDS: RASAGILINE 0.5 MG TABLET PO SCH (10:05)
[2017-04-24] MEDS: DIGOXIN 125 MCG TABLET PO SCH (10:08)
[2017-04-24] MEDS ORDERED: WARFARIN 4 MG TABLET PO SCH (12:00)
[2017-04-24] MEDS: BUMETANIDE 1 MG TABLET PO SCH (12:28)
[2017-04-24] MEDS: REFRESH CELLUVISC 1% Eye Drops 0.4ml EACH EYE SCH ×2 (12:28→20:45)
--- NOTE | 2017-04-24 14:15 | Progress Note ---
- Date 04/24/17 Subjective: Jessica is seen today while eating lunch in the dining room. She complains of chronic left knee pain with some increased swelling which she states is secondary to her rheumatoid arthritis. She denies any other complaints or concerns including no chest pain, shortness of breath, abdominal pain, nausea, vomiting or dysuria. She continues to struggle with hypotension with blood pressure 87/52 this morning. She continues to follow with Dr. Hicks who recently discontinued her home Cardizem on 04/23/17 and decreased her home bumex to 1mg daily on 04/22/17. She denies being symptomatic with her hypotension. No dizziness, lightheadedness or syncope. Labs from 04/22/17 revealed persistent anemia with hemoglobin at 8.0 and otherwise unremarkable. INR being management by pharmacy and currently 1.98. Appetite is stable and bowels are moving. Objective Vital signs: Temperature 98.2 F 04/24/17 10:00 Pulse Rate 87 04/24/17 10:08 Respiratory Rate 18 04/24/17 10:00 Blood Pressure 103/68 04/24/17 12:10 Pulse Oximetry 96 04/24/17 10:00 Height/Weight/BMI: Height 5 ft 1 in Weight 134 lb 7.712 oz Body Mass Index 26.9 - Constitutional Present: no acute distress, well nourished, well developed, cooperative - Routine HEENT Exam Head: Present: normocephalic, atraumatic Eye: Present: PERRL. Absent: conjunctival icterus ENT: Present: mucous membranes moist - Routine Respiratory Exam Present: CTA bilaterally. Absent: respiratory distress, rhonchi, wheezes - Routine Cardiovascular Exam Present: irregularly irregular - Routine Abdominal Exam Present: soft, normoactive bowel sounds, non distended, non tender - Routine Extremities Exam Present: edema (1+), pulses intact Comments: limited ROM due to left hip pain - Routine Back/Spine/Pelvis Exam Back/Spine: Present: full ROM. Absent: vertebral tenderness - Routine Musculoskeletal Exam Musculoskeletal: Present: moving extremities well, limited range of motion ( left hip) - Routine Skin Exam Present: dry, warm. Absent: jaundice Comments: afebrile - Routine Neurological Exam Present: alert, moving all extremities, normal speech - Routine Lymphatic Exam Lymphatic: Absent: lymphedema - Routine Psychiatric Exam Present: cooperative Results - Labs CBC & Chem 7: 04/22/17 05:30 04/22/17 05:30 Assessment and Plan (1) Femoral neck fracture Current visit: No Status: Resolved (2) Atrial fibrillation Current visit: No Status: Chronic (3) Hypertension Current visit: No Status: Chronic (4) Parkinson disease Current visit: No Status: Chronic (5) Hypothyroid Current visit: No Status: Chronic (6) Mitral regurgitation Current visit: No Status: Acute (7) Status post-operative repair of closed fracture of left hip Current visit: Yes Status: Acute (8) Acute blood loss anemia Current visit: Yes Status: Acute Assessment and Plan: Assessment Left impacted femoral neck fx, 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 Whitney Postop anemia Iron def anemia Hyponatremia-POA Afib, chronic HFpEF with VHD (mitral) CKD, stage 3 HTN hypothyroid, chronic GERD Parkinson's disease Coronary artery disease Constipation Diverticulosis Osteoarthritis/rheumatoid arthritis Spinal stenosis Depression Macular degeneration Plan - 04/24/17 Overall Jesscia is doing well and making gains. Continue therapies and pain control per Dr. Delgadillo to improve strength and physical abilities. Patient continues to struggle with hypotension - 87/52 this morning. Patient seen and under the care of Dr. Hicks who discontinued her home Cardizem on and decreased her home Bumex to 1mg daily on 04/22/17. Appreciate his time and expertise. Continue to monitor blood pressure closely and monitor closely as patient is high fall risk, though she denies symptoms with hypotension. Hemoglobin 8.0 on 04/22/17. Will recheck labs in AM to monitor blood counts, electrolytes and renal function. INR managed by Pharmacy - currently 1.98. Weight trending down. Continue to encourage oral intake and fluids. DVT Prophylaxis: Coumadin GI Prophylaxis: other (Prilosec) Resuscitation Status: Full Code - Time spent with patient Time with patient PN: 35 minutes - Physician Narrative Physician: Pat Claros MD Narrative: Date: 04/24/17 Time: 1411 Hospital Course Summary Disclaimer: The visit summary below is not to be considered part of the above Progress Note. Hospital Course: Plan Cardizem remains on hold as recommended by cardiology. Monitor heart rate and BP. Has has hypotension at times Chest x-ray did revel pulmonary edema and she is on Bumex. Monitor for over diuresis INR remains subtherapeutic at 1.1 today. Managed by pharmacy. Hgb today down to 7.8. If she has any further hypotension or other symptoms will consider blood transfusion Monitor Hypokalemia, remains on fluid restriction. NA today 132 Does complain of chronic cervicale neck pain. Will add Aspercreme topically. Encourage work with PT/OT 04/22 Overall doing well and making gains. Able to ambulate with walker to all meals Given PO iron BID and add Vitamin C with it for improved absorption INR managed by Pharmacy Remains mild hypotension however appears to be asymptomatic Continue to work with PT/OT for strengthening Plan - 04/24/17 Overall Jessica is doing well and making gains. Continue therapies and pain control per Dr. Delgadillo to improve strength and physical abilities. Patient continues to struggle with hypotension - 87/52 this morning. Patient seen and under the care of Dr. Hicks who discontinued her home Cardizem on and decreased her home Bumex to 1mg daily on 04/22/17. Appreciate his time and expertise. Continue to monitor blood pressure closely and monitor closely as patient is high fall risk, though she denies symptoms with hypotension. Hemoglobin 8.0 on 04/22/17. Will recheck labs in AM to monitor blood counts, electrolytes and renal function. INR managed by Pharmacy - currently 1.98. Weight trending down. Continue to encourage oral intake and fluids.
[2017-04-24] MEDS: MIRABEGRON 25mg TABLET PO SCH (20:46)
[2017-04-24] MEDS: MELATONIN 5 MG TABLET PO SCH (20:47)
[2017-04-25] MEDS: NOZIN NASAL SWAB NAS SCH ×3 (01:16→13:32)
[2017-04-25] MEDS: TRAMADOL 50 MG TABLET PO PRN ×2 (02:52→13:43)
[2017-04-25] MEDS: LEVOTHYROXINE 50 MCG TABLET PO SCH (06:00)
[2017-04-25] MEDS: OMEPRAZOLE 20 MG CAPSULE PO SCH (06:01)
--- NOTE | 2017-04-25 08:01 | Pharmacy Consult ---
Pharmacy Consult-Warfarin - Laboratory Information 04/16/17 04/17/17 04/18/17 04:30 04:42 04:25 INR 1.19 1.17 1.27 H 04/19/17 04/20/17 04/21/17 05:26 04:20 04:37 INR 1.28 H 1.85 H 1.99 H 04/22/17 04/23/17 04/24/17 05:30 04:29 05:22 INR 2.03 H 2.00 H 1.98 H 04/25/17 05:31 INR 2.18 H - Consult Information We will order warfarin 3mg p.o. today. Home dose will be 3mg p.o. daily but may need to be changed to 3mg alternating with 4mg. Advise INR in a week to determine course of therapy. Thanks.
[2017-04-25] MEDS: BUMETANIDE 1 MG TABLET PO SCH (08:46)
[2017-04-25] MEDS: ACETAMINOPHEN 325 MG TABLET PO SCH ×2 (08:46→12:25)
[2017-04-25] MEDS: CITALOPRAM 20 MG TABLET PO SCH (08:47)
[2017-04-25] MEDS: ASCORBIC ACID 500 MG TABLET PO SCH (08:47)
[2017-04-25] MEDS: PHENYTOIN 100 MG CAPSULE PO SCH (08:47)
[2017-04-25] MEDS: FERROUS SULFATE 324 MG TABLET PO SCH (08:47)
[2017-04-25] MEDS: LACTOBACILLUS (15B cfu) CAPSULE PO SCH (08:47)
[2017-04-25] MEDS: RASAGILINE 0.5 MG TABLET PO SCH (08:48)
[2017-04-25] MEDS: POLYETHYL GLYCOL 3350 17gm PACKET PO SCH (08:48)
--- NOTE | 2017-04-25 11:12 | IRU Progress Note ---
- Subjective/Serverity of Illness Date: 04/25/17 Ms. Espinoza is anxious to get back to her apartment at [place]. She has done well with therapy but will require continued PT and OT assessment and treatment. Urinalysis was obtained yesterday demonstrates some pyuria. Culture is pending. She does complain of some left knee pain but this apparently is chronic. This was evaluated by the hospitalists yesterday. Brief therapy update: Patient has made significant improvement overall. Her bed/ chair/wheelchair transfers overall are now at modified independent level. She is able to ambulate 165 feet with modified independent functioning with a front- wheeled walker. Brief update on medical conditions are actively monitoring and managing as follows: 1. Hip fracture and repair: She is stable at this time. She has been very cooperative with therapy but will require continued PT and OT. 2. Acute blood loss anemia: Hemoglobin improved at 9.5 g percent. 3. Hyponatremia: Sodium stable at this time. 4. Hypotension (with history of hypertension): Her blood pressures have been borderline low. Cardizem has been discontinued. Bumex has been reduced. 5. Acute on chronic hypoxemic respiratory failure: This has resolved. 6. Chronic kidney disease, Stage III: Creatinine stable at 1.1. 7. Thrombocytopenia: Her platelet count is now normal. This has resolved. 8. Atrial fibrillation, on chronic warfarin therapy INR is now 2.18. 9. Pyuria: culture pending Exam Vital Signs: Temperature 97.9 F 04/25/17 08:00 Pulse Rate 85 04/25/17 08:00 Respiratory Rate 22 04/25/17 08:00 Blood Pressure 112/55 04/25/17 08:00 Pulse Oximetry 92 04/25/17 08:00 Height/Weight/BMI: Height 1.55 m Weight 61.5 kg Body Mass Index 26.9 - Constitutional Present: no acute distress, well nourished, well developed - Routine HEENT Exam Head: Present: normocephalic Eye: Present: EOMI ENT: Present: mucous membranes moist - Routine Neck Exam Present: supple - Routine Respiratory Exam Present: CTA bilaterally. Absent: wheezes - Routine Cardiovascular Exam Present: S1, S2, murmur, irregularly irregular - Routine Abdominal Exam Present: soft, normoactive bowel sounds, non distended. Absent: tenderness - Routine Extremities Exam Present: no edema (trace) - Routine Skin Exam Present: dry, warm - Routine Neurological Exam Present: alert, oriented X3, CN II-XII intact - Routine Psychiatric Exam Present: normal affect IRU A/P (1) Atrial fibrillation Qualifiers: Atrial fibrillation type: chronic Qualified Code(s): I48.2 - Chronic atrial fibrillation Current visit: No Status: Chronic Patient remains in chronic stable atrial fibrillation. Cardizem has been discontinued by cardiology and she remains on digoxin only. INR is therapeutic at 2.18. (2) Hypertension Qualifiers: Hypertension type: essential hypertension Qualified Code(s): I10 - Essential (primary) hypertension Current visit: No Status: Chronic Blood pressures overall are stable in the low 1 teens. (3) Parkinson disease Current visit: No Status: Chronic (4) Mitral regurgitation Qualifiers: Cardiac valve disease etiology: etiology unspecified Qualified Code(s): I34.0 - Nonrheumatic mitral (valve) insufficiency Current visit: No Status: Acute (5) Status post-operative repair of closed fracture of left hip Current visit: Yes Status: Acute (6) Acute blood loss anemia Current visit: Yes Status: Acute Hemoglobin improved to 9.4 g percent without evidence of ongoing blood loss. (7) Hypotension Qualifiers: Hypotension type: unspecified hypotension type Qualified Code(s): I95.9 - Hypotension, unspecified Current visit: Yes Status: Acute DVT Prophylaxis: Coumadin Resuscitation Status: Full Code - Course Hospital Course: Ayan Delgadillo MD: 04/17/17 14:15 She is cooperative with therapy. Bladder retraining is in progress and we will likely remove the catheters night. She does have easy fatigability. There is no chest pain. 04/19/17 11:11 Has made some progress with therapy. Pain adequately controlled. Does have easy fatigability. Had rapid ventricular response and Cardizem added. 04/20/17 08:33 Continues to improve with therapy. Medically stable. Complains of neck pain. We'll add on Aspercreme. 04/22/17 14:49 She is progressing with therapy. Additional progress is hope for over the next several days. Blood pressure is a bit low and this will be monitored carefully. Hemoglobin stable at 8 g percent. 04/23/17 11:28 Hypotension noted. Asymptomatic in this regard. Cooperative with therapy. She will require assistance. 04/25/17 11:13 Has done well with therapy. Stable for dismissal to [facility] with continued PT and OT. - Interventions to Obtain Goals PT Treatment Plan: Balance/Proprioception, Functional Activities, Gait Training , Patient/Family Education, Therapeutic Exercise OT Treatment Plan: ADL (Basic Care), Balance Training, Pt./Family Education, Ther. Exercise for ADL Goals Progress/Modifications: Transfer to her apartment at long-term care at [place]. She will need evaluation and treatment by PT and OT. We will follow up the pyuria/urine culture as well.
--- NOTE | 2017-04-25 11:22 | Extended Care Facility Orders ---
Admission Orders Admit to:: [facility] Allergies/Adverse Reactions: Allergies codeine Adverse Reaction (Unknown, Verified 04/15/17 15:17) SWELLING Admitting Diagnosis: left hip fracture and repair Admitting Physician: Ayan Delgadillo MD Attending Physician: Ayan Delgadillo MD Code Status: Full Code Anticiapted Length of Stay: greater than 30 days Rehab Potential: fair Rehab Prognosis: fair Diet: 04/15/17 Lunch Regular Diet [DIET] Diet Modifications: Fluid Restriction: FR 1800ML Wound/Incision Care: Keep wound clean and dry. Change dressing as needed. May use Facility Protocol or Standing Orders: Yes May have flu vaccine: Yes Evaluations/Treatment: PT, OT Fdc Certification: senior living services not needed on inpatient basis. - Additional Information In Event of Arrest: Start CPR,call 911,send patient to the ER Resident is Aware of Diagnosis: Yes Referrals: Song Whitney MD [Physician] - (Dr. Courtney Whitney on 05/22/17 at 1:00 pm for Post-Op follow-up. Check in at 12:30 pm. . Please bring Photo ID and Insurance Cards with you to your appointment. [facility] [address] [place] [address] [place] [id number]) France Blackwell MD [Family Provider] - (Dr. Macrina Blackwell will see patient on rounds at the facility for Hosp. follow-up. ) Additional Orders: Please see transfer orders for INR and BMP to be done with results to Dr. France Blackwell for her management.
--- NOTE | 2017-04-25 11:35 | Discharge Summary ---
Discharge Information Date of admission: 04/15/17 14:27 Anticipated date of discharge: 04/25/17 Attending Physician: Ayan Delgadillo MD Primary care physician: MAURISIO Blackwell MD Consults: 04/15/17 15:36 Physician Consult [CONS] Routine Consulting Provider: Drew Styles Reason For Exam: medical management Ordering Provider has Notified Chief Operator Hydroformer: Yes 04/16/17 11:11 Physician Consult [CONS] Routine Consulting Provider: Gautam Hicks Reason For Exam: hypotension, ?pulmonary edema Ordering Provider has Notified Chief Operator Hydroformer: No 04/18/17 14:37 Doctor [Physician Consult] [CONS] Routine Consulting Provider: [facility] Reason For Exam: REVIEW Ordering Provider has Notified Chief Operator Hydroformer: Yes 04/19/17 07:39 Doctor [Physician Consult] [CONS] Routine Consulting Provider: [facility] Reason For Exam: coordination of care Ordering Provider has Notified Chief Operator Hydroformer: Yes - Discharge Diagnosis (1) Atrial fibrillation Status: Chronic (2) Hypertension Status: Chronic (3) Parkinson disease Status: Chronic (4) Mitral regurgitation Status: Acute (5) Status post-operative repair of closed fracture of left hip Status: Acute (6) Acute blood loss anemia Status: Acute (7) Hypotension Status: Acute 1. Status post operative repair of left femoral neck fracture with hemiarthroplasty 2. Acute blood loss anemia 3. Atrial fibrillation, chronic, on anticoagulation 4. Hyponatremia-resolved 5. Chronic kidney disease stage III 6. Hypotension-improved 7. Thrombocytopenia secondary to consumption, resolved - Laboratory Labs: 04/24/17 14:40 04/24/17 14:40 - Microbiology Microbiology 04/25/17 06:15 Urine, Voided (Cc/notcc) Urine Culture - Preliminary Culture Initiated - Results Pending History of Present Illness HPI: Ms. Espinoza is a very pleasant 81-year-old female living in long-term care at [facility] in [place], [place]. She was standing in her 's garage and lost her balance. She fell on her left side resulting in a left femoral neck fracture on 04/12/2017. She did not lose consciousness. She was seen in the emergency department at [facility]. Because she was on Coumadin surgery was delayed a couple of days. Dr. Whitney took her to surgery on April 14, 2017 for a left hip hemiarthroplasty. Platelets were slightly low at 129,000 but these improved. In addition she had increased oxygen requirements. She normally uses oxygen at home at night but at the present time she has been using it during the daytime during the time of her acute illness. She did have evidence of acute blood loss anemia with initial hemoglobin 12 g percent dropping to 8.7 g percent. She was felt to be stable for transfer to acute inpatient rehabilitation because of her multiple medical problems (chronic atrial fibrillation on anticoagulation making her at increased risk for bleeding and anemia, history of hypertension with hypotensive episodes, hyponatremia and thrombocytopenia). She was transferred to acute inpatient rehabilitation on 04/15/2017. Hospital Course This is a general summary of the patient's hospital course. For more details refer to the complete medical record. While on acute inpatient rehabilitation she was followed by the hospitalist service, the claim review medical directordirector marketing Dr. Delgadillo as well as cardiology. From a medical standpoint she did have some episodes of hypotension with blood pressures in the 90s and even below at times. Some of these were symptomatic. Because of this the patient's Cardizem was reduced and ultimately discontinued. Her Bumex was reduced to 1 mg daily. She did have an episode of rapid ventricular response and this was treated by cardiology. She was seen by occupational therapy. Her functional progress is as follows: Eating was initially at modified independent level and ultimately independent level. Grooming was initially with standby assistance and ultimately modified independent. Bathing ability was initially minimum assistance and ultimately modified independent. Upper body dressing was initially minimal assistance and all totally modified independent. Lower body dressing was initially total assistance and ultimately standby assistance. Toileting assistance was initially at moderate assistance level and ultimately modified independent level. Toilet transfer assistance was initially moderate assistance and ultimately modified independent. Bed/chair/wheelchair transfers were initially contact-guard and ultimately modified independent. She was also seen by physical therapy. Bed/chair/wheelchair transfers were initially moderate assistance and ultimately standby assistance. Toileting assistance was initially maximum assistance and ultimately independent level. Toilet transfer assistance was initially maximum assistance and ultimately modified independent. Initially she could not perform car transfers but ultimately could perform them at standby assistance level. And bleeding ability was initially maximum assistance on the basis of distance at 62 feet (contact- guard assistance otherwise). Ultimately she could ambulate 165 feet with a front -wheeled walker at modified independent level. She initially was unsafe for stair climbing but ultimately could climb 6 steps with standby assistance. Pharmacy monitored and managed her Coumadin and INRs. Upon dismissal her INR was 2.18. With regard to her acute blood loss anemia, the lowest hemoglobin recorded on inpatient rehabilitation was 7.7 g percent. Upon dismissal it was 9.4 g percent. She did not require any transfusions. Her sodium resolved to normal at 135 with fluid restriction. Chest radiograph indicated the possibility of pulmonary edema. Cardiology managed this. Initially she was given additional Bumex but ultimately that was reduced to 1 mg daily. The issue of resuscitation was discussed with the patient and her on more than one occasion. Initially she was felt to be "DO NOT RESUSCITATE." However the patient was not certain about that and wished to think about it. I revisited that with her on a different day and she is still not certain so at this point she is still a full code unless she changes her mind. She will require follow-up of her INR and BMP on 04/27/2017 with further management of her INR by Dr. Blackwell. In addition a urinalysis is obtained within 24 hours of dismissal demonstrating the presence of pyuria. Culture is pending and this will be followed up as an outpatient. She is being transferred back to her apartment at [facility] in [place], [place] today for long-term care. PT and OT will be consulted for their evaluation and treatment as well. Hospital course: Plan Cardizem remains on hold as recommended by cardiology. Monitor heart rate and BP. Has has hypotension at times Chest x-ray did revel pulmonary edema and she is on Bumex. Monitor for over diuresis INR remains subtherapeutic at 1.1 today. Managed by pharmacy. Hgb today down to 7.8. If she has any further hypotension or other symptoms will consider blood transfusion Monitor Hypokalemia, remains on fluid restriction. NA today 132 Does complain of chronic cervicale neck pain. Will add Aspercreme topically. Encourage work with PT/OT 04/22 Overall doing well and making gains. Able to ambulate with walker to all meals Given PO iron BID and add Vitamin C with it for improved absorption INR managed by Pharmacy Remains mild hypotension however appears to be asymptomatic Continue to work with PT/OT for strengthening Plan - 04/24/17 Overall Jessica is doing well and making gains. Continue therapies and pain control per Dr. Delgadillo to improve strength and physical abilities. Patient continues to struggle with hypotension - 87/52 this morning. Patient seen and under the care of Dr. Hicks who discontinued her home Cardizem on and decreased her home Bumex to 1mg daily on 04/22/17. Appreciate his time and expertise. Continue to monitor blood pressure closely and monitor closely as patient is high fall risk, though she denies symptoms with hypotension. Hemoglobin 8.0 on 04/22/17. Will recheck labs in AM to monitor blood counts, electrolytes and renal function. INR managed by Pharmacy - currently 1.98. Weight trending down. Continue to encourage oral intake and fluids. Time spent with patient: greater than 35 minutes Discharge Plan - Med Rec/Dispo Referrals/Follow Up: Song Whitney MD [Physician] - (Dr. Courtney Whitney on 05/22/17 at 1:00 pm for Post-Op follow-up. Check in at 12:30 pm. . Please bring Photo ID and Insurance Cards with you to your appointment. [facility] [place] [facility] [address] [place] [address] [place] [id number]) France Blackwell MD [Family Provider] - (Dr. Macrina Blackwell will see patient on rounds at the facility for Hosp. follow-up. ) Prescriptions: New Ferrous Sulfate [Feosol] 324 mg PO BIDWM tab Warfarin [Coumadin] 3 mg PO NOON tab PEG 3350 17gm PACKET [Miralax] 17 gm PO DAILY packet Hydrocodone/APAP 5/325 [[place] 5/325] 1 tab PO Q6H PRN #30 tab PRN Reason: Pain Bumetanide Tab [Bumex Tab] 1 mg PO DAILY tab Ascorbic Acid [Vitamin C] 500 mg PO BIDWM tab Continue Rasagiline Mesylate [Azilect] 1 mg PO DAILY #0 Lactobacillus Acidophilus [Probiotic] 1 each PO DAILY Carboxymethyl/Gly/Poly80/Pf [Refresh Optive Advanced Drops] 1 each EACH EYE BID Omeprazole [Prilosec] 20 mg PO ACB Multivitamin [One Daily] 1 each PO DAILY Metoprolol Succinate 50 mg PO HS Melatonin/Pyridoxine HCl (B6) [Melatonin 5 mg Tablet] 5 mg PO DAILY Fluticasone Nasal [place] [Flonase] 1 spray DAVID DAILY Phenytoin Cap [Dilantin] 100 mg PO BID Digoxin [Digitek] 125 mcg PO DAILY Carbidopa/Levodopa [Carbidopa-Levo ER 25-100 Tab] 1 each PO TID Calcium Carbonate 600 mg PO BID Albuterol Neb (0.083%) [Proventil Neb (0.083%)] 2.5 mg AEROSOL Q6H PRN PRN Reason: Shortness Of Air Levothyroxine Tab [Synthroid] 50 mcg PO DAILY #0 Fexofenadine HCl [Erica Allergy] 60 mg PO BID PRN #0 tab PRN Reason: ALLERY SYMPTOMS Magnesium Oxide [Magnesium] 400 mg PO BID #0 cap Citalopram Hydrobromide [Celexa] 20 mg PO DAILY #0 tab Mirabegron [Myrbetriq] 50 mg PO HS Acetaminophen [Tylenol] 650 mg PO Q4H PRN tab PRN Reason: Pain Changed Potassium Chloride [K-Dur] 10 meq PO DAILY #0 Discontinued DiltiaZEM CD [Cardizem Cd] 1 tab PO DAILY #0 tab Warfarin Sodium [Coumadin] 3 mg PO SUTH Warfarin [Coumadin] 2 mg PO MOTUWEFRSA Bumetanide 2 mg PO DAILY Enoxaparin Sodium [Lovenox] 40 mg SQ Q24H syringe Tramadol [Ultram] 50 mg PO Q6H PRN PRN Reason: Pain Acetaminophen [Tylenol] 650 mg PO QID - Disposition 04 To [facility] Home/Facility
--- NOTE | 2017-04-25 11:47 | Letter to Referring Physician ---
Dear Dr. Blackwell, This is a brief note to bring you up-to-date on the status of Jessica Espinoza and her stay on the acute inpatient rehabilitation unit at [facility]. As you are likely aware, this patient was admitted to the acute care hospital on 04/12/17 for acute left femoral neck fracture sustained in her 's garage when she fell after losing her balance. She was admitted to the hospital and seen by Dr. Whitney who took her to surgery on 04/14/2017 for left hip hemiarthroplasty. Postoperatively she had some acute blood loss anemia, required additional oxygen supplementation and had hyponatremia with borderline low blood pressures. The patient was stabilized while on the acute level and admitted to inpatient rehabilitation unit at [facility] on April. While on inpatient rehabilitation, this patient was seen by occupational therapy and physical therapy and improved overall in their functional ability. We also monitored and managed the patient's atrial fibrillation, hypotension, acute blood loss anemia and debilitation while on Acute Rehab. Please see a copy of the history and physical examination as well as discharge summary enclosed with this letter for further details. We do recommend that the patient obtain an INR and BMP on 04/27/17. We have arranged this to be done via [employer]. Results will be sent to you. Please note that her dismissal hemoglobin is 9.4 g percent. Her dismissal sodium is 135 and her INR upon dismissal is 2.18. I did send her with hydrocodone 5 mg tablets #30 with no refills. Also please note that a urinalysis obtained within 24 hours of dismissal did show the presence of pyuria. This is being cultured and we will follow-up with you with regard to the need for an antibiotic. She is asymptomatic and afebrile. Thank you for allowing us to be involved in this nice patient's care. Please contact me directly should you have any questions regarding their stay on the inpatient rehabilitation unit. Sincerely, Ayan Delgadillo M.D.
[2017-04-25] MEDS ORDERED: WARFARIN 3 MG TABLET PO SCH (12:00)
[2017-04-25] MEDS: REFRESH CELLUVISC 1% Eye Drops 0.4ml EACH EYE SCH (12:24)
[2017-04-25 12:43] VITALS: RESP 16; TEMP 98.7
[2017-04-25 14:42] VITALS: BP 113/65; PULSE 99; O2SAT 99
--- NOTE | 2017-04-26 12:06 | Letter to Referring Physician ---
Dear Dr. Blackwell, This is a follow-up note to the letter I sent you yesterday regarding Jessica Espinoza. She was transferred to her apartment at [place] yesterday. A urine culture was pending. At the present time there is no growth. I would ask that you recheck on this on Saturday ([facility] lab) to make sure there continues to be no growth and to follow-up if needed. Thanks very much and let me know if you have any questions! Sincerely, Ayan Delgadillo M.D.
== END 2017-04-25 14:30 | DRG 559 ==
PROVIDERS: ADMIT Internal Medicine; ATTEND Internal Medicine